=== PATIENT | male | born 1970 | race Caucasian/White ===

== ENCOUNTER → 2017-05-23 | Outpatient (CLI) | payer OTHER ==
--- NOTE | 2017-06-02 23:06 | ECWPNPC ---
PATIENT NAME: REJI PICKARD : 1970 GENDER: MALE VISIT DATE: 05/23/2017 DISCHARGE DATE: 05/23/17 1554 VISIT LOCKED DATE TIME: PHYSICIAN: PEBBLES OWUSU RESOURCE: PEBBLES OWUSU REASON FOR APPOINTMENT 1. BACK PAIN HISTORY OF PRESENT ILLNESS FALL RISK SCREENING: SCREENING :NO FALLS IN THE PAST YEAR 47 Y/O MALE WITH A HISTORY OF LOW BACK PAIN. PATIENT DESCRIBES THE PAIN ACHING WITH A PAIN SCALE OF 4/10. PAIN IS INCREASE WITH ACTIVITIES. PATIENT HAS A HISTORY OF A FRACTURED L4 IN THE LATE S EARLY 1999. PATIENT HAS A HISTORY OF ARTHRITIS. 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 PAIN SCREENING: PATIENT HAS A COMPLAINT OF ACUTE OR CHRONIC PAIN :YES CURRENT MEDICATIONS TAKING GEMFIBROZIL 600 MG TABLET 1 TABLET ORALLY TWICE A DAY TAKING DULOXETINE HCL 40 MG CAPSULE DELAYED RELEASE PARTICLES 1 CAPSULE ORALLY ONCE A DAY TAKING METFORMIN HCL 500 MG TABLET 1 TABLET WITH MEALS ORALLY TWICE A DAY TAKING GLIPIZIDE ER 10 MG TABLET EXTENDED RELEASE 24 HOUR 1 TABLET ORALLY ONCE A DAY TAKING ASPIRIN 81 MG TABLET CHEWABLE 1 TABLET ORALLY ONCE A DAY TAKING VITAMIN D 2000 UNIT TABLET 1 TABLET ORALLY ONCE A DAY TAKING GABAPENTIN 400 MG CAPSULE 1 CAPSULE ORALLY TWICE A DAY TAKING TRAMADOL HCL 50 MG TABLET 1 TABLET NEEDED ORALLY EVERY 6 HRS TAKING AUGMENTIN 875-125 MG TABLET 1 TABLET ORALLY EVERY 12 HRS MEDICATION LIST REVIEWED AND RECONCILED WITH THE PATIENT PAST MEDICAL HISTORY DM STAN TX'D WITH CPAP AT NIGHT CHRONIC LBP L4 FX SHRAPNAL REMOVED ALLERGIES N.K.D.A. SURGICAL HISTORY SHRAPNAL REMOVAL 2004 COLOSTOMY 2004 COLOSTOMY REVERSAL 2005 APPENDECTOMY FAMILY HISTORY FATHER: ALIVE, DIAGNOSED WITH CANCER MOTHER: ALIVE, DIAGNOSED WITH OTHER 2 BROTHER(S) , 2 SISTER(S) - HEALTHY. 1 SON(S) , 1 DAUGHTER(S) - HEALTHY. FATHER-BONE/COLON CAMOTHER-SMOKER COPDBROTHER-BLOOD CLOTSSISTER-LEUKEMIA. SOCIAL HISTORY GENERAL: TOBACCO USE ARE YOU A:NONSMOKER HIV / HEP-C SCREENING HIV TEST OFFERED TO PATIENT:YES DATE OFFERED:08/20/2016 TEST ACCEPTED:NO REASON:PATIENT DECLINED HEP-C TEST OFFERED TO PATIENT:NO CHRISTIANITY [id number] PROTESTANT LANGUAGE LANGUAGES SPOKEN:ARMENIAN LEARNING BARRIERS / SPECIAL NEEDS BARRIERS TO LEARNING?NO HEARING IMPAIRED?YES :HEARING AIDES VISION IMPAIRED?YES :CORRECTIVE LENSES COGNITIVELY IMPAIRED?NO READINESS TO LEARN?YES LEARNING PREFERENCES?NO LEARNING CAPABILITIES PRESENT?YES EMOTIONAL BARRIERS?NO PAIN CLINIC PFS, CLERGY, PUBLIC HEALTH REFERRALS HAS THE PATIENT BEEN EDUCATED REGARDING HIS/HER PLAN OF CARE?YES HAS THE PATIENT BEEN EDUCATED REGARDING PAIN, THE RISK FOR PAIN, THE IMPORTANCE OF EFFECTIVE PAIN MANAGEMENT, AND THE PAIN ASSESSMENT PROCESS?YES ADVANCE DIRECTIVES HEALTH CARE PROXY?YES NAME OF HCP GREG PICKARD, [phone] DO YOU HAVE A DNR?NO LIVING WILL?NO POWER OF BIO MEDICAL TECHNICIAN?NO HOSPITALIZATION/MAJOR DIAGNOSTIC PROCEDURE SURGERY RELATED REVIEW OF SYSTEMS REVIEWED BY: PROVIDER: PEBBLES OWUSU MD . CONSTITUTIONAL: ANY CHANGE IN YOUR MEDICAL CONDITION? NO . CHILLS NO . FEVER NO . INFECTION: DO YOU HAVE NEW INFECTIONS? YES, SINUSITIS TX'D W ABX . DO YOU HAVE HISTORY OF MRSA? NO . MUSCULOSKELETAL: ANY NEW PATTERNS OF PAIN OR NUMBNESS? NO . SYTEMIC LUPUS NO . GASTROENTEROLOGY: ANY NEW CHANGE IN BOWEL CONTROL? NO . BARRETTS ESOPHAGUS NO . CIRRHOSIS NO . HEPATITIS NO . LIVER FAILURE NO . ACID REFLUX NO . UNEXPLAINED WEIGHT LOSS NO . GENITOURINARY: ANY NEW CHANGE IN BLADDER CONTROL? NO . IS THERE A CHANCE YOU COULD BE ? NO . HEMATOLOGY/LYMPH: DO YOU TAKE ANY BLOOD THINNERS? (FOR EXAMPLE- COUMADIN, PLAVIX, AGGRENOX, PLATEL, PRADAXA, OR XARELTO) NO . WHEN WAS YOUR LAST DOSE? DATE: TIME: . LOW PLATELET COUNT NO . SICKLE CELL DISEASE NO . VON WILLIEBRANDS NO . FACTOR V LEIDEN NO . THALLASEMIA NO . ANEMIA NO . EASY BRUISING NO . NEUROLOGY: HAVE YOU FALLEN IN THE PAST 6 MONTHS? YES, PT STATES HE FELL FROM LOSS OF BALANCE, PT DENIES SEEKING MEDICAL TX . ANY NEW EXTREMITY NUMBNESS OR WEAKNESS? NO . HEAD INJURY NO . DEMENTIA NO . CEREBRAL PALSY NO . MULTIPLE SCLEROSIS NO . DIZZINESS NO . HEADACHE NO . STROKES NO . VERTIGO NO . CARDIOLOGY: DO YOU HAVE A PACEMAKER OR DEFIBRILLATOR? NO . ANGINA NO . HEART ATTACK NO . HEART SURGERY NO . CONGESTIVE HEART FAILURE/FLUID OVERLOAD NO . CHEST PAIN NO . HIGH BLOOD PRESSURE NO . IRREGULAR HEART BEAT NO . RESPIRATORY: HAVE YOU BEEN SICK IN THE PAST WEEK? YES, SINUSITIS AND RIGHT EAR INFECTION TX'D WITH AUGMENTIN, PT STATES IMPROVING . FEVER NO . FLU LIKE SYMPTOMS? NO . CPAP NO . BYPAP NO . ASTHMA NO . EMPHYSEMA NO . CHRONIC LUNG DISEASES NO . SHORTNESS OF BREATH ON EXERTION NO . COUGH NO . SNORING NO . INTEGUMENTARY: DO YOU HAVE ANY RASHES OR OPEN SORES? NO . ALLERGIC/IMMUNO: ARE YOU ALLERGIC TO SHELLFISH OR IV DYE? NO . ANY NEW ALLERGIES? NO . PSYCHIATRIC: DO YOU HAVE THOUGHTS OF HURTING YOURSELF OR SOMEONE ELSE? NO . ARE YOU ABUSED, NEGLECTED, OR IN AN UNSAFE ENVIRONMENT? NO . ENDOCRINOLOGY: ARE YOU DIABETIC? YES . THYROID DISORDER NO . OTHER: DO YOU NEED ANY PRESCRIPTIONS? NO . IF YES, PLEASE LIST: ____ . ANY NEW PROBLEMS WITH YOUR MEDICATIONS? NO . WHEN DID YOU LAST EAT? ____ . WHEN DID YOU LAST DRINK? ____ . WHAT DID YOU LAST DRINK? ____ . NAME OF PERSON DRIVING YOU HOME? ____ . DO YOU HAVE ANY OTHER QUESTIONS OR CONCERNS NO . VITAL SIGNS WT 250.0 LBS, HT 68.5 IN, BMI 37.46 INDEX, BP 134/83 MM HG, HR 83 /MIN, RR 18 /MIN, TEMP 97.4 F, OXYGEN SAT % 96%, NA INITIALS TL 1430, REVIEWED BY: EM. EXAMINATION : TENDERNESS IN THE PARASPINAL MUSCLE GROUP AND SACROILIAC AREA. PATIENT IS LIMPING AND HAS AN ANTALGIC GAIT. LEFT LEG IS WEAKER AT EXENTION/FLEXION. PATIENT IS ABLE TO FLEX AT 45 DEGREES AND EXTEND AT 10 DEGREES. FAVRE TEST IS POSITIVE ON THE RIGHT SIDE. , LUNGS CLEAR, TO AUSCULTATION. NO MURMURS OR GALLOPS; FACIAL CRANIAL NERVES ARE GROSSLY NORMAL. GOOD SYMMETRY OF FACIAL MUSCLE MOVEMENT. NORMAL VISUAL FOWLER. ABDOMINAL SOFT AND DEPRESSIBLE. 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 PATIENT WILL CONTINUE WITH THEIR MEDICATION REGIME. WE DISCUSSED A BILATERAL SACROILIAC BLOCK UNDER X-RAY. PATIENT HAD A CT DONE AT THE [facility] IN [place]. PATIENT CAN ONLY HAVE A CT INSTEAD OF AN MRI DUE TO THE SHRAPNEL IN HIS BODY. PATIENT WILL BE BOOKED FOR THE BILATERAL SIJ AFTER WE HAVE REVIEWED THE CT AND HAVE APPROVAL. WE DISCUSSED THE RISKS AND BENEFITS OF THE INJECTION. INSTRUCTIONS WERE GIVEN, QUESTIONS WERE ANSWERED, PATIENT REPORTS UNDERSTANDING AND AGREES WITH THE PLAN. I, JEANNETTE JOHNSON, DOCUMENTED THE ABOVE INFORMATION ACTING A SCRIBE FOR DR. OWUSU. I HAVE REVIEWED THE ABOVE DOCUMENT, WRITTEN BY JEANNETTE JOHNSON SCRIBE AND I VERIFY THAT IT IS ACCURATE. PROCEDURE CODES FA211 ESTABILISHED PATIENT THE [facility] FACILITY CHARGE G8730 PAIN ASSESS POS TOOL F/U PLAN DOC G8427 DOC MEDS VERIFIED W/PT OR RE DISPOSITION & COMMUNICATION FOLLOW UP 6 WEEKS ELECTRONICALLY SIGNED BY PEBBLES OWUSU MD ON 06/02/2017 AT 05:55 PM EST DISCLAIMER : THIS IS A VISIT SUMMARY EXTRACTED FROM THE [facility] CHART. IT IS NOT A COPY OF THE [facility] PROGRESS NOTE. MTDMarkel
== END ==
LOC: M PAIN 14:30
PROVIDERS: ATTEND Anesthesiology
DX: M54.5 Low back pain (principal); M53.3 Sacrococcygeal disorders, not elsewhere classified; E11.9 Type 2 diabetes mellitus without complications; M19.90 Unspecified osteoarthritis, unspecified site; Z79.82 Long term (current) use of aspirin; Z79.891 Long term (current) use of opiate analgesic; Z79.899 Other long term (current) drug therapy; Z79.84 Long term (current) use of oral hypoglycemic drugs

== ENCOUNTER → 2017-06-27 | Outpatient (CLI) | payer OTHER | LOC: M PAIN 14:00 | DX: G89.29 Other chronic pain (principal); M53.3 Sacrococcygeal disorders, not elsewhere classified; M46.96 Unspecified inflammatory spondylopathy, lumbar region; S32.030S Wedge compression fracture of third lumbar vertebra, sequela; E11.9 Type 2 diabetes mellitus without complications; G47.33 Obstructive sleep apnea (adult) (pediatric); Z79.84 Long term (current) use of oral hypoglycemic drugs; Z79.82 Long term (current) use of aspirin; Z79.899 Other long term (current) drug therapy | CPT/HCPCS: G0463 ==

== ENCOUNTER → 2017-07-15 | Outpatient (CLI) | payer OTHER ==
[~2017-07-15] MED LIST: BUPIVACAINE HCL 0.25% 30 ML VIAL As Ordered; ISOVUE-M 300 61% 15ML VIAL (Q9967) As Ordered; LIDOCAINE 1% SDV INJ 30 ML VIAL As Ordered; TRIAMCINOLONE ACETONIDE SUSP 40 MG/ML VIAL (J3301) As Ordered; diazePAM 5 MG TAB As Ordered; oxyCODONE 5MG TAB As Ordered
== END ==
LOC: M PAIN 14:30
DX: G89.29 Other chronic pain (principal); M46.1 Sacroiliitis, not elsewhere classified; M53.88 Other specified dorsopathies, sacral and sacrococcygeal region; E11.9 Type 2 diabetes mellitus without complications; G47.33 Obstructive sleep apnea (adult) (pediatric); Z79.82 Long term (current) use of aspirin; Z79.899 Other long term (current) drug therapy
CPT/HCPCS: J3301

== ENCOUNTER → 2017-08-19 | Outpatient (CLI) | payer OTHER | LOC: M PAIN 09:00 | DX: M53.3 Sacrococcygeal disorders, not elsewhere classified (principal); M46.96 Unspecified inflammatory spondylopathy, lumbar region; S32.030S Wedge compression fracture of third lumbar vertebra, sequela; D11.9 Benign neoplasm of major salivary gland, unspecified; Z79.82 Long term (current) use of aspirin; Z79.84 Long term (current) use of oral hypoglycemic drugs; Z79.891 Long term (current) use of opiate analgesic; Z79.899 Other long term (current) drug therapy; Y92.89 Other specified places as the place of occurrence of the external cause; Y93.89 Activity, other specified; Y99.8 Other external cause status; X58.XXXA Exposure to other specified factors, initial encounter | CPT/HCPCS: G0463 ==

== ENCOUNTER → 2017-10-07 | Outpatient (CLI) | payer OTHER | LOC: M PAIN 14:30 | DX: G89.29 Other chronic pain (principal); M53.3 Sacrococcygeal disorders, not elsewhere classified; M46.96 Unspecified inflammatory spondylopathy, lumbar region; E11.9 Type 2 diabetes mellitus without complications; G47.33 Obstructive sleep apnea (adult) (pediatric); M54.5 Low back pain; Z79.84 Long term (current) use of oral hypoglycemic drugs; Z79.891 Long term (current) use of opiate analgesic; Z79.899 Other long term (current) drug therapy | CPT/HCPCS: G0463 ==

== ENCOUNTER → 2017-10-14 | Outpatient (CLI) | payer OTHER | LOC: M PAIN 11:45 | DX: G89.29 Other chronic pain (principal); M46.1 Sacroiliitis, not elsewhere classified; M53.88 Other specified dorsopathies, sacral and sacrococcygeal region; E11.9 Type 2 diabetes mellitus without complications; G47.33 Obstructive sleep apnea (adult) (pediatric); Z79.84 Long term (current) use of oral hypoglycemic drugs; Z79.82 Long term (current) use of aspirin; Z79.899 Other long term (current) drug therapy | CPT/HCPCS: J3301 ==

== ENCOUNTER → 2017-11-14 | Outpatient (CLI) | payer OTHER | LOC: M PAIN 09:00 | DX: M53.3 Sacrococcygeal disorders, not elsewhere classified (principal); M46.96 Unspecified inflammatory spondylopathy, lumbar region; E11.9 Type 2 diabetes mellitus without complications; G47.33 Obstructive sleep apnea (adult) (pediatric); Z79.84 Long term (current) use of oral hypoglycemic drugs; Z79.82 Long term (current) use of aspirin; Z79.899 Other long term (current) drug therapy | CPT/HCPCS: G0463 ==

== ENCOUNTER → 2018-01-01 | Outpatient (CLI) | payer OTHER | LOC: M PAIN 08:45 | DX: G89.29 Other chronic pain (principal); M47.816 Spondylosis without myelopathy or radiculopathy, lumbar region; M47.817 Spondylosis without myelopathy or radiculopathy, lumbosacral region; E11.9 Type 2 diabetes mellitus without complications; G47.33 Obstructive sleep apnea (adult) (pediatric); Z79.84 Long term (current) use of oral hypoglycemic drugs; Z79.82 Long term (current) use of aspirin; Z79.899 Other long term (current) drug therapy | CPT/HCPCS: J3301 ==

== ENCOUNTER 2018-02-21 12:37 | Emergency (ER) | payer OTHER ==
[2018-02-21 12:59] LABS: BASO # 0.1 10^3/uL (0.0-0.2); BASO % 0.5 % (0.0-1.0); EOS # 0.1 10^3/uL (0.0-0.50); EOS % 0.5 % (0.0-3.0); HEMATOCRIT 42.1 % (42.0-52.0); HEMOGLOBIN 15.2 g/dl (13.5-17.5); IMMATURE GRANULOCYTE % 0.5 % (0-3.0); LYMPH # 1.6 10^3/uL (1.5-4.5); LYMPH % 12.8 % (24.0-44.0); MEAN CORPUSCULAR HEMOGLOBIN 32.9 pg (27.0-33.0); MEAN CORPUSCULAR HGB CONC 36.1 g/dl (32.0-36.5); MEAN CORPUSCULAR VOLUME 91.1 fl (80.0-96.0); MONO # 1.5 10^3/uL (0.0-0.8); MONO % 11.8 % (0.0-5.0); NEUTROPHILS # 9.4 10^3/uL (1.8-7.7); NEUTROPHILS % 73.9 % (36.0-66.0); PLATELET COUNT, AUTOMATED 245 10^3/uL (150-450); RED BLOOD COUNT 4.62 10^6/uL (4.30-6.10); RED CELL DISTRIBUTION WIDTH 11.9 % (11.5-14.5); WHITE BLOOD COUNT 12.7 10^3/uL (4.0-10.0)
[2018-02-21 13:12] LABS: PROTHROMBIN TIME 13.3 SECONDS (12.1-14.4)
[2018-02-21 13:13] LABS: PARTIAL THROMBOPLASTIN TIME 23.4 SECONDS (25.4-37.6)
[2018-02-21 13:28] LABS: ALBUMIN 4.2 GM/DL (3.2-5.2); ALBUMIN/GLOBULIN RATIO 1.45 (1.00-1.93); ALKALINE PHOSPHATASE 62 U/L (45-117); ALT/SGPT 38 U/L (12-78); ANION GAP 9 MEQ/L (8-16); AST/SGOT 18 U/L (7-37); BILIRUBIN,DIRECT 0.2 MG/DL (0.0-0.2); BILIRUBIN,TOTAL 0.7 MG/DL (0.2-1.0); BLOOD UREA NITROGEN 19 MG/DL (7-18); CALCIUM LEVEL 8.9 MG/DL (8.5-10.1); CARBON DIOXIDE LEVEL 24 MEQ/L (21-32); CHLORIDE LEVEL 107 MEQ/L (98-107); CPK CREATINE PHOSPHOKINASE 238 U/L (39-308); CREATININE FOR GFR 1.12 MG/DL (0.70-1.30); FREE T4 1.06 NG/DL (0.76-1.46); GLOMERULAR FILTRATION RATE > 60.0 (>60); GLUCOSE, FASTING 113 MG/DL (70-100); LIPASE 217 U/L (73-393); MB/CK RELATIVE INDEX 0.92 (< OR =4); SODIUM LEVEL 140 MEQ/L (136-145); TOTAL PROTEIN 7.1 GM/DL (6.4-8.2); TROPONIN I 0.04 NG/ML (< 0.10)
[2018-02-21] MEDS: ASPIRIN 81 MG CHEW TABLET PO (13:33)
[2018-02-21] MEDS: NITROGLYCERIN 0.4 MG SUBL TABLET SL (13:33)
[2018-02-21 17:36] LABS: CPK CREATINE PHOSPHOKINASE 304 U/L (39-308); MB/CK RELATIVE INDEX 0.89 (< OR =4); TROPONIN I 0.06 NG/ML (< 0.10)
== END 2018-02-21 18:31 | disposition home or self-care (01) ==
LOC: M ED 12:37
DX: R07.89 Other chest pain (principal); E11.9 Type 2 diabetes mellitus without complications; I10 Essential (primary) hypertension; E78.5 Hyperlipidemia, unspecified; G47.33 Obstructive sleep apnea (adult) (pediatric); E66.9 Obesity, unspecified; M51.9 Unspecified thoracic, thoracolumbar and lumbosacral intervertebral disc disorder; Z82.49 Family history of ischemic heart disease and other diseases of the circulatory system; Z99.89 Dependence on other enabling machines and devices; Z79.899 Other long term (current) drug therapy; Z79.82 Long term (current) use of aspirin; Z79.84 Long term (current) use of oral hypoglycemic drugs
CPT/HCPCS: 71045

== ENCOUNTER → 2018-03-27 | Outpatient (CLI) | payer OTHER | LOC: M CARPUL 10:03 | DX: R07.9 Chest pain, unspecified (principal) | CPT/HCPCS: 93306 ==

== ENCOUNTER → 2018-03-30 | Outpatient (CLI) | payer OTHER | LOC: M PAIN 10:45 | DX: M47.816 Spondylosis without myelopathy or radiculopathy, lumbar region (principal); M46.96 Unspecified inflammatory spondylopathy, lumbar region; E11.9 Type 2 diabetes mellitus without complications; G47.33 Obstructive sleep apnea (adult) (pediatric); Z79.84 Long term (current) use of oral hypoglycemic drugs; Z79.82 Long term (current) use of aspirin; Z79.899 Other long term (current) drug therapy | CPT/HCPCS: G0463 ==

== ENCOUNTER → 2018-04-06 | Outpatient (REF) | payer OTHER | LOC: M SFHCLERA 09:59 | DX: J35.8 Other chronic diseases of tonsils and adenoids (principal) ==

== ENCOUNTER 2018-05-03 10:07 | Emergency (ER) | payer OTHER ==
[2018-05-03 11:02] LABS: KETONE, URINE AUTO RFX NEGATIVE (NEGATIVE); LEUKOCYTE ESTERASE UR AUTO RFX NEGATIVE (NEGATIVE); NITRITE, URINE AUTO RFX NEGATIVE (NEGATIVE); RBC, URINE AUTO RFX 0 /HPF (0-3); SPECIFIC GRAVITY UR AUTO RFX 1.001 (1.002-1.035); SQUAM EPITHELIAL CELL UR AURFX 0 /HPF (0-6); WBC, URINE AUTO RFX 0 /HPF (0-3)
[2018-05-03] MEDS: KETOROLAC 30 MG/ML VIAL (J1885) IV (11:06)
[2018-05-03 11:10] LABS: BASO % 0.6 % (0.0-1.0); EOS # 0.1 10^3/uL (0.0-0.50); EOS % 2.1 % (0.0-3.0); HEMATOCRIT 44.3 % (42.0-52.0); HEMOGLOBIN 15.5 g/dl (13.5-17.5); IMMATURE GRANULOCYTE % 0.4 % (0-3.0); LYMPH # 1.7 10^3/uL (1.5-4.5); LYMPH % 24.6 % (24.0-44.0); MEAN CORPUSCULAR VOLUME 91.5 fl (80.0-96.0); MONO # 0.6 10^3/uL (0.0-0.8); MONO % 8.9 % (0.0-5.0); NEUTROPHILS # 4.3 10^3/uL (1.8-7.7); NEUTROPHILS % 63.4 % (36.0-66.0); PLATELET COUNT, AUTOMATED 233 10^3/uL (150-450); RED BLOOD COUNT 4.84 10^6/uL (4.30-6.10); WHITE BLOOD COUNT 6.8 10^3/uL (4.0-10.0)
[2018-05-03 11:31] LABS: ANION GAP 8 MEQ/L (8-16); BLOOD UREA NITROGEN 11 MG/DL (7-18); CALCIUM LEVEL 8.4 MG/DL (8.5-10.1); CARBON DIOXIDE LEVEL 26 MEQ/L (21-32); CHLORIDE LEVEL 106 MEQ/L (98-107); CREATININE FOR GFR 0.87 MG/DL (0.70-1.30); GLOMERULAR FILTRATION RATE > 60.0 (>60); GLUCOSE, FASTING 151 MG/DL (70-100); POTASSIUM SERUM 4.4 MEQ/L (3.5-5.1); SODIUM LEVEL 140 MEQ/L (136-145)
== END 2018-05-03 12:32 | disposition home or self-care (01) ==
LOC: M ED 10:07
DX: R10.9 Unspecified abdominal pain (principal); E11.9 Type 2 diabetes mellitus without complications; I10 Essential (primary) hypertension; E78.5 Hyperlipidemia, unspecified
CPT/HCPCS: J1885

== ENCOUNTER → 2018-05-20 | Outpatient (CLI) | payer OTHER ==
[~2018-05-20] MED LIST changes: +ASPI1TAB PO; -BUPIVACAINE HCL 0.25% 30 ML VIAL As Ordered; +BUPIVACAINE HCL 0.25% 30 ML VIAL As Ordered ONE; +CYMB1CAP5 PO; +GEMF600T5 PO; -ISOVUE-M 300 61% 15ML VIAL (Q9967) As Ordered; +ISOVUE-M 300 61% 15ML VIAL (Q9967) As Ordered ONE; +KETO10TAB PO; +LIDO4CRE4 TOP; -LIDOCAINE 1% SDV INJ 30 ML VIAL As Ordered; +LIDOCAINE 1% SDV INJ 30 ML VIAL As Ordered ONE; +LISI-542 PO; +METF500T13 PO; +METO1TAB32 PO; +NEUR100C PO; +NITR0.4S14 SL; +TRAM50TA2 PO; -TRIAMCINOLONE ACETONIDE SUSP 40 MG/ML VIAL (J3301) As Ordered; -diazePAM 5 MG TAB As Ordered; -oxyCODONE 5MG TAB As Ordered
--- NOTE | 2018-05-20 15:17 | REP ---
Partial lumbar spine series: Four views . History: Injection procedure for pain. 26 seconds of fluoroscopy time is reported. Findings: A sequence of four fluoroscopically obtained last image hold procedural spot radiographs of the lumbar spine document needle position and contrast injection associated with injection procedure. Electronically Signed by Nikita Gonzalez MD 05/20/2018 03:09 P
--- NOTE | 2018-06-09 23:59 | ECWPNPC ---
PATIENT NAME: REJI PICKARD : 1970 GENDER: MALE VISIT DATE: 05/20/2018 DISCHARGE DATE: 05/20/18 1251 VISIT LOCKED DATE TIME: PHYSICIAN: PEBBLES OWUSU MD RESOURCE: PEBBLES OWUSU MD REASON FOR APPOINTMENT 1. L3/4-L4/5 BILAT DIAGNOSTIC FACET BLOCK HISTORY OF PRESENT ILLNESS DEPRESSION SCREENING: PHQ-2 IN LAST TWO WEEKS HAVE YOU BEEN BOTHERED BY LITTLE INTEREST OR PLEASURE IN DOING THINGSNO FEELING DOWN, DEPRESSED, OR HOPELESSNO HISTORY OF PRESENT ILLNESS: PAIN THE PATIENT DESCRIBES THE PAIN... FALL RISK SCREENING: SCREENING :NO FALLS IN THE PAST YEAR CURRENT MEDICATIONS TAKING LISINOPRIL 10 MG TABLET 1/2 TABLET ORALLY ONCE A DAY, NOTES: 05/20/18 AM TAKING GEMFIBROZIL 600 MG TABLET 1 TABLET ORALLY TWICE A DAY, NOTES: 05/20/18 AM TAKING DULOXETINE HCL 40 MG CAPSULE DELAYED RELEASE PARTICLES 1 CAPSULE ORALLY ONCE A DAY, NOTES: 05/20/18 AM TAKING METFORMIN HCL 500 MG TABLET 1 TABLET WITH MEALS ORALLY TWICE A DAY, NOTES: 05/19/18 TAKING GLIPIZIDE ER 10 MG TABLET EXTENDED RELEASE 24 HOUR 1 TABLET ORALLY ONCE A DAY, NOTES: 05/19/18 TAKING ASPIRIN 81 MG TABLET CHEWABLE 1 TABLET ORALLY ONCE A DAY, NOTES: 05/20/18 AM TAKING VITAMIN D 2000 UNIT TABLET 1 TABLET ORALLY ONCE A DAY, NOTES: 05/20/18 AM TAKING GABAPENTIN 400 MG CAPSULE 2 CAPSULES ORALLY TWICE A DAY, NOTES: 05/20/18 AM TAKING TRAMADOL HCL 50 MG TABLET 1 TABLET NEEDED ORALLY EVERY 6 HRS, NOTES: 2 WEEKS AGO TAKING SUDAFED 30 MG TABLET 1 TABLET NEEDED ORALLY EVERY 6 HRS, NOTES: NONE LATELY TAKING FLONASE 50 MCG/ACT SUSPENSION 1 SPRAY IN EACH NOSTRIL NASALLY TWICE A DAY, NOTES: NONE LATELY TAKING NETI POT SINUS WASH 2300-700 MG KIT DIRECTED NASALLY BID, NOTES: NONE LATELY TAKING MUCINEX DM 30-600 MG TABLET EXTENDED RELEASE 12 HOUR 1 TABLET NEEDED ORALLY EVERY 12 HRS, NOTES: NONE LATELY MEDICATION LIST REVIEWED AND RECONCILED WITH THE PATIENT PAST MEDICAL HISTORY DM STAN TX'D WITH CPAP AT NIGHT CHRONIC LBP L4 FX SHRAPNAL REMOVED ALLERGIES N.K.D.A. SURGICAL HISTORY SHRAPNAL REMOVAL 2004 COLOSTOMY 2004 COLOSTOMY REVERSAL 2005 APPENDECTOMY SOCIAL HISTORY GENERAL: TOBACCO USE ARE YOU A:NONSMOKER ALCOHOL SCREENING DID YOU HAVE A DRINK CONTAINING ALCOHOL IN THE PAST YEAR?YES HOW OFTEN DID YOU HAVE A DRINK CONTAINING ALCOHOL IN THE PAST YEAR?TWO TO FOUR TIMES A MONTH (2 POINTS) HOW MANY DRINKS DID YOU HAVE ON A TYPICAL DAY WHEN YOU WERE DRINKING IN THE PAST YEAR?1 OR 2 (0 POINTS) HOW OFTEN DID YOU HAVE SIX OR MORE DRINKS ON ONE OCCASION IN THE PAST YEAR?NEVER (0 POINTS) POINTS2 INTERPRETATIONNEGATIVE RECREATIONAL DRUG USE DRUG USE?NO CAFFEINE CAFFEINE USE?YES HOW OFTEN AND HOW MUCH? 5 CUPS COFFEE/DAY HIV / HEP-C SCREENING HIV TEST OFFERED TO PATIENT:YES DATE OFFERED:04/06/2018 TEST ACCEPTED:NO REASON:PATIENT DECLINED BROCHURE PROVIDED TO PATIENTNO HEP-C TEST OFFERED TO PATIENT:NO EPISCOPALIAN [id number] LUTHERAN LANGUAGE LANGUAGES SPOKEN:AZERBAIJANI LEARNING BARRIERS / SPECIAL NEEDS BARRIERS TO LEARNING?NO HEARING IMPAIRED?YES :HEARING AIDES VISION IMPAIRED?YES :CORRECTIVE LENSES COGNITIVELY IMPAIRED?NO READINESS TO LEARN?YES LEARNING PREFERENCES?NO LEARNING CAPABILITIES PRESENT?YES EMOTIONAL BARRIERS?NO DOMESTIC VIOLENCE DO YOU FEEL SAFE IN YOUR ENVIRONMENT?YES PAIN CLINIC PFS, CLERGY, PUBLIC HEALTH REFERRALS PFS REFERRAL NEEDED?NO CLERGY REFERRAL NEEDED?NO PUBLIC HEALTH REFERRAL NEEDED?NO WAS THE PROVIDER NOTIFIED OF ANY PERTINENT INFO?NO N/A HAS THE PATIENT BEEN EDUCATED REGARDING HIS/HER PLAN OF CARE?YES HAS THE PATIENT BEEN EDUCATED REGARDING PAIN, THE RISK FOR PAIN, THE IMPORTANCE OF EFFECTIVE PAIN MANAGEMENT, AND THE PAIN ASSESSMENT PROCESS?YES ADVANCE DIRECTIVE ADVANCE DIRECTIVE DISCUSSED WITH PATIENT:YES PT DECLINED INFORMATION ON HCP REVIEWED 11/14/17 0900 BVREVIEWED WITH PT 03/2218 1056 BV. HOSPITALIZATION/MAJOR DIAGNOSTIC PROCEDURE SURGERY RELATED REVIEW OF SYSTEMS REVIEWED BY: PROVIDER: . CONSTITUTIONAL: ANY CHANGE IN YOUR MEDICAL CONDITION? NO . CHILLS NO . FEVER NO . INFECTION: DO YOU HAVE NEW INFECTIONS? NO . DO YOU HAVE HISTORY OF MRSA? NO . MUSCULOSKELETAL: ANY NEW PATTERNS OF PAIN OR NUMBNESS? NO . GASTROENTEROLOGY: ANY NEW CHANGE IN BOWEL CONTROL? NO . GENITOURINARY: ANY NEW CHANGE IN BLADDER CONTROL? NO . IS THERE A CHANCE YOU COULD BE ? NO . HEMATOLOGY/LYMPH: DO YOU TAKE ANY BLOOD THINNERS? (FOR EXAMPLE- COUMADIN, PLAVIX, AGGRENOX, PLATEL, PRADAXA, OR XARELTO) NO . WHEN WAS YOUR LAST DOSE? DATE: TIME: . NEUROLOGY: HAVE YOU FALLEN IN THE PAST 6 MONTHS? NO . ANY NEW EXTREMITY NUMBNESS OR WEAKNESS? NO . CARDIOLOGY: DO YOU HAVE A PACEMAKER OR DEFIBRILLATOR? NO . RESPIRATORY: HAVE YOU BEEN SICK IN THE PAST WEEK? NO . FEVER NO . FLU LIKE SYMPTOMS? NO . COUGH NO . INTEGUMENTARY: DO YOU HAVE ANY RASHES OR OPEN SORES? NO . ALLERGIC/IMMUNO: ARE YOU ALLERGIC TO SHELLFISH OR IV DYE? NO . ANY NEW ALLERGIES? NO . PSYCHIATRIC: DO YOU HAVE THOUGHTS OF HURTING YOURSELF OR SOMEONE ELSE? NO . ARE YOU ABUSED, NEGLECTED, OR IN AN UNSAFE ENVIRONMENT? NO . ENDOCRINOLOGY: ARE YOU DIABETIC? YES . OTHER: DO YOU NEED ANY PRESCRIPTIONS? NO . IF YES, PLEASE LIST: ____ . ANY NEW PROBLEMS WITH YOUR MEDICATIONS? NO . WHEN DID YOU LAST EAT? 05/20/18 0530 . WHEN DID YOU LAST DRINK? 05/20/18 0600 . WHAT DID YOU LAST DRINK? WATER . NAME OF PERSON DRIVING YOU HOME? KATHARINE . DO YOU HAVE ANY OTHER QUESTIONS OR CONCERNS NO . VITAL SIGNS WT 248.6 LBS, HT 68.5 IN, BMI 37.25 INDEX, BP 134/81 MM HG, HR 65 /MIN, RR 18 /MIN, TEMP 96.7 F, OXYGEN SAT % 98%, NA INITIALS SC 10:35, REVIEWED BY: EM. ASSESSMENTS SPONDYLOSIS OF LUMBAR REGION WITHOUT MYELOPATHY OR RADICULOPATHY - M47.816 (PRIMARY) SPONDYLOSIS OF LUMBOSACRAL REGION WITHOUT MYELOPATHY OR RADICULOPATHY - M47.817 PROCEDURES PN LUMBAR FACET BLOCK DIAGNOSTIC PRE PROCEDURE DIAGNOSIS 1. LUMBAR SPONDYLOSIS. 2. LUMBOSACRAL SPONDYLOSIS POST PROCEDURE DIAGNOSIS 1. LUMBAR SPONDYLOSIS. 2. LUMBOSACRAL SPONDYLOSIS PROCEDURE BILATERAL L4-L5 AND BILATERAL L5-S1 FACET DIAGNOSTIC BLOCK NUMBER [address] 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 I EVALUATED THE PATIENT AND REVIEWED THE CHART. I WENT OVER THE RISKS, ALTERNATIVES, AND BENEFITS ASSOCIATED WITH THIS PROCEDURE. THE PATIENT WOULD LIKE TO PROCEED AND GAVE CONSENT TO PERFORM THE PROCEDURE. AGREED WITH THE PATIENT WE ARE DOING THIS PROCEDURE TO DETERMINE IF THE PATIENT IS A CANDIDATE FOR A RADIOFREQUENCY ABLATION OF THE FACETS JOINTS. THE PATIENT DENIES UNEXPLAINABLE WEIGHT LOSS, FEVER, CHILLS, OR NEW CHANGES IN URINARY OR BOWEL CONTROL DESCRIPTION OF PROCEDURE THE PATIENT WAS BROUGHT TO THE PROCEDURE ROOM AND PLACED IN THE PRONE POSITION. THE LUMBOSACRAL AREA WAS CLEANED WITH CHLORAPREP SOLUTION AND DRAPED ASEPTICALLY. THE PROCEDURE WAS DONE UNDER STERILE CONDITIONS. I CHECKED LATERALITY AND THE LEVEL WHERE THE PROCEDURE WAS GOING TO BE PERFORMED WITH THE PATIENT AND THE SUPPORTING STAFF AT THE MOMENT OF THE TIME OUT IN THE PROCEDURE ROOM. UNDER FLUOROSCOPIC GUIDANCE, TARGETS WERE SELECTED AT THE INTERSECTION OF THE RIGHT AND LEFT TRANSVERSE PROCESS OF L4, L5 AND ALA OF S1 WITH ITS RESPECTIVE SUPERIOR ARTICULAR PROCESS. LIDOCAINE WAS USED TO NUMB THE SKIN AND THE SUBCUTANEOUS TISSUE BELOW IT. SPINAL NEEDLE, 22-GAUGE WAS ADVANCED UNDER FLUOROSCOPIC GUIDANCE AND FOLLOWING PATIENT FEEDBACK UNTIL THE TARGETS WERE REACHED. POSITION OF THE NEEDLES WAS VERIFIED WITH AP AND LATERAL VIEWS. AFTER PROPER POSITION OF THE NEEDLES WAS ACHIEVED, ISOVUE-M DYE 30% 0.1 ML WAS INJECTED AT EACH SITE SHOWING ADEQUATE SPREAD OF THE DYE. THEN A SOLUTION OF 0.4 ML OF BUPIVACAINE 0.25%, WAS INJECTED AT EACH SITE. THERE WAS NO EVIDENCE OF BLOOD, PARESTHESIA OR CEREBROSPINAL FLUID DURING THE PROCEDURE. THE PATIENT WAS SENT TO THE RECOVERY ROOM. THE PATIENT WAS MOVING THE EXTREMITIES AND DOING WELL. THERE WAS NO COMPLICATION DURING THE PROCEDURE. FLUOROSCOPY TIME WAS 26 SECONDS POST PROCEDURE NOTE THE PATIENT WILL DOCUMENT HIS PAIN LEVEL AND RESPONSE TO THIS PROCEDURE EVERY 30 MINUTES. THE PATIENT WILL BE SEEN IN A FOLLOW UP IN THE NEXT FEW WEEKS. FURTHER DETERMINATION FOR HIS CASE WILL BE DONE AT THE NEXT VISIT. INSTRUCTIONS WERE GIVEN, QUESTIONS WERE ANSWERED, AND THE PATIENT EXPRESSED UNDERSTANDING AND AGREED WITH THE PLAN. I, EDMUNDO CORRAL, DOCUMENTED THE ABOVE INFORMATION ACTING A SCRIBE FOR DR. OWUSU. I HAVE REVIEWED THE ABOVE DOCUMENT, WRITTEN BY EDMUNDO CORRAL SCRIBE AND I VERIFY THAT IT IS ACCURATE DIAGNOSTIC IMAGING [facility] FACET BLOCK (PAIN)[id number] PROCEDURE CODES 6045F RADXPS IN END [id number] PXD [id number] INJ PARAVERT F JNT L/S 1 LEV, MODIFIERS: 50 01005 INJ PARAVERT F JNT L/S 2 LEV, MODIFIERS: 50 DISPOSITION & COMMUNICATION FOLLOW UP 3 WEEKS ELECTRONICALLY SIGNED BY PEBBLES OWUSU MD, MD ON 06/09/2018 AT 03:51 PM EST DISCLAIMER : THIS IS A VISIT SUMMARY EXTRACTED FROM THE [facility] [employer] CHART. IT IS NOT A COPY OF THE [facility] PROGRESS NOTE. KATIA
== END ==
LOC: M PAIN 10:45
PROVIDERS: ATTEND Anesthesiology
DX: M47.816 Spondylosis without myelopathy or radiculopathy, lumbar region (principal); M47.817 Spondylosis without myelopathy or radiculopathy, lumbosacral region; E11.9 Type 2 diabetes mellitus without complications; G47.33 Obstructive sleep apnea (adult) (pediatric); Z90.49 Acquired absence of other specified parts of digestive tract; Z79.84 Long term (current) use of oral hypoglycemic drugs; Z79.899 Other long term (current) drug therapy; Z79.82 Long term (current) use of aspirin
CPT/HCPCS: 64493; 64494; Q9967

== ENCOUNTER → 2018-06-11 | Outpatient (CLI) | payer OTHER ==
[~2018-06-11] MED LIST changes: -BUPIVACAINE HCL 0.25% 30 ML VIAL As Ordered ONE; -ISOVUE-M 300 61% 15ML VIAL (Q9967) As Ordered ONE; -LIDOCAINE 1% SDV INJ 30 ML VIAL As Ordered ONE
--- NOTE | 2018-07-02 01:06 | ECWPNPC ---
PATIENT NAME: REJI PICKARD : 1970 GENDER: MALE VISIT DATE: 06/11/2018 DISCHARGE DATE: 06/11/18 1223 VISIT LOCKED DATE TIME: PHYSICIAN: MARILEE EVANS RESOURCE: MARILEE EVANS REASON FOR APPOINTMENT 1. POST PROC HISTORY OF PRESENT ILLNESS HISTORY OF PRESENT ILLNESS: HERE FOR POST PROCEDURE F/U.HAD BILATERAL DIAGNOSTIC BLOCK ON 05-20-18.REPORTING >50% IMPROVEMENT IN PAIN FOR SEVERAL HOURS POST PROCEDURE.CHIEF AREA OF PAIN IS LOW BACK R>L.PAIN IS AGGREVATED BY BENDING OR WALKING.RATING PAIN VAS 3-8/10. PAIN THE PATIENT DESCRIBES THE PAIN... FALL RISK SCREENING: SCREENING :NO FALLS IN THE PAST YEAR CURRENT MEDICATIONS TAKING LISINOPRIL 10 MG TABLET 1/2 TABLET ORALLY ONCE A DAY, NOTES: 05/20/18 AM TAKING GEMFIBROZIL 600 MG TABLET 1 TABLET ORALLY TWICE A DAY, NOTES: 05/20/18 AM TAKING DULOXETINE HCL 40 MG CAPSULE DELAYED RELEASE PARTICLES 1 CAPSULE ORALLY ONCE A DAY, NOTES: 05/20/18 AM TAKING METFORMIN HCL 500 MG TABLET 1 TABLET WITH MEALS ORALLY TWICE A DAY, NOTES: 05/19/18 TAKING GLIPIZIDE ER 10 MG TABLET EXTENDED RELEASE 24 HOUR 1 TABLET ORALLY ONCE A DAY, NOTES: 05/19/18 TAKING ASPIRIN 81 MG TABLET CHEWABLE 1 TABLET ORALLY ONCE A DAY, NOTES: 05/20/18 AM TAKING VITAMIN D 2000 UNIT TABLET 1 TABLET ORALLY ONCE A DAY, NOTES: 05/20/18 AM TAKING GABAPENTIN 400 MG CAPSULE 2 CAPSULES ORALLY TWICE A DAY, NOTES: 05/20/18 AM TAKING TRAMADOL HCL 50 MG TABLET 1 TABLET NEEDED ORALLY EVERY 6 HRS, NOTES: 2 WEEKS AGO TAKING SUDAFED 30 MG TABLET 1 TABLET NEEDED ORALLY EVERY 6 HRS, NOTES: NONE LATELY TAKING FLONASE 50 MCG/ACT SUSPENSION 1 SPRAY IN EACH NOSTRIL NASALLY TWICE A DAY, NOTES: NONE LATELY TAKING NETI POT SINUS WASH 2300-700 MG KIT DIRECTED NASALLY BID, NOTES: NONE LATELY TAKING MUCINEX DM 30-600 MG TABLET EXTENDED RELEASE 12 HOUR 1 TABLET NEEDED ORALLY EVERY 12 HRS, NOTES: NONE LATELY TAKING METOPROLOL SUCCINATE ER 50 MG TABLET EXTENDED RELEASE 24 HOUR 1 TABLET ORALLY ONCE A DAY TAKING ATORVASTATIN CALCIUM 20 MG TABLET 1 TABLET ORALLY ONCE A DAY MEDICATION LIST REVIEWED AND RECONCILED WITH THE PATIENT PAST MEDICAL HISTORY DM STAN TX'D WITH CPAP AT NIGHT CHRONIC LBP L4 FX SHRAPNAL REMOVED ALLERGIES N.K.D.A. SURGICAL HISTORY SHRAPNAL REMOVAL 2004 COLOSTOMY 2004 COLOSTOMY REVERSAL 2005 APPENDECTOMY FAMILY HISTORY FATHER: ALIVE, DIAGNOSED WITH CANCER MOTHER: ALIVE, DIAGNOSED WITH OTHER 2 BROTHER(S) , 2 SISTER(S) - HEALTHY. 1 SON(S) , 1 DAUGHTER(S) - HEALTHY. FATHER-BONE/COLON CAMOTHER-SMOKER COPDBROTHER-BLOOD CLOTSSISTER-LEUKEMIA. SOCIAL HISTORY GENERAL: TOBACCO USE ARE YOU A:NONSMOKER ALCOHOL SCREENING DID YOU HAVE A DRINK CONTAINING ALCOHOL IN THE PAST YEAR?YES HOW OFTEN DID YOU HAVE A DRINK CONTAINING ALCOHOL IN THE PAST YEAR?TWO TO FOUR TIMES A MONTH (2 POINTS) HOW MANY DRINKS DID YOU HAVE ON A TYPICAL DAY WHEN YOU WERE DRINKING IN THE PAST YEAR?1 OR 2 (0 POINTS) HOW OFTEN DID YOU HAVE SIX OR MORE DRINKS ON ONE OCCASION IN THE PAST YEAR?NEVER (0 POINTS) POINTS2 INTERPRETATIONNEGATIVE RECREATIONAL DRUG USE DRUG USE?NO CAFFEINE CAFFEINE USE?YES HOW OFTEN AND HOW MUCH? 5 CUPS COFFEE/DAY HIV / HEP-C SCREENING HIV TEST OFFERED TO PATIENT:YES DATE OFFERED:04/06/2018 TEST ACCEPTED:NO REASON:PATIENT DECLINED BROCHURE PROVIDED TO PATIENTNO HEP-C TEST OFFERED TO PATIENT:NO SHINTO [id number] SCIENTOLOGY LANGUAGE LANGUAGES SPOKEN:[place] LEARNING BARRIERS / SPECIAL NEEDS BARRIERS TO LEARNING?NO HEARING IMPAIRED?YES :HEARING AIDES VISION IMPAIRED?YES :CORRECTIVE LENSES COGNITIVELY IMPAIRED?NO READINESS TO LEARN?YES LEARNING PREFERENCES?NO LEARNING CAPABILITIES PRESENT?YES EMOTIONAL BARRIERS?NO DOMESTIC VIOLENCE DO YOU FEEL SAFE IN YOUR ENVIRONMENT?YES PAIN CLINIC PFS, CLERGY, PUBLIC HEALTH REFERRALS PFS REFERRAL NEEDED?NO CLERGY REFERRAL NEEDED?NO PUBLIC HEALTH REFERRAL NEEDED?NO WAS THE PROVIDER NOTIFIED OF ANY PERTINENT INFO?NO N/A HAS THE PATIENT BEEN EDUCATED REGARDING HIS/HER PLAN OF CARE?YES HAS THE PATIENT BEEN EDUCATED REGARDING PAIN, THE RISK FOR PAIN, THE IMPORTANCE OF EFFECTIVE PAIN MANAGEMENT, AND THE PAIN ASSESSMENT PROCESS?YES ADVANCE DIRECTIVE ADVANCE DIRECTIVE DISCUSSED WITH PATIENT:YES PT HAS NO ADVANCED DIRECTIVES, DECLINED INFORMATION OR ASSISTANCE AT THIS TIME REVIEWED 11/14/17 0900 BVREVIEWED WITH PT 03/2218 1056 BVREVIEWED WITH PT 1/3/19 1119 LAS. HOSPITALIZATION/MAJOR DIAGNOSTIC PROCEDURE SURGERY RELATED REVIEW OF SYSTEMS REVIEWED BY: PROVIDER: MARILEE MENDEZ . CONSTITUTIONAL: ANY CHANGE IN YOUR MEDICAL CONDITION? NO . CHILLS NO . FEVER NO . INFECTION: DO YOU HAVE NEW INFECTIONS? NO . DO YOU HAVE HISTORY OF MRSA? NO . MUSCULOSKELETAL: ANY NEW PATTERNS OF PAIN OR NUMBNESS? NO . GASTROENTEROLOGY: ANY NEW CHANGE IN BOWEL CONTROL? NO . GENITOURINARY: ANY NEW CHANGE IN BLADDER CONTROL? NO . IS THERE A CHANCE YOU COULD BE ? NO . HEMATOLOGY/LYMPH: DO YOU TAKE ANY BLOOD THINNERS? (FOR EXAMPLE- COUMADIN, PLAVIX, AGGRENOX, PLATEL, PRADAXA, OR XARELTO) NO . WHEN WAS YOUR LAST DOSE? DATE: TIME: . NEUROLOGY: HAVE YOU FALLEN IN THE PAST 6 MONTHS? NO . ANY NEW EXTREMITY NUMBNESS OR WEAKNESS? NO . CARDIOLOGY: DO YOU HAVE A PACEMAKER OR DEFIBRILLATOR? NO . RESPIRATORY: HAVE YOU BEEN SICK IN THE PAST WEEK? NO . FEVER NO . FLU LIKE SYMPTOMS? NO . COUGH NO . INTEGUMENTARY: DO YOU HAVE ANY RASHES OR OPEN SORES? NO . ALLERGIC/IMMUNO: ARE YOU ALLERGIC TO SHELLFISH OR IV DYE? NO . ANY NEW ALLERGIES? NO . PSYCHIATRIC: DO YOU HAVE THOUGHTS OF HURTING YOURSELF OR SOMEONE ELSE? NO . ARE YOU ABUSED, NEGLECTED, OR IN AN UNSAFE ENVIRONMENT? NO . ENDOCRINOLOGY: ARE YOU DIABETIC? NO . OTHER: DO YOU NEED ANY PRESCRIPTIONS? NO . IF YES, PLEASE LIST: ____ . ANY NEW PROBLEMS WITH YOUR MEDICATIONS? NO . WHEN DID YOU LAST EAT? ____ . WHEN DID YOU LAST DRINK? ____ . WHAT DID YOU LAST DRINK? ____ . NAME OF PERSON DRIVING YOU HOME? ____ . DO YOU HAVE ANY OTHER QUESTIONS OR CONCERNS NO . VITAL SIGNS WT 251.4 LBS, HT 68.5 IN, BMI 37.67 INDEX, BP 130/78 MM HG, HR 79 /MIN, RR 18 /MIN, TEMP 98.0 F, OXYGEN SAT % 96%, SAFE IN ENV? (Y/N) YES, NA INITIALS RI 11:02, REVIEWED BY: IVONNE. EXAMINATION GENERAL EXAMINATION: GENERAL APPEARANCE:ALERT,NO ACUTE DISTRESS . PSYCHAFFECT NORMAL . LUNGS:LUNG FOWLER ARE CLEAR TO AUSCULTATION BILATERALLY. GOOD MOVEMENT OF AIR . HEART:S1, S2 IN A REGULAR RATE AND RHYTHM. NO SIGNIFICANT MURMURS, RUBS OR GALLOPS NOTED . MUSCULOSKELETAL:MUSCLE STRENGTH TESTING 5/5 BILATERAL LOWER EXTREMITIES. LUMBAR SACRAL SPINEINCREASED PAIN WITH FACET LOADING R>L L3/4-L4/5. ASSESSMENTS LUMBAR FACET ARTHROPATHY - M46.96 (PRIMARY) SPONDYLOSIS OF LUMBOSACRAL REGION WITHOUT MYELOPATHY OR RADICULOPATHY - M47.817 TREATMENT LUMBAR FACET ARTHROPATHY NOTES: RIGHT L4/5-L5/S1 DIAGNOSTIC #2. PROCEDURE CODES FA211 ESTABILISHED PATIENT [facility] FACILITY CHARGE DISPOSITION & COMMUNICATION FOLLOW UP POST (REASON: RIGHT L4/5-L5/S1 DIAGNOSTIC #2) ELECTRONICALLY SIGNED BY VANESSA MANCIA ON 07/01/2018 AT 12:01 PM EST DISCLAIMER : THIS IS A VISIT SUMMARY EXTRACTED FROM THE [employer] CHART. IT IS NOT A COPY OF THE [employer] PROGRESS NOTE. KATIA
== END ==
LOC: M PAIN 11:15
PROVIDERS: ATTEND Nurse Practitioner Family
DX: M46.96 Unspecified inflammatory spondylopathy, lumbar region (principal); M47.817 Spondylosis without myelopathy or radiculopathy, lumbosacral region; E11.9 Type 2 diabetes mellitus without complications; G47.33 Obstructive sleep apnea (adult) (pediatric); E66.01 Morbid (severe) obesity due to excess calories; Z68.37 Body mass index [BMI] 37.0-37.9, adult; Z79.84 Long term (current) use of oral hypoglycemic drugs; Z79.82 Long term (current) use of aspirin; Z79.899 Other long term (current) drug therapy

== ENCOUNTER → 2018-06-23 | Outpatient (CLI) | payer OTHER ==
[~2018-06-23] MED LIST changes: +BUPIVACAINE HCL 0.25% 30 ML VIAL As Ordered ONE; +ISOVUE-M 300 61% 15ML VIAL (Q9967) As Ordered ONE; +LIDOCAINE 1% SDV INJ 30 ML VIAL As Ordered ONE
--- NOTE | 2018-06-23 17:27 | REP ---
Partial lumbar spine series: Three views . History: Injection procedure for pain. 24 seconds of fluoroscopy time is reported. Findings: A sequence of three fluoroscopically obtained last image hold procedural spot radiographs of the lumbar spine document needle position and contrast injection associated with injection procedure. Electronically Signed by Niikta Gonzalez MD 06/23/2018 05:18 P
--- NOTE | 2018-07-07 00:58 | ECWPNPC ---
PATIENT NAME: REJI PICKARD : 1970 GENDER: MALE VISIT DATE: 06/23/2018 DISCHARGE DATE: 06/23/18 1512 VISIT LOCKED DATE TIME: PHYSICIAN: PEBBLES OWUSU MD RESOURCE: PEBBLES OWUSU MD REASON FOR APPOINTMENT 1. RIGHT L4/5-L5/S1 DIAGNOSTIC #2 HISTORY OF PRESENT ILLNESS HISTORY OF PRESENT ILLNESS: PAIN THE PATIENT DESCRIBES THE PAIN... FALL RISK SCREENING: SCREENING :NO FALLS IN THE PAST YEAR CURRENT MEDICATIONS TAKING LISINOPRIL 10 MG TABLET 1/2 TABLET ORALLY ONCE A DAY, NOTES: 06/23/18 0600 TAKING GEMFIBROZIL 600 MG TABLET 1 TABLET ORALLY TWICE A DAY, NOTES: 06/23/18 0600 TAKING DULOXETINE HCL 40 MG CAPSULE DELAYED RELEASE PARTICLES 1 CAPSULE ORALLY ONCE A DAY, NOTES: 06/23/18 0600 TAKING METFORMIN HCL 500 MG TABLET 1 TABLET WITH MEALS ORALLY TWICE A DAY, NOTES: 06/22/18 PM TAKING GLIPIZIDE ER 10 MG TABLET EXTENDED RELEASE 24 HOUR 1 TABLET ORALLY ONCE A DAY, NOTES: 06/22/18 TAKING ASPIRIN 81 MG TABLET CHEWABLE 1 TABLET ORALLY ONCE A DAY, NOTES: 06/23/18 0600 TAKING VITAMIN D 2000 UNIT TABLET 1 TABLET ORALLY ONCE A DAY, NOTES: 06/23/18 0600 TAKING GABAPENTIN 400 MG CAPSULE 2 CAPSULES ORALLY TWICE A DAY, NOTES: 06/22/18 PM TAKING TRAMADOL HCL 50 MG TABLET 1 TABLET NEEDED ORALLY EVERY 6 HRS, NOTES: NONE IN 2 WEEKS TAKING METOPROLOL SUCCINATE ER 50 MG TABLET EXTENDED RELEASE 24 HOUR 1 TABLET ORALLY ONCE A DAY, NOTES: 06/23/18 0600 TAKING ATORVASTATIN CALCIUM 20 MG TABLET 1 TABLET ORALLY ONCE A DAY, NOTES: 06/23/18 0600 NOT-TAKING SUDAFED 30 MG TABLET 1 TABLET NEEDED ORALLY EVERY 6 HRS, NOTES: NONE LATELY NOT-TAKING FLONASE 50 MCG/ACT SUSPENSION 1 SPRAY IN EACH NOSTRIL NASALLY TWICE A DAY, NOTES: NONE LATELY NOT-TAKING NETI POT SINUS WASH 2300-700 MG KIT DIRECTED NASALLY BID, NOTES: NONE LATELY NOT-TAKING MUCINEX DM 30-600 MG TABLET EXTENDED RELEASE 12 HOUR 1 TABLET NEEDED ORALLY EVERY 12 HRS, NOTES: NONE LATELY MEDICATION LIST REVIEWED AND RECONCILED WITH THE PATIENT PAST MEDICAL HISTORY DM STAN TX'D WITH CPAP AT NIGHT CHRONIC LBP L4 FX SHRAPNAL REMOVED ALLERGIES N.K.D.A. SURGICAL HISTORY SHRAPNAL REMOVAL 2004 COLOSTOMY 2004 COLOSTOMY REVERSAL 2005 APPENDECTOMY FAMILY HISTORY FATHER: ALIVE, DIAGNOSED WITH CANCER MOTHER: ALIVE, DIAGNOSED WITH OTHER 2 BROTHER(S) , 2 SISTER(S) - HEALTHY. 1 SON(S) , 1 DAUGHTER(S) - HEALTHY. FATHER-BONE/COLON CAMOTHER-SMOKER COPDBROTHER-BLOOD CLOTSSISTER-LEUKEMIA. SOCIAL HISTORY GENERAL: TOBACCO USE ARE YOU A:NONSMOKER ALCOHOL SCREENING DID YOU HAVE A DRINK CONTAINING ALCOHOL IN THE PAST YEAR?YES HOW OFTEN DID YOU HAVE A DRINK CONTAINING ALCOHOL IN THE PAST YEAR?TWO TO FOUR TIMES A MONTH (2 POINTS) HOW MANY DRINKS DID YOU HAVE ON A TYPICAL DAY WHEN YOU WERE DRINKING IN THE PAST YEAR?1 OR 2 (0 POINTS) HOW OFTEN DID YOU HAVE SIX OR MORE DRINKS ON ONE OCCASION IN THE PAST YEAR?NEVER (0 POINTS) POINTS2 INTERPRETATIONNEGATIVE RECREATIONAL DRUG USE DRUG USE?NO CAFFEINE CAFFEINE USE?YES HOW OFTEN AND HOW MUCH? 5 CUPS COFFEE/DAY HIV / HEP-C SCREENING HIV TEST OFFERED TO PATIENT:YES DATE OFFERED:04/06/2018 TEST ACCEPTED:NO REASON:PATIENT DECLINED BROCHURE PROVIDED TO PATIENTNO HEP-C TEST OFFERED TO PATIENT:NO PENTECOSTALISM [id number] QUAKER LANGUAGE LANGUAGES SPOKEN:[place] LEARNING BARRIERS / SPECIAL NEEDS BARRIERS TO LEARNING?NO HEARING IMPAIRED?YES :HEARING AIDES VISION IMPAIRED?YES :CORRECTIVE LENSES COGNITIVELY IMPAIRED?NO READINESS TO LEARN?YES LEARNING PREFERENCES?NO LEARNING CAPABILITIES PRESENT?YES EMOTIONAL BARRIERS?NO DOMESTIC VIOLENCE DO YOU FEEL SAFE IN YOUR ENVIRONMENT?YES PAIN CLINIC PFS, CLERGY, PUBLIC HEALTH REFERRALS PFS REFERRAL NEEDED?NO CLERGY REFERRAL NEEDED?NO PUBLIC HEALTH REFERRAL NEEDED?NO WAS THE PROVIDER NOTIFIED OF ANY PERTINENT INFO?NO N/A HAS THE PATIENT BEEN EDUCATED REGARDING HIS/HER PLAN OF CARE?YES HAS THE PATIENT BEEN EDUCATED REGARDING PAIN, THE RISK FOR PAIN, THE IMPORTANCE OF EFFECTIVE PAIN MANAGEMENT, AND THE PAIN ASSESSMENT PROCESS?YES ADVANCE DIRECTIVE ADVANCE DIRECTIVE DISCUSSED WITH PATIENT:YES PT HAS NO ADVANCED DIRECTIVES, DECLINED INFORMATION OR ASSISTANCE AT THIS TIME 06/23/18 REVIEWED 11/14/17 0900 BVREVIEWED WITH PT 03/2218 1056 BVREVIEWED WITH PT 06/11/18 1119 LASREVIEWED WITH PT 06/23/18 1336 BV. HOSPITALIZATION/MAJOR DIAGNOSTIC PROCEDURE SURGERY RELATED REVIEW OF SYSTEMS REVIEWED BY: PROVIDER: . CONSTITUTIONAL: ANY CHANGE IN YOUR MEDICAL CONDITION? NO . CHILLS NO . FEVER NO . INFECTION: DO YOU HAVE NEW INFECTIONS? NO . DO YOU HAVE HISTORY OF MRSA? NO . MUSCULOSKELETAL: ANY NEW PATTERNS OF PAIN OR NUMBNESS? NO . GASTROENTEROLOGY: ANY NEW CHANGE IN BOWEL CONTROL? NO . GENITOURINARY: ANY NEW CHANGE IN BLADDER CONTROL? NO . IS THERE A CHANCE YOU COULD BE ? NO . HEMATOLOGY/LYMPH: DO YOU TAKE ANY BLOOD THINNERS? (FOR EXAMPLE- COUMADIN, PLAVIX, AGGRENOX, PLATEL, PRADAXA, OR XARELTO) NO . WHEN WAS YOUR LAST DOSE? DATE: TIME: . NEUROLOGY: HAVE YOU FALLEN IN THE PAST 6 MONTHS? NO . ANY NEW EXTREMITY NUMBNESS OR WEAKNESS? NO . CARDIOLOGY: DO YOU HAVE A PACEMAKER OR DEFIBRILLATOR? NO . RESPIRATORY: HAVE YOU BEEN SICK IN THE PAST WEEK? NO . FEVER NO . FLU LIKE SYMPTOMS? NO . COUGH NO . INTEGUMENTARY: DO YOU HAVE ANY RASHES OR OPEN SORES? NO . ALLERGIC/IMMUNO: ARE YOU ALLERGIC TO SHELLFISH OR IV DYE? NO . ANY NEW ALLERGIES? NO . PSYCHIATRIC: DO YOU HAVE THOUGHTS OF HURTING YOURSELF OR SOMEONE ELSE? NO . ARE YOU ABUSED, NEGLECTED, OR IN AN UNSAFE ENVIRONMENT? NO . ENDOCRINOLOGY: ARE YOU DIABETIC? NO . OTHER: DO YOU NEED ANY PRESCRIPTIONS? NO . IF YES, PLEASE LIST: ____ . ANY NEW PROBLEMS WITH YOUR MEDICATIONS? NO . WHEN DID YOU LAST EAT? 06/23/18 0600 . WHEN DID YOU LAST DRINK? 06/23/18 1000 . WHAT DID YOU LAST DRINK? WATER . NAME OF PERSON DRIVING YOU HOME? REJI-SON . DO YOU HAVE ANY OTHER QUESTIONS OR CONCERNS NO . VITAL SIGNS WT 251.4 LBS, HT 68.5 IN, BMI 37.67 INDEX, BP 136/68 MM HG, HR 83 /MIN, RR 18 /MIN, TEMP 97.9 F, OXYGEN SAT % 98, NA INITIALS MP 1321, REVIEWED BY: BV. ASSESSMENTS SPONDYLOSIS OF LUMBAR REGION WITHOUT MYELOPATHY OR RADICULOPATHY - M47.816 (PRIMARY) SPONDYLOSIS OF LUMBOSACRAL REGION WITHOUT MYELOPATHY OR RADICULOPATHY - M47.817 PROCEDURES PN LUMBAR FACET BLOCK DIAGNOSTIC PRE PROCEDURE DIAGNOSIS LUMBAR SPONDYLOSIS, LUMBOSACRAL SPONDYLOSIS POST PROCEDURE DIAGNOSIS LUMBAR SPONDYLOSIS, LUMBOSACRAL SPONDYLOSIS PROCEDURE RIGHT L4-L5 AND RIGHT L5-S1 FACET BLOCK DIAGNOSTIC NUMBER [address] PEBBLES OWUSU DINKEY ENGINE MECHANIC NONE ANESTHESIA LOCAL PRE PROCEDURE NOTE THE PATIENT WITH HISTORY OF CHRONIC LOW BACK PAIN. I EVALUATED THE PATIENT AND REVIEWED THE CHART. I WENT OVER THE RISKS, ALTERNATIVES, AND BENEFITS ASSOCIATED WITH THIS PROCEDURE. THE PATIENT WOULD LIKE TO PROCEED AND GAVE CONSENT TO PERFORM THE PROCEDURE. AGREED WITH THE PATIENT WE ARE DOING THIS PROCEDURE TO DETERMINE IF THE PATIENT IS A CANDIDATE FOR A RADIOFREQUENCY ABLATION OF THE FACETS JOINTS. THE PATIENT DENIES UNEXPLAINABLE WEIGHT LOSS, FEVER, CHILLS, OR NEW CHANGES IN URINARY OR BOWEL CONTROL DESCRIPTION OF PROCEDURE THE PATIENT WAS BROUGHT TO THE PROCEDURE ROOM AND PLACED IN THE PRONE POSITION. THE LUMBOSACRAL AREA WAS CLEANED WITH CHLORAPREP SOLUTION AND DRAPED ASEPTICALLY. THE PROCEDURE WAS DONE UNDER STERILE CONDITIONS. I CHECKED LATERALITY AND THE LEVEL WHERE THE PROCEDURE WAS GOING TO BE PERFORMED WITH THE PATIENT AND THE SUPPORTING STAFF AT THE MOMENT OF THE TIME OUT IN THE PROCEDURE ROOM. UNDER FLUOROSCOPIC GUIDANCE, TARGETS WERE SELECTED AT THE INTERSECTION OF THE RIGHT TRANSVERSE PROCESS OF L4, L5 AND ALA OF S1 WITH ITS RESPECTIVE SUPERIOR ARTICULAR PROCESS. LIDOCAINE WAS USED TO NUMB THE SKIN AND THE SUBCUTANEOUS TISSUE BELOW IT. SPINAL NEEDLE, 22-GAUGE WAS ADVANCED UNDER FLUOROSCOPIC GUIDANCE AND FOLLOWING PATIENT FEEDBACK UNTIL THE TARGETS WERE REACHED. POSITION OF THE NEEDLES WAS VERIFIED WITH AP AND LATERAL VIEWS. AFTER PROPER POSITION OF THE NEEDLES WAS ACHIEVED, ISOVUE-M DYE 30% 0.1 ML WAS INJECTED AT EACH SITE SHOWING ADEQUATE SPREAD OF THE DYE. THEN A SOLUTION OF 0.4 ML OF BUPIVACAINE 0.25% WAS INJECTED AT EACH SITE. THERE WAS NO EVIDENCE OF BLOOD, PARESTHESIA OR CEREBROSPINAL FLUID DURING THE PROCEDURE. THE PATIENT WAS SENT TO THE RECOVERY ROOM. THE PATIENT WAS MOVING THE EXTREMITIES AND DOING WELL. THERE WAS NO COMPLICATION DURING THE PROCEDURE. FLUOROSCOPY TIME WAS 24 SECONDS POST PROCEDURE NOTE THE PATIENT WILL DOCUMENT HIS PAIN LEVEL AND RESPONSE TO THIS PROCEDURE EVERY 30 MINUTES. THE PATIENT WILL BE SEEN IN A FOLLOW UP IN THE NEXT FEW WEEKS. FURTHER DETERMINATION FOR HIS CASE WILL BE DONE AT THE NEXT VISIT. INSTRUCTIONS WERE GIVEN, QUESTIONS WERE ANSWERED, AND THE PATIENT EXPRESSED UNDERSTANDING AND AGREED WITH THE PLAN. I, CHRIS LUGO, DOCUMENTED THE ABOVE INFORMATION ACTING A SCRIBE FOR DR. OWUSU. I HAVE REVIEWED THE ABOVE DOCUMENT, WRITTEN BY CHRIS GANTIBMartha AND I VERIFY THAT IT IS ACCURATE. DIAGNOSTIC IMAGING [facility] FACET BLOCK (PAIN)[id number] PROCEDURE CODES 6045F RADXPS IN END [id number] PXD 01337 INJ PARAVERT F JNT L/S 1 LEV, MODIFIERS: RT [id number] INJ PARAVERT F JNT L/S 2 LEV, MODIFIERS: RT DISPOSITION & COMMUNICATION FOLLOW UP 3 WEEKS ELECTRONICALLY SIGNED BY PEBBLES OWUSU MD, MD ON 07/06/2018 AT 01:26 PM EST DISCLAIMER : THIS IS A VISIT SUMMARY EXTRACTED FROM THE [employer] CHART. IT IS NOT A COPY OF THE [employer] PROGRESS NOTE. H[employer]CTORD
== END ==
LOC: M PAIN 13:45
PROVIDERS: ATTEND Anesthesiology
DX: M47.816 Spondylosis without myelopathy or radiculopathy, lumbar region (principal); M47.817 Spondylosis without myelopathy or radiculopathy, lumbosacral region; E11.9 Type 2 diabetes mellitus without complications; G47.33 Obstructive sleep apnea (adult) (pediatric); Z90.49 Acquired absence of other specified parts of digestive tract; Z79.84 Long term (current) use of oral hypoglycemic drugs; Z79.82 Long term (current) use of aspirin; Z79.899 Other long term (current) drug therapy
CPT/HCPCS: 64493; 64494; Q9967

== ENCOUNTER → 2018-09-11 | Outpatient (CLI) | payer OTHER ==
[~2018-09-11] MED LIST changes: -ASPI1TAB PO; +ASPI81TA26 PO; -BUPIVACAINE HCL 0.25% 30 ML VIAL As Ordered ONE; -ISOVUE-M 300 61% 15ML VIAL (Q9967) As Ordered ONE; -LIDOCAINE 1% SDV INJ 30 ML VIAL As Ordered ONE
--- NOTE | 2018-09-16 01:43 | ECWPNPC ---
PATIENT NAME: REJI PICKARD : 1970 GENDER: MALE VISIT DATE: 09/11/2018 DISCHARGE DATE: 09/11/18 1610 VISIT LOCKED DATE TIME: PHYSICIAN: HANNAH LOPEZ RESOURCE: HANNAH LOPEZ REASON FOR APPOINTMENT 1. POST PROC HISTORY OF PRESENT ILLNESS HISTORY OF PRESENT ILLNESS: PAIN THE PATIENT DESCRIBES THE PAINDURING THE LAST MONTH SEVERITY - PAIN SCORE OF4/10 48 YR OLD MALE HERE FOR F/U ON DIAGNOSTIC RIGHT SIDE L4-5. L5-S1 ON 06/27.PATIENT REPORTS > 50% IMPROVEMENT IN THE PAST IN THE FIRST 10 HOURS FOLLOWING PROCEDURE.HIS PAIN TODAY IS 4/10. HE IS TO DISCUSS NEXT STEPS. FALL RISK SCREENING: SCREENING :NO FALLS REPORTED IN THE LAST YEAR CURRENT MEDICATIONS TAKING LISINOPRIL 10 MG TABLET 1/2 TABLET ORALLY ONCE A DAY, NOTES: 06/23/18 0600 TAKING DULOXETINE HCL 30 MG CAPSULE DELAYED RELEASE PARTICLES 1 CAPSULE ORALLY ONCE A DAY, NOTES: 06/23/18 0600 TAKING METFORMIN HCL 500 MG TABLET 1 TABLET WITH MEALS ORALLY TWICE A DAY, NOTES: 06/22/18 PM TAKING GLIPIZIDE ER 10 MG TABLET EXTENDED RELEASE 24 HOUR 1 TABLET ORALLY BID, NOTES: 06/22/18 TAKING ASPIRIN 81 MG TABLET CHEWABLE 1 TABLET ORALLY ONCE A DAY, NOTES: 06/23/18 0600 TAKING VITAMIN D 2000 UNIT TABLET 1 TABLET ORALLY ONCE A DAY, NOTES: 06/23/18 0600 TAKING GABAPENTIN 300 MG CAPSULE 2 CAPSULES ORALLY TWICE A DAY, NOTES: 06/22/18 PM TAKING TRAMADOL HCL 50 MG TABLET 1 TABLET NEEDED ORALLY EVERY 6 HRS, NOTES: NONE IN 2 WEEKS TAKING METOPROLOL SUCCINATE ER 50 MG TABLET EXTENDED RELEASE 24 HOUR 1 TABLET ORALLY ONCE A DAY, NOTES: 06/23/18 0600 TAKING ATORVASTATIN CALCIUM 20 MG TABLET 1 TABLET ORALLY ONCE A DAY, NOTES: 06/23/18 0600 TAKING BUPROPION HCL 100 MG TABLET 1 TABLET ORALLY TWICE A DAY NOT-TAKING GEMFIBROZIL 600 MG TABLET 1 TABLET ORALLY TWICE A DAY, NOTES: 06/23/18 0600 NOT-TAKING SUDAFED 30 MG TABLET 1 TABLET NEEDED ORALLY EVERY 6 HRS, NOTES: NONE LATELY NOT-TAKING FLONASE 50 MCG/ACT SUSPENSION 1 SPRAY IN EACH NOSTRIL NASALLY TWICE A DAY, NOTES: NONE LATELY NOT-TAKING NETI POT SINUS WASH 2300-700 MG KIT DIRECTED NASALLY BID, NOTES: NONE LATELY NOT-TAKING MUCINEX DM 30-600 MG TABLET EXTENDED RELEASE 12 HOUR 1 TABLET NEEDED ORALLY EVERY 12 HRS, NOTES: NONE LATELY MEDICATION LIST REVIEWED AND RECONCILED WITH THE PATIENT PAST MEDICAL HISTORY DM STAN TX'D WITH CPAP AT NIGHT CHRONIC LBP L4 FX SHRAPNAL REMOVED ALLERGIES N.K.D.A. SURGICAL HISTORY SHRAPNAL REMOVAL 2003 COLOSTOMY 2004 COLOSTOMY REVERSAL 2005 APPENDECTOMY FAMILY HISTORY FATHER: ALIVE, DIAGNOSED WITH CANCER MOTHER: ALIVE, OTHER 2 BROTHER(S) , 2 SISTER(S) - HEALTHY. 1 SON(S) , 1 DAUGHTER(S) - HEALTHY. FATHER-BONE\\/COLON CA\\NMOTHER-SMOKER COPD\\NBROTHER-BLOOD CLOTS\\NSISTER-LEUKEMIA. SOCIAL HISTORY GENERAL: TOBACCO USE ARE YOU A:NONSMOKER LATEX QUESTIONNAIRE LATEX ALLERGY : HAVE YOU EVER DEVELOPED ANY TYPE OF REACTION AFTER HANDLING LATEX PRODUCTS SUCH RUBBER GLOVES, CONDOMS, DIAPHRAGMS, BALLOONS, SOCKS, OR UNDERWEAR?NO LATEX ALLERGY : HAVE YOU EVER DEVELOPED ANY TYPE OF REACTION DURING OR AFTER DENTAL APPOINTMENT, VAGINAL/RECTAL EXAMINATION, SURGICAL PROCEDURE, OR ANY OTHER EXPOSURE?NO LATEX RISK : HAVE YOU EVER HAD ANY DIFFICULTY BREATHING OR HIVES AFTER EATING OR HANDLING ANY FRUITS, OR VEGETABLES; SUCH KIWI, BANANAS, STONE FRUITS, OR CHESTNUTSNO LATEX RISK : DO YOU HAVE A PREVIOUS PERSONAL HISTORY OF MORE THAN NINE SURGERIES, SPINA BIFIDA, OR REPEATED CATHERTIZATIONS? NO LATEX RISK : ARE YOU FREQUENTLY EXPOSED TO LATEX PRODUCTS IN YOUR OCCUPATION?NO DATE ASKED : 09/11/2018 ALCOHOL SCREENING DID YOU HAVE A DRINK CONTAINING ALCOHOL IN THE PAST YEAR?YES HOW OFTEN DID YOU HAVE A DRINK CONTAINING ALCOHOL IN THE PAST YEAR?TWO TO FOUR TIMES A MONTH (2 POINTS) HOW MANY DRINKS DID YOU HAVE ON A TYPICAL DAY WHEN YOU WERE DRINKING IN THE PAST YEAR?1 OR 2 (0 POINTS) HOW OFTEN DID YOU HAVE SIX OR MORE DRINKS ON ONE OCCASION IN THE PAST YEAR?NEVER (0 POINTS) POINTS2 INTERPRETATIONNEGATIVE RECREATIONAL DRUG USE DRUG USE?NO CAFFEINE CAFFEINE USE?YES HOW OFTEN AND HOW MUCH? 5 CUPS COFFEE/DAY HIV / HEP-C SCREENING HIV TEST OFFERED TO PATIENT:YES DATE OFFERED:04/06/2018 TEST ACCEPTED:NO REASON:PATIENT DECLINED BROCHURE PROVIDED TO PATIENTNO HEP-C TEST OFFERED TO PATIENT:NO PROTESTANT [id number] SCIENTOLOGIST LANGUAGE LANGUAGES SPOKEN:MALAY LEARNING BARRIERS / SPECIAL NEEDS BARRIERS TO LEARNING?NO HEARING IMPAIRED?YES :HEARING AIDES VISION IMPAIRED?YES :CORRECTIVE LENSES COGNITIVELY IMPAIRED?NO READINESS TO LEARN?YES LEARNING PREFERENCES?NO LEARNING CAPABILITIES PRESENT?YES EMOTIONAL BARRIERS?NO DOMESTIC VIOLENCE DO YOU FEEL SAFE IN YOUR ENVIRONMENT?YES PAIN CLINIC PFS, CLERGY, PUBLIC HEALTH REFERRALS PFS REFERRAL NEEDED?NO CLERGY REFERRAL NEEDED?NO PUBLIC HEALTH REFERRAL NEEDED?NO WAS THE PROVIDER NOTIFIED OF ANY PERTINENT INFO?NO N/A HAS THE PATIENT BEEN EDUCATED REGARDING HIS/HER PLAN OF CARE?YES HAS THE PATIENT BEEN EDUCATED REGARDING PAIN, THE RISK FOR PAIN, THE IMPORTANCE OF EFFECTIVE PAIN MANAGEMENT, AND THE PAIN ASSESSMENT PROCESS?YES ADVANCE DIRECTIVE ADVANCE DIRECTIVE DISCUSSED WITH PATIENT:YES HCP IS TRUE PICKARD [phone] REVIEWED 11/14/17 0900 BVREVIEWED WITH PT 03/2218 1056 BVREVIEWED WITH PT 06/11/18 1119 LASREVIEWED WITH PT 06/23/18 1336 BVREVIEWED WITH PT 09/11/18 1535 LAS. HOSPITALIZATION/MAJOR DIAGNOSTIC PROCEDURE SURGERY RELATED REVIEW OF SYSTEMS REVIEWED BY: PROVIDER: SUDHAKAR Hilton CONSTITUTIONAL: ANY CHANGE IN YOUR MEDICAL CONDITION? NO . CHILLS NO . FEVER NO . INFECTION: DO YOU HAVE NEW INFECTIONS? NO . DO YOU HAVE HISTORY OF MRSA? NO . MUSCULOSKELETAL: ANY NEW PATTERNS OF PAIN OR NUMBNESS? NO . GASTROENTEROLOGY: ANY NEW CHANGE IN BOWEL CONTROL? NO . GENITOURINARY: ANY NEW CHANGE IN BLADDER CONTROL? NO . IS THERE A CHANCE YOU COULD BE ? NO . HEMATOLOGY/LYMPH: DO YOU TAKE ANY BLOOD THINNERS? (FOR EXAMPLE- COUMADIN, PLAVIX, AGGRENOX, PLATEL, PRADAXA, OR XARELTO) NO . WHEN WAS YOUR LAST DOSE? DATE: TIME: . NEUROLOGY: HAVE YOU FALLEN IN THE PAST 12 MONTHS? PT REPORTS SEVERAL STUMBLES, HAS "BAD BALANCE", NO ED VISITS, NO XRAYS, DENIES INJURIES FROM FALLS. . ANY NEW EXTREMITY NUMBNESS OR WEAKNESS? NO . CARDIOLOGY: DO YOU HAVE A PACEMAKER OR DEFIBRILLATOR? NO . RESPIRATORY: HAVE YOU BEEN SICK IN THE PAST WEEK? NO . FEVER NO . FLU LIKE SYMPTOMS? NO . COUGH NO . INTEGUMENTARY: DO YOU HAVE ANY RASHES OR OPEN SORES? NO . ALLERGIC/IMMUNO: ARE YOU ALLERGIC TO IV DYE? NO . ANY NEW ALLERGIES? NO . PSYCHIATRIC: DO YOU HAVE THOUGHTS OF HURTING YOURSELF OR SOMEONE ELSE? NO . ARE YOU ABUSED, NEGLECTED, OR IN AN UNSAFE ENVIRONMENT? NO . ENDOCRINOLOGY: ARE YOU DIABETIC? YES . OTHER: DO YOU NEED ANY PRESCRIPTIONS? NO . IF YES, PLEASE LIST: ____ . ANY NEW PROBLEMS WITH YOUR MEDICATIONS? NO . WHEN DID YOU LAST EAT? ____ . WHEN DID YOU LAST DRINK? ____ . WHAT DID YOU LAST DRINK? ____ . NAME OF PERSON DRIVING YOU HOME? ____ . DO YOU HAVE ANY OTHER QUESTIONS OR CONCERNS NO . VITAL SIGNS WT 250.8 LBS, HT 68.5 IN, BMI 37.58 INDEX, BP 121/69 MM HG, HR 72 /MIN, RR 16 /MIN, TEMP 97.7 F, OXYGEN SAT % 97%, SAFE IN ENV? (Y/N) YES, NA INITIALS CM 1528, REVIEWED BY: IVONNE. EXAMINATION GENERAL EXAMINATION: GENERAL APPEARANCE:NO ACUTE DISTRESS, WELL NOURISHED AND HYDRATED. PSYCHAPPROPRIATE MOOD AND AFFECT . LUNGS:CLEAR TO AUSCULTATION BILATERALLY, NO WHEEZES, RHONCHI, RALES. HEART:NO MURMURS, REGULAR RATE AND RHYTHM. BACK:NO CVA TENDERNESS, UNREMARKABLE. ASSESSMENTS LUMBAR FACET ARTHROPATHY - M46.96 (PRIMARY) SPONDYLOSIS OF LUMBAR REGION WITHOUT MYELOPATHY OR RADICULOPATHY - M47.816 SPONDYLOSIS OF LUMBOSACRAL REGION WITHOUT MYELOPATHY OR RADICULOPATHY - M47.817 SACROILIAC JOINT PAIN - M53.3 TREATMENT LUMBAR FACET ARTHROPATHY CLINICAL NOTES: RADIO FREQUENCY RIGHT L4-L5, L5-S1. PROCEDURE CODES FA211 ESTABILISHED PATIENT [facility] FACILITY CHARGE DISPOSITION & COMMUNICATION FOLLOW UP POST PROCEDURE (REASON: RADIO FREQUENCY RIGHT L4-L5, L5-S1) ELECTRONICALLY SIGNED BY VANESSA HOOK ON 09/14/2018 AT 08:51 AM EDT DISCLAIMER : THIS IS A VISIT SUMMARY EXTRACTED FROM THE [employer] CHART. IT IS NOT A COPY OF THE [employer] PROGRESS NOTE. KATIA
== END ==
LOC: M PAIN 14:15
PROVIDERS: ATTEND Nurse Practitioner Family
DX: M46.96 Unspecified inflammatory spondylopathy, lumbar region (principal); M47.816 Spondylosis without myelopathy or radiculopathy, lumbar region; M47.817 Spondylosis without myelopathy or radiculopathy, lumbosacral region; M53.3 Sacrococcygeal disorders, not elsewhere classified; Z79.82 Long term (current) use of aspirin; Z79.84 Long term (current) use of oral hypoglycemic drugs; Z79.891 Long term (current) use of opiate analgesic; Z79.899 Other long term (current) drug therapy

== ENCOUNTER → 2018-11-06 | Outpatient (CLI) | payer OTHER ==
--- NOTE | 2018-11-24 01:44 | ECWPNPC ---
PATIENT NAME: REJI PICKARD : 1970 GENDER: MALE VISIT DATE: 11/06/2018 DISCHARGE DATE: 11/06/18 1044 VISIT LOCKED DATE TIME: PHYSICIAN: MARILEE EVANS RESOURCE: MARILEE EVANS REASON FOR APPOINTMENT 1. BACK HISTORY OF PRESENT ILLNESS HISTORY OF PRESENT ILLNESS: HERE FOR F/U OF CHRONIC LBP.DESCRIBES PAIN CONTINUOUS,ACHING AND SHARP.RATING PAIN VAS 4/10.PAIN IS AGGREVATED BY PROLONGED SITTING OR MOWING LAWN.HAS HAD 2 DIAGNOSTIC LUMBAR BLOCKS RECENTLY THAT PRODUCED SIGNIFICANT PAIN CONTROL RESPONSE INDICATING THAT A RADIOFREQUENCY PROCEDURE WOULD BE INDICATED. PAIN THE PATIENT DESCRIBES THE PAIN... FALL RISK SCREENING: SCREENING :NO FALLS REPORTED IN THE LAST YEAR CURRENT MEDICATIONS TAKING LISINOPRIL 10 MG TABLET 1/2 TABLET ORALLY ONCE A DAY TAKING DULOXETINE HCL 30 MG CAPSULE DELAYED RELEASE PARTICLES 1 CAPSULE ORALLY ONCE A DAY TAKING METFORMIN HCL 500 MG TABLET 1 TABLET WITH MEALS ORALLY TWICE A DAY TAKING GLIPIZIDE ER 10 MG TABLET EXTENDED RELEASE 24 HOUR 1 TABLET ORALLY BID TAKING ASPIRIN 81 MG TABLET CHEWABLE 1 TABLET ORALLY ONCE A DAY TAKING VITAMIN D 2000 UNIT TABLET 1 TABLET ORALLY ONCE A DAY TAKING GABAPENTIN 300 MG CAPSULE 2 CAPSULES ORALLY TWICE A DAY TAKING TRAMADOL HCL 50 MG TABLET 1 TABLET NEEDED ORALLY EVERY 6 HRS TAKING ATORVASTATIN CALCIUM 20 MG TABLET 1 TABLET ORALLY ONCE A DAY TAKING BUPROPION HCL 100 MG TABLET 1 TABLET ORALLY TWICE A DAY NOT-TAKING METOPROLOL SUCCINATE ER 50 MG TABLET EXTENDED RELEASE 24 HOUR 1 TABLET ORALLY ONCE A DAY NOT-TAKING GEMFIBROZIL 600 MG TABLET 1 TABLET ORALLY TWICE A DAY, NOTES: 06/23/18 0600 NOT-TAKING SUDAFED 30 MG TABLET 1 TABLET NEEDED ORALLY EVERY 6 HRS, NOTES: NONE LATELY NOT-TAKING FLONASE 50 MCG/ACT SUSPENSION 1 SPRAY IN EACH NOSTRIL NASALLY TWICE A DAY, NOTES: NONE LATELY NOT-TAKING NETI POT SINUS WASH 2300-700 MG KIT DIRECTED NASALLY BID, NOTES: NONE LATELY NOT-TAKING MUCINEX DM 30-600 MG TABLET EXTENDED RELEASE 12 HOUR 1 TABLET NEEDED ORALLY EVERY 12 HRS, NOTES: NONE LATELY MEDICATION LIST REVIEWED AND RECONCILED WITH THE PATIENT PAST MEDICAL HISTORY DM STAN TX'D WITH CPAP AT NIGHT CHRONIC LBP L4 FX SHRAPNAL REMOVED NECK PAIN ALLERGIES N.K.D.A. SURGICAL HISTORY SHRAPNAL REMOVAL 2003 COLOSTOMY 2003 COLOSTOMY REVERSAL 2005 APPENDECTOMY FAMILY HISTORY FATHER: ALIVE, DIAGNOSED WITH CANCER MOTHER: ALIVE, OTHER 2 BROTHER(S) , 2 SISTER(S) - HEALTHY. 1 SON(S) , 1 DAUGHTER(S) - HEALTHY. FATHER-BONE\/COLON CA\NMOTHER-SMOKER COPD\NBROTHER-BLOOD CLOTS\NSISTER-LEUKEMIA. SOCIAL HISTORY GENERAL: TOBACCO USE ARE YOU A:NONSMOKER PAIN CLINIC PFS, CLERGY, PUBLIC HEALTH REFERRALS PFS REFERRAL NEEDED?NO CLERGY REFERRAL NEEDED?NO PUBLIC HEALTH REFERRAL NEEDED?NO WAS THE PROVIDER NOTIFIED OF ANY PERTINENT INFO?NO N/A HAS THE PATIENT BEEN EDUCATED REGARDING HIS/HER PLAN OF CARE?YES HAS THE PATIENT BEEN EDUCATED REGARDING PAIN, THE RISK FOR PAIN, THE IMPORTANCE OF EFFECTIVE PAIN MANAGEMENT, AND THE PAIN ASSESSMENT PROCESS?YES LATEX QUESTIONNAIRE LATEX ALLERGY : HAVE YOU EVER DEVELOPED ANY TYPE OF REACTION AFTER HANDLING LATEX PRODUCTS SUCH RUBBER GLOVES, CONDOMS, DIAPHRAGMS, BALLOONS, SOCKS, OR UNDERWEAR?NO LATEX ALLERGY : HAVE YOU EVER DEVELOPED ANY TYPE OF REACTION DURING OR AFTER DENTAL APPOINTMENT, VAGINAL/RECTAL EXAMINATION, SURGICAL PROCEDURE, OR ANY OTHER EXPOSURE?NO LATEX RISK : HAVE YOU EVER HAD ANY DIFFICULTY BREATHING OR HIVES AFTER EATING OR HANDLING ANY FRUITS, OR VEGETABLES; SUCH KIWI, BANANAS, STONE FRUITS, OR CHESTNUTSNO LATEX RISK : DO YOU HAVE A PREVIOUS PERSONAL HISTORY OF MORE THAN NINE SURGERIES, SPINA BIFIDA, OR REPEATED CATHERTIZATIONS? NO LATEX RISK : ARE YOU FREQUENTLY EXPOSED TO LATEX PRODUCTS IN YOUR OCCUPATION?NO DATE ASKED : 09/11/2018 HIV / HEP-C SCREENING HIV TEST OFFERED TO PATIENT:YES DATE OFFERED:04/06/2018 TEST ACCEPTED:NO REASON:PATIENT DECLINED BROCHURE PROVIDED TO PATIENTNO HEP-C TEST OFFERED TO PATIENT:NO CAFFEINE CAFFEINE USE?YES HOW OFTEN AND HOW MUCH? 5 CUPS COFFEE/DAY ADVANCE DIRECTIVE ADVANCE DIRECTIVE DISCUSSED WITH PATIENT:YES HCP IS TRUE PICKARD [phone] RESTORATIONIST [id number] HINDU LANGUAGE LANGUAGES SPOKEN:URUGUAYAN DOMESTIC VIOLENCE DO YOU FEEL SAFE IN YOUR ENVIRONMENT?YES ALCOHOL SCREENING DID YOU HAVE A DRINK CONTAINING ALCOHOL IN THE PAST YEAR?YES HOW OFTEN DID YOU HAVE A DRINK CONTAINING ALCOHOL IN THE PAST YEAR?TWO TO FOUR TIMES A MONTH (2 POINTS) HOW MANY DRINKS DID YOU HAVE ON A TYPICAL DAY WHEN YOU WERE DRINKING IN THE PAST YEAR?1 OR 2 (0 POINTS) HOW OFTEN DID YOU HAVE SIX OR MORE DRINKS ON ONE OCCASION IN THE PAST YEAR?NEVER (0 POINTS) POINTS2 INTERPRETATIONNEGATIVE RECREATIONAL DRUG USE DRUG USE?NO LEARNING BARRIERS / SPECIAL NEEDS BARRIERS TO LEARNING?NO HEARING IMPAIRED?YES :HEARING AIDES VISION IMPAIRED?YES :CORRECTIVE LENSES COGNITIVELY IMPAIRED?NO READINESS TO LEARN?YES LEARNING PREFERENCES?NO LEARNING CAPABILITIES PRESENT?YES EMOTIONAL BARRIERS?NO REVIEWED 11/14/17 0900 BVREVIEWED WITH PT 03/2218 1056 BVREVIEWED WITH PT 06/11/18 1119 LASREVIEWED WITH PT 06/23/18 1336 BVREVIEWED WITH PT 09/11/18 1535 LASREVIEWED WITH PATIENT 11/06/18 1009 JS. HOSPITALIZATION/MAJOR DIAGNOSTIC PROCEDURE SURGERY RELATED REVIEW OF SYSTEMS REVIEWED BY: PROVIDER: MARILEE MENDEZ . CONSTITUTIONAL: ANY CHANGE IN YOUR MEDICAL CONDITION? NO . CHILLS NO . FEVER NO . INFECTION: DO YOU HAVE NEW INFECTIONS? NO . DO YOU HAVE HISTORY OF MRSA? NO . MUSCULOSKELETAL: ANY NEW PATTERNS OF PAIN OR NUMBNESS? YES, STATES NECK PAIN THAT STARTED ABOUT 2-3 MONTHS AGO, X-RAYS TAKEN AT [facility] SHOWED ARTHRITIS IN NECK AND SHOULDER . GASTROENTEROLOGY: ANY NEW CHANGE IN BOWEL CONTROL? NO . GENITOURINARY: ANY NEW CHANGE IN BLADDER CONTROL? NO . IS THERE A CHANCE YOU COULD BE ? NO . HEMATOLOGY/LYMPH: DO YOU TAKE ANY BLOOD THINNERS? (FOR EXAMPLE- COUMADIN, PLAVIX, AGGRENOX, PLATEL, PRADAXA, OR XARELTO) NO . WHEN WAS YOUR LAST DOSE? DATE: TIME: . NEUROLOGY: HAVE YOU FALLEN IN THE PAST 12 MONTHS? YES, STATES PRIOR TO LAST VISIT, DISCUSSED AT LAST VISIT . ANY NEW EXTREMITY NUMBNESS OR WEAKNESS? YES, STATES NEW NUMBNESS TO THE OUTSIDE OF THE RIGHT LEG AND CONTINUED NUMBNESS TO THE OUTSIDE OF THE LEFT LEG . CARDIOLOGY: DO YOU HAVE A PACEMAKER OR DEFIBRILLATOR? NO . RESPIRATORY: HAVE YOU BEEN SICK IN THE PAST WEEK? NO . FEVER NO . FLU LIKE SYMPTOMS? NO . COUGH NO . INTEGUMENTARY: DO YOU HAVE ANY RASHES OR OPEN SORES? NO . ALLERGIC/IMMUNO: ARE YOU ALLERGIC TO IV DYE? NO . ANY NEW ALLERGIES? NO . PSYCHIATRIC: DO YOU HAVE THOUGHTS OF HURTING YOURSELF OR SOMEONE ELSE? NO . ARE YOU ABUSED, NEGLECTED, OR IN AN UNSAFE ENVIRONMENT? NO . ENDOCRINOLOGY: ARE YOU DIABETIC? YES . OTHER: DO YOU NEED ANY PRESCRIPTIONS? YES, PRESCRIBED BY [facility] . IF YES, PLEASE LIST: ____ . ANY NEW PROBLEMS WITH YOUR MEDICATIONS? NO . WHEN DID YOU LAST EAT? ____ . WHEN DID YOU LAST DRINK? ____ . WHAT DID YOU LAST DRINK? ____ . NAME OF PERSON DRIVING YOU HOME? ____ . DO YOU HAVE ANY OTHER QUESTIONS OR CONCERNS YES, STATES HIS NECK PAIN IS BECOMING A BIG ISSUE RECENTLY . VITAL SIGNS WT 247.8 LBS, HT 68.5 IN, BMI 37.13 INDEX, BP 125/76 MM HG, HR 75 /MIN, RR 18 /MIN, TEMP 97.6 F, OXYGEN SAT % 99%, SAFE IN ENV? (Y/N) YES, NA INITIALS SC 10:05, REVIEWED BY: ONIEL. EXAMINATION GENERAL EXAMINATION: GENERAL APPEARANCE: AWAKE,ALERT ,PLEAASANT . PSYCH AFFECT NORMAL . LUNGS: LUNG FOWLER ARE CLEAR TO AUSCULTATION BILATERALLY. GOOD MOVEMENT OF AIR . HEART: S1, S2 IN A REGULAR RATE AND RHYTHM. NO SIGNIFICANT MURMURS, RUBS OR GALLOPS NOTED . LUMBAR SACRAL SPINEPALPATION:TENDER OVER BILAT. L4/5-L5/S1 LUMBAR FACETS WITH FACET LOADING.. DIAGNOSTIC TESTS REVIEWED CT L/S SPINE-06/2016. ASSESSMENTS SPONDYLOSIS OF LUMBAR REGION WITHOUT MYELOPATHY OR RADICULOPATHY - M47.816 (PRIMARY) TREATMENT SPONDYLOSIS OF LUMBAR REGION WITHOUT MYELOPATHY OR RADICULOPATHY NOTES: RIGHT L4/5-L5/S1 RADIOFREQUENCY. PREVENTIVE MEDICINE PAIN CLINIC TEACHING: PROCEDURE TEACHING REVIEWED INFORMATION ON RADIOFREQUENCY PROCEDURE WITH PATIENT. ALSO REVIEWED PRE-PROCEDURE INSTRUCTIONS. PATIENT VERBALIZED AN UNDERSTANDING. EMILY PASCUAL 11/06/2018 10:59:52 AM > . PROCEDURE CODES FA211 ESTABILISHED PATIENT [facility] FACILITY CHARGE DISPOSITION & COMMUNICATION FOLLOW UP POST (REASON: RIGHT L4/5-L5/S1 RADIOFREQUENCY) ELECTRONICALLY SIGNED BY VANESSA MANCIA ON 11/23/2018 AT 02:28 PM EDT DISCLAIMER : THIS IS A VISIT SUMMARY EXTRACTED FROM THE [employer] CHART. IT IS NOT A COPY OF THE [employer] PROGRESS NOTE. KATIA
== END ==
LOC: M PAIN 09:30
PROVIDERS: ATTEND Nurse Practitioner Family
DX: M47.816 Spondylosis without myelopathy or radiculopathy, lumbar region (principal); G89.29 Other chronic pain; E11.9 Type 2 diabetes mellitus without complications; G47.33 Obstructive sleep apnea (adult) (pediatric); Z79.84 Long term (current) use of oral hypoglycemic drugs; Z79.82 Long term (current) use of aspirin; Z79.899 Other long term (current) drug therapy

== ENCOUNTER → 2019-01-06 | Outpatient (CLI) | payer OTHER ==
[~2019-01-06] MED LIST changes: +BUPIVACAINE HCL 0.25% 30 ML VIAL As Ordered ONE; +LIDOCAINE 1% SDV INJ 30 ML VIAL As Ordered ONE; +TRIAMCINOLONE ACETONIDE SUSP 40 MG/ML VIAL (J3301) As Ordered ONE
--- NOTE | 2019-01-06 17:30 | REP ---
Partial lumbar spine series: Two views . History: Injection procedure for pain. 58 seconds of fluoroscopy time is reported. Findings: A sequence of two fluoroscopically obtained last image hold procedural spot radiographs of the lumbar spine document needle position and contrast injection associated with injection procedure. Electronically Signed by Nikita Gonzalez MD 01/06/2019 05:22 P
--- NOTE | 2019-01-21 00:51 | ECWPNPC ---
PATIENT NAME: REJI PICKARD : 1970 GENDER: MALE VISIT DATE: 01/06/2019 DISCHARGE DATE: 01/06/19 1515 VISIT LOCKED DATE TIME: PHYSICIAN: PEBBLES OWUSU MD RESOURCE: PEBBLES OWUSU MD REASON FOR APPOINTMENT 1. RIGHT L4/5-L5/S1 RADIOFREQUENCY HISTORY OF PRESENT ILLNESS HISTORY OF PRESENT ILLNESS: PAIN THE PATIENT DESCRIBES THE PAIN... FALL RISK SCREENING: SCREENING :NO FALLS REPORTED IN THE LAST YEAR CURRENT MEDICATIONS TAKING LISINOPRIL 10 MG TABLET 1/2 TABLET ORALLY ONCE A DAY, NOTES: 01/06 530 TAKING DULOXETINE HCL 30 MG CAPSULE DELAYED RELEASE PARTICLES 1 CAPSULE ORALLY ONCE A DAY, NOTES: 01/06 530 TAKING METFORMIN HCL 500 MG TABLET 1 TABLET WITH MEALS ORALLY TWICE A DAY, NOTES: 01/06 1200 TAKING GLIPIZIDE ER 10 MG TABLET EXTENDED RELEASE 24 HOUR 1 TABLET ORALLY BID, NOTES: 01/06 1200 TAKING ASPIRIN 81 MG TABLET CHEWABLE 1 TABLET ORALLY ONCE A DAY, NOTES: 01/06 1200 TAKING VITAMIN D 2000 UNIT TABLET 1 TABLET ORALLY ONCE A DAY, NOTES: 01/06 530 TAKING GABAPENTIN 300 MG CAPSULE 2 CAPSULES ORALLY TWICE A DAY, NOTES: 01/06 530 TAKING TRAMADOL HCL 50 MG TABLET 1 TABLET NEEDED ORALLY EVERY 6 HRS, NOTES: 01/05 2230 TAKING ATORVASTATIN CALCIUM 20 MG TABLET 1 TABLET ORALLY ONCE A DAY, NOTES: 01/06 530 TAKING BUPROPION HCL 100 MG TABLET 1 TABLET ORALLY TWICE A DAY, NOTES: 01/06 530 NOT-TAKING METOPROLOL SUCCINATE ER 50 MG TABLET EXTENDED RELEASE 24 HOUR 1 TABLET ORALLY ONCE A DAY NOT-TAKING GEMFIBROZIL 600 MG TABLET 1 TABLET ORALLY TWICE A DAY, NOTES: 06/23/18 0600 NOT-TAKING SUDAFED 30 MG TABLET 1 TABLET NEEDED ORALLY EVERY 6 HRS, NOTES: NONE LATELY NOT-TAKING FLONASE 50 MCG/ACT SUSPENSION 1 SPRAY IN EACH NOSTRIL NASALLY TWICE A DAY, NOTES: NONE LATELY NOT-TAKING NETI POT SINUS WASH 2300-700 MG KIT DIRECTED NASALLY BID, NOTES: NONE LATELY NOT-TAKING MUCINEX DM 30-600 MG TABLET EXTENDED RELEASE 12 HOUR 1 TABLET NEEDED ORALLY EVERY 12 HRS, NOTES: NONE LATELY MEDICATION LIST REVIEWED AND RECONCILED WITH THE PATIENT PAST MEDICAL HISTORY DM STAN TX'D WITH CPAP AT NIGHT CHRONIC LBP L4 FX SHRAPNAL REMOVED NECK PAIN ALLERGIES N.K.D.A. SURGICAL HISTORY SHRAPNAL REMOVAL 2003 COLOSTOMY 2004 COLOSTOMY REVERSAL 2005 APPENDECTOMY FAMILY HISTORY FATHER: ALIVE, DIAGNOSED WITH CANCER MOTHER: ALIVE, OTHER 2 BROTHER(S) , 2 SISTER(S) - HEALTHY. 1 SON(S) , 1 DAUGHTER(S) - HEALTHY. FATHER-BONE\/COLON [place]\NMOTHER-SMOKER COPD\NBROTHER-BLOOD CLOTS\NSISTER-LEUKEMIA. SOCIAL HISTORY GENERAL: TOBACCO USE ARE YOU A:NONSMOKER PAIN CLINIC PFS, CLERGY, PUBLIC HEALTH REFERRALS PFS REFERRAL NEEDED?NO CLERGY REFERRAL NEEDED?NO PUBLIC HEALTH REFERRAL NEEDED?NO WAS THE PROVIDER NOTIFIED OF ANY PERTINENT INFO? N/A HAS THE PATIENT BEEN EDUCATED REGARDING HIS/HER PLAN OF CARE?YES HAS THE PATIENT BEEN EDUCATED REGARDING PAIN, THE RISK FOR PAIN, THE IMPORTANCE OF EFFECTIVE PAIN MANAGEMENT, AND THE PAIN ASSESSMENT PROCESS?YES LATEX QUESTIONNAIRE LATEX ALLERGY : HAVE YOU EVER DEVELOPED ANY TYPE OF REACTION AFTER HANDLING LATEX PRODUCTS SUCH RUBBER GLOVES, CONDOMS, DIAPHRAGMS, BALLOONS, SOCKS, OR UNDERWEAR?NO LATEX ALLERGY : HAVE YOU EVER DEVELOPED ANY TYPE OF REACTION DURING OR AFTER DENTAL APPOINTMENT, VAGINAL/RECTAL EXAMINATION, SURGICAL PROCEDURE, OR ANY OTHER EXPOSURE?NO LATEX RISK : HAVE YOU EVER HAD ANY DIFFICULTY BREATHING OR HIVES AFTER EATING OR HANDLING ANY FRUITS, OR VEGETABLES; SUCH KIWI, BANANAS, STONE FRUITS, OR CHESTNUTSNO LATEX RISK : DO YOU HAVE A PREVIOUS PERSONAL HISTORY OF MORE THAN NINE SURGERIES, SPINA BIFIDA, OR REPEATED CATHERIZATIONS? NO LATEX RISK : ARE YOU FREQUENTLY EXPOSED TO LATEX PRODUCTS IN YOUR OCCUPATION?NO DATE ASKED : 01/06/2019 HIV / HEP-C SCREENING HIV TEST OFFERED TO PATIENT:YES DATE OFFERED:04/06/2018 TEST ACCEPTED:NO REASON:PATIENT DECLINED BROCHURE PROVIDED TO PATIENTNO HEP-C TEST OFFERED TO PATIENT:NO CAFFEINE CAFFEINE USE?YES HOW OFTEN AND HOW MUCH? 5 CUPS COFFEE/DAY ADVANCE DIRECTIVE ADVANCE DIRECTIVE DISCUSSED WITH PATIENT:YES HCP IS TRUE PICKARD [phone] [id number] JUDAISM LANGUAGE LANGUAGES SPOKEN:VIETNAMESE DOMESTIC VIOLENCE DO YOU FEEL SAFE IN YOUR ENVIRONMENT?YES ALCOHOL SCREENING DID YOU HAVE A DRINK CONTAINING ALCOHOL IN THE PAST YEAR?YES HOW OFTEN DID YOU HAVE A DRINK CONTAINING ALCOHOL IN THE PAST YEAR?TWO TO FOUR TIMES A MONTH (2 POINTS) HOW MANY DRINKS DID YOU HAVE ON A TYPICAL DAY WHEN YOU WERE DRINKING IN THE PAST YEAR?1 OR 2 (0 POINTS) HOW OFTEN DID YOU HAVE SIX OR MORE DRINKS ON ONE OCCASION IN THE PAST YEAR?NEVER (0 POINTS) POINTS2 INTERPRETATIONNEGATIVE RECREATIONAL DRUG USE DRUG USE?NO LEARNING BARRIERS / SPECIAL NEEDS BARRIERS TO LEARNING?NO HEARING IMPAIRED?YES :HEARING AIDES VISION IMPAIRED?YES :CORRECTIVE LENSES COGNITIVELY IMPAIRED?NO READINESS TO LEARN?YES LEARNING PREFERENCES?NO LEARNING CAPABILITIES PRESENT?YES EMOTIONAL BARRIERS?NO SPECIAL DEVICES?NO DIRECTOR SYSTEMS NEEDED?NO REVIEWED 11/14/17 0900 BVREVIEWED WITH PT 03/2218 1056 BVREVIEWED WITH PT 06/11/18 1119 LASREVIEWED WITH PT 06/23/18 1336 BVREVIEWED WITH PT 09/11/18 1535 LAS01/06/19 REVIEWED WITH PT. ADREVIEWED WITH PATIENT 11/06/18 1009 JS. HOSPITALIZATION/MAJOR DIAGNOSTIC PROCEDURE SURGERY RELATED REVIEW OF SYSTEMS REVIEWED BY: PROVIDER: . CONSTITUTIONAL: ANY CHANGE IN YOUR MEDICAL CONDITION? NO . CHILLS NO . FEVER NO . INFECTION: DO YOU HAVE NEW INFECTIONS? NO . DO YOU HAVE HISTORY OF MRSA? NO . MUSCULOSKELETAL: ANY NEW PATTERNS OF PAIN OR NUMBNESS? NO . GASTROENTEROLOGY: ANY NEW CHANGE IN BOWEL CONTROL? NO . GENITOURINARY: ANY NEW CHANGE IN BLADDER CONTROL? NO . IS THERE A CHANCE YOU COULD BE ? NO . HEMATOLOGY/LYMPH: DO YOU TAKE ANY BLOOD THINNERS? (FOR EXAMPLE- COUMADIN, PLAVIX, AGGRENOX, PLATEL, PRADAXA, OR XARELTO) NO . WHEN WAS YOUR LAST DOSE? DATE: TIME: . NEUROLOGY: HAVE YOU FALLEN IN THE PAST 12 MONTHS? YES, EVERY ONCE IN A WHILE HE LOSES HIS BALANCE . ANY NEW EXTREMITY NUMBNESS OR WEAKNESS? NO . CARDIOLOGY: DO YOU HAVE A PACEMAKER OR DEFIBRILLATOR? NO . RESPIRATORY: HAVE YOU BEEN SICK IN THE PAST WEEK? NO . FEVER NO . FLU LIKE SYMPTOMS? NO . COUGH NO . INTEGUMENTARY: DO YOU HAVE ANY RASHES OR OPEN SORES? NO . ALLERGIC/IMMUNO: ARE YOU ALLERGIC TO IV DYE? NO . ANY NEW ALLERGIES? NO . PSYCHIATRIC: DO YOU HAVE THOUGHTS OF HURTING YOURSELF OR SOMEONE ELSE? NO . ARE YOU ABUSED, NEGLECTED, OR IN AN UNSAFE ENVIRONMENT? NO . ENDOCRINOLOGY: ARE YOU DIABETIC? YES, FSBS 101 @ 0600 . OTHER: DO YOU NEED ANY PRESCRIPTIONS? NO . IF YES, PLEASE LIST: ____ . ANY NEW PROBLEMS WITH YOUR MEDICATIONS? NO . WHEN DID YOU LAST EAT? 01/06 500 . WHEN DID YOU LAST DRINK? 01/06 500 . WHAT DID YOU LAST DRINK? WATER . NAME OF PERSON DRIVING YOU HOME? TRUE- . DO YOU HAVE ANY OTHER QUESTIONS OR CONCERNS NO PT HAS NOT HAD ANY VACCINES IN THE PAST 30 DAYS . VITAL SIGNS WT 243.8 LBS, HT 68.5 IN, BMI 36.53 INDEX, BP 123/73 MM HG, HR 70 /MIN, RR 18 /MIN, TEMP 97.8 F, OXYGEN SAT % 96%, SAFE IN ENV? (Y/N) Y, NA INITIALS AW 1250, REVIEWED BY: AD. ASSESSMENTS SPONDYLOSIS OF LUMBAR REGION WITHOUT MYELOPATHY OR RADICULOPATHY - M47.816 (PRIMARY) SPONDYLOSIS OF LUMBOSACRAL REGION WITHOUT MYELOPATHY OR RADICULOPATHY - M47.817 TREATMENT SPONDYLOSIS OF LUMBAR REGION WITHOUT MYELOPATHY OR RADICULOPATHY SMC FACET BLOCK (PAIN)[id number] PROCEDURES PN RADIOFREQUENCY PRE PROCEDURE DIAGNOSES 1. LUMBAR SPONDYLOSIS. 2. LUMBOSACRAL SPONDYLOSIS POST PROCEDURE DIAGNOSES 1. LUMBAR SPONDYLOSIS. 2. LUMBOSACRAL SPONDYLOSIS PROCEDURE RIGHT L4-L5 AND RIGHT L5-S1 LUMBAR FACET RADIOFREQUENCY SURGEON DR. PEBBLES OWUSU PAYROLL DIRECTOR NONE ANESTHESIA LOCAL PRE PROCEDURE REPORT THE PATIENT HAS HISTORY OF CHRONIC LOW BACK PAIN. I EVALUATE THE PATIENT AND REVIEWED THE CHART. I WENT OVER THE RISKS, ALTERNATIVES, AND BENEFITS ASSOCIATED WITH THIS PROCEDURE. THE PATIENT WOULD LIKE TO PROCEED AND GIVE CONSENT TO PERFORMED THE PROCEDURE. THE PATIENT DENIES UNEXPLAINABLE WEIGHT LOSS, FEVER, CHILLS, OR NEW CHANGES IN URINARY OR BOWEL CONTROL DESCRIPTION OF PROCEDURE THE PATIENT WAS BROUGHT TO THE PROCEDURE ROOM AND PLACED IN THE PRONE POSITION. THE LUMBOSACRAL AREA WAS CLEANED WITH CHLORAPREP SOLUTION AND DRAPED ASEPTICALLY. THE PROCEDURE WAS DONE UNDER STERILE CONDITIONS. I CHECKED LATERALITY AND THE LEVEL WHERE THE PROCEDURE WAS GOING TO BE PERFORMED WITH THE PATIENT AND THE SUPPORTING STAFF AT THE MOMENT OF THE TIME OUT IN THE PROCEDURE ROOM. UNDER FLUOROSCOPIC GUIDANCE, TARGETS WERE SELECTED AT THE INTERSECTION OF THE RIGHT TRANSVERSE PROCESS OF L4, L5 AND ALA OF S1 WITH ITS RESPECTIVE SUPERIOR ARTICULAR PROCESS. LIDOCAINE WAS USED TO NUMB THE SKIN AND THE SUBCUTANEOUS TISSUE BELOW IT. RADIOFREQUENCY NEEDLES 22-GAUGE 15 CM LONG WITH 10 MM ACTIVE CURVE TIP WERE ADVANCED UNDER FLUOROSCOPIC GUIDANCE AND FOLLOWING PATIENT FEEDBACK UNTIL THE TARGET AREA WAS REACHED. POSITION OF THE NEEDLES WAS VERIFIED WITH AP AND LATERAL VIEWS. AFTER PROPER POSITION OF THE NEEDLE WAS ACHIEVED, WE WORKED WITH THE RIGHT SELECTED MEDIAN BRANCHES OF L3, L4 AND THE DORSAL RAMI OF L5. WE MEASURED THE CORRESPONDING IMPEDANCES, SENSORY STIMULATION AND MOTOR RESPONSES INDICATED IN THE RADIOFREQUENCY WORKSHEET. POSITION OF THE NEEDLES WAS VERIFIED AGAIN WITH AP AND LATERAL VIEWS. LIDOCAINE 1%, 2 ML, WAS INJECTED AT EACH LEVEL. RADIOFREQUENCY WAS DONE AT EACH LEVEL AT 80 DEGREES FOR 90 SECONDS. AFTER RADIOFREQUENCY WAS DONE, THE PATIENT RECEIVED BUPIVACAINE 0.125% 1 CC WITH KENALOG 5 MG AT EACH SITE. THERE WAS NO EVIDENCE OF BLOOD, PARESTHESIA OR CEREBROSPINAL FLUID DURING THE PROCEDURE. THE PATIENT WAS SENT TO THE RECOVERY ROOM. THE PATIENT WAS MOVING THE EXTREMITIES AND DOING WELL. THERE WAS NO COMPLICATION DURING THE PROCEDURE. FLUOROSCOPY TIME WAS 58 SECONDS POST PROCEDURE NOTE THE PATIENT WILL BE SEEN IN A FOLLOW UP IN THE NEXT FEW WEEKS. INSTRUCTIONS WERE GIVEN, QUESTIONS WERE ANSWERED, AND THE PATIENT EXPRESSED UNDERSTANDING AND AGREES WITH THE PLAN. I, CHRIS LUGO, DOCUMENTED THE ABOVE INFORMATION ACTING A SCRIBE FOR DR. OWUSU. I HAVE REVIEWED THE ABOVE DOCUMENT, WRITTEN BY CHRIS OSEGUERA AND I VERIFY THAT IT IS ACCURATE. PROCEDURE CODES 6045F RADXPS IN END [id number] PXD 61068 DESTROY LUMB/SAC FACET JNT, MODIFIERS: RT [address]93 DESTROY L/S FACET JNT ADDL, MODIFIERS: RT DISPOSITION & COMMUNICATION FOLLOW UP 3 WEEKS ELECTRONICALLY SIGNED BY PEBBLES OWUSU MD, MD ON 01/20/2019 AT 11:55 AM EDT DISCLAIMER : THIS IS A VISIT SUMMARY EXTRACTED FROM THE [employer] CHART. IT IS NOT A COPY OF THE [employer] PROGRESS NOTE. MTDD
== END ==
LOC: M PAIN 13:00
PROVIDERS: ATTEND Anesthesiology
DX: M47.816 Spondylosis without myelopathy or radiculopathy, lumbar region (principal); M47.817 Spondylosis without myelopathy or radiculopathy, lumbosacral region; G89.29 Other chronic pain; Z79.82 Long term (current) use of aspirin; Z79.84 Long term (current) use of oral hypoglycemic drugs; Z79.891 Long term (current) use of opiate analgesic; Z79.899 Other long term (current) drug therapy
CPT/HCPCS: 64635; 64636; J3301

== ENCOUNTER → 2019-02-10 | Outpatient (CLI) | payer OTHER ==
[~2019-02-10] MED LIST changes: -BUPIVACAINE HCL 0.25% 30 ML VIAL As Ordered ONE; -LIDOCAINE 1% SDV INJ 30 ML VIAL As Ordered ONE; -TRIAMCINOLONE ACETONIDE SUSP 40 MG/ML VIAL (J3301) As Ordered ONE
--- NOTE | 2019-02-11 02:47 | ECWPNPC ---
PATIENT NAME: REJI PICKARD : 1970 GENDER: MALE VISIT DATE: 02/10/2019 DISCHARGE DATE: 02/10/19 1144 VISIT LOCKED DATE TIME: PHYSICIAN: MARILEE EVANS RESOURCE: MARILEE EVANS REASON FOR APPOINTMENT 1. POST RIGHT L4/5-L5/S1 RADIOFREQUENCY HISTORY OF PRESENT ILLNESS HISTORY OF PRESENT ILLNESS: HERE FOR POST PROCEDURE F/U.HAD RF RIGHT L4/5-L5/S1 RF DONE ON 01/06/19.DOING VERY WELL.RATING PAIN VAS 1/10.REPORTING IMPROVED ACTIVITY TOLERANCE. PAIN THE PATIENT DESCRIBES THE PAIN... FALL RISK SCREENING: SCREENING :NO FALLS REPORTED IN THE LAST YEAR CURRENT MEDICATIONS TAKING LISINOPRIL 10 MG TABLET 1/2 TABLET ORALLY ONCE A DAY TAKING DULOXETINE HCL 30 MG CAPSULE DELAYED RELEASE PARTICLES 1 CAPSULE ORALLY ONCE A DAY TAKING METFORMIN HCL 500 MG TABLET 1 TABLET WITH MEALS ORALLY TWICE A DAY TAKING GLIPIZIDE ER 10 MG TABLET EXTENDED RELEASE 24 HOUR 1 TABLET ORALLY BID TAKING ASPIRIN 81 MG TABLET CHEWABLE 1 TABLET ORALLY ONCE A DAY TAKING VITAMIN D 2000 UNIT TABLET 1 TABLET ORALLY ONCE A DAY TAKING GABAPENTIN 300 MG CAPSULE 2 CAPSULES ORALLY TWICE A DAY TAKING TRAMADOL HCL 50 MG TABLET 1 TABLET NEEDED ORALLY EVERY 6 HRS TAKING ATORVASTATIN CALCIUM 20 MG TABLET 1 TABLET ORALLY ONCE A DAY TAKING BUPROPION HCL 100 MG TABLET 1 TABLET ORALLY TWICE A DAY NOT-TAKING METOPROLOL SUCCINATE ER 50 MG TABLET EXTENDED RELEASE 24 HOUR 1 TABLET ORALLY ONCE A DAY NOT-TAKING GEMFIBROZIL 600 MG TABLET 1 TABLET ORALLY TWICE A DAY, NOTES: 06/23/18 0600 NOT-TAKING SUDAFED 30 MG TABLET 1 TABLET NEEDED ORALLY EVERY 6 HRS, NOTES: NONE LATELY NOT-TAKING FLONASE 50 MCG/ACT SUSPENSION 1 SPRAY IN EACH NOSTRIL NASALLY TWICE A DAY, NOTES: NONE LATELY NOT-TAKING NETI POT SINUS WASH 2300-700 MG KIT DIRECTED NASALLY BID, NOTES: NONE LATELY NOT-TAKING MUCINEX DM 30-600 MG TABLET EXTENDED RELEASE 12 HOUR 1 TABLET NEEDED ORALLY EVERY 12 HRS, NOTES: NONE LATELY MEDICATION LIST REVIEWED AND RECONCILED WITH THE PATIENT PAST MEDICAL HISTORY DM STAN TX'D WITH CPAP AT NIGHT CHRONIC LBP L4 FX SHRAPNAL REMOVED NECK PAIN ALLERGIES N.K.D.A. SURGICAL HISTORY SHRAPNAL REMOVAL 2004 COLOSTOMY 2004 COLOSTOMY REVERSAL 2005 APPENDECTOMY FAMILY HISTORY FATHER: ALIVE, DIAGNOSED WITH CANCER MOTHER: ALIVE, OTHER 2 BROTHER(S) , 2 SISTER(S) - HEALTHY. 1 SON(S) , 1 DAUGHTER(S) - HEALTHY. FATHER-BONE\/COLON [place]\NMOTHER-SMOKER COPD\NBROTHER-BLOOD CLOTS\NSISTER-LEUKEMIA. SOCIAL HISTORY GENERAL: TOBACCO USE ARE YOU A:NONSMOKER PAIN CLINIC PFS, CLERGY, PUBLIC HEALTH REFERRALS PFS REFERRAL NEEDED?NO CLERGY REFERRAL NEEDED?NO PUBLIC HEALTH REFERRAL NEEDED?NO WAS THE PROVIDER NOTIFIED OF ANY PERTINENT INFO? N/A HAS THE PATIENT BEEN EDUCATED REGARDING HIS/HER PLAN OF CARE?YES HAS THE PATIENT BEEN EDUCATED REGARDING PAIN, THE RISK FOR PAIN, THE IMPORTANCE OF EFFECTIVE PAIN MANAGEMENT, AND THE PAIN ASSESSMENT PROCESS?YES LATEX QUESTIONNAIRE LATEX ALLERGY : HAVE YOU EVER DEVELOPED ANY TYPE OF REACTION AFTER HANDLING LATEX PRODUCTS SUCH RUBBER GLOVES, CONDOMS, DIAPHRAGMS, BALLOONS, SOCKS, OR UNDERWEAR?NO LATEX ALLERGY : HAVE YOU EVER DEVELOPED ANY TYPE OF REACTION DURING OR AFTER DENTAL APPOINTMENT, VAGINAL/RECTAL EXAMINATION, SURGICAL PROCEDURE, OR ANY OTHER EXPOSURE?NO LATEX RISK : HAVE YOU EVER HAD ANY DIFFICULTY BREATHING OR HIVES AFTER EATING OR HANDLING ANY FRUITS, OR VEGETABLES; SUCH KIWI, BANANAS, STONE FRUITS, OR CHESTNUTSNO LATEX RISK : DO YOU HAVE A PREVIOUS PERSONAL HISTORY OF MORE THAN NINE SURGERIES, SPINA BIFIDA, OR REPEATED CATHERIZATIONS? NO LATEX RISK : ARE YOU FREQUENTLY EXPOSED TO LATEX PRODUCTS IN YOUR OCCUPATION?NO DATE ASKED : 01/06/2019 HIV / HEP-C SCREENING HIV TEST OFFERED TO PATIENT:YES DATE OFFERED:04/06/2018 TEST ACCEPTED:NO REASON:PATIENT DECLINED BROCHURE PROVIDED TO PATIENTNO HEP-C TEST OFFERED TO PATIENT:NO CAFFEINE CAFFEINE USE?YES HOW OFTEN AND HOW MUCH? 5 CUPS COFFEE/DAY ADVANCE DIRECTIVE ADVANCE DIRECTIVE DISCUSSED WITH PATIENT:YES HCP IS TRUE PICKARD [phone] [employer] [id number] MANDAEISM LANGUAGE LANGUAGES SPOKEN:KOREAN DOMESTIC VIOLENCE DO YOU FEEL SAFE IN YOUR ENVIRONMENT?YES ALCOHOL SCREENING DID YOU HAVE A DRINK CONTAINING ALCOHOL IN THE PAST YEAR?YES HOW OFTEN DID YOU HAVE A DRINK CONTAINING ALCOHOL IN THE PAST YEAR?TWO TO FOUR TIMES A MONTH (2 POINTS) HOW MANY DRINKS DID YOU HAVE ON A TYPICAL DAY WHEN YOU WERE DRINKING IN THE PAST YEAR?1 OR 2 (0 POINTS) HOW OFTEN DID YOU HAVE SIX OR MORE DRINKS ON ONE OCCASION IN THE PAST YEAR?NEVER (0 POINTS) POINTS2 INTERPRETATIONNEGATIVE RECREATIONAL DRUG USE DRUG USE?NO LEARNING BARRIERS / SPECIAL NEEDS BARRIERS TO LEARNING?NO HEARING IMPAIRED?YES :HEARING AIDES VISION IMPAIRED?YES :CORRECTIVE LENSES COGNITIVELY IMPAIRED?NO READINESS TO LEARN?YES LEARNING PREFERENCES?NO LEARNING CAPABILITIES PRESENT?YES EMOTIONAL BARRIERS?NO SPECIAL DEVICES?NO GREENSKEEPER NEEDED?NO REVIEWED 11/14/17 0900 BVREVIEWED WITH PT 03/2218 1056 BVREVIEWED WITH PT 06/11/18 1119 LASREVIEWED WITH PT 06/23/18 1336 BVREVIEWED WITH PT 09/11/18 1535 LAS01/06/19 REVIEWED WITH PT. ADREVIEWED WITH PATIENT 02/10/19 BVREVIEWED WITH PATIENT 11/06/18 1009 JS. HOSPITALIZATION/MAJOR DIAGNOSTIC PROCEDURE SURGERY RELATED REVIEW OF SYSTEMS REVIEWED BY: PROVIDER: MARILEE MENDEZ . CONSTITUTIONAL: ANY CHANGE IN YOUR MEDICAL CONDITION? NO . CHILLS NO . FEVER NO . INFECTION: DO YOU HAVE NEW INFECTIONS? NO . DO YOU HAVE HISTORY OF MRSA? NO . MUSCULOSKELETAL: ANY NEW PATTERNS OF PAIN OR NUMBNESS? YES, PT HAS SEEN IMPROVEMENT OF PAIN SINCE RADIOFREQUENCY DONE 01/06/19 . GASTROENTEROLOGY: ANY NEW CHANGE IN BOWEL CONTROL? NO . GENITOURINARY: ANY NEW CHANGE IN BLADDER CONTROL? NO . IS THERE A CHANCE YOU COULD BE ? NO . HEMATOLOGY/LYMPH: DO YOU TAKE ANY BLOOD THINNERS? (FOR EXAMPLE- COUMADIN, PLAVIX, AGGRENOX, PLATEL, PRADAXA, OR XARELTO) NO . WHEN WAS YOUR LAST DOSE? DATE: TIME: . NEUROLOGY: HAVE YOU FALLEN IN THE PAST 12 MONTHS? NO . ANY NEW EXTREMITY NUMBNESS OR WEAKNESS? NO . CARDIOLOGY: DO YOU HAVE A PACEMAKER OR DEFIBRILLATOR? NO . RESPIRATORY: HAVE YOU BEEN SICK IN THE PAST WEEK? NO . FEVER NO . FLU LIKE SYMPTOMS? NO . COUGH NO . INTEGUMENTARY: DO YOU HAVE ANY RASHES OR OPEN SORES? NO . ALLERGIC/IMMUNO: ARE YOU ALLERGIC TO IV DYE? NO . ANY NEW ALLERGIES? NO . PSYCHIATRIC: DO YOU HAVE THOUGHTS OF HURTING YOURSELF OR SOMEONE ELSE? NO . ARE YOU ABUSED, NEGLECTED, OR IN AN UNSAFE ENVIRONMENT? NO . ENDOCRINOLOGY: ARE YOU DIABETIC? YES, ON MEDICATION . OTHER: DO YOU NEED ANY PRESCRIPTIONS? NO . IF YES, PLEASE LIST: ____ . ANY NEW PROBLEMS WITH YOUR MEDICATIONS? NO . WHEN DID YOU LAST EAT? ____ . WHEN DID YOU LAST DRINK? ____ . WHAT DID YOU LAST DRINK? ____ . NAME OF PERSON DRIVING YOU HOME? ____ . DO YOU HAVE ANY OTHER QUESTIONS OR CONCERNS NO . VITAL SIGNS WT 240.0 LBS, HT 68.5 IN, BMI 35.96 INDEX, BP 130/81 MM HG, HR 68 /MIN, RR 18 /MIN, TEMP 98.2 F, OXYGEN SAT % 98%, SAFE IN ENV? (Y/N) YES, REVIEWED BY: ZEE. EXAMINATION GENERAL EXAMINATION: GENERALAWAKE,ALERT ,PLEAASANT . PSYCHAFFECT NORMAL . LUNGS:LUNG FOWLER ARE CLEAR TO AUSCULTATION BILATERALLY. GOOD MOVEMENT OF AIR . HEART:S1, S2 IN A REGULAR RATE AND RHYTHM. NO SIGNIFICANT MURMURS, RUBS OR GALLOPS NOTED . ASSESSMENTS SPONDYLOSIS OF LUMBAR REGION WITHOUT MYELOPATHY OR RADICULOPATHY - M47.816 (PRIMARY) TREATMENT SPONDYLOSIS OF LUMBAR REGION WITHOUT MYELOPATHY OR RADICULOPATHY NOTES: CONTINUE HOME EXCERSISE PROGRAM. DISPOSITION & COMMUNICATION FOLLOW UP 3 MONTHS (REASON: 3MOS RF F/U) ELECTRONICALLY SIGNED BY VANESSA MANCIA ON 02/10/2019 AT 12:54 PM EDT DISCLAIMER : THIS IS A VISIT SUMMARY EXTRACTED FROM THE [employer] CHART. IT IS NOT A COPY OF THE [employer] PROGRESS NOTE. KATIA
== END ==
LOC: M PAIN 11:00
PROVIDERS: ATTEND Nurse Practitioner Family
DX: M47.816 Spondylosis without myelopathy or radiculopathy, lumbar region (principal); E11.9 Type 2 diabetes mellitus without complications; G47.33 Obstructive sleep apnea (adult) (pediatric); Z79.82 Long term (current) use of aspirin; Z79.84 Long term (current) use of oral hypoglycemic drugs; Z79.899 Other long term (current) drug therapy

== ENCOUNTER → 2019-05-12 | Outpatient (CLI) | payer OTHER ==
--- NOTE | 2019-05-13 05:03 | ECWPNPC ---
PATIENT NAME: REJI PICKARD : 1970 GENDER: MALE VISIT DATE: 05/12/2019 DISCHARGE DATE: 05/12/19920 VISIT LOCKED DATE TIME: PHYSICIAN: MARILEE EVANS RESOURCE: MARILEE EVANS REASON FOR APPOINTMENT 1. VA/BACK HISTORY OF PRESENT ILLNESS HISTORY OF PRESENT ILLNESS: HERE FOR F/U OF CHRONIC LBP.HAD RF RIGHT L4/5-L5/S1 RF DONE ON 01/06/19.DOING VERY WELL.RATING PAIN VAS 1/10.REPORTING IMPROVED ACTIVITY TOLERANCE.PAIN IS AGGREATED BY PROLONGED STANDING. PAIN THE PATIENT DESCRIBES THE PAIN... FALL RISK SCREENING: SCREENING :NO FALLS REPORTED IN THE LAST YEAR CURRENT MEDICATIONS TAKING LISINOPRIL 10 MG TABLET 1/2 TABLET ORALLY ONCE A DAY TAKING DULOXETINE HCL 30 MG CAPSULE DELAYED RELEASE PARTICLES 1 CAPSULE ORALLY ONCE A DAY TAKING METFORMIN HCL 500 MG TABLET 2 TABLETS WITH MEALS ORALLY TWICE A DAY TAKING GLIPIZIDE ER 10 MG TABLET EXTENDED RELEASE 24 HOUR 1 TABLET ORALLY BID TAKING ASPIRIN 81 MG TABLET CHEWABLE 1 TABLET ORALLY ONCE A DAY TAKING VITAMIN D 2000 UNIT TABLET 1 TABLET ORALLY ONCE A DAY TAKING GABAPENTIN 300 MG CAPSULE 2 CAPSULES ORALLY THREE TIMES DAILY TAKING TRAMADOL HCL 50 MG TABLET 1 TABLET NEEDED ORALLY EVERY 6 HRS TAKING ATORVASTATIN CALCIUM 20 MG TABLET 1 TABLET ORALLY ONCE A DAY TAKING BUPROPION HCL 100 MG TABLET 1 TABLET ORALLY TWICE A DAY TAKING SUDAFED 30 MG TABLET 1 TABLET NEEDED ORALLY EVERY 6 HRS, NOTES: NONE LATELY TAKING FLONASE 50 MCG/ACT SUSPENSION 1 SPRAY IN EACH NOSTRIL NASALLY TWICE A DAY, NOTES: NONE LATELY TAKING NETI POT SINUS WASH 2300-700 MG KIT DIRECTED NASALLY BID, NOTES: NONE LATELY TAKING MUCINEX DM 30-600 MG TABLET EXTENDED RELEASE 12 HOUR 1 TABLET NEEDED ORALLY EVERY 12 HRS, NOTES: NONE LATELY NOT-TAKING METOPROLOL SUCCINATE ER 50 MG TABLET EXTENDED RELEASE 24 HOUR 1 TABLET ORALLY ONCE A DAY NOT-TAKING GEMFIBROZIL 600 MG TABLET 1 TABLET ORALLY TWICE A DAY, NOTES: 06/23/18 0600 MEDICATION LIST REVIEWED AND RECONCILED WITH THE PATIENT PAST MEDICAL HISTORY DM STAN TX'D WITH CPAP AT NIGHT CHRONIC LBP L4 FX SHRAPNAL REMOVED NECK PAIN MULTIPLE BODY TRAUMA DUE TO IED EXPLOSION SCATTERED SHRAPNAL THROUGH OUT BODY TBI ALLERGIES N.K.D.A. SURGICAL HISTORY SHRAPNAL REMOVAL 2003 COLOSTOMY 2003 COLOSTOMY REVERSAL 2005 APPENDECTOMY FAMILY HISTORY FATHER: ALIVE, DIAGNOSED WITH OTHER MALIGNANT NEOPLASM OF UNSPECIFIED SITE MOTHER: , OTHER SPECIFIED CONDITIONS INFLUENCING HEALTH STATUS 2 BROTHER(S) , 2 SISTER(S) - HEALTHY. 1 SON(S) , 1 DAUGHTER(S) - HEALTHY. FATHER-BONE\/COLON CA\NMOTHER-SMOKER COPD\NBROTHER-BLOOD CLOTS\NSISTER-LEUKEMIA. SOCIAL HISTORY GENERAL: TOBACCO USE ARE YOU A:NONSMOKER PAIN CLINIC PFS, CLERGY, PUBLIC HEALTH REFERRALS PFS REFERRAL NEEDED?NO CLERGY REFERRAL NEEDED?NO PUBLIC HEALTH REFERRAL NEEDED?NO WAS THE PROVIDER NOTIFIED OF ANY PERTINENT INFO? N/A HAS THE PATIENT BEEN EDUCATED REGARDING HIS/HER PLAN OF CARE?YES HAS THE PATIENT BEEN EDUCATED REGARDING PAIN, THE RISK FOR PAIN, THE IMPORTANCE OF EFFECTIVE PAIN MANAGEMENT, AND THE PAIN ASSESSMENT PROCESS?YES LATEX QUESTIONNAIRE LATEX ALLERGY : HAVE YOU EVER DEVELOPED ANY TYPE OF REACTION AFTER HANDLING LATEX PRODUCTS SUCH RUBBER GLOVES, CONDOMS, DIAPHRAGMS, BALLOONS, SOCKS, OR UNDERWEAR?NO LATEX ALLERGY : HAVE YOU EVER DEVELOPED ANY TYPE OF REACTION DURING OR AFTER DENTAL APPOINTMENT, VAGINAL/RECTAL EXAMINATION, SURGICAL PROCEDURE, OR ANY OTHER EXPOSURE?NO LATEX RISK : HAVE YOU EVER HAD ANY DIFFICULTY BREATHING OR HIVES AFTER EATING OR HANDLING ANY FRUITS, OR VEGETABLES; SUCH KIWI, BANANAS, STONE FRUITS, OR CHESTNUTSNO LATEX RISK : DO YOU HAVE A PREVIOUS PERSONAL HISTORY OF MORE THAN NINE SURGERIES, SPINA BIFIDA, OR REPEATED CATHERIZATIONS? NO LATEX RISK : ARE YOU FREQUENTLY EXPOSED TO LATEX PRODUCTS IN YOUR OCCUPATION?NO DATE ASKED : 05/12/2019 HIV / HEP-C SCREENING HIV TEST OFFERED TO PATIENT:YES DATE OFFERED:04/06/2018 TEST ACCEPTED:NO HEP-C TEST OFFERED TO PATIENT:NO REASON:PATIENT DECLINED BROCHURE PROVIDED TO PATIENTNO CAFFEINE CAFFEINE USE?YES HOW OFTEN AND HOW MUCH? 5 CUPS COFFEE/DAY ADVANCE DIRECTIVE ADVANCE DIRECTIVE DISCUSSED WITH PATIENT:YES HCP IS TRUE PICKARD [phone] CHRISTIAN [id number] RELIGION LANGUAGE LANGUAGES SPOKEN:GUINEAN DOMESTIC VIOLENCE DO YOU FEEL SAFE IN YOUR ENVIRONMENT?YES ALCOHOL SCREENING DID YOU HAVE A DRINK CONTAINING ALCOHOL IN THE PAST YEAR?YES HOW OFTEN DID YOU HAVE SIX OR MORE DRINKS ON ONE OCCASION IN THE PAST YEAR?NEVER (0 POINTS) HOW MANY DRINKS DID YOU HAVE ON A TYPICAL DAY WHEN YOU WERE DRINKING IN THE PAST YEAR?1 OR 2 (0 POINTS) HOW OFTEN DID YOU HAVE A DRINK CONTAINING ALCOHOL IN THE PAST YEAR?TWO TO FOUR TIMES A MONTH (2 POINTS) POINTS2 INTERPRETATIONNEGATIVE RECREATIONAL DRUG USE DRUG USE?NO LEARNING BARRIERS / SPECIAL NEEDS BARRIERS TO LEARNING?NO HEARING IMPAIRED?YES :HEARING AIDES VISION IMPAIRED?YES :CORRECTIVE LENSES COGNITIVELY IMPAIRED?NO READINESS TO LEARN?YES LEARNING PREFERENCES?NO LEARNING CAPABILITIES PRESENT?YES EMOTIONAL BARRIERS?NO SPECIAL DEVICES?NO NETWORK SUPPORT ADMINISTRATOR NEEDED?NO REVIEWED 11/14/17 0900 BVREVIEWED WITH PT 03/2218 1056 BVREVIEWED WITH PT 06/11/18 1119 LASREVIEWED WITH PT 06/23/18 1336 BVREVIEWED WITH PT 09/11/18 1535 LAS05/12/19 REVEIWED WITH PT. AD01/06/19 REVIEWED WITH PT. ADREVIEWED WITH PATIENT 02/10/19 BVREVIEWED WITH PATIENT 11/06/18 1009 JS. HOSPITALIZATION/MAJOR DIAGNOSTIC PROCEDURE SURGERY RELATED TRAUMA AFTER IED EXPLOSION REVIEW OF SYSTEMS REVIEWED BY: PROVIDER: MARILEE MENDEZ . CONSTITUTIONAL: ANY CHANGE IN YOUR MEDICAL CONDITION? NO . CHILLS NO . FEVER NO . INFECTION: DO YOU HAVE NEW INFECTIONS? NO . DO YOU HAVE HISTORY OF MRSA? NO . MUSCULOSKELETAL: ANY NEW PATTERNS OF PAIN OR NUMBNESS? NO . GASTROENTEROLOGY: ANY NEW CHANGE IN BOWEL CONTROL? NO . GENITOURINARY: ANY NEW CHANGE IN BLADDER CONTROL? NO . IS THERE A CHANCE YOU COULD BE ? NO . HEMATOLOGY/LYMPH: DO YOU TAKE ANY BLOOD THINNERS? (FOR EXAMPLE- COUMADIN, PLAVIX, AGGRENOX, PLATEL, PRADAXA, OR XARELTO) NO . WHEN WAS YOUR LAST DOSE? DATE: TIME: . NEUROLOGY: HAVE YOU FALLEN IN THE PAST 12 MONTHS? YES, STATES HE FALLS ALL THE TIME--JUST LOSES HIS BALANCE. LAST TIME A COUPLE OF MONTHS AGO-NO INJURY . ANY NEW EXTREMITY NUMBNESS OR WEAKNESS? NO . CARDIOLOGY: DO YOU HAVE A PACEMAKER OR DEFIBRILLATOR? NO . RESPIRATORY: HAVE YOU BEEN SICK IN THE PAST WEEK? NO . FEVER NO . FLU LIKE SYMPTOMS? NO . COUGH NO . INTEGUMENTARY: DO YOU HAVE ANY RASHES OR OPEN SORES? NO . ALLERGIC/IMMUNO: ARE YOU ALLERGIC TO IV DYE? NO . ANY NEW ALLERGIES? NO . PSYCHIATRIC: DO YOU HAVE THOUGHTS OF HURTING YOURSELF OR SOMEONE ELSE? NO . ARE YOU ABUSED, NEGLECTED, OR IN AN UNSAFE ENVIRONMENT? NO . ENDOCRINOLOGY: ARE YOU DIABETIC? YES FSBS THIS A.M. 97 . OTHER: DO YOU NEED ANY PRESCRIPTIONS? NO . IF YES, PLEASE LIST: ____ . ANY NEW PROBLEMS WITH YOUR MEDICATIONS? NO . WHEN DID YOU LAST EAT? ____ . WHEN DID YOU LAST DRINK? ____ . WHAT DID YOU LAST DRINK? ____ . NAME OF PERSON DRIVING YOU HOME? ____ . DO YOU HAVE ANY OTHER QUESTIONS OR CONCERNS NO . VITAL SIGNS WT 248.0 LBS, HT 68.5 IN, BMI 37.16 INDEX, BP 140/79 MM HG, HR 78 /MIN, RR 18 /MIN, TEMP 97.2 F, OXYGEN SAT % 98%, SAFE IN ENV? (Y/N) Y, NA INITIALS AW 0848, REVIEWED BY: RAOUL. EXAMINATION GENERAL EXAMINATION: GENERALAWAKE,ALERT ,PLEAASANT . PSYCHAFFECT NORMAL . LUNGS:LUNG FOWLER ARE CLEAR TO AUSCULTATION BILATERALLY. GOOD MOVEMENT OF AIR . HEART:S1, S2 IN A REGULAR RATE AND RHYTHM. NO SIGNIFICANT MURMURS, RUBS OR GALLOPS NOTED . ASSESSMENTS SPONDYLOSIS OF LUMBAR REGION WITHOUT MYELOPATHY OR RADICULOPATHY - M47.816 (PRIMARY) TREATMENT SPONDYLOSIS OF LUMBAR REGION WITHOUT MYELOPATHY OR RADICULOPATHY NOTES: CONTINUE HOME EXCERSISE AND STRETCHING. PROCEDURE CODES FA211 ESTABILISHED PATIENT [facility] CHARGE DISPOSITION & COMMUNICATION FOLLOW UP 2 MONTHS ELECTRONICALLY SIGNED BY VANESSA MANCIA ON 05/12/2019 AT 09:36 AM EST DISCLAIMER : THIS IS A VISIT SUMMARY EXTRACTED FROM THE [employer] CHART. IT IS NOT A COPY OF THE [employer] PROGRESS NOTE. KATIA
== END ==
LOC: M PAIN 08:45
PROVIDERS: ATTEND Nurse Practitioner Family
DX: M47.816 Spondylosis without myelopathy or radiculopathy, lumbar region (principal); G89.29 Other chronic pain; E11.9 Type 2 diabetes mellitus without complications; G47.33 Obstructive sleep apnea (adult) (pediatric); Z87.820 Personal history of traumatic brain injury; Z79.82 Long term (current) use of aspirin; Z79.84 Long term (current) use of oral hypoglycemic drugs; Z79.899 Other long term (current) drug therapy

== ENCOUNTER → 2019-06-10 | Outpatient (CLI) | payer OTHER ==
--- NOTE | 2019-06-25 02:12 | ECWPNPC ---
PATIENT NAME: REJI PICKARD : 1970 GENDER: MALE VISIT DATE: 06/10/2019 DISCHARGE DATE: 06/10/19 1025 VISIT LOCKED DATE TIME: PHYSICIAN: MARILEE EVANS RESOURCE: MARILEE EVANS REASON FOR APPOINTMENT 1. INCREASED PAIN-PER LB HISTORY OF PRESENT ILLNESS HISTORY OF PRESENT ILLNESS: HERE FOR F/U ON AN URGENT BASIS.HAS SEVERE AGGREVATION IN LOW BACK PAIN THAT OCCURED 2 WEEKS AGO WITHOUT PRECIPITATING EVENT.REPORTING LEFT ANTERIOR THIGH PAIN.PAIN IS AGGREVATED BY GETTING IN AND OUT OF BED.PROLONGED SITTING AND STANDING AGGREVATES.PAIN IS RELIEVED WITH REPOSITIONING. LEFT ANTERIOR THIGH PAIN IS NEW AREA OF PAIN. RATING PAIN LEVEL VIII/X VAS. PAIN THE PATIENT DESCRIBES THE PAIN... FALL RISK SCREENING: SCREENING :NO FALLS REPORTED IN THE LAST YEAR CURRENT MEDICATIONS TAKING LISINOPRIL 10 MG TABLET 1/2 TABLET ORALLY ONCE A DAY TAKING DULOXETINE HCL 30 MG CAPSULE DELAYED RELEASE PARTICLES 1 CAPSULE ORALLY ONCE A DAY TAKING METFORMIN HCL 500 MG TABLET 2 TABLETS WITH MEALS ORALLY TWICE A DAY TAKING GLIPIZIDE ER 10 MG TABLET EXTENDED RELEASE 24 HOUR 1 TABLET ORALLY BID TAKING ASPIRIN 81 MG TABLET CHEWABLE 1 TABLET ORALLY ONCE A DAY TAKING VITAMIN D 2000 UNIT TABLET 1 TABLET ORALLY ONCE A DAY TAKING GABAPENTIN 300 MG CAPSULE 2 CAPSULES ORALLY THREE TIMES DAILY TAKING TRAMADOL HCL 50 MG TABLET 1 TABLET NEEDED ORALLY EVERY 6 HRS TAKING ATORVASTATIN CALCIUM 20 MG TABLET 1 TABLET ORALLY ONCE A DAY TAKING BUPROPION HCL 100 MG TABLET 1 TABLET ORALLY TWICE A DAY TAKING SUDAFED 30 MG TABLET 1 TABLET NEEDED ORALLY EVERY 6 HRS, NOTES: NONE LATELY TAKING FLONASE 50 MCG/ACT SUSPENSION 1 SPRAY IN EACH NOSTRIL NASALLY TWICE A DAY, NOTES: NONE LATELY TAKING NETI POT SINUS WASH 2300-700 MG KIT DIRECTED NASALLY BID, NOTES: NONE LATELY TAKING MUCINEX DM 30-600 MG TABLET EXTENDED RELEASE 12 HOUR 1 TABLET NEEDED ORALLY EVERY 12 HRS, NOTES: NONE LATELY TAKING FLEXERIL 10 MG 1 CAP ORALLY TID PRN NOT-TAKING METOPROLOL SUCCINATE ER 50 MG TABLET EXTENDED RELEASE 24 HOUR 1 TABLET ORALLY ONCE A DAY NOT-TAKING GEMFIBROZIL 600 MG TABLET 1 TABLET ORALLY TWICE A DAY, NOTES: 06/23/18 0600 MEDICATION LIST REVIEWED AND RECONCILED WITH THE PATIENT PAST MEDICAL HISTORY DM STAN TX'D WITH CPAP AT NIGHT CHRONIC LBP L4 FX SHRAPNAL REMOVED NECK PAIN MULTIPLE BODY TRAUMA DUE TO IED EXPLOSION SCATTERED SHRAPNAL THROUGH OUT BODY TBI ALLERGIES N.K.D.A. SURGICAL HISTORY SHRAPNAL REMOVAL 2003 COLOSTOMY 2004 COLOSTOMY REVERSAL 2005 APPENDECTOMY FAMILY HISTORY FATHER: ALIVE, DIAGNOSED WITH OTHER MALIGNANT NEOPLASM OF UNSPECIFIED SITE MOTHER: , OTHER SPECIFIED CONDITIONS INFLUENCING HEALTH STATUS 2 BROTHER(S) , 2 SISTER(S) - HEALTHY. 1 SON(S) , 1 DAUGHTER(S) - HEALTHY. FATHER-BONE\/COLON [place]\NMOTHER-SMOKER COPD\NBROTHER-BLOOD CLOTS\NSISTER-LEUKEMIAMOTHER IN MARCH 2019. SOCIAL HISTORY GENERAL: TOBACCO USE ARE YOU A:NONSMOKER PAIN CLINIC PFS, CLERGY, PUBLIC HEALTH REFERRALS PFS REFERRAL NEEDED?NO CLERGY REFERRAL NEEDED?NO PUBLIC HEALTH REFERRAL NEEDED?NO WAS THE PROVIDER NOTIFIED OF ANY PERTINENT INFO? N/A HAS THE PATIENT BEEN EDUCATED REGARDING HIS/HER PLAN OF CARE?YES HAS THE PATIENT BEEN EDUCATED REGARDING PAIN, THE RISK FOR PAIN, THE IMPORTANCE OF EFFECTIVE PAIN MANAGEMENT, AND THE PAIN ASSESSMENT PROCESS?YES LATEX QUESTIONNAIRE LATEX ALLERGY : HAVE YOU EVER DEVELOPED ANY TYPE OF REACTION AFTER HANDLING LATEX PRODUCTS SUCH RUBBER GLOVES, CONDOMS, DIAPHRAGMS, BALLOONS, SOCKS, OR UNDERWEAR?NO LATEX ALLERGY : HAVE YOU EVER DEVELOPED ANY TYPE OF REACTION DURING OR AFTER DENTAL APPOINTMENT, VAGINAL/RECTAL EXAMINATION, SURGICAL PROCEDURE, OR ANY OTHER EXPOSURE?NO DATE ASKED : 05/12/2019 LATEX RISK : HAVE YOU EVER HAD ANY DIFFICULTY BREATHING OR HIVES AFTER EATING OR HANDLING ANY FRUITS, OR VEGETABLES; SUCH KIWI, BANANAS, STONE FRUITS, OR CHESTNUTSNO LATEX RISK : DO YOU HAVE A PREVIOUS PERSONAL HISTORY OF MORE THAN NINE SURGERIES, SPINA BIFIDA, OR REPEATED CATHERIZATIONS? NO LATEX RISK : ARE YOU FREQUENTLY EXPOSED TO LATEX PRODUCTS IN YOUR OCCUPATION?NO HIV / HEP-C SCREENING HIV TEST OFFERED TO PATIENT:YES DATE OFFERED:04/06/2018 TEST ACCEPTED:NO HEP-C TEST OFFERED TO PATIENT:NO REASON:PATIENT DECLINED BROCHURE PROVIDED TO PATIENTNO CAFFEINE CAFFEINE USE?YES HOW OFTEN AND HOW MUCH? 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 LANGUAGE LANGUAGES SPOKEN:BRITISH DOMESTIC VIOLENCE DO YOU FEEL SAFE IN YOUR ENVIRONMENT?YES ALCOHOL SCREENING DID YOU HAVE A DRINK CONTAINING ALCOHOL IN THE PAST YEAR?YES HOW OFTEN DID YOU HAVE SIX OR MORE DRINKS ON ONE OCCASION IN THE PAST YEAR?NEVER (0 POINTS) HOW MANY DRINKS DID YOU HAVE ON A TYPICAL DAY WHEN YOU WERE DRINKING IN THE PAST YEAR?1 OR 2 (0 POINTS) HOW OFTEN DID YOU HAVE A DRINK CONTAINING ALCOHOL IN THE PAST YEAR?TWO TO FOUR TIMES A MONTH (2 POINTS) POINTS2 INTERPRETATIONNEGATIVE RECREATIONAL DRUG USE DRUG USE?NO LEARNING BARRIERS / SPECIAL NEEDS BARRIERS TO LEARNING?NO HEARING IMPAIRED?YES VISION IMPAIRED?YES COGNITIVELY IMPAIRED?NO :HEARING AIDES :CORRECTIVE LENSES READINESS TO LEARN?YES LEARNING PREFERENCES?NO LEARNING CAPABILITIES PRESENT?YES EMOTIONAL BARRIERS?NO SPECIAL DEVICES?NO HORSER UP NEEDED?NO REVIEWED 11/14/17 0900 BVREVIEWED WITH PT 03/2218 1056 BVREVIEWED WITH PT 06/11/18 1119 LASREVIEWED WITH PT 06/23/18 1336 BVREVIEWED WITH PT 09/11/18 1535 LAS05/12/19 REVEIWED WITH PT. AD01/06/19 REVIEWED WITH PT. ADREVIEWED WITH PATIENT 02/10/19 BVREVIEWED WITH PATIENT 11/06/18 1009 JSREVIEWED WITH PATIENT 06/10/19 0940 NLJ. HOSPITALIZATION/MAJOR DIAGNOSTIC PROCEDURE SURGERY RELATED TRAUMA AFTER IED EXPLOSION REVIEW OF SYSTEMS REVIEWED BY: PROVIDER: MARILEE MENDEZ . CONSTITUTIONAL: ANY CHANGE IN YOUR MEDICAL CONDITION? NO . CHILLS NO . FEVER NO . INFECTION: DO YOU HAVE NEW INFECTIONS? NO . DO YOU HAVE HISTORY OF MRSA? NO . MUSCULOSKELETAL: ANY NEW PATTERNS OF PAIN OR NUMBNESS? YES- INCREASED PAIN IN LOWER BACK DOWN BOTH LEGS AND IN LEFT BUTTOCK, STATES BOTH LEGS FEEL LIKE THEY HAVE CINDER BLOCKS ON THEM, STATES HIS OUTER LEFT LEG IS TINGLINY . GASTROENTEROLOGY: ANY NEW CHANGE IN BOWEL CONTROL? NO . GENITOURINARY: ANY NEW CHANGE IN BLADDER CONTROL? NO . IS THERE A CHANCE YOU COULD BE ? NO . HEMATOLOGY/LYMPH: DO YOU TAKE ANY BLOOD THINNERS? (FOR EXAMPLE- COUMADIN, PLAVIX, AGGRENOX, PLATEL, PRADAXA, OR XARELTO) NO . WHEN WAS YOUR LAST DOSE? DATE: TIME: . NEUROLOGY: HAVE YOU FALLEN IN THE PAST 12 MONTHS? NO . ANY NEW EXTREMITY NUMBNESS OR WEAKNESS? YES- STATES LEFT BUTTOCK IS PAINFUL, STATES BILATERAL LE FEEL HEAVY, AND OUTER LEFT LEG FEELS NUMB AND TINGLING . CARDIOLOGY: DO YOU HAVE A PACEMAKER OR DEFIBRILLATOR? NO . RESPIRATORY: HAVE YOU BEEN SICK IN THE PAST WEEK? NO . FEVER NO . FLU LIKE SYMPTOMS? NO . COUGH NO . INTEGUMENTARY: DO YOU HAVE ANY RASHES OR OPEN SORES? NO . ALLERGIC/IMMUNO: ARE YOU ALLERGIC TO IV DYE? NO . ANY NEW ALLERGIES? NO . PSYCHIATRIC: DO YOU HAVE THOUGHTS OF HURTING YOURSELF OR SOMEONE ELSE? NO . ARE YOU ABUSED, NEGLECTED, OR IN AN UNSAFE ENVIRONMENT? NO . ENDOCRINOLOGY: ARE YOU DIABETIC? YES . OTHER: DO YOU NEED ANY PRESCRIPTIONS? NO . IF YES, PLEASE LIST: ____ . ANY NEW PROBLEMS WITH YOUR MEDICATIONS? NO . WHEN DID YOU LAST EAT? ____ . WHEN DID YOU LAST DRINK? ____ . WHAT DID YOU LAST DRINK? ____ . NAME OF PERSON DRIVING YOU HOME? ____ . DO YOU HAVE ANY OTHER QUESTIONS OR CONCERNS YES- STATES HIS BACK PAIN INCREASED ABOUT 2 WEEKS AGO AND STATES ITIS THE WORST IT HAS EVER BEEN, STATES HE HAD A RF ABOUT 8 MONTHS AGO THAT WORKED VERY WELL, DENIES FALLING OR ANY INJURY, STATES [facility] F[facility] TRAMADOL AND THEY ARE NOT HELPING PAIN . VITAL SIGNS WT 248.4 LBS, HT 68.5 IN, BMI 37.22 INDEX, BP 131/78 MM HG, HR 99 /MIN, RR 18 /MIN, TEMP 96.7 F, OXYGEN SAT % 98%, SAFE IN ENV? (Y/N) YES, NA INITIALS [place] 09:31, REVIEWED BY: EDITH. EXAMINATION GENERAL EXAMINATION: GENERALALERT,NO ACUTE DISTRESS . PSYCHAFFECT NORMAL . LUNGS:LUNG FOWLER ARE CLEAR TO AUSCULTATION BILATERALLY. GOOD MOVEMENT OF AIR . HEART:S1, S2 IN A REGULAR RATE AND RHYTHM. NO SIGNIFICANT MURMURS, RUBS OR GALLOPS NOTED . MUSCULOSKELETAL:MUSCLE STRENGTH TESTING 5/5 BILATERAL LOWER EXTREMITIES. FOR BILAT. SIJ INCREASED PAIN WITH FACET LOADING BILAT. L3/4-L4/5. ASSESSMENTS LUMBAR FACET ARTHROPATHY - M46.96 (PRIMARY) TREATMENT LUMBAR FACET ARTHROPATHY START KETOROLAC TROMETHAMINE TABLET, 10 MG, 1 TABLET WITH FOOD OR MILK NEEDED, ORALLY, EVERY 6 HRS, 5 DAY(S), 20, REFILLS 0 START SOMA TABLET, 350 MG, 1 TABLET NEEDED, ORALLY, BEFORE BEDTIME, 30 DAYS, 15, REFILLS 1 CT SCAN : L-S [id number] NOTES: BILAT L3/4-L4/5 LFBT . PREVENTIVE MEDICINE PAIN CLINIC TEACHING: MEDICATIONS SOMA AND KETOROLAC DRUG INFORMATION SHEETS PRINTED AND REVIEWED WITH PATIENT AND 06/10/19 1215 NLJ. PROCEDURE TEACHING LUMBAR FACET BLOCK PROCEDURE TEACHING PROVIDED AND PRE-PROCEDURE INSTRUCTIONS REVIEWED WITH PATIENT AND . BOTH VERBALIZE UNDERSTANDING. 06/10/19 1214 NLJ. PROCEDURE CODES FA211 ESTABILISHED PATIENT [facility] CHARGE DISPOSITION & COMMUNICATION FOLLOW UP POST (REASON: BILAT L3/4-L4/5 LFBT) ELECTRONICALLY SIGNED BY VANESSA MANCIA ON 06/24/2019 AT 03:47 PM EST DISCLAIMER : THIS IS A VISIT SUMMARY EXTRACTED FROM THE [employer] CHART. IT IS NOT A COPY OF THE [employer] PROGRESS NOTE. KATIA
== END ==
LOC: M PAIN 09:30
PROVIDERS: ATTEND Nurse Practitioner Family
DX: M46.96 Unspecified inflammatory spondylopathy, lumbar region (principal); E11.9 Type 2 diabetes mellitus without complications; G47.33 Obstructive sleep apnea (adult) (pediatric); Z87.820 Personal history of traumatic brain injury; Z79.82 Long term (current) use of aspirin; Z79.84 Long term (current) use of oral hypoglycemic drugs; Z79.899 Other long term (current) drug therapy

== ENCOUNTER → 2019-06-16 | Outpatient (CLI) | payer OTHER ==
--- NOTE | 2019-06-16 10:36 | REP ---
INDICATION: Lumbar arthropathy PROCEDURE: CT lumbar spine without contrast. COMPARISON STUDIES: No prior similar studies. FINDINGS: Lumbar alignment within normal limits. There is a chronic compression deformity at L4 superior endplate with perhaps 40% loss of height. The bones appear overall somewhat demineralized. The spinal canal within normal limits. Minor degenerative changes narrow the neural foramen without evidence of a limiting foraminal stenosis. There is a mild left convex lumbar curvature. Degenerative osteophytic spurring seen at the lower thoracic levels, greater on the right. IMPRESSION: 1. No acute findings. 2. Chronic compression deformity at L4 superior endplate. 3. No evidence of osseous limiting canal or foraminal stenosis. Electronically Signed by Jeffrey Dawson MD 06/16/2019 11:07 A
== END ==
LOC: M RAD 09:14
PROVIDERS: ATTEND Nurse Practitioner Family
DX: M46.96 Unspecified inflammatory spondylopathy, lumbar region (principal); M51.36 Other intervertebral disc degeneration, lumbar region; M54.5 Low back pain

== ENCOUNTER → 2019-07-01 | Outpatient (CLI) | payer OTHER ==
[~2019-07-01] MED LIST changes: +BUPIVACAINE HCL 0.25% 30 ML VIAL As Ordered ONE; +ISOVUE-M 300 61% 15ML VIAL (Q9967) As Ordered ONE; +LIDOCAINE 1% SDV INJ 30 ML VIAL As Ordered ONE; +TRIAMCINOLONE ACETONIDE SUSP 40 MG/ML VIAL (J3301) As Ordered ONE; +diazePAM 5 MG TAB As Ordered ONE; +oxyCODONE 5MG TAB As Ordered ONE
--- NOTE | 2019-07-01 16:37 | REP ---
Partial lumbar spine series: Four views . History: Injection procedure for pain. 44 seconds of fluoroscopy time is reported. Findings: A sequence of four fluoroscopically obtained last image hold procedural spot radiographs of the lumbar spine document needle position and contrast injection associated with injection procedure. Electronically Signed by Nikita Gonzalez MD 07/01/2019 04:27 P
--- NOTE | 2019-07-16 02:54 | ECWPNPC ---
PATIENT NAME: REJI PICKARD : 1970 GENDER: MALE VISIT DATE: 07/01/2019 DISCHARGE DATE: 07/01/19 1612 VISIT LOCKED DATE TIME: PHYSICIAN: PEBBLES OWUSU MD RESOURCE: PEBBLES OWUSU MD REASON FOR APPOINTMENT 1. VA-BILAT L4-L5, L5-S1 LFBT HISTORY OF PRESENT ILLNESS HISTORY OF PRESENT ILLNESS: PAIN THE PATIENT DESCRIBES THE PAIN... FALL RISK SCREENING: SCREENING :NO FALLS REPORTED IN THE LAST YEAR CURRENT MEDICATIONS TAKING LISINOPRIL 10 MG TABLET 1/2 TABLET ORALLY ONCE A DAY, NOTES: 07/01/2019 0800 TAKING DULOXETINE HCL 30 MG CAPSULE DELAYED RELEASE PARTICLES 1 CAPSULE ORALLY ONCE A DAY, NOTES: 07/01/2019 0800 TAKING METFORMIN HCL 500 MG TABLET 2 TABLETS WITH MEALS ORALLY TWICE A DAY, NOTES: 06/30/2019 1800 TAKING GLIPIZIDE ER 10 MG TABLET EXTENDED RELEASE 24 HOUR 1 TABLET ORALLY BID, NOTES: 06/30/2019 1800 TAKING ASPIRIN 81 MG TABLET CHEWABLE 1 TABLET ORALLY ONCE A DAY, NOTES: 07/01/2019 0800 TAKING VITAMIN D 2000 UNIT TABLET 1 TABLET ORALLY ONCE A DAY, NOTES: 07/01/2019 0800 TAKING GABAPENTIN 300 MG CAPSULE 2 CAPSULES ORALLY THREE TIMES DAILY, NOTES: 07/01/2019 1200 TAKING TRAMADOL HCL 50 MG TABLET 1 TABLET NEEDED ORALLY EVERY 6 HRS, NOTES: > 1 MONTH TAKING ATORVASTATIN CALCIUM 20 MG TABLET 1 TABLET ORALLY ONCE A DAY, NOTES: 07/01/2019 0800 TAKING BUPROPION HCL 100 MG TABLET 1 TABLET ORALLY TWICE A DAY, NOTES: 07/01/2019 1200 TAKING SUDAFED 30 MG TABLET 1 TABLET NEEDED ORALLY EVERY 6 HRS, NOTES: NONE LATELY TAKING FLONASE 50 MCG/ACT SUSPENSION 1 SPRAY IN EACH NOSTRIL NASALLY TWICE A DAY, NOTES: NONE LATELY TAKING NETI POT SINUS WASH 2300-700 MG KIT DIRECTED NASALLY BID, NOTES: NONE LATELY TAKING MUCINEX DM 30-600 MG TABLET EXTENDED RELEASE 12 HOUR 1 TABLET NEEDED ORALLY EVERY 12 HRS, NOTES: NONE LATELY TAKING FLEXERIL 10 MG 1 CAP ORALLY TID PRN, NOTES: 06/27/2019 TAKING KETOROLAC TROMETHAMINE 10 MG TABLET 1 TABLET WITH FOOD OR MILK NEEDED ORALLY EVERY 6 HRS, NOTES: > 2 WEEKS TAKING SOMA 350 MG TABLET 1 TABLET NEEDED ORALLY BEFORE BEDTIME, NOTES: 06/28/2019 2100 NOT-TAKING METOPROLOL SUCCINATE ER 50 MG TABLET EXTENDED RELEASE 24 HOUR 1 TABLET ORALLY ONCE A DAY NOT-TAKING GEMFIBROZIL 600 MG TABLET 1 TABLET ORALLY TWICE A DAY, NOTES: 06/23/18 0600 MEDICATION LIST REVIEWED AND RECONCILED WITH THE PATIENT PAST MEDICAL HISTORY DM STAN TX'D WITH CPAP AT NIGHT CHRONIC LBP L4 FX SHRAPNAL REMOVED NECK PAIN MULTIPLE BODY TRAUMA DUE TO IED EXPLOSION SCATTERED SHRAPNAL THROUGH OUT BODY TBI ALLERGIES N.K.D.A. SURGICAL HISTORY SHRAPNAL REMOVAL 2003 COLOSTOMY 2004 COLOSTOMY REVERSAL 2004 APPENDECTOMY FAMILY HISTORY FATHER: ALIVE, DIAGNOSED WITH OTHER MALIGNANT NEOPLASM OF UNSPECIFIED SITE MOTHER: , OTHER SPECIFIED CONDITIONS INFLUENCING HEALTH STATUS 2 BROTHER(S) , 2 SISTER(S) - HEALTHY. 1 SON(S) , 1 DAUGHTER(S) - HEALTHY. FATHER-BONE\/COLON [place]\NMOTHER-SMOKER COPD\NBROTHER-BLOOD CLOTS\NSISTER-LEUKEMIAMOTHER IN MARCH 2019. SOCIAL HISTORY GENERAL: TOBACCO USE ARE YOU A:NONSMOKER PAIN CLINIC PFS, CLERGY, PUBLIC HEALTH REFERRALS PFS REFERRAL NEEDED?NO CLERGY REFERRAL NEEDED?NO PUBLIC HEALTH REFERRAL NEEDED?NO WAS THE PROVIDER NOTIFIED OF ANY PERTINENT INFO? N/A HAS THE PATIENT BEEN EDUCATED REGARDING HIS/HER PLAN OF CARE?YES HAS THE PATIENT BEEN EDUCATED REGARDING PAIN, THE RISK FOR PAIN, THE IMPORTANCE OF EFFECTIVE PAIN MANAGEMENT, AND THE PAIN ASSESSMENT PROCESS?YES LATEX QUESTIONNAIRE LATEX ALLERGY : HAVE YOU EVER DEVELOPED ANY TYPE OF REACTION AFTER HANDLING LATEX PRODUCTS SUCH RUBBER GLOVES, CONDOMS, DIAPHRAGMS, BALLOONS, SOCKS, OR UNDERWEAR?NO LATEX ALLERGY : HAVE YOU EVER DEVELOPED ANY TYPE OF REACTION DURING OR AFTER DENTAL APPOINTMENT, VAGINAL/RECTAL EXAMINATION, SURGICAL PROCEDURE, OR ANY OTHER EXPOSURE?NO DATE ASKED : 05/12/2019 LATEX RISK : HAVE YOU EVER HAD ANY DIFFICULTY BREATHING OR HIVES AFTER EATING OR HANDLING ANY FRUITS, OR VEGETABLES; SUCH KIWI, BANANAS, STONE FRUITS, OR CHESTNUTSNO LATEX RISK : DO YOU HAVE A PREVIOUS PERSONAL HISTORY OF MORE THAN NINE SURGERIES, SPINA BIFIDA, OR REPEATED CATHERIZATIONS? NO LATEX RISK : ARE YOU FREQUENTLY EXPOSED TO LATEX PRODUCTS IN YOUR OCCUPATION?NO HIV / HEP-C SCREENING HIV TEST OFFERED TO PATIENT:YES DATE OFFERED:04/06/2018 TEST ACCEPTED:NO HEP-C TEST OFFERED TO PATIENT:NO REASON:PATIENT DECLINED BROCHURE PROVIDED TO PATIENTNO CAFFEINE CAFFEINE USE?YES HOW OFTEN AND HOW MUCH? 5 CUPS COFFEE/DAY ADVANCE DIRECTIVE ADVANCE DIRECTIVE DISCUSSED WITH PATIENT:YES HCP IS TRUE MELLY [phone] [employer] [id number] [employer] LANGUAGE LANGUAGES SPOKEN:[place] DOMESTIC VIOLENCE DO YOU FEEL SAFE IN YOUR ENVIRONMENT?YES ALCOHOL SCREENING DID YOU HAVE A DRINK CONTAINING ALCOHOL IN THE PAST YEAR?YES HOW OFTEN DID YOU HAVE SIX OR MORE DRINKS ON ONE OCCASION IN THE PAST YEAR?NEVER (0 POINTS) HOW MANY DRINKS DID YOU HAVE ON A TYPICAL DAY WHEN YOU WERE DRINKING IN THE PAST YEAR?1 OR 2 (0 POINTS) HOW OFTEN DID YOU HAVE A DRINK CONTAINING ALCOHOL IN THE PAST YEAR?TWO TO FOUR TIMES A MONTH (2 POINTS) POINTS2 INTERPRETATIONNEGATIVE RECREATIONAL DRUG USE DRUG USE?NO LEARNING BARRIERS / SPECIAL NEEDS BARRIERS TO LEARNING?NO HEARING IMPAIRED?YES VISION IMPAIRED?YES COGNITIVELY IMPAIRED?NO :HEARING AIDES :CORRECTIVE LENSES READINESS TO LEARN?YES LEARNING PREFERENCES?NO LEARNING CAPABILITIES PRESENT?YES EMOTIONAL BARRIERS?NO SPECIAL DEVICES?NO TIMBER HAND NEEDED?NO REVIEWED 11/14/17 0900 BVREVIEWED WITH PT 03/2218 1056 BVREVIEWED WITH PT 06/11/18 1119 LASREVIEWED WITH PT 06/23/18 1336 BVREVIEWED WITH PT 09/11/18 1535 LAS05/12/19 REVEIWED WITH PT. ADREVIEWED WITH PATIENT 07/01/2019 LAS01/06/19 REVIEWED WITH PT. ADREVIEWED WITH PATIENT 02/10/19 BVREVIEWED WITH PATIENT 11/06/18 1009 JSREVIEWED WITH PATIENT 06/10/19 0940 NLJ. HOSPITALIZATION/MAJOR DIAGNOSTIC PROCEDURE SURGERY RELATED TRAUMA AFTER IED EXPLOSION REVIEW OF SYSTEMS REVIEWED BY: PROVIDER: , . CONSTITUTIONAL: ANY CHANGE IN YOUR MEDICAL CONDITION? NO, NO . CHILLS NO, NO . FEVER NO, NO . INFECTION: DO YOU HAVE NEW INFECTIONS? NO, NO . DO YOU HAVE HISTORY OF MRSA? NO, NO . MUSCULOSKELETAL: ANY NEW PATTERNS OF PAIN OR NUMBNESS? NO, NO . GASTROENTEROLOGY: ANY NEW CHANGE IN BOWEL CONTROL? NO, NO . GENITOURINARY: ANY NEW CHANGE IN BLADDER CONTROL? NO, NO . IS THERE A CHANCE YOU COULD BE ? NO, NO . HEMATOLOGY/LYMPH: DO YOU TAKE ANY BLOOD THINNERS? (FOR EXAMPLE- COUMADIN, PLAVIX, AGGRENOX, PLATEL, PRADAXA, OR XARELTO) NO, NO . WHEN WAS YOUR LAST DOSE? DATE: TIME: , DATE: TIME: . NEUROLOGY: HAVE YOU FALLEN IN THE PAST 12 MONTHS? NO, NO . ANY NEW EXTREMITY NUMBNESS OR WEAKNESS? NO, NO . CARDIOLOGY: DO YOU HAVE A PACEMAKER OR DEFIBRILLATOR? NO, NO . RESPIRATORY: HAVE YOU BEEN SICK IN THE PAST WEEK? NO, NO . FEVER NO, NO . FLU LIKE SYMPTOMS? NO, NO . COUGH NO, NO . INTEGUMENTARY: DO YOU HAVE ANY RASHES OR OPEN SORES? NO, NO . ALLERGIC/IMMUNO: ARE YOU ALLERGIC TO IV DYE? NO, NO . ANY NEW ALLERGIES? NO, NO . PSYCHIATRIC: DO YOU HAVE THOUGHTS OF HURTING YOURSELF OR SOMEONE ELSE? NO, NO . ARE YOU ABUSED, NEGLECTED, OR IN AN UNSAFE ENVIRONMENT? NO, NO . ENDOCRINOLOGY: ARE YOU DIABETIC? NO, NO . OTHER: DO YOU NEED ANY PRESCRIPTIONS? NO, NO . IF YES, PLEASE LIST: ____, ____ . ANY NEW PROBLEMS WITH YOUR MEDICATIONS? NO, NO . WHEN DID YOU LAST EAT? ____, ____ . WHEN DID YOU LAST DRINK? ____, ____ . WHAT DID YOU LAST DRINK? ____, ____ . NAME OF PERSON DRIVING YOU HOME? ____, ____ . DO YOU HAVE ANY OTHER QUESTIONS OR CONCERNS NO, NO . VITAL SIGNS WT 248 LBS, HT 68.5 IN, BMI 37.16 INDEX, BP 122/77 MM HG, HR 75 /MIN, RR 18 /MIN, TEMP 97.0 F, OXYGEN SAT % 95%, SAFE IN ENV? (Y/N) YES, NA INITIALS AW 1348, REVIEWED BY: IVONNE. KEITH SPONDYLOSIS WITHOUT MYELOPATHY OR RADICULOPATHY, LUMBAR REGION - M47.816 (PRIMARY) SPONDYLOSIS WITHOUT MYELOPATHY OR RADICULOPATHY, LUMBOSACRAL REGION - M47.817 PROCEDURES PN LUMBAR FACET BLOCK THERAPEUTIC PRE PROCEDURE DIAGNOSIS LUMBAR SPONDYLOSIS, LUMBOSACRAL SPONDYLOSIS POST PROCEDURE DIAGNOSIS LUMBAR SPONDYLOSIS, LUMBOSACRAL SPONDYLOSIS PROCEDURE BILATERAL L4-L5 AND BILATERAL L5-S1 LUMBAR FACET THERAPEUTIC BLOCK SURGEON DR. PEBBLES OWUSU [facility] [employer] NONE ANESTHESIA LOCAL PRE PROCEDURE NOTE THE PATIENT HAS A HISTORY OF CHRONIC LOW BACK PAIN. I EVALUATED THE PATIENT AND REVIEWED THE CHART. I WENT OVER THE RISKS, ALTERNATIVES AND BENEFITS ASSOCIATED WITH THIS PROCEDURE. THE PATIENT WOULD LIKE TO PROCEED AND GIVES CONSENT TO PERFORM THE PROCEDURE. THE PATIENT DENIES UNEXPLAINABLE WEIGHT LOSS, FEVER, CHILLS, OR NEW CHANGES IN URINARY OR BOWEL CONTROL DESCRIPTION OF PROCEDURE THE PATIENT WAS BROUGHT TO THE PROCEDURE ROOM AND PLACED IN THE PRONE POSITION. THE LUMBOSACRAL AREA WAS CLEANED WITH CHLORAPREP SOLUTION AND DRAPED ASEPTICALLY. THE PROCEDURE WAS DONE UNDER STERILE CONDITIONS. I CHECKED LATERALITY AND THE LEVEL WHERE THE PROCEDURE WAS GOING TO BE PERFORMED WITH THE PATIENT AND THE SUPPORTING STAFF AT THE MOMENT OF THE TIMEOUT IN THE PROCEDURE ROOM. UNDER FLUOROSCOPIC GUIDANCE, THE TARGET POINT WAS SELECTED AT THE RIGHT AND LEFT L4-L5 AND RIGHT AND LEFT L5-S1 FACET JOINTS. TARGET POINTS WERE SELECTED AFTER LATERAL ROTATION AND TILT OF THE MAGNIFIER OF THE C-ARM. LIDOCAINE 0.5% WAS USED TO NUMB THE SKIN AND THE SUBCUTANEOUS TISSUE BELOW IT. SPINAL NEEDLES, 22-GAUGE, WERE ADVANCED UNDER FLUOROSCOPIC GUIDANCE AND FOLLOWING PATIENT FEEDBACK UNTIL THE TARGETS WERE TOUCHED. THE POSITION OF THE NEEDLES WAS VERIFIED WITH AP AND LATERAL VIEWS. AFTER PROPER POSITION OF THE NEEDLES WAS ACHIEVED, ISOVUE-M DYE 30% 0.1 ML WAS INJECTED SHOWING ADEQUATE SPREAD OF THE DYE. THEN A SOLUTION OF 1.9 ML OF BUPIVACAINE 0.125% OF KENALOG 10 MG WAS INJECTED AT EACH SITE. THERE WAS NO EVIDENCE OF BLOOD, PARESTHESIA OR CEREBROSPINAL FLUID DURING THE PROCEDURE. THE PATIENT WAS SENT TO THE RECOVERY ROOM. THE PATIENT WAS MOVING THE EXTREMITIES AND DOING WELL. THERE WAS NO COMPLICATION DURING THE PROCEDURE. FLUOROSCOPY TIME WAS 44 SECONDS POST PROCEDURE NOTE THE PATIENT WILL BE SEEN IN A FOLLOWUP IN THE NEXT FEW WEEKS. I AM LOOKING FOR LONG-LASTING PAIN RELIEF WITH THIS INTERVENTION. INSTRUCTIONS WERE GIVEN, QUESTIONS WERE ANSWERED, AND THE PATIENT EXPRESSED UNDERSTANDING AND AGREES WITH THE PLAN. I, MARCELINA MANNING, DOCUMENTED THE ABOVE INFORMATION ACTING A SCRIBE FOR DR. OWUSU. I HAVE REVIEWED THE ABOVE DOCUMENT, WRITTEN BY ANA ROSA VENEGAS, AND I VERIFY THAT IT IS ACCURATE DIAGNOSTIC IMAGING [facility] FACET BLOCK (PAIN)[id number] PROCEDURE CODES 02213 INJ PARAVERT F JNT L/S 1 LEV, MODIFIERS: 50 [id number] INJ PARAVERT F JNT L/S 2 LEV, MODIFIERS: 50 [id number] RADXPS IN END [id number] PXD DISPOSITION & COMMUNICATION FOLLOW UP 3 WEEKS ELECTRONICALLY SIGNED BY PEBBLES OWUSU MD, MD ON 07/15/2019 AT 12:09 PM EST DISCLAIMER : THIS IS A VISIT SUMMARY EXTRACTED FROM THE [employer] CHART. IT IS NOT A COPY OF THE [employer] PROGRESS NOTE. MTDD
== END ==
LOC: M PAIN 14:00
PROVIDERS: ATTEND Anesthesiology
DX: M47.816 Spondylosis without myelopathy or radiculopathy, lumbar region (principal); M47.817 Spondylosis without myelopathy or radiculopathy, lumbosacral region; E11.9 Type 2 diabetes mellitus without complications; G47.33 Obstructive sleep apnea (adult) (pediatric); Z87.820 Personal history of traumatic brain injury; Z79.82 Long term (current) use of aspirin; Z79.84 Long term (current) use of oral hypoglycemic drugs; Z79.899 Other long term (current) drug therapy
CPT/HCPCS: 64493; 64494; J3301; Q9967

== ENCOUNTER → 2019-07-15 | Outpatient (CLI) | payer OTHER ==
[~2019-07-15] MED LIST changes: -BUPIVACAINE HCL 0.25% 30 ML VIAL As Ordered ONE; -ISOVUE-M 300 61% 15ML VIAL (Q9967) As Ordered ONE; -LIDOCAINE 1% SDV INJ 30 ML VIAL As Ordered ONE; -TRIAMCINOLONE ACETONIDE SUSP 40 MG/ML VIAL (J3301) As Ordered ONE; -diazePAM 5 MG TAB As Ordered ONE; -oxyCODONE 5MG TAB As Ordered ONE
--- NOTE | 2019-07-16 02:53 | ECWPNPC ---
PATIENT NAME: REJI PICKARD : 1970 GENDER: MALE VISIT DATE: 07/15/2019 DISCHARGE DATE: 07/15/19 1224 VISIT LOCKED DATE TIME: PHYSICIAN: MARILEE EVANS RESOURCE: MARILEE EVANS REASON FOR APPOINTMENT 1. [facility]- POST BILAT L3/4-L4/5 LFBT HISTORY OF PRESENT ILLNESS HISTORY OF PRESENT ILLNESS: HERE FOR POST PROCEDURE FOLLOW-UP. HAD BILATERAL L4-5, L5-S1, THERAPEUTIC FACET BLOCK ON 07/01/2019. PATIENT REPORTS SIGNIFICANT REDUCTION IN PAIN ACROSS HIS LOWER BACK AREA, WHICH CONTINUES TODAY. APPROXIMATELY 2 DAYS POSTOP PROCEDURE. PATIENT BEGAN TO HAVE SIGNIFICANT THORACIC PAIN, ESPECIALLY WITH BENDING OR USE OF HIS RIGHT ARM. DENIES INJURY. PAIN RADIATES INTO RIGHT ANTERIOR RIB CAGE. HAS BEEN SO UNCOMFORTABLE HE HASN'T BEEN ABLE TO SLEEP. HAS BEEN USING SOMA AND TORADOL WITHOUT IMPROVEMENT. PAIN THE PATIENT DESCRIBES THE PAIN... FALL RISK SCREENING: SCREENING :NO FALLS REPORTED IN THE LAST YEAR CURRENT MEDICATIONS TAKING LISINOPRIL 10 MG TABLET 1/2 TABLET ORALLY ONCE A DAY TAKING DULOXETINE HCL 30 MG CAPSULE DELAYED RELEASE PARTICLES 1 CAPSULE ORALLY ONCE A DAY TAKING METFORMIN HCL 500 MG TABLET 2 TABLETS WITH MEALS ORALLY TWICE A DAY TAKING GLIPIZIDE ER 10 MG TABLET EXTENDED RELEASE 24 HOUR 1 TABLET ORALLY BID TAKING ASPIRIN 81 MG TABLET CHEWABLE 1 TABLET ORALLY ONCE A DAY TAKING VITAMIN D 2000 UNIT TABLET 1 TABLET ORALLY ONCE A DAY TAKING GABAPENTIN 300 MG CAPSULE 2 CAPSULES ORALLY THREE TIMES DAILY TAKING TRAMADOL HCL 50 MG TABLET 1 TABLET NEEDED ORALLY EVERY 6 HRS TAKING ATORVASTATIN CALCIUM 20 MG TABLET 1 TABLET ORALLY ONCE A DAY TAKING BUPROPION HCL 100 MG TABLET 1 TABLET ORALLY TWICE A DAY TAKING SUDAFED 30 MG TABLET 1 TABLET NEEDED ORALLY EVERY 6 HRS TAKING FLONASE 50 MCG/ACT SUSPENSION 1 SPRAY IN EACH NOSTRIL NASALLY TWICE A DAY TAKING NETI POT SINUS WASH 2300-700 MG KIT DIRECTED NASALLY BID TAKING MUCINEX DM 30-600 MG TABLET EXTENDED RELEASE 12 HOUR 1 TABLET NEEDED ORALLY EVERY 12 HRS TAKING FLEXERIL 10 MG 1 CAP ORALLY TID PRN TAKING SOMA 350 MG TABLET 1 TABLET NEEDED ORALLY BEFORE BEDTIME NOT-TAKING METOPROLOL SUCCINATE ER 50 MG TABLET EXTENDED RELEASE 24 HOUR 1 TABLET ORALLY ONCE A DAY NOT-TAKING GEMFIBROZIL 600 MG TABLET 1 TABLET ORALLY TWICE A DAY, NOTES: 06/23/18 0600 DISCONTINUED KETOROLAC TROMETHAMINE 10 MG TABLET 1 TABLET WITH FOOD OR MILK NEEDED ORALLY EVERY 6 HRS MEDICATION LIST REVIEWED AND RECONCILED WITH THE PATIENT PAST MEDICAL HISTORY DM STAN TX'D WITH CPAP AT NIGHT CHRONIC LBP L4 FX SHRAPNAL REMOVED NECK PAIN MULTIPLE BODY TRAUMA DUE TO IED EXPLOSION SCATTERED SHRAPNAL THROUGH OUT BODY TBI ALLERGIES N.K.D.A. SURGICAL HISTORY SHRAPNAL REMOVAL 2003 COLOSTOMY 2003 COLOSTOMY REVERSAL 2004 APPENDECTOMY FAMILY HISTORY FATHER: ALIVE, DIAGNOSED WITH OTHER MALIGNANT NEOPLASM OF UNSPECIFIED SITE MOTHER: , OTHER SPECIFIED CONDITIONS INFLUENCING HEALTH STATUS 2 BROTHER(S) , 2 SISTER(S) - HEALTHY. 1 SON(S) , 1 DAUGHTER(S) - HEALTHY. FATHER-BONE\/COLON [place]\NMOTHER-SMOKER COPD\NBROTHER-BLOOD CLOTS\NSISTER-LEUKEMIAMOTHER IN MARCH 2019. SOCIAL HISTORY GENERAL: TOBACCO USE ARE YOU A:NONSMOKER PAIN CLINIC PFS, CLERGY, PUBLIC HEALTH REFERRALS PFS REFERRAL NEEDED?NO CLERGY REFERRAL NEEDED?NO PUBLIC HEALTH REFERRAL NEEDED?NO WAS THE PROVIDER NOTIFIED OF ANY PERTINENT INFO? N/A HAS THE PATIENT BEEN EDUCATED REGARDING HIS/HER PLAN OF CARE?YES HAS THE PATIENT BEEN EDUCATED REGARDING PAIN, THE RISK FOR PAIN, THE IMPORTANCE OF EFFECTIVE PAIN MANAGEMENT, AND THE PAIN ASSESSMENT PROCESS?YES LATEX QUESTIONNAIRE LATEX ALLERGY : HAVE YOU EVER DEVELOPED ANY TYPE OF REACTION AFTER HANDLING LATEX PRODUCTS SUCH RUBBER GLOVES, CONDOMS, DIAPHRAGMS, BALLOONS, SOCKS, OR UNDERWEAR?NO LATEX ALLERGY : HAVE YOU EVER DEVELOPED ANY TYPE OF REACTION DURING OR AFTER DENTAL APPOINTMENT, VAGINAL/RECTAL EXAMINATION, SURGICAL PROCEDURE, OR ANY OTHER EXPOSURE?NO DATE ASKED : 05/12/2019 LATEX RISK : HAVE YOU EVER HAD ANY DIFFICULTY BREATHING OR HIVES AFTER EATING OR HANDLING ANY FRUITS, OR VEGETABLES; SUCH KIWI, BANANAS, STONE FRUITS, OR CHESTNUTSNO LATEX RISK : DO YOU HAVE A PREVIOUS PERSONAL HISTORY OF MORE THAN NINE SURGERIES, SPINA BIFIDA, OR REPEATED CATHERIZATIONS? NO LATEX RISK : ARE YOU FREQUENTLY EXPOSED TO LATEX PRODUCTS IN YOUR OCCUPATION?NO HIV / HEP-C SCREENING HIV TEST OFFERED TO PATIENT:YES DATE OFFERED:04/06/2018 TEST ACCEPTED:NO HEP-C TEST OFFERED TO PATIENT:NO REASON:PATIENT DECLINED BROCHURE PROVIDED TO PATIENTNO CAFFEINE CAFFEINE USE?YES HOW OFTEN AND HOW MUCH? 5 CUPS COFFEE/DAY ADVANCE DIRECTIVE ADVANCE DIRECTIVE DISCUSSED WITH PATIENT:YES HCP IS TRUE PICKARD [phone] SHINTO [id number] [employer] LANGUAGE LANGUAGES SPOKEN:[place] DOMESTIC VIOLENCE DO YOU FEEL SAFE IN YOUR ENVIRONMENT?YES ALCOHOL SCREENING DID YOU HAVE A DRINK CONTAINING ALCOHOL IN THE PAST YEAR?YES HOW OFTEN DID YOU HAVE SIX OR MORE DRINKS ON ONE OCCASION IN THE PAST YEAR?NEVER (0 POINTS) HOW MANY DRINKS DID YOU HAVE ON A TYPICAL DAY WHEN YOU WERE DRINKING IN THE PAST YEAR?1 OR 2 (0 POINTS) HOW OFTEN DID YOU HAVE A DRINK CONTAINING ALCOHOL IN THE PAST YEAR?TWO TO FOUR TIMES A MONTH (2 POINTS) POINTS2 INTERPRETATIONNEGATIVE RECREATIONAL DRUG USE DRUG USE?NO LEARNING BARRIERS / SPECIAL NEEDS BARRIERS TO LEARNING?NO HEARING IMPAIRED?YES VISION IMPAIRED?YES COGNITIVELY IMPAIRED?NO :HEARING AIDES :CORRECTIVE LENSES READINESS TO LEARN?YES LEARNING PREFERENCES?NO LEARNING CAPABILITIES PRESENT?YES EMOTIONAL BARRIERS?NO SPECIAL DEVICES?NO IT HELP DESK ANALYST NEEDED?NO REVIEWED 11/14/17 0900 BVREVIEWED WITH PT 03/2218 1056 BVREVIEWED WITH PT 06/11/18 1119 LASREVIEWED WITH PT 06/23/18 1336 BVREVIEWED WITH PT 09/11/18 1535 LAS05/12/19 REVEIWED WITH PT. JESSICAWED WITH PATIENT 07/01/2019 LAS01/06/19 REVIEWED WITH PT. BRYAND WITH PATIENT 02/10/19 BVREVIEWED WITH PATIENT 11/06/18 1009 JSREVIEWED WITH PATIENT 06/10/19 0940 NLJ. HOSPITALIZATION/MAJOR DIAGNOSTIC PROCEDURE SURGERY RELATED TRAUMA AFTER IED EXPLOSION REVIEW OF SYSTEMS REVIEWED BY: PROVIDER: MARILEE MENDEZ . CONSTITUTIONAL: ANY CHANGE IN YOUR MEDICAL CONDITION? NO . CHILLS NO . FEVER NO . INFECTION: DO YOU HAVE NEW INFECTIONS? NO . DO YOU HAVE HISTORY OF MRSA? NO . MUSCULOSKELETAL: ANY NEW PATTERNS OF PAIN OR NUMBNESS? YES, PAIN IN THORACIC BACK . GASTROENTEROLOGY: ANY NEW CHANGE IN BOWEL CONTROL? NO . GENITOURINARY: ANY NEW CHANGE IN BLADDER CONTROL? NO . IS THERE A CHANCE YOU COULD BE ? NO . HEMATOLOGY/LYMPH: DO YOU TAKE ANY BLOOD THINNERS? (FOR EXAMPLE- COUMADIN, PLAVIX, AGGRENOX, PLATEL, PRADAXA, OR XARELTO) NO . WHEN WAS YOUR LAST DOSE? DATE: TIME: . NEUROLOGY: HAVE YOU FALLEN IN THE PAST 12 MONTHS? NO . ANY NEW EXTREMITY NUMBNESS OR WEAKNESS? NO . CARDIOLOGY: DO YOU HAVE A PACEMAKER OR DEFIBRILLATOR? NO . RESPIRATORY: HAVE YOU BEEN SICK IN THE PAST WEEK? NO . FEVER NO . FLU LIKE SYMPTOMS? NO . COUGH NO . INTEGUMENTARY: DO YOU HAVE ANY RASHES OR OPEN SORES? NO . ALLERGIC/IMMUNO: ARE YOU ALLERGIC TO IV DYE? NO . ANY NEW ALLERGIES? NO . PSYCHIATRIC: DO YOU HAVE THOUGHTS OF HURTING YOURSELF OR SOMEONE ELSE? NO . ARE YOU ABUSED, NEGLECTED, OR IN AN UNSAFE ENVIRONMENT? NO . ENDOCRINOLOGY: ARE YOU DIABETIC? YES . OTHER: DO YOU NEED ANY PRESCRIPTIONS? TO DISCUSS . IF YES, PLEASE LIST: ____ . ANY NEW PROBLEMS WITH YOUR MEDICATIONS? NO . WHEN DID YOU LAST EAT? ____ . WHEN DID YOU LAST DRINK? ____ . WHAT DID YOU LAST DRINK? ____ . NAME OF PERSON DRIVING YOU HOME? ____ . DO YOU HAVE ANY OTHER QUESTIONS OR CONCERNS NO . VITAL SIGNS WT 248 LBS, HT 68.5 IN, BMI 37.16 INDEX, BP 136/89 MM HG, HR 86 /MIN, RR 16 /MIN, TEMP 97.7 F, OXYGEN SAT % 98, REVIEWED BY: EM. EXAMINATION GENERAL EXAMINATION: GENERALNO ACUTE DISTRESS, WELL NOURISHED AND HYDRATED. PSYCHAPPROPRIATE MOOD AND AFFECT . LUNGS:CLEAR TO AUSCULTATION BILATERALLY, NO WHEEZES, RHONCHI, RALES. HEART:NO MURMURS, REGULAR RATE AND RHYTHM. THORACIC SPINE: TRIGGER POINTS:, ELICITED WITH PALPATION OVER MID-LOWER BILAT RIGHT>LEFT THORACIC MUSCLES.PAIN IS AGGREVATED IN THIS AREA WITH ROJM RIGHT ARM AND ROJM SPINE.. ASSESSMENTS ACUTE BILATERAL THORACIC BACK PAIN - M54.6 (PRIMARY) MYALGIA, OTHER SITE - M79.18 TREATMENT ACUTE BILATERAL THORACIC BACK PAIN STOP SOMA TABLET, 350 MG, 1 TABLET NEEDED, ORALLY, BEFORE BEDTIME START NORCO TABLET, 5-325 MG, 1 TO 2, ORALLY, Q8H PRN MDD4, 10 DAY(S), 40, REFILLS 0 CT THORACIC [id number] NOTES: TAKE IBUPROFEN 600 MG 3 TIMES DAILY 10 DAYS FOR ACUTE INFLAMMATION/PAINTPI BILAT THORACIC R>L, ISTOP REGISTRY REVIEWED AND DEMONSTRATES COMPLLIANCE.RISKS OF NARCOTIC/OPIOD MEDICATIONS INCLUDES BUT IS NOT LIMITED TO RISK OF DEPENDANCE/DEVELOPMENT OF ADDICTION, MOOD DISTURBANCE AND DEPRESSION, OSTEOPOROSIS, HORMONAL AND LABIDAL CHANGES, RESPIRATORY DEPRESSION AND . PATIENT IS ADVISED NOT TO DRIVE OR DRINK ALCOHOL WHILE ON THESE MEDICATIONS,. PREVENTIVE MEDICINE PAIN CLINIC TEACHING: MEDICATIONS REVIEWED INFORMATION ON NEW MEDICATION, NORCO, WITH PATIENT. PATIENT VERBALIZED AN UNDERSTANDING. EMILY PASCUAL 07/15/2019 2:15:18 PM > . PROCEDURE TEACHING REVIEWED INFORMATION ON TRIGGER POINT INJECTION PROCEDURE WITH PATIENT. ALSO REVIEWED PRE-PROCEDURE INSTRUCTIONS. PATIENT VERBALIZED AN UNDERSTANDING. EMILY PASCUAL 07/15/2019 2:14:51 PM > . PROCEDURE CODES FA211 ESTABILISHED PATIENT [facility] CHARGE DISPOSITION & COMMUNICATION FOLLOW UP POST (REASON: TPI BILAT THORACIC R>L) ELECTRONICALLY SIGNED BY VANESSA MANCIA ON 07/15/2019 AT 02:15 PM EST DISCLAIMER : THIS IS A VISIT SUMMARY EXTRACTED FROM THE [email or web address] CHART. IT IS NOT A COPY OF THE [email or web address] PROGRESS NOTE. KATIA
== END ==
LOC: M PAIN 11:30
PROVIDERS: ATTEND Nurse Practitioner Family
DX: M54.6 Pain in thoracic spine (principal); M79.18 Myalgia, other site; E11.9 Type 2 diabetes mellitus without complications; G47.33 Obstructive sleep apnea (adult) (pediatric); Z87.820 Personal history of traumatic brain injury; Z79.82 Long term (current) use of aspirin; Z79.84 Long term (current) use of oral hypoglycemic drugs; Z79.899 Other long term (current) drug therapy

== ENCOUNTER → 2019-07-23 | Outpatient (CLI) | payer OTHER ==
[~2019-07-23] MED LIST changes: +BUPIVACAINE HCL 0.25% 30 ML VIAL As Ordered ONE; +TRIAMCINOLONE ACETONIDE SUSP 40 MG/ML VIAL (J3301) As Ordered ONE
--- NOTE | 2019-08-10 03:20 | ECWPNPC ---
PATIENT NAME: REJI PICKARD : 1970 GENDER: MALE VISIT DATE: 07/23/2019 DISCHARGE DATE: 07/23/19 1445 VISIT LOCKED DATE TIME: PHYSICIAN: PEBBLES OWUSU MD RESOURCE: PEBBLES OWUSU MD REASON FOR APPOINTMENT 1. TPI BILAT THORACIC R>L HISTORY OF PRESENT ILLNESS HISTORY OF PRESENT ILLNESS: PAIN THE PATIENT DESCRIBES THE PAIN... FALL RISK SCREENING: SCREENING :NO FALLS REPORTED IN THE LAST YEAR CURRENT MEDICATIONS TAKING LISINOPRIL 10 MG TABLET 1/2 TABLET ORALLY ONCE A DAY, NOTES: 07/23 529 TAKING DULOXETINE HCL 30 MG CAPSULE DELAYED RELEASE PARTICLES 1 CAPSULE ORALLY ONCE A DAY, NOTES: 07/23 529 TAKING METFORMIN HCL 500 MG TABLET 2 TABLETS WITH MEALS ORALLY TWICE A DAY, NOTES: 07/22/19 TAKING GLIPIZIDE ER 10 MG TABLET EXTENDED RELEASE 24 HOUR 1 TABLET ORALLY BID, NOTES: 07/22/19 TAKING ASPIRIN 81 MG TABLET CHEWABLE 1 TABLET ORALLY ONCE A DAY, NOTES: 07/23 529 TAKING VITAMIN D 2000 UNIT TABLET 1 TABLET ORALLY ONCE A DAY, NOTES: 07/23 529 TAKING GABAPENTIN 300 MG CAPSULE 2 CAPSULES ORALLY THREE TIMES DAILY, NOTES: 07/23 529 TAKING TRAMADOL HCL 50 MG TABLET 1 TABLET NEEDED ORALLY EVERY 6 HRS, NOTES: 2 DAYS AGO TAKING ATORVASTATIN CALCIUM 20 MG TABLET 1 TABLET ORALLY ONCE A DAY, NOTES: 07/23 529 TAKING BUPROPION HCL 100 MG TABLET 1 TABLET ORALLY TWICE A DAY, NOTES: 07/23 529 TAKING FLEXERIL 10 MG 1 CAP ORALLY TID PRN, NOTES: NONE RECENT TAKING NORCO 5-325 MG TABLET 1 TO 2 ORALLY Q8H PRN MDD4, NOTES: 07/22/19 PM NOT-TAKING METOPROLOL SUCCINATE ER 50 MG TABLET EXTENDED RELEASE 24 HOUR 1 TABLET ORALLY ONCE A DAY NOT-TAKING GEMFIBROZIL 600 MG TABLET 1 TABLET ORALLY TWICE A DAY, NOTES: 06/23/18 0600 DISCONTINUED SUDAFED 30 MG TABLET 1 TABLET NEEDED ORALLY EVERY 6 HRS DISCONTINUED FLONASE 50 MCG/ACT SUSPENSION 1 SPRAY IN EACH NOSTRIL NASALLY TWICE A DAY DISCONTINUED NETI POT SINUS WASH 2300-700 MG KIT DIRECTED NASALLY BID DISCONTINUED MUCINEX DM 30-600 MG TABLET EXTENDED RELEASE 12 HOUR 1 TABLET NEEDED ORALLY EVERY 12 HRS MEDICATION LIST REVIEWED AND RECONCILED WITH THE PATIENT PAST MEDICAL HISTORY DM STAN TX'D WITH CPAP AT NIGHT CHRONIC LBP L4 FX SHRAPNAL REMOVED NECK PAIN MULTIPLE BODY TRAUMA DUE TO IED EXPLOSION SCATTERED SHRAPNAL THROUGH OUT BODY TBI ALLERGIES N.K.D.A. SURGICAL HISTORY SHRAPNAL REMOVAL 2003 COLOSTOMY 2004 COLOSTOMY REVERSAL 2004 APPENDECTOMY FAMILY HISTORY FATHER: ALIVE, DIAGNOSED WITH OTHER MALIGNANT NEOPLASM OF UNSPECIFIED SITE MOTHER: , OTHER SPECIFIED CONDITIONS INFLUENCING HEALTH STATUS 2 BROTHER(S) , 2 SISTER(S) - HEALTHY. 1 SON(S) , 1 DAUGHTER(S) - HEALTHY. FATHER-BONE\/COLON [place]\NMOTHER-SMOKER COPD\NBROTHER-BLOOD CLOTS\NSISTER-LEUKEMIAMOTHER IN MARCH 2019. SOCIAL HISTORY GENERAL: TOBACCO USE ARE YOU A:NONSMOKER PAIN CLINIC PFS, CLERGY, PUBLIC HEALTH REFERRALS PFS REFERRAL NEEDED?NO CLERGY REFERRAL NEEDED?NO PUBLIC HEALTH REFERRAL NEEDED?NO WAS THE PROVIDER NOTIFIED OF ANY PERTINENT INFO? N/A HAS THE PATIENT BEEN EDUCATED REGARDING HIS/HER PLAN OF CARE?YES HAS THE PATIENT BEEN EDUCATED REGARDING PAIN, THE RISK FOR PAIN, THE IMPORTANCE OF EFFECTIVE PAIN MANAGEMENT, AND THE PAIN ASSESSMENT PROCESS?YES LATEX QUESTIONNAIRE LATEX ALLERGY : HAVE YOU EVER DEVELOPED ANY TYPE OF REACTION AFTER HANDLING LATEX PRODUCTS SUCH RUBBER GLOVES, CONDOMS, DIAPHRAGMS, BALLOONS, SOCKS, OR UNDERWEAR?NO LATEX ALLERGY : HAVE YOU EVER DEVELOPED ANY TYPE OF REACTION DURING OR AFTER DENTAL APPOINTMENT, VAGINAL/RECTAL EXAMINATION, SURGICAL PROCEDURE, OR ANY OTHER EXPOSURE?NO LATEX RISK : HAVE YOU EVER HAD ANY DIFFICULTY BREATHING OR HIVES AFTER EATING OR HANDLING ANY FRUITS, OR VEGETABLES; SUCH KIWI, BANANAS, STONE FRUITS, OR CHESTNUTSNO LATEX RISK : DO YOU HAVE A PREVIOUS PERSONAL HISTORY OF MORE THAN NINE SURGERIES, SPINA BIFIDA, OR REPEATED CATHERIZATIONS? NO LATEX RISK : ARE YOU FREQUENTLY EXPOSED TO LATEX PRODUCTS IN YOUR OCCUPATION?NO DATE ASKED : 05/12/2019 HIV / HEP-C SCREENING HIV TEST OFFERED TO PATIENT:YES DATE OFFERED:04/06/2018 TEST ACCEPTED:NO HEP-C TEST OFFERED TO PATIENT:NO REASON:PATIENT DECLINED BROCHURE PROVIDED TO PATIENTNO CAFFEINE CAFFEINE USE?YES HOW OFTEN AND HOW MUCH? 5 CUPS COFFEE/DAY ADVANCE DIRECTIVE ADVANCE DIRECTIVE DISCUSSED WITH PATIENT:YES HCP IS TRUE PICKARD [phone] YARSANI [id number] [employer]ISM LANGUAGE LANGUAGES SPOKEN:HONDURAN DOMESTIC VIOLENCE DO YOU FEEL SAFE IN YOUR ENVIRONMENT?YES ALCOHOL SCREENING DID YOU HAVE A DRINK CONTAINING ALCOHOL IN THE PAST YEAR?YES HOW OFTEN DID YOU HAVE SIX OR MORE DRINKS ON ONE OCCASION IN THE PAST YEAR?NEVER (0 POINTS) HOW MANY DRINKS DID YOU HAVE ON A TYPICAL DAY WHEN YOU WERE DRINKING IN THE PAST YEAR?1 OR 2 (0 POINTS) HOW OFTEN DID YOU HAVE A DRINK CONTAINING ALCOHOL IN THE PAST YEAR?TWO TO FOUR TIMES A MONTH (2 POINTS) POINTS2 INTERPRETATIONNEGATIVE RECREATIONAL DRUG USE DRUG USE?NO LEARNING BARRIERS / SPECIAL NEEDS BARRIERS TO LEARNING?NO HEARING IMPAIRED?YES VISION IMPAIRED?YES COGNITIVELY IMPAIRED?NO :HEARING AIDES :CORRECTIVE LENSES READINESS TO LEARN?YES LEARNING PREFERENCES?NO LEARNING CAPABILITIES PRESENT?YES EMOTIONAL BARRIERS?NO SPECIAL DEVICES?NO FIRE TECHNOLOGY INSTRUCTOR NEEDED?NO REVIEWED 11/14/17 0900 BVREVIEWED WITH PT 03/2218 1056 BVREVIEWED WITH PT 06/11/18 1119 LASREVIEWED WITH PT 06/23/18 1336 BVREVIEWED WITH PT 09/11/18 1535 LAS05/12/19 REVEIWED WITH PT. ADREVIEWED WITH PATIENT 07/01/2019 LAS01/06/19 REVIEWED WITH PT. ADREVIEWED WITH PATIENT 02/10/19 BVREVIEWED WITH PATIENT 11/06/18 1009 JSREVIEWED WITH PATIENT 06/10/19 0940 NLJREVIEWED WITH PATIENT 07/23/19 1338 BV. HOSPITALIZATION/MAJOR DIAGNOSTIC PROCEDURE SURGERY RELATED TRAUMA AFTER IED EXPLOSION REVIEW OF SYSTEMS REVIEWED BY: PROVIDER: . CONSTITUTIONAL: ANY CHANGE IN YOUR MEDICAL CONDITION? NO . CHILLS NO . FEVER NO . INFECTION: DO YOU HAVE NEW INFECTIONS? NO . DO YOU HAVE HISTORY OF MRSA? NO . MUSCULOSKELETAL: ANY NEW PATTERNS OF PAIN OR NUMBNESS? NO . GASTROENTEROLOGY: ANY NEW CHANGE IN BOWEL CONTROL? NO . GENITOURINARY: ANY NEW CHANGE IN BLADDER CONTROL? NO . IS THERE A CHANCE YOU COULD BE ? NO . HEMATOLOGY/LYMPH: DO YOU TAKE ANY BLOOD THINNERS? (FOR EXAMPLE- COUMADIN, PLAVIX, AGGRENOX, PLATEL, PRADAXA, OR XARELTO) NO . WHEN WAS YOUR LAST DOSE? DATE: TIME: . NEUROLOGY: HAVE YOU FALLEN IN THE PAST 12 MONTHS? NO . ANY NEW EXTREMITY NUMBNESS OR WEAKNESS? NO . CARDIOLOGY: DO YOU HAVE A PACEMAKER OR DEFIBRILLATOR? NO . RESPIRATORY: HAVE YOU BEEN SICK IN THE PAST WEEK? NO . FEVER NO . FLU LIKE SYMPTOMS? NO . COUGH NO . INTEGUMENTARY: DO YOU HAVE ANY RASHES OR OPEN SORES? NO . ALLERGIC/IMMUNO: ARE YOU ALLERGIC TO IV DYE? NO . ANY NEW ALLERGIES? NO . PSYCHIATRIC: DO YOU HAVE THOUGHTS OF HURTING YOURSELF OR SOMEONE ELSE? NO . ARE YOU ABUSED, NEGLECTED, OR IN AN UNSAFE ENVIRONMENT? NO . ENDOCRINOLOGY: ARE YOU DIABETIC? YES, 97 AT 0600 . OTHER: DO YOU NEED ANY PRESCRIPTIONS? NO . IF YES, PLEASE LIST: ____ . ANY NEW PROBLEMS WITH YOUR MEDICATIONS? NO . WHEN DID YOU LAST EAT? YES, 07/22/19 1900 . WHEN DID YOU LAST DRINK? 07/23/19 1100 . WHAT DID YOU LAST DRINK? WATER . NAME OF PERSON DRIVING YOU HOME? TRUE . DO YOU HAVE ANY OTHER QUESTIONS OR CONCERNS NO . VITAL SIGNS WT 245.8 LBS, HT 68.5 IN, BMI 36.83 INDEX, BP 137/90 MM HG, HR 71 /MIN, RR 18 /MIN, TEMP 97.3 F, OXYGEN SAT % 98%, SAFE IN ENV? (Y/N) YES, REVIEWED BY: ASSESSMENTS MYALGIA, OTHER SITE - M79.18 (PRIMARY) PROCEDURES PN TRIGGER POINT INJECTION WITH STEROIDS PRE PROCEDURE DIAGNOSIS 1. MYALGIA 2. PAIN AT BILATERAL THORACIC AREA. POST PROCEDURE DIAGNOSIS 1. MYALGIA 2. PAIN AT BILATERAL THORACIC AREA. PROCEDURE TRIGGER POINT INJECTION AT RIGHT AND LEFT THORACIC AREA. SURGEON DR. PEBBLES OWUSU DIRECTOR GROUP SALES NONE ANESTHESIA LOCAL PRE PROCEDURE NOTE THE PATIENT HAS A HISTORY OF CHRONIC PAIN AT THE RIGHT AND LEFT THORACIC AREA. I EVALUATE THE PATIENT AND REVIEWED THE CHART. THERE IS EVIDENCE OF BANDS OF TISSUE WITH RESTRICTION OF MOVEMENT AND PRESENCE OF TRIGGER POINT AT THE AFFECTED AREA. I WENT OVER THE RISKS, ALTERNATIVES, AND BENEFITS ASSOCIATED WITH THIS PROCEDURE. THE PATIENT WOULD LIKE TO PROCEED AND GIVE CONSENT TO PERFORMED THE PROCEDURE. THE PATIENT DENIES UNEXPLAINABLE WEIGHT LOSS, FEVER, CHILLS, OR NEW CHANGES IN URINARY OR BOWEL CONTROL DESCRIPTION OF PROCEDURE THE PATIENT WAS BROUGHT TO THE PROCEDURE ROOM AND PLACED IN THE SITTING POSITION. THE AREA WAS CLEANED WITH ALCOHOL. THE PROCEDURE WAS DONE USING ASEPTIC STERILE TECHNIQUE. I CHECKED LATERALITY AND THE LEVEL WHERE THE PROCEDURE WAS GOING TO BE PERFORMED WITH THE PATIENT AND THE SUPPORTING STAFF AT THE MOMENT OF THE TIME OUT IN THE PROCEDURE ROOM. USING A 25-GAUGE NEEDLE, TRIGGER POINTS WERE INJECTED AT THE RIGHT AND LEFT THORACIC AREA WITH A TOTAL OF 40 ML OF BUPIVACAINE 0.25% AND KENALOG 40 MG. THERE WAS NO EVIDENCE OF BLOOD, PARESTHESIA OR CEREBROSPINAL FLUID DURING THE PROCEDURE. THE PATIENT WAS SENT TO THE RECOVERY ROOM. THE PATIENT WAS MOVING THE EXTREMITIES AND DOING WELL. THERE WAS NO COMPLICATION DURING THE PROCEDURE POST PROCEDURE NOTE THE PATIENT WILL BE SEEN IN A FOLLOW UP IN THE NEXT FEW WEEKS. INSTRUCTIONS WERE GIVEN, QUESTIONS WERE ANSWERED, AND THE PATIENT EXPRESSED UNDERSTANDING AND AGREES WITH THE PLAN. I, KENY ALCANTARA, DOCUMENTED THE ABOVE INFORMATION ACTING A SCRIBE FOR DR. OWUSU. I HAVE REVIEWED THE ABOVE DOCUMENT, WRITTEN BY KENY ALCANTARA SCRIBMartha AND I VERIFY THAT IT IS ACCURATE. PROCEDURE CODES 05517 INJ TRIGGER POINT 06/10 [facility] [place] DISPOSITION & COMMUNICATION FOLLOW UP 3 WEEKS ELECTRONICALLY SIGNED BY PEBBLES OWUSU MD, MD ON 08/09/2019 AT 01:24 PM EST DISCLAIMER : THIS IS A VISIT SUMMARY EXTRACTED FROM THE [employer] CHART. IT IS NOT A COPY OF THE [employer] PROGRESS NOTE. KATIA
== END ==
LOC: M PAIN 13:30
PROVIDERS: ATTEND Anesthesiology
DX: M79.18 Myalgia, other site (principal)
CPT/HCPCS: 20552; J3301

== ENCOUNTER → 2019-07-26 | Outpatient (CLI) | payer OTHER ==
[~2019-07-26] MED LIST changes: -BUPIVACAINE HCL 0.25% 30 ML VIAL As Ordered ONE; -TRIAMCINOLONE ACETONIDE SUSP 40 MG/ML VIAL (J3301) As Ordered ONE
--- NOTE | 2019-07-26 08:15 | REPVR ---
PROCEDURE INFORMATION: Exam: CT Thoracic Spine Without Contrast Exam date and time: 07/26/2019 7:53 AM Age: 49 years old Clinical indication: Pain in thoracic spine; Additional info: Acute yunier thoracic pain. TECHNIQUE: Imaging protocol: Computed tomography images of the thoracic spine without contrast. Radiation optimization: All CT scans at this facility use at least one of these dose optimization techniques: automated exposure control; mA and/or kV adjustment per patient size (includes targeted exams where dose is matched to clinical indication); or iterative reconstruction. COMPARISON: CT Spine, lumbar w/o contrast 06/16/2019 9:29:38 AM FINDINGS: Other bones/joints: There are 13 paired ribs. Last rib-bearing segment is labeled T12 and this correlates with anatomic levels are seen on lumbar spine CT. Vertebrae: There is no evidence of acute fracture. There is slight anterior wedging of several lower thoracic vertebra, labeled T7, T8, and T9. No vertebral subluxation. Slight upper to mid thoracic dextrocurvature. Marginal spurs/enthesophytes. There are costovertebral degenerative changes. Discs/Spinal canal/Neural foramina: There is no evidence of spinal stenosis. Soft tissues: Unremarkable. Lungs: Visualized lungs are clear. No pleural effusion or pneumothorax. IMPRESSION: No acute finding. Other findings as described. Electronically signed by: Roxanne Godoy On 07/26/2019 08:14:39 AM
== END ==
LOC: M RAD 07:43
PROVIDERS: ATTEND Nurse Practitioner Family
DX: M54.6 Pain in thoracic spine (principal)

== ENCOUNTER → 2019-08-24 | Outpatient (CLI) | payer OTHER ==
[~2019-08-24] MED LIST changes: +CYCL10TA PO; +GLIP10TA PO
--- NOTE | 2019-09-07 02:48 | ECWPNPC ---
PATIENT NAME: REJI PICKARD : 1970 GENDER: MALE VISIT DATE: 08/24/2019 DISCHARGE DATE: 08/24/19 1122 VISIT LOCKED DATE TIME: PHYSICIAN: MARILEE EVANS RESOURCE: MARILEE EVANS REASON FOR APPOINTMENT 1. POST TPI/REVIEW CT HISTORY OF PRESENT ILLNESS HISTORY OF PRESENT ILLNESS: HERE FOR FOLLOW-UP OF CHRONIC LOW BACK PAIN, LEFT GREATER THAN RIGHT AND LEFT THIGH PAIN. RATING PAIN LEVEL A 7/10. HAD TRIGGER POINT INJECTIONS ON 07/23/2019. REPORTED MARKED IMPROVEMENT IN PAIN FOR 1 WEEK POST PROCEDURE, THEN PAIN HAS GRADUALLY RETURNED. CT OF THE THORACIC SPINE AND LUMBAR SPINE ARE REVIEWED WITH PATIENT TODAY. PATIENT REPORTS EPISODES OF FALLING BECAUSE HIS LEFT LEG GIVES OUT ON HIM. DESCRIBES WEAKNESS OVER LEFT LEG. DISCUSSED REFERRAL FOR NEUROLOGY EVALUATION. NO SIGNIFICANT PATHOLOGY THAT WOULD CAUSE LOWER EXTREMITY WEAKNESS AND FALLING NOTED IN RECENT CT SCAN OF THE LUMBAR SPINE. DENIES BOWEL OR BLADDER INCONTINENCE. DENIES RECENT FEVER, ILLNESS, OR SUDDEN WEIGHT LOSS. PAIN THE PATIENT DESCRIBES THE PAIN... FALL RISK SCREENING: SCREENING :NO FALLS REPORTED IN THE LAST YEAR CURRENT MEDICATIONS TAKING LISINOPRIL 10 MG TABLET 1/2 TABLET ORALLY ONCE A DAY TAKING DULOXETINE HCL 30 MG CAPSULE DELAYED RELEASE PARTICLES 1 CAPSULE ORALLY ONCE A DAY TAKING METFORMIN HCL 500 MG TABLET 2 TABLETS WITH MEALS ORALLY TWICE A DAY TAKING GLIPIZIDE ER 10 MG TABLET EXTENDED RELEASE 24 HOUR 1 TABLET ORALLY BID TAKING ASPIRIN 81 MG TABLET CHEWABLE 1 TABLET ORALLY ONCE A DAY TAKING VITAMIN D 2000 UNIT TABLET 1 TABLET ORALLY ONCE A DAY TAKING GABAPENTIN 300 MG CAPSULE 2 CAPSULES ORALLY THREE TIMES DAILY TAKING TRAMADOL HCL 50 MG TABLET 1 TABLET NEEDED ORALLY EVERY 6 HRS TAKING ATORVASTATIN CALCIUM 20 MG TABLET 1 TABLET ORALLY ONCE A DAY TAKING BUPROPION HCL 100 MG TABLET 1 TABLET ORALLY TWICE A DAY TAKING FLEXERIL 10 MG 1 CAP ORALLY TID PRN TAKING NORCO 5-325 MG TABLET 1 TO 2 ORALLY Q8H PRN MDD4 TAKING KETOROLAC TROMETHAMINE 10 MG TABLET 1 TABLET WITH FOOD OR MILK NEEDED ORALLY EVERY 6 HRS TAKING SOMA 350 MG TABLET 1 TABLET NEEDED ORALLY BEFORE BEDTIME NOT-TAKING METOPROLOL SUCCINATE ER 50 MG TABLET EXTENDED RELEASE 24 HOUR 1 TABLET ORALLY ONCE A DAY NOT-TAKING GEMFIBROZIL 600 MG TABLET 1 TABLET ORALLY TWICE A DAY, NOTES: 06/23/18 0600 MEDICATION LIST REVIEWED AND RECONCILED WITH THE PATIENT PAST MEDICAL HISTORY DM STAN TX'D WITH CPAP AT NIGHT CHRONIC LBP L4 FX SHRAPNAL REMOVED NECK PAIN MULTIPLE BODY TRAUMA DUE TO IED EXPLOSION SCATTERED SHRAPNAL THROUGH OUT BODY TBI ALLERGIES N.K.D.A. SURGICAL HISTORY SHRAPNAL REMOVAL 2003 COLOSTOMY 2004 COLOSTOMY REVERSAL 2004 APPENDECTOMY FAMILY HISTORY FATHER: ALIVE, DIAGNOSED WITH OTHER MALIGNANT NEOPLASM OF UNSPECIFIED SITE MOTHER: , OTHER SPECIFIED CONDITIONS INFLUENCING HEALTH STATUS 2 BROTHER(S) , 2 SISTER(S) - HEALTHY. 1 SON(S) , 1 DAUGHTER(S) - HEALTHY. FATHER-BONE\/COLON CA\NMOTHER-SMOKER COPD\NBROTHER-BLOOD CLOTS\NSISTER-LEUKEMIAMOTHER IN MARCH 2019. SOCIAL HISTORY GENERAL: TOBACCO USE ARE YOU A:NONSMOKER PAIN CLINIC PFS, CLERGY, PUBLIC HEALTH REFERRALS PFS REFERRAL NEEDED?NO CLERGY REFERRAL NEEDED?NO PUBLIC HEALTH REFERRAL NEEDED?NO WAS THE PROVIDER NOTIFIED OF ANY PERTINENT INFO?YES N/A HAS THE PATIENT BEEN EDUCATED REGARDING HIS/HER PLAN OF CARE?YES HAS THE PATIENT BEEN EDUCATED REGARDING PAIN, THE RISK FOR PAIN, THE IMPORTANCE OF EFFECTIVE PAIN MANAGEMENT, AND THE PAIN ASSESSMENT PROCESS?YES LATEX QUESTIONNAIRE LATEX ALLERGY : HAVE YOU EVER DEVELOPED ANY TYPE OF REACTION AFTER HANDLING LATEX PRODUCTS SUCH RUBBER GLOVES, CONDOMS, DIAPHRAGMS, BALLOONS, SOCKS, OR UNDERWEAR?NO LATEX ALLERGY : HAVE YOU EVER DEVELOPED ANY TYPE OF REACTION DURING OR AFTER DENTAL APPOINTMENT, VAGINAL/RECTAL EXAMINATION, SURGICAL PROCEDURE, OR ANY OTHER EXPOSURE?NO LATEX RISK : HAVE YOU EVER HAD ANY DIFFICULTY BREATHING OR HIVES AFTER EATING OR HANDLING ANY FRUITS, OR VEGETABLES; SUCH KIWI, BANANAS, STONE FRUITS, OR CHESTNUTSNO LATEX RISK : DO YOU HAVE A PREVIOUS PERSONAL HISTORY OF MORE THAN NINE SURGERIES, SPINA BIFIDA, OR REPEATED CATHERIZATIONS? NO LATEX RISK : ARE YOU FREQUENTLY EXPOSED TO LATEX PRODUCTS IN YOUR OCCUPATION?NO DATE ASKED : 08/24/2019 HIV / HEP-C SCREENING HIV TEST OFFERED TO PATIENT:YES DATE OFFERED:04/06/2018 TEST ACCEPTED:NO HEP-C TEST OFFERED TO PATIENT:NO REASON:PATIENT DECLINED BROCHURE PROVIDED TO PATIENTNO CAFFEINE CAFFEINE USE?YES HOW OFTEN AND HOW MUCH? 5 CUPS COFFEE/DAY ADVANCE DIRECTIVE ADVANCE DIRECTIVE DISCUSSED WITH PATIENT:YES HCP IS TRUE PICKARD [phone] [employer] [id number] JEWISH LANGUAGE LANGUAGES SPOKEN:RUSSIAN DOMESTIC VIOLENCE DO YOU FEEL SAFE IN YOUR ENVIRONMENT?YES ALCOHOL SCREENING DID YOU HAVE A DRINK CONTAINING ALCOHOL IN THE PAST YEAR?YES HOW OFTEN DID YOU HAVE SIX OR MORE DRINKS ON ONE OCCASION IN THE PAST YEAR?NEVER (0 POINTS) HOW MANY DRINKS DID YOU HAVE ON A TYPICAL DAY WHEN YOU WERE DRINKING IN THE PAST YEAR?1 OR 2 (0 POINTS) HOW OFTEN DID YOU HAVE A DRINK CONTAINING ALCOHOL IN THE PAST YEAR?TWO TO FOUR TIMES A MONTH (2 POINTS) POINTS2 INTERPRETATIONNEGATIVE RECREATIONAL DRUG USE DRUG USE?NO LEARNING BARRIERS / SPECIAL NEEDS BARRIERS TO LEARNING?NO HEARING IMPAIRED?YES VISION IMPAIRED?YES COGNITIVELY IMPAIRED?NO :HEARING AIDES :CORRECTIVE LENSES READINESS TO LEARN?YES LEARNING PREFERENCES?NO LEARNING CAPABILITIES PRESENT?YES EMOTIONAL BARRIERS?NO SPECIAL DEVICES?NO DIE MAKER STAMPING NEEDED?NO HOSPITALIZATION/MAJOR DIAGNOSTIC PROCEDURE SURGERY RELATED TRAUMA AFTER IED EXPLOSION REVIEW OF SYSTEMS REVIEWED BY: PROVIDER: MARILEE MENDEZ . CONSTITUTIONAL: ANY CHANGE IN YOUR MEDICAL CONDITION? NO . CHILLS NO . FEVER NO . INFECTION: DO YOU HAVE NEW INFECTIONS? NO . DO YOU HAVE HISTORY OF MRSA? NO . MUSCULOSKELETAL: ANY NEW PATTERNS OF PAIN OR NUMBNESS? NO . GASTROENTEROLOGY: ANY NEW CHANGE IN BOWEL CONTROL? NO . GENITOURINARY: ANY NEW CHANGE IN BLADDER CONTROL? NO . IS THERE A CHANCE YOU COULD BE ? NO . HEMATOLOGY/LYMPH: DO YOU TAKE ANY BLOOD THINNERS? (FOR EXAMPLE- COUMADIN, PLAVIX, AGGRENOX, PLATEL, PRADAXA, OR XARELTO) NO . WHEN WAS YOUR LAST DOSE? DATE: TIME: . NEUROLOGY: HAVE YOU FALLEN IN THE PAST 12 MONTHS? YES, PT STATES THAT HE WAS AT HOME, FELL ON FRIDAY, TRIPPED, NO REPORT, NO SIGNIFICANT INJURY,DS . ANY NEW EXTREMITY NUMBNESS OR WEAKNESS? YES . CARDIOLOGY: DO YOU HAVE A PACEMAKER OR DEFIBRILLATOR? NO . RESPIRATORY: HAVE YOU BEEN SICK IN THE PAST WEEK? NO . FEVER NO . FLU LIKE SYMPTOMS? NO . COUGH NO . INTEGUMENTARY: DO YOU HAVE ANY RASHES OR OPEN SORES? NO . ALLERGIC/IMMUNO: ARE YOU ALLERGIC TO IV DYE? NO . ANY NEW ALLERGIES? NO . PSYCHIATRIC: DO YOU HAVE THOUGHTS OF HURTING YOURSELF OR SOMEONE ELSE? NO . ARE YOU ABUSED, NEGLECTED, OR IN AN UNSAFE ENVIRONMENT? NO . ENDOCRINOLOGY: ARE YOU DIABETIC? NO . OTHER: DO YOU NEED ANY PRESCRIPTIONS? YES, TORADOL . IF YES, PLEASE LIST: ____ . ANY NEW PROBLEMS WITH YOUR MEDICATIONS? NO . WHEN DID YOU LAST EAT? ____ . WHEN DID YOU LAST DRINK? ____ . WHAT DID YOU LAST DRINK? ____ . NAME OF PERSON DRIVING YOU HOME? ____ . DO YOU HAVE ANY OTHER QUESTIONS OR CONCERNS NO . VITAL SIGNS WT 248.8 LBS, HT 68.5 IN, BMI 37.28 INDEX, BP 141/96 MM HG, HR 89 /MIN, RR 18 /MIN, TEMP 98.7 F, OXYGEN SAT % 96, SAFE IN ENV? (Y/N) Y, REVIEWED BY: NITO. EXAMINATION GENERAL EXAMINATION: GENERAL AWAKE,ALERT ,PLEASANT . PSYCH AFFECT NORMAL . LUNGS: LUNG FOWLER ARE CLEAR TO AUSCULTATION BILATERALLY. GOOD MOVEMENT OF AIR . HEART: S1, S2 IN A REGULAR RATE AND RHYTHM. NO SIGNIFICANT MURMURS, RUBS OR GALLOPS NOTED . LUMBAR: PALPATION: + FOR PAIN OVER L/S SPINE. + FOR PAIN OVER L/S PARASPINALS SLE: POSITIVE OVER LEFT LEG AT 45. NEUROLOGIC EXAM:WEAKNESS OVER LEFT LEG . DIAGNOSTIC TESTS REVIEWED CT L/S SPINE-06/16/2019. ASSESSMENTS LUMBAR RADICULOPATHY, CHRONIC - M54.16 (PRIMARY) TREATMENT LUMBAR RADICULOPATHY, CHRONIC REFILL KETOROLAC TROMETHAMINE TABLET, 10 MG, 1 TABLET WITH FOOD OR MILK NEEDED, ORALLY, EVERY 6 HRS, 5 DAY(S), 20, REFILLS 0 REFILL SOMA TABLET, 350 MG, 1 TABLET NEEDED, ORALLY, Q8H PRN MDD3, 30 DAYS, 30, REFILLS 2 NOTES: L4/5 LESI. [facility]AL TO[facility] REASON:LEFT LEG WEAKNESS PREVENTIVE MEDICINE PAIN CLINIC TEACHING: THE PATIENT HAS BEEN EDUCATED REGARDING HIS/HER PLAN OF CARE : DISCUSSED AND REVIEWED WRITTEN AND VERBAL INSTRUCTIONS WITH PATIENT REGARDING TREATMENT PLAN, PT ACKNOWLEDGED UNDERSTANDING. NITO PROCEDURE CODES FA211 ESTABILISHED PATIENT [facility] FACILITY CHARGE DISPOSITION & COMMUNICATION FOLLOW UP POST (REASON: L4/5 LESI) ELECTRONICALLY SIGNED BY VANESSA MANCIA ON 09/06/2019 AT 02:50 PM EDT DISCLAIMER : THIS IS A VISIT SUMMARY EXTRACTED FROM THE [employer] CHART. IT IS NOT A COPY OF THE [employer] PROGRESS NOTE. KATIA
== END ==
LOC: M PAIN 10:00
PROVIDERS: ATTEND Nurse Practitioner Family
DX: M54.16 Radiculopathy, lumbar region (principal); G89.29 Other chronic pain; E11.9 Type 2 diabetes mellitus without complications; G47.33 Obstructive sleep apnea (adult) (pediatric); Z87.820 Personal history of traumatic brain injury; Z79.82 Long term (current) use of aspirin; Z79.84 Long term (current) use of oral hypoglycemic drugs; Z79.891 Long term (current) use of opiate analgesic; Z79.899 Other long term (current) drug therapy

== ENCOUNTER 2019-08-25 08:29 | Day surgery (SDC) | payer OTHER ==
[~2019-08-25] VITALS: Ht 172.7 cm; Wt 109.3 kg
[~2019-08-25 08:29] MED LIST changes: +NS 1,000 ML IV ONE; +propofoL 200 MG/20 ML VIAL As Ordered ONE
[2019-08-25] MEDS ORDERED: propofoL 200 MG/20 ML VIAL As Ordered ONE (10:06)
--- NOTE | 2019-08-25 10:15 | ROOR ---
Patient Name: Mo Hernandez Procedure Date: 08/25/2019 9:56 AM Date of : 1970 Age: 49 [facility] Gender: Male Note Status: Finalized Procedure: Colonoscopy Indications: Screening for colorectal malignant neoplasm Providers: DO Renee Aleman MD: [facility], Admin. Requesting Provider: Medicines: Propofol per Anesthesia Complications: No immediate complications. Procedure: Pre-Anesthesia Assessment: - Prior to the procedure, a History and Physical was performed, and patient medications and allergies were reviewed. The patient is competent. The risks and benefits of the procedure and the sedation options and risks were discussed with the patient. All questions were answered and informed consent was obtained. Patient identification and proposed procedure were verified by the physician, the nurse, the anesthesiologist and the facility maintenance technician in the endoscopy suite. Mental Status Examination: alert and oriented. Airway Examination: normal oropharyngeal airway and neck mobility. Respiratory Examination: clear to auscultation. CV Examination: normal. Prophylactic Antibiotics: The patient does not require prophylactic antibiotics. Prior Anticoagulants: The patient has taken no previous anticoagulant or antiplatelet agents. ASA Grade Assessment: II - A patient with mild systemic disease. After reviewing the risks and benefits, the patient was deemed in satisfactory condition to undergo the procedure. The anesthesia plan was to use monitored anesthesia care (MAC). Immediately prior to administration of medications, the patient was re-assessed for adequacy to receive sedatives. The heart rate, respiratory rate, oxygen saturations, blood pressure, adequacy of pulmonary ventilation, and response to care were monitored throughout the procedure. The physical status of the patient was re-assessed after the procedure. The Colonoscope was introduced through the anus and advanced to the cecum, identified by appendiceal orifice and ileocecal valve. The colonoscopy was performed without difficulty. The patient tolerated the procedure well. Findings: Non-bleeding internal hemorrhoids were found during retroflexion. The hemorrhoids were Grade I (internal hemorrhoids that do not prolapse). The exam was otherwise without abnormality on direct and retroflexion views. Impression: - Non-bleeding internal hemorrhoids. - The examination was otherwise normal on direct and retroflexion views. - No specimens collected. Recommendation: - Patient has a contact number available for emergencies. The signs and symptoms of potential delayed complications were discussed with the patient. Return to normal activities tomorrow. Written discharge instructions were provided to the patient. - Repeat colonoscopy in 5-10 years for screening purposes. - Return to my office PRN. Andres Smith DO 08/25/2019 10:14:55 AM Electronically signed by Andres Smith DO Number of Addenda: 0 Note Initiated On: 08/25/2019 9:56 AM Estimated Blood Loss: Estimated blood loss: none.
[2019-08-25 10:44] VITALS: BP 140/88
== END 2019-08-25 12:26 | disposition home or self-care (01) ==
LOC: M OPP 08:29
PROVIDERS: ATTEND Surgery
DX: Z12.11 Encounter for screening for malignant neoplasm of colon (principal); K64.0 First degree hemorrhoids; I10 Essential (primary) hypertension; E78.00 Pure hypercholesterolemia, unspecified; E11.9 Type 2 diabetes mellitus without complications; F43.10 Post-traumatic stress disorder, unspecified; G47.30 Sleep apnea, unspecified; Z79.82 Long term (current) use of aspirin; Z79.84 Long term (current) use of oral hypoglycemic drugs; Z79.891 Long term (current) use of opiate analgesic; Z79.899 Other long term (current) drug therapy

== ENCOUNTER → 2019-10-02 | Outpatient (CLI) | payer OTHER ==
[~2019-10-02] MED LIST changes: +CYCL-707 PO; -CYCL10TA PO; -NS 1,000 ML IV ONE; -propofoL 200 MG/20 ML VIAL As Ordered ONE
== END ==
LOC: M LABSMTC 13:08
PROVIDERS: ATTEND Anesthesiology
DX: Z11.59 Encounter for screening for other viral diseases (principal)

== ENCOUNTER → 2019-10-05 | Outpatient (CLI) | payer OTHER ==
[~2019-10-05] MED LIST changes: +ISOVUE-M 300 61% 15ML VIAL As Ordered ONE; +LIDOCAINE 1% SDV 30ML VIAL As Ordered ONE; +dexameTHASONE 10MG/1ML VIAL PRES.FREE (J1100 PER 1MG) As Ordered ONE
--- NOTE | 2019-10-05 15:03 | REP ---
C-ARM VIEWS LUMBAR SPINE: CLINICAL HISTORY: Pain. Three C-arm views of the lumbar spine performed during lumbar epidural injection performed by Dr. Boone. A needle is seen at the L4-5 level. 8 seconds of fluoroscopy time utilized. Electronically Signed by Andres Khan MD 10/05/2019 03:24 P
--- NOTE | 2019-10-08 02:47 | ECWPNPC ---
PATIENT NAME: REJI PICKARD : 1970 GENDER: MALE VISIT DATE: 10/05/2019 DISCHARGE DATE: 10/05/19 1224 VISIT LOCKED DATE TIME: PHYSICIAN: PEBBLES OWUSU MD RESOURCE: PEBBLES OWUSU MD REASON FOR APPOINTMENT 1. LUMBAR EPIDURAL STEROID INJECTION L4/L5 - PAT COMPLETED HISTORY OF PRESENT ILLNESS HISTORY OF PRESENT ILLNESS: PAIN THE PATIENT DESCRIBES THE PAIN... FALL RISK SCREENING: SCREENING :NO FALLS REPORTED IN THE LAST YEAR CURRENT MEDICATIONS TAKING LISINOPRIL 10 MG TABLET 1/2 TABLET ORALLY ONCE A DAY, NOTES: 10/05/19529 TAKING DULOXETINE HCL 30 MG CAPSULE DELAYED RELEASE PARTICLES 1 CAPSULE ORALLY ONCE A DAY, NOTES: 10/05/19529 TAKING METFORMIN HCL 500 MG TABLET 2 TABLETS WITH MEALS ORALLY TWICE A DAY, NOTES: 10/04/19 1600 TAKING GLIPIZIDE ER 10 MG TABLET EXTENDED RELEASE 24 HOUR 1 TABLET ORALLY BID, NOTES: 10/04/19 1630 TAKING ASPIRIN 81 MG TABLET CHEWABLE 1 TABLET ORALLY ONCE A DAY, NOTES: 10/05/19529 TAKING VITAMIN D 2000 UNIT TABLET 1 TABLET ORALLY ONCE A DAY, NOTES: 10/05/19529 TAKING GABAPENTIN 300 MG CAPSULE 2 CAPSULES ORALLY THREE TIMES DAILY, NOTES: 10/05/19529 TAKING TRAMADOL HCL 50 MG TABLET 1 TABLET NEEDED ORALLY EVERY 6 HRS, NOTES: 2-3 DAYS AGO TAKING ATORVASTATIN CALCIUM 20 MG TABLET 1 TABLET ORALLY ONCE A DAY, NOTES: 10/05/19529 TAKING BUPROPION HCL 100 MG TABLET 1 TABLET ORALLY TWICE A DAY, NOTES: 10/05/19529 TAKING FLEXERIL 10 MG 1 CAP ORALLY TID PRN, NOTES: 4 DAYS AGO TAKING NORCO 5-325 MG TABLET 1 TO 2 ORALLY Q8H PRN MDD4, NOTES: NONE RECENTLY TAKING KETOROLAC TROMETHAMINE 10 MG TABLET 1 TABLET WITH FOOD OR MILK NEEDED ORALLY EVERY 6 HRS, NOTES: NONE RECENTLY TAKING SOMA 350 MG TABLET 1 TABLET NEEDED ORALLY Q8H PRN MDD3, NOTES: 10/05/19529 NOT-TAKING METOPROLOL SUCCINATE ER 50 MG TABLET EXTENDED RELEASE 24 HOUR 1 TABLET ORALLY ONCE A DAY NOT-TAKING GEMFIBROZIL 600 MG TABLET 1 TABLET ORALLY TWICE A DAY, NOTES: 06/23/18 0600 MEDICATION LIST REVIEWED AND RECONCILED WITH THE PATIENT PAST MEDICAL HISTORY DM STAN TX'D WITH CPAP AT NIGHT CHRONIC LBP L4 FX SHRAPNAL REMOVED NECK PAIN MULTIPLE BODY TRAUMA DUE TO IED EXPLOSION SCATTERED SHRAPNAL THROUGH OUT BODY TBI ALLERGIES N.K.D.A. SURGICAL HISTORY SHRAPNAL REMOVAL 2003 COLOSTOMY 2004 COLOSTOMY REVERSAL 2004 APPENDECTOMY FAMILY HISTORY FATHER: ALIVE, DIAGNOSED WITH OTHER MALIGNANT NEOPLASM OF UNSPECIFIED SITE MOTHER: , OTHER SPECIFIED CONDITIONS INFLUENCING HEALTH STATUS 2 BROTHER(S) , 2 SISTER(S) - HEALTHY. 1 SON(S) , 1 DAUGHTER(S) - HEALTHY. FATHER-BONE\/COLON [place]\NMOTHER-SMOKER COPD\NBROTHER-BLOOD CLOTS\NSISTER-LEUKEMIAMOTHER IN MARCH 2019. SOCIAL HISTORY GENERAL: TOBACCO USE ARE YOU A:NONSMOKER LATEX QUESTIONNAIRE LATEX ALLERGY : HAVE YOU EVER DEVELOPED ANY TYPE OF REACTION AFTER HANDLING LATEX PRODUCTS SUCH RUBBER GLOVES, CONDOMS, DIAPHRAGMS, BALLOONS, SOCKS, OR UNDERWEAR?NO LATEX ALLERGY : HAVE YOU EVER DEVELOPED ANY TYPE OF REACTION DURING OR AFTER DENTAL APPOINTMENT, VAGINAL/RECTAL EXAMINATION, SURGICAL PROCEDURE, OR ANY OTHER EXPOSURE?NO LATEX RISK : HAVE YOU EVER HAD ANY DIFFICULTY BREATHING OR HIVES AFTER EATING OR HANDLING ANY FRUITS, OR VEGETABLES; SUCH KIWI, BANANAS, STONE FRUITS, OR CHESTNUTSNO LATEX RISK : DO YOU HAVE A PREVIOUS PERSONAL HISTORY OF MORE THAN NINE SURGERIES, SPINA BIFIDA, OR REPEATED CATHERIZATIONS? NO LATEX RISK : ARE YOU FREQUENTLY EXPOSED TO LATEX PRODUCTS IN YOUR OCCUPATION?NO DATE ASKED : 08/24/2019 ALCOHOL SCREENING DID YOU HAVE A DRINK CONTAINING ALCOHOL IN THE PAST YEAR?YES HOW OFTEN DID YOU HAVE SIX OR MORE DRINKS ON ONE OCCASION IN THE PAST YEAR?NEVER (0 POINTS) HOW MANY DRINKS DID YOU HAVE ON A TYPICAL DAY WHEN YOU WERE DRINKING IN THE PAST YEAR?1 OR 2 (0 POINTS) HOW OFTEN DID YOU HAVE A DRINK CONTAINING ALCOHOL IN THE PAST YEAR?TWO TO FOUR TIMES A MONTH (2 POINTS) POINTS2 INTERPRETATIONNEGATIVE RECREATIONAL DRUG USE DRUG USE?NO 10/05/19 DENIES CAFFEINE CAFFEINE USE?YES HOW OFTEN AND HOW MUCH? 5 CUPS COFFEE/DAY HIV / HEP-C SCREENING HIV TEST OFFERED TO PATIENT:YES DATE OFFERED:04/06/2018 TEST ACCEPTED:NO HEP-C TEST OFFERED TO PATIENT:NO REASON:PATIENT DECLINED BROCHURE PROVIDED TO PATIENTNO MANDAEN QEDTSTTH22 [employer] L[employer] LANGUAGES SPOKEN:VIETNAMESE LEARNING BARRIERS / SPECIAL NEEDS BARRIERS TO LEARNING?NO HEARING IMPAIRED?YES VISION IMPAIRED?YES COGNITIVELY IMPAIRED?NO :HEARING AIDES :CORRECTIVE LENSES READINESS TO LEARN?YES LEARNING PREFERENCES?NO LEARNING CAPABILITIES PRESENT?YES EMOTIONAL BARRIERS?NO SPECIAL DEVICES?NO ONCOLOGY REGISTRAR NEEDED?NO DOMESTIC VIOLENCE DO YOU FEEL SAFE IN YOUR ENVIRONMENT?YES NEW PATIENT PAIN DIARY PATIENT DESCRIBES PAIN :ACHING, HAVE IT ALL THE TIME, STABBING FROM 0-10, WHAT LEVEL IS YOUR PAIN TODAY?6 10/05/19 PRECIPITATING FACTORS OVERUSE OR EXCESSIVE REST ALLEVIATING FACTORS MODERATE ACTIVITY PAIN CLINIC PFS, CLERGY, PUBLIC HEALTH REFERRALS PFS REFERRAL NEEDED?NO CLERGY REFERRAL NEEDED?NO PUBLIC HEALTH REFERRAL NEEDED?NO WAS THE PROVIDER NOTIFIED OF ANY PERTINENT INFO?YES N/A HAS THE PATIENT BEEN EDUCATED REGARDING HIS/HER PLAN OF CARE?YES HAS THE PATIENT BEEN EDUCATED REGARDING PAIN, THE RISK FOR PAIN, THE IMPORTANCE OF EFFECTIVE PAIN MANAGEMENT, AND THE PAIN ASSESSMENT PROCESS?YES ADVANCE DIRECTIVE ADVANCE DIRECTIVE DISCUSSED WITH PATIENT:YES HCP IS TRUE PICKARD [phone] PRE-SCREENING COMPLETED 10/04/2019 1637 JS. HOSPITALIZATION/MAJOR DIAGNOSTIC PROCEDURE SURGERY RELATED TRAUMA AFTER IED EXPLOSION REVIEW OF SYSTEMS REVIEWED BY: PROVIDER: PEBBLES OWUSU MD . CONSTITUTIONAL: ANY CHANGE IN YOUR MEDICAL CONDITION? NO . CHILLS NO . FEVER NO . INFECTION: DO YOU HAVE NEW INFECTIONS? NO . DO YOU HAVE HISTORY OF MRSA? NO . MUSCULOSKELETAL: ANY NEW PATTERNS OF PAIN OR NUMBNESS? YES - NUMBNESS IN LEFT LEG GOES FARTHER DOWN . GASTROENTEROLOGY: ANY NEW CHANGE IN BOWEL CONTROL? NO . GENITOURINARY: ANY NEW CHANGE IN BLADDER CONTROL? NO . IS THERE A CHANCE YOU COULD BE ? NO . HEMATOLOGY/LYMPH: DO YOU TAKE ANY BLOOD THINNERS? (FOR EXAMPLE- COUMADIN, PLAVIX, AGGRENOX, PLATEL, PRADAXA, OR XARELTO) NO . WHEN WAS YOUR LAST DOSE? DATE: TIME: . NEUROLOGY: HAVE YOU FALLEN IN THE PAST 12 MONTHS? NO . ANY NEW EXTREMITY NUMBNESS OR WEAKNESS? NO . CARDIOLOGY: DO YOU HAVE A PACEMAKER OR DEFIBRILLATOR? NO . RESPIRATORY: HAVE YOU BEEN SICK IN THE PAST WEEK? NO . FEVER NO . FLU LIKE SYMPTOMS? NO . COUGH NO . INTEGUMENTARY: DO YOU HAVE ANY RASHES OR OPEN SORES? NO . ALLERGIC/IMMUNO: ARE YOU ALLERGIC TO IV DYE? NO . ANY NEW ALLERGIES? NO . PSYCHIATRIC: DO YOU HAVE THOUGHTS OF HURTING YOURSELF OR SOMEONE ELSE? NO . ARE YOU ABUSED, NEGLECTED, OR IN AN UNSAFE ENVIRONMENT? NO . ENDOCRINOLOGY: ARE YOU DIABETIC? NO . OTHER: DO YOU NEED ANY PRESCRIPTIONS? NO . IF YES, PLEASE LIST: ____ . ANY NEW PROBLEMS WITH YOUR MEDICATIONS? NO . WHEN DID YOU LAST EAT? 10/04/19 1830 . WHEN DID YOU LAST DRINK? 10/05/19 0530 . WHAT DID YOU LAST DRINK? BLACK COFFEE . NAME OF PERSON DRIVING YOU HOME? - GREG . DO YOU HAVE ANY OTHER QUESTIONS OR CONCERNS NO . VITAL SIGNS WT 244.8 LBS, HT 68.5 IN, BMI 36.68 INDEX, BP 141/82 MM HG, HR 75 /MIN, RR 18 /MIN, TEMP 97.6 F, OXYGEN SAT % 100%, NA INITIALS AW 1002, REVIEWED BY: LEEANNA. ASSESSMENTS INTERVERTEBRAL DISC DISORDERS WITH RADICULOPATHY, LUMBAR REGION - M51.16 (PRIMARY) PROCEDURES PRE PROCEDURE DIAGNOSIS LUMBAR DISC DISORDER WITH RADICULOPATHY POST PROCEDURE DIAGNOSIS LUMBAR DISC DISORDER WITH RADICULOPATHY PROCEDURE LUMBAR EPIDURAL STEROID INJECTION UNDER FLUOROSCOPIC GUIDANCE SURGEON DR. PEBBLES OWUSU INSPECTOR WATCH TRAIN NONE ANESTHESIA LOCAL PRE PROCEDURE NOTE THE PATIENT HAS A HISTORY OF CHRONIC LOW BACK PAIN. I EVALUATED THE PATIENT AND REVIEWED THE CHART. I WENT OVER THE RISKS, ALTERNATIVES, AND BENEFITS ASSOCIATED WITH THIS PROCEDURE. I DISCUSSED WITH THE PATIENT THAT THE USE OF STEROIDS MAY CONTRIBUTE TO IMMUNOSUPPRESSION OF HIS BODY AGAINST INFECTIONS SUCH THE VILLATORO VIRUS, COVID-19. HE IS AWARE OF THE POTENTIAL COMPLICATIONS ASSOCIATED WITH AN INFECTION OF THIS VIRUS INCLUDING . THE PATIENT WOULD LIKE TO PROCEED AND GIVE CONSENT TO PERFORMED THE PROCEDURE. THE PATIENT DENIES UNEXPLAINABLE WEIGHT LOSS, FEVER, CHILLS, OR NEW CHANGES IN URINARY OR BOWEL CONTROL. THE PATIENT TESTED NEGATIVE FOR COVID-19 DESCRIPTION OF PROCEDURE THE PATIENT WAS BROUGHT TO THE PROCEDURE ROOM AND PLACED IN THE PRONE POSITION. THE LUMBOSACRAL AREA WAS CLEANED WITH BETADINE SOLUTION AND DRAPED ASEPTICALLY. THE PROCEDURE WAS DONE UNDER STERILE CONDITIONS. I CHECKED LATERALITY AND THE LEVEL WHERE THE PROCEDURE WAS GOING TO BE PERFORMED WITH THE PATIENT AND THE SUPPORTING STAFF AT THE MOMENT OF THE TIME OUT IN THE PROCEDURE ROOM. UNDER FLUOROSCOPIC GUIDANCE, THE TARGET POINT WAS SELECTED AT THE INTERLAMINAR LEVEL OF L4-L5. LIDOCAINE WAS USED TO NUMB THE SKIN AND THE SUBCUTANEOUS TISSUE BELOW IT. EPIDURAL TUOHY NEEDLE, 17-GAUGE, WAS ADVANCED UNDER FLUOROSCOPIC GUIDANCE AND FOLLOWING PATIENT FEEDBACK UNTIL THE EPIDURAL SPACE WAS REACHED, 8 CM DEEP INTO THE SKIN BY THE LOSS OF RESISTANCE TECHNIQUE. ISOVUE M DYE 30%, 0.25 ML, WAS INJECTED SHOWING ADEQUATE SPREAD OF THE DYE. THEN, A SOLUTION OF 3 ML OF NORMAL SALINE WITH DEXAMETHASONE 10 MG WAS INJECTED SLOWLY FOLLOWING PATIENT FEEDBACK. THERE WAS NO EVIDENCE OF BLOOD, PARESTHESIA OR CEREBROSPINAL FLUID DURING THE PROCEDURE. THE PATIENT WAS SENT TO THE RECOVERY ROOM. THE PATIENT WAS MOVING THE EXTREMITIES AND DOING WELL. THERE WAS NO COMPLICATION DURING THE PROCEDURE. FLUOROSCOPY TIME WAS 8 SECONDS POST PROCEDURE NOTE THE PATIENT WILL BE SEEN IN A FOLLOW UP IN THE NEXT FEW WEEKS. I AM LOOKING FOR LONG LASTING PAIN RELIEF FOR THE PATIENT WITH THIS INJECTION. INSTRUCTIONS WERE GIVEN, QUESTIONS WERE ANSWERED, AND THE PATIENT EXPRESSED UNDERSTANDING AND AGREES WITH THE PLAN. I INSTRUCTED THE PATIENT TO STAY HOME, IF POSSIBLE, FOR A WEEK DUE TO COVID-19. I, MATHEW CHUN , DOCUMENTED THE ABOVE INFORMATION ACTING A SCRIBE FOR DR. OWUSU. I HAVE REVIEWED THE ABOVE DOCUMENT, WRITTEN BY ANA ROSA BALLARD, AND I VERIFY THAT IT IS ACCURATE. DIAGNOSTIC IM[facility] FLUORO GUIDE SPINE INJECTION (PAIN)[id number] PROCEDURE CODES 6045F RADXPS IN END [id number] PXD [id number] LUMBAR/SACRAL W/ IMAGING DISPOSITION & COMMUNICATION FOLLOW UP 2 WEEKS (REASON: POST-PROCEDURE F/UP WITH STRAIGHT KNIFE CUTTER MACHINE) ELECTRONICALLY SIGNED BY PEBBLES OWUSU MD, MD ON 10/07/2019 AT 01:29 PM EDT DISCLAIMER : THIS IS A VISIT SUMMARY EXTRACTED FROM THE [email or web address] CHART. IT IS NOT A COPY OF THE [email or web address] PROGRESS NOTE. HÉCTORD
== END ==
LOC: M PAIN 10:15
PROVIDERS: ATTEND Anesthesiology
DX: M51.16 Intervertebral disc disorders with radiculopathy, lumbar region (principal); E11.9 Type 2 diabetes mellitus without complications; G47.33 Obstructive sleep apnea (adult) (pediatric); Z87.820 Personal history of traumatic brain injury; Z79.82 Long term (current) use of aspirin; Z79.84 Long term (current) use of oral hypoglycemic drugs; Z79.891 Long term (current) use of opiate analgesic; Z79.899 Other long term (current) drug therapy
CPT/HCPCS: 62323; J1100; Q9967

== ENCOUNTER → 2019-10-21 | Outpatient (CLI) | payer OTHER ==
[~2019-10-21] MED LIST changes: -ISOVUE-M 300 61% 15ML VIAL As Ordered ONE; -LIDOCAINE 1% SDV 30ML VIAL As Ordered ONE; -dexameTHASONE 10MG/1ML VIAL PRES.FREE (J1100 PER 1MG) As Ordered ONE
--- NOTE | 2019-10-27 04:31 | ECWPNPC ---
PATIENT NAME: REJI PICKARD : 1970 GENDER: MALE VISIT DATE: 10/21/2019 DISCHARGE DATE: 10/21/19 0842 VISIT LOCKED DATE TIME: PHYSICIAN: MARILEE EVANS RESOURCE: MARILEE EVANS REASON FOR APPOINTMENT 1. POST LUMBAR EPIDURAL STEROID INJECTION L4/L5. HISTORY OF PRESENT ILLNESS HISTORY OF PRESENT ILLNESS: PATIENT IS AGREEABLE TO TELEMED VISIT VIA ZOOM. THIS IS A POST PROCEDURE FOLLOW-UP. HAD L4-5 LESI ON 10/05/2019. REPORTING MARKED REDUCTION IN PAIN POST PROCEDURE. RATING PAIN LEVEL A 0/10 VAS. NERVE CONDUCTION STUDIES DONE LAST WEEK OF THE LOWER EXTREMITIES IS REVIEWED. PAIN THE PATIENT DESCRIBES THE PAIN... FALL RISK SCREENING: SCREENING :NO FALLS REPORTED IN THE LAST YEAR CURRENT MEDICATIONS TAKING LISINOPRIL 10 MG TABLET 1/2 TABLET ORALLY ONCE A DAY TAKING DULOXETINE HCL 30 MG CAPSULE DELAYED RELEASE PARTICLES 1 CAPSULE ORALLY ONCE A DAY TAKING METFORMIN HCL 500 MG TABLET 2 TABLETS WITH MEALS ORALLY TWICE A DAY TAKING GLIPIZIDE ER 10 MG TABLET EXTENDED RELEASE 24 HOUR 1 TABLET ORALLY BID TAKING ASPIRIN 81 MG TABLET CHEWABLE 1 TABLET ORALLY ONCE A DAY TAKING VITAMIN D 2000 UNIT TABLET 1 TABLET ORALLY ONCE A DAY TAKING GABAPENTIN 300 MG CAPSULE 2 CAPSULES ORALLY THREE TIMES DAILY TAKING TRAMADOL HCL 50 MG TABLET 1 TABLET NEEDED ORALLY EVERY 6 HRS TAKING ATORVASTATIN CALCIUM 20 MG TABLET 1 TABLET ORALLY ONCE A DAY TAKING BUPROPION HCL 100 MG TABLET 1 TABLET ORALLY TWICE A DAY TAKING FLEXERIL 10 MG 1 CAP ORALLY TID PRN TAKING NORCO 5-325 MG TABLET 1 TO 2 ORALLY Q8H PRN MDD4 TAKING KETOROLAC TROMETHAMINE 10 MG TABLET 1 TABLET WITH FOOD OR MILK NEEDED ORALLY EVERY 6 HRS TAKING SOMA 350 MG TABLET 1 TABLET NEEDED ORALLY Q8H PRN MDD3 NOT-TAKING METOPROLOL SUCCINATE ER 50 MG TABLET EXTENDED RELEASE 24 HOUR 1 TABLET ORALLY ONCE A DAY NOT-TAKING GEMFIBROZIL 600 MG TABLET 1 TABLET ORALLY TWICE A DAY MEDICATION LIST REVIEWED AND RECONCILED WITH THE PATIENT PAST MEDICAL HISTORY DM STAN TX'D WITH CPAP AT NIGHT CHRONIC LBP L4 FX SHRAPNAL REMOVED NECK PAIN MULTIPLE BODY TRAUMA DUE TO IED EXPLOSION SCATTERED SHRAPNAL THROUGH OUT BODY TBI ALLERGIES N.K.D.A. SURGICAL HISTORY SHRAPNAL REMOVAL 2004 COLOSTOMY 2004 COLOSTOMY REVERSAL 2005 APPENDECTOMY FAMILY HISTORY FATHER: ALIVE, DIAGNOSED WITH OTHER MALIGNANT NEOPLASM OF UNSPECIFIED SITE MOTHER: , OTHER SPECIFIED CONDITIONS INFLUENCING HEALTH STATUS 2 BROTHER(S) , 2 SISTER(S) - HEALTHY. 1 SON(S) , 1 DAUGHTER(S) - HEALTHY. FATHER-BONE\/COLON [place]\NMOTHER-SMOKER COPD\NBROTHER-BLOOD CLOTS\NSISTER-LEUKEMIAMOTHER IN MARCH 2019. SOCIAL HISTORY GENERAL: TOBACCO USE ARE YOU A:NONSMOKER LATEX QUESTIONNAIRE LATEX ALLERGY : HAVE YOU EVER DEVELOPED ANY TYPE OF REACTION AFTER HANDLING LATEX PRODUCTS SUCH RUBBER GLOVES, CONDOMS, DIAPHRAGMS, BALLOONS, SOCKS, OR UNDERWEAR?NO LATEX ALLERGY : HAVE YOU EVER DEVELOPED ANY TYPE OF REACTION DURING OR AFTER DENTAL APPOINTMENT, VAGINAL/RECTAL EXAMINATION, SURGICAL PROCEDURE, OR ANY OTHER EXPOSURE?NO LATEX RISK : HAVE YOU EVER HAD ANY DIFFICULTY BREATHING OR HIVES AFTER EATING OR HANDLING ANY FRUITS, OR VEGETABLES; SUCH KIWI, BANANAS, STONE FRUITS, OR CHESTNUTSNO LATEX RISK : DO YOU HAVE A PREVIOUS PERSONAL HISTORY OF MORE THAN NINE SURGERIES, SPINA BIFIDA, OR REPEATED CATHERIZATIONS? NO LATEX RISK : ARE YOU FREQUENTLY EXPOSED TO LATEX PRODUCTS IN YOUR OCCUPATION?NO DATE ASKED : 10/20/2019 ALCOHOL SCREENING DID YOU HAVE A DRINK CONTAINING ALCOHOL IN THE PAST YEAR?YES HOW OFTEN DID YOU HAVE SIX OR MORE DRINKS ON ONE OCCASION IN THE PAST YEAR?NEVER (0 POINTS) HOW MANY DRINKS DID YOU HAVE ON A TYPICAL DAY WHEN YOU WERE DRINKING IN THE PAST YEAR?1 OR 2 (0 POINTS) HOW OFTEN DID YOU HAVE A DRINK CONTAINING ALCOHOL IN THE PAST YEAR?TWO TO FOUR TIMES A MONTH (2 POINTS) POINTS2 INTERPRETATIONNEGATIVE RECREATIONAL DRUG USE DRUG USE?NO 10/05/19 DENIES CAFFEINE CAFFEINE USE?YES HOW OFTEN AND HOW MUCH? 5 CUPS COFFEE/DAY HIV / HEP-C SCREENING HIV TEST OFFERED TO PATIENT:YES DATE OFFERED:04/06/2018 TEST ACCEPTED:NO HEP-C TEST OFFERED TO PATIENT:NO REASON:PATIENT DECLINED BROCHURE PROVIDED TO PATIENTNO YARSANISM [id number] LANGUAGE LANGUAGES SPOKEN:MACEDONIAN LEARNING BARRIERS / SPECIAL NEEDS BARRIERS TO LEARNING?NO HEARING IMPAIRED?YES :HEARING AIDES VISION IMPAIRED?YES :CORRECTIVE LENSES COGNITIVELY IMPAIRED?NO READINESS TO LEARN?YES LEARNING PREFERENCES?NO LEARNING CAPABILITIES PRESENT?YES EMOTIONAL BARRIERS?NO SPECIAL DEVICES?YES :CANE ONLY USES WHEN HE NEEDS TO DUE TO BACK PAIN FUNDING COORDINATOR NEEDED?NO DOMESTIC VIOLENCE DO YOU FEEL SAFE IN YOUR ENVIRONMENT?YES NEW PATIENT PAIN DIARY TODAY'S VISIT 10/20/2019 PATIENT DESCRIBES PAIN :IT COMES AND GOES, SHARP, SORE PAIN HAS BEEN GOOD SINCE PROCEDURE-OCCASSIONAL PAIN ON IF HE JAR HIS BACK WITH MOVEMENT FROM 0-10, WHAT LEVEL IS YOUR PAIN TODAY?0 PRECIPITATING FACTORS JARRING MOTION ALLEVIATING FACTORS REST IMPACT ON FUNCTION RIGHT NOW HE IS DOING WELL WITH MINIMAL PAIN PAIN CLINIC PFS, CLERGY, PUBLIC HEALTH REFERRALS PFS REFERRAL NEEDED?NO CLERGY REFERRAL NEEDED?NO PUBLIC HEALTH REFERRAL NEEDED?NO HAS THE PATIENT BEEN EDUCATED REGARDING HIS/HER PLAN OF CARE?YES HAS THE PATIENT BEEN EDUCATED REGARDING PAIN, THE RISK FOR PAIN, THE IMPORTANCE OF EFFECTIVE PAIN MANAGEMENT, AND THE PAIN ASSESSMENT PROCESS?YES ADVANCE DIRECTIVE ADVANCE DIRECTIVE DISCUSSED WITH PATIENT:YES HCP IS TRUE PICKARD [id number] PRE-SCREENING COMPLETED 10/04/2019 1637 JS. HOSPITALIZATION/MAJOR DIAGNOSTIC PROCEDURE SURGERY RELATED TRAUMA AFTER IED EXPLOSION-[facility] REVIEW OF SYSTEMS REVIEWED BY: PROVIDER: MARILEE MENDEZ . CONSTITUTIONAL: ANY CHANGE IN YOUR MEDICAL CONDITION? NO . CHILLS NO . FEVER NO . INFECTION: DO YOU HAVE NEW INFECTIONS? NO . DO YOU HAVE HISTORY OF MRSA? NO . MUSCULOSKELETAL: ANY NEW PATTERNS OF PAIN OR NUMBNESS? NO . GASTROENTEROLOGY: ANY NEW CHANGE IN BOWEL CONTROL? NO . GENITOURINARY: ANY NEW CHANGE IN BLADDER CONTROL? NO . IS THERE A CHANCE YOU COULD BE ? NO . HEMATOLOGY/LYMPH: DO YOU TAKE ANY BLOOD THINNERS? (FOR EXAMPLE- COUMADIN, PLAVIX, AGGRENOX, PLATEL, PRADAXA, OR XARELTO) NO . WHEN WAS YOUR LAST DOSE? DATE: TIME: . NEUROLOGY: HAVE YOU FALLEN IN THE PAST 12 MONTHS? NO . ANY NEW EXTREMITY NUMBNESS OR WEAKNESS? NO . CARDIOLOGY: DO YOU HAVE A PACEMAKER OR DEFIBRILLATOR? NO . RESPIRATORY: HAVE YOU BEEN SICK IN THE PAST WEEK? NO . FEVER NO . FLU LIKE SYMPTOMS? NO . COUGH NO . INTEGUMENTARY: DO YOU HAVE ANY RASHES OR OPEN SORES? NO . ALLERGIC/IMMUNO: ARE YOU ALLERGIC TO IV DYE? NO . ANY NEW ALLERGIES? NO . PSYCHIATRIC: DO YOU HAVE THOUGHTS OF HURTING YOURSELF OR SOMEONE ELSE? NO . ARE YOU ABUSED, NEGLECTED, OR IN AN UNSAFE ENVIRONMENT? NO . ENDOCRINOLOGY: ARE YOU DIABETIC? YES, FSBS 111 @ 0530 10/20/19 . OTHER: DO YOU NEED ANY PRESCRIPTIONS? NO . IF YES, PLEASE LIST: ____ . ANY NEW PROBLEMS WITH YOUR MEDICATIONS? NO . WHEN DID YOU LAST EAT? ____ . WHEN DID YOU LAST DRINK? ____ . WHAT DID YOU LAST DRINK? ____ . NAME OF PERSON DRIVING YOU HOME? ____ . DO YOU HAVE ANY OTHER QUESTIONS OR CONCERNS NO . EXAMINATION GENERAL EXAMINATION: GENERALNO ACUTE DISTRESS, WELL NOURISHED AND HYDRATED. PSYCHAPPROPRIATE MOOD AND AFFECT . FACE:UNREMARKABLE. ASSESSMENTS INTERVERTEBRAL DISC DISORDERS WITH RADICULOPATHY, LUMBAR REGION - M51.16 (PRIMARY) TREATMENT INTERVERTEBRAL DISC DISORDERS WITH RADICULOPATHY, LUMBAR REGION NOTES: REPORTS THAT HE IS DOING WELL TODAY. WILL EVALUATE IN CLINIC IN 2 MONTHS. CONTINUE HOME EXERCISE AND STRETCHING. TOTAL TIME SPENT DURING TELEMED VISIT WAS APPROXIMATELY 12 MINUTES. OTHERS NOTES: V/S NOT DONE DUE TO VIRTUAL VISIT. DISPOSITION & COMMUNICATION FOLLOW UP 2 MONTHS (REASON: LBP/?RADICULOPATHY) ELECTRONICALLY SIGNED BY VANESSA MANCIA ON 10/26/2019 AT 03:26 PM EDT DISCLAIMER : THIS IS A VISIT SUMMARY EXTRACTED FROM THE [employer] CHART. IT IS NOT A COPY OF THE [employer] PROGRESS NOTE. KATIA
== END ==
LOC: M PAIN 14:30 → M TMPAIN 14:30
PROVIDERS: ATTEND Nurse Practitioner Family
DX: M51.16 Intervertebral disc disorders with radiculopathy, lumbar region (principal); Z79.82 Long term (current) use of aspirin; Z79.84 Long term (current) use of oral hypoglycemic drugs; Z79.891 Long term (current) use of opiate analgesic; Z79.899 Other long term (current) drug therapy

== ENCOUNTER → 2019-12-21 | Outpatient (CLI) | payer OTHER ==
--- NOTE | 2019-12-28 08:37 | ECWPNPC ---
PATIENT NAME: REJI PICKARD : 1970 GENDER: MALE VISIT DATE: 12/21/2019 DISCHARGE DATE: 12/21/19 1507 VISIT LOCKED DATE TIME: PHYSICIAN: MARILEE EVANS RESOURCE: MARILEE EVANS REASON FOR APPOINTMENT 1. LBP/?RADICULOPATHY HISTORY OF PRESENT ILLNESS GENERAL: HERE FOR FOLLOW-UP OF CHRONIC LOW BACK PAIN AND BILATERAL LEG PAIN. CONTINUES TO DO WELL POST LESI IN SEPTEMBER. THIS IMPROVED LOW BACK PAIN AND LEG PAIN. CONTINUES WITH RIGHT LOW BACK DISCOMFORT, BUT ITS MANAGEABLE. REVIEWED MRI OF THE LS-SPINE AND NERVE CONDUCTION STUDIES OF THE LOWER EXTREMITIES DONE RECENTLY AND DISCUSSED TREATMENT PLAN. -. FALL RISK SCREENING: SCREENING :NO FALLS REPORTED IN THE LAST YEAR PAIN SCREENING: PATIENT HAS A COMPLAINT OF ACUTE OR CHRONIC PAIN :YES LOCATION OF PAIN:LOW BACK INTENSITY OF PAIN (SCALE OF 1 TO 10):1 WHAT DOES YOUR PAIN FEEL LIKE:BURNING, ACHING PAIN IS INCREASED BY:ACTIVITIES NURSING NOTE: -. PAIN CENTER INTAKE QUESTIONS: DO YOU HAVE A HISTORY OF MRSA? :NO DO YOU TAKE A BLOOD THINNERS? :NO DO YOU HAVE ANY BLEEDING DISORDERS? :NO ANY NEW NUMBNESS OR WEAKNESS IN YOUR LEGS OR ARMS? :NO ANY PACEMAKER,DEFIBRILLATOR, OR DORSAL COLUMN STIMULATOR? :NO DO YOU HAVE ANY RASHES OR OPEN SORES? :NO ARE YOU ALLERGIC TO IV DYE? :NO ARE YOU DIABETIC? :NO ANY NEW PROBLEMS WITH YOUR MEDICATIONS? :NO HAVE YOU RECEIVED A VACCINE IN THE PAST 30 DAYS? :NO DO YOU PLAN TO RECEIVE A VACCINE IN THE NEXT 21 DAYS? :NO DO YOU NEED ANY PRESCRIPTION? :NO DO YOU TAKE ANY IMMUNOSUPPRESSIVE MEDICATIONS? :NO IS THERE A CHANCE YOU COULD BE ? :NO ARE YOU BREAST FEEDING? :NO CURRENT MEDICATIONS TAKING LISINOPRIL 10 MG TABLET 1/2 TABLET ORALLY ONCE A DAY TAKING DULOXETINE HCL 30 MG CAPSULE DELAYED RELEASE PARTICLES 1 CAPSULE ORALLY ONCE A DAY TAKING METFORMIN HCL 500 MG TABLET 2 TABLETS WITH MEALS ORALLY TWICE A DAY TAKING GLIPIZIDE ER 10 MG TABLET EXTENDED RELEASE 24 HOUR 1 TABLET ORALLY BID TAKING ASPIRIN 81 MG TABLET CHEWABLE 1 TABLET ORALLY ONCE A DAY TAKING VITAMIN D 2000 UNIT TABLET 1 TABLET ORALLY ONCE A DAY TAKING GABAPENTIN 300 MG CAPSULE 2 CAPSULES ORALLY THREE TIMES DAILY TAKING TRAMADOL HCL 50 MG TABLET 1 TABLET NEEDED ORALLY EVERY 6 HRS TAKING ATORVASTATIN CALCIUM 20 MG TABLET 1 TABLET ORALLY ONCE A DAY TAKING BUPROPION HCL 100 MG TABLET 1 TABLET ORALLY TWICE A DAY TAKING FLEXERIL 10 MG 1 CAP ORALLY TID PRN TAKING SOMA 350 MG TABLET 1 TABLET NEEDED ORALLY Q8H PRN MDD3, NOTES: NOT LATELY TAKING METOPROLOL SUCCINATE ER 50 MG TABLET EXTENDED RELEASE 24 HOUR 1 TABLET ORALLY ONCE A DAY TAKING GEMFIBROZIL 600 MG TABLET 1 TABLET ORALLY TWICE A DAY NOT-TAKING KETOROLAC TROMETHAMINE 10 MG TABLET 1 TABLET WITH FOOD OR MILK NEEDED ORALLY EVERY 6 HRS UNKNOWN NORCO 5-325 MG TABLET 1 TO 2 ORALLY Q8H PRN MDD4, NOTES: DOESNT TAKE MUCH MEDICATION LIST REVIEWED AND RECONCILED WITH THE PATIENT PAST MEDICAL HISTORY DM STAN TX'D WITH CPAP AT NIGHT CHRONIC LBP L4 FX SHRAPNAL REMOVED NECK PAIN MULTIPLE BODY TRAUMA DUE TO IED EXPLOSION SCATTERED SHRAPNAL THROUGH OUT BODY TBI ALLERGIES N.K.D.A. SURGICAL HISTORY SHRAPNAL REMOVAL 2003 COLOSTOMY 2003 COLOSTOMY REVERSAL 2004 APPENDECTOMY FAMILY HISTORY FATHER: ALIVE, DIAGNOSED WITH OTHER MALIGNANT NEOPLASM OF UNSPECIFIED SITE MOTHER: , OTHER SPECIFIED CONDITIONS INFLUENCING HEALTH STATUS 2 BROTHER(S) , 2 SISTER(S) - HEALTHY. 1 SON(S) , 1 DAUGHTER(S) - HEALTHY. FATHER-BONE\/[place]\NMOTHER-SMOKER COPD\NBROTHER-BLOOD CLOTS\NSISTER-LEUKEMIAMOTHER IN MARCH 2019. HOSPITALIZATION/MAJOR DIAGNOSTIC PROCEDURE SURGERY RELATED TRAUMA AFTER IED EXPLOSION-[facility] REVIEW OF SYSTEMS CONSTITUTIONAL: ANY RECENT FEVER NO . CHILLS NO . WEIGHT CHANGE OF UNKNOWN REASONS NO . GASTROENTEROLOGY: NEW UNEXPLAINABLE CHANGES IN BOWEL CONTROL NO . CONSTIPATION NO . GENITOURINARY: ANY NEW CHANGE IN BLADDER CONTROL? NO . NEUROLOGY: NEW ONSET DIZZINESS OR NEUROLOGICAL CHANGES NOT MENTIONED NO . NEW NUMBNESS OR PAIN PATTERNS NOT MENTIONED AND PERTINENT TO TODAY'S VISIT NO . CARDIOLOGY: NEW CHEST PRESSURE NO . NEW CHEST PAIN NO . RESPIRATORY: UNEXPLAINABLE COUGH NO . NEW SHORTNESS OF BREATH NO . VITAL SIGNS WT 243.4 LBS, HT 68.5 IN, BMI 36.47 INDEX, BP 122/75 MM HG, HR 90 /MIN, RR 18 /MIN, TEMP 98.4 F, OXYGEN SAT % 96%, NA INITIALS AW 1435. EXAMINATION GENERAL EXAMINATION: GENERALAWAKE,ALERT ,PLEASANT . PSYCHAFFECT NORMAL . LUNGS:LUNG FOWLER ARE CLEAR TO AUSCULTATION BILATERALLY. GOOD MOVEMENT OF AIR . HEART:S1, S2 IN A REGULAR RATE AND RHYTHM. NO SIGNIFICANT MURMURS, RUBS OR GALLOPS NOTED . ASSESSMENTS INTERVERTEBRAL DISC DISORDERS WITH RADICULOPATHY, LUMBAR REGION - M51.16 (PRIMARY) TREATMENT INTERVERTEBRAL DISC DISORDERS WITH RADICULOPATHY, LUMBAR REGION NOTES: CONTINUE HOME EXERCISE AND STRETCHING. FOLLOW-UP IN 3 MONTHS. ENCOURAGED TO CALL US SHOULD HIS PAIN RETURN FOR SOONER APPOINTMENT. PROCEDURE CODES [id number] ESTABILISHED PATIENT [facility] FACILITY CHARGE DISPOSITION & COMMUNICATION FOLLOW UP 3 MONTHS (REASON: LOW BACK PAIN) ELECTRONICALLY SIGNED BY VANESSA MANCIA ON 12/27/2019 AT 08:45 AM EDT DISCLAIMER : THIS IS A VISIT SUMMARY EXTRACTED FROM THE [employer] CHART. IT IS NOT A COPY OF THE [employer] PROGRESS NOTE. KATIA
== END ==
LOC: M PAIN 14:30
PROVIDERS: ATTEND Nurse Practitioner Family
DX: M51.16 Intervertebral disc disorders with radiculopathy, lumbar region (principal)

== ENCOUNTER → 2020-03-22 | Outpatient (CLI) | payer OTHER ==
--- NOTE | 2020-03-31 15:36 | ECWPNPC ---
PATIENT NAME: REJI PICKARD : 1970 GENDER: MALE VISIT DATE: 03/22/2020 DISCHARGE DATE: 03/22/20 1205 VISIT LOCKED DATE TIME: PHYSICIAN: MARILEE EVANS RESOURCE: MARILEE EVANS REASON FOR APPOINTMENT 1. LBP/?RADICULOPATHY) HISTORY OF PRESENT ILLNESS DEPRESSION SCREENING: PHQ-2 (2015 EDITION) LITTLE INTEREST OR PLEASURE IN DOING THINGS?NOT AT ALL FEELING DOWN, DEPRESSED, OR HOPELESS?NOT AT ALL TOTAL SCORE0 GENERAL: HERE FOR FOLLOW-UP OF CHRONIC LOW BACK PAIN AND BILATERAL LEG PAIN. CONTINUES TO DO WELL POST LESI IN SEPTEMBER. THIS IMPROVED LOW BACK PAIN AND LEG PAIN. CONTINUES WITH RIGHT LOW BACK DISCOMFORT, BUT ITS MANAGEABLE. REVIEWED MRI OF THE LS-SPINE AND NERVE CONDUCTION STUDIES OF THE LOWER EXTREMITIES DONE RECENTLY AND DISCUSSED TREATMENT PLAN. - -. FALL RISK SCREENING: SCREENING :NO FALLS REPORTED IN THE LAST YEAR NONE PAIN SCREENING: PATIENT HAS A COMPLAINT OF ACUTE OR CHRONIC PAIN :YES LOCATION OF PAIN:LOW BACK LEFT LOWER BACK INTENSITY OF PAIN (SCALE OF 1 TO 10):3 WHAT DOES YOUR PAIN FEEL LIKE:ACHING STIFF FEELING ALSO DURATION:CONTINOUS PAIN IS INCREASED BY:ACTIVITIES PAIN IS DECREASED BY:USE OF PAIN MEDICATIONS NURSING NOTE: -. PAIN CENTER INTAKE QUESTIONS: DO YOU HAVE A HISTORY OF MRSA? :NO DO YOU TAKE A BLOOD THINNERS? :NO DO YOU HAVE ANY BLEEDING DISORDERS? :NO ANY NEW NUMBNESS OR WEAKNESS IN YOUR LEGS OR ARMS? :NO ANY PACEMAKER,DEFIBRILLATOR, OR DORSAL COLUMN STIMULATOR? :NO DO YOU HAVE ANY RASHES OR OPEN SORES? :NO ARE YOU ALLERGIC TO IV DYE? :NO ARE YOU DIABETIC? :YES ANY NEW PROBLEMS WITH YOUR MEDICATIONS? :NO HAVE YOU RECEIVED A VACCINE IN THE PAST 30 DAYS? :YES 3 WEEKS AGO GOT THE FLU VAC DO YOU PLAN TO RECEIVE A VACCINE IN THE NEXT 21 DAYS? :NO DO YOU NEED ANY PRESCRIPTION? :NO DO YOU TAKE ANY IMMUNOSUPPRESSIVE MEDICATIONS? :NO IS THERE A CHANCE YOU COULD BE ? :NO ARE YOU BREAST FEEDING? :NO CURRENT MEDICATIONS TAKING LISINOPRIL 10 MG TABLET 1/2 TABLET ORALLY ONCE A DAY TAKING DULOXETINE HCL 30 MG CAPSULE DELAYED RELEASE PARTICLES 1 CAPSULE ORALLY ONCE A DAY TAKING METFORMIN HCL 500 MG TABLET 2 TABLETS WITH MEALS ORALLY TWICE A DAY TAKING GLIPIZIDE ER 10 MG TABLET EXTENDED RELEASE 24 HOUR 1 TABLET ORALLY BID TAKING ASPIRIN 81 MG TABLET CHEWABLE 1 TABLET ORALLY ONCE A DAY TAKING VITAMIN D 2000 UNIT TABLET 1 TABLET ORALLY ONCE A DAY TAKING GABAPENTIN 300 MG CAPSULE 2 CAPSULES ORALLY THREE TIMES DAILY TAKING TRAMADOL HCL 50 MG TABLET 1 TABLET NEEDED ORALLY EVERY 6 HRS TAKING ATORVASTATIN CALCIUM 20 MG TABLET 1 TABLET ORALLY ONCE A DAY TAKING BUPROPION HCL 100 MG TABLET 1 TABLET ORALLY TWICE A DAY TAKING FLEXERIL 10 MG 1 CAP ORALLY TID PRN TAKING SOMA 350 MG TABLET 1 TABLET NEEDED ORALLY Q8H PRN MDD3, NOTES: NOT LATELY TAKING METOPROLOL SUCCINATE ER 50 MG TABLET EXTENDED RELEASE 24 HOUR 1 TABLET ORALLY ONCE A DAY TAKING GEMFIBROZIL 600 MG TABLET 1 TABLET ORALLY TWICE A DAY NOT-TAKING KETOROLAC TROMETHAMINE 10 MG TABLET 1 TABLET WITH FOOD OR MILK NEEDED ORALLY EVERY 6 HRS UNKNOWN NORCO 5-325 MG TABLET 1 TO 2 ORALLY Q8H PRN MDD4, NOTES: DOESNT TAKE MUCH MEDICATION LIST REVIEWED AND RECONCILED WITH THE PATIENT PAST MEDICAL HISTORY DM STAN TX'D WITH CPAP AT NIGHT CHRONIC LBP L4 FX SHRAPNAL REMOVED NECK PAIN MULTIPLE BODY TRAUMA DUE TO IED EXPLOSION SCATTERED SHRAPNAL THROUGH OUT BODY TBI ALLERGIES N.K.D.A. SURGICAL HISTORY SHRAPNAL REMOVAL 2004 COLOSTOMY 2004 COLOSTOMY REVERSAL 2005 APPENDECTOMY FAMILY HISTORY FATHER: ALIVE, DIAGNOSED WITH OTHER MALIGNANT NEOPLASM OF UNSPECIFIED SITE MOTHER: , OTHER SPECIFIED CONDITIONS INFLUENCING HEALTH STATUS 2 BROTHER(S) , 2 SISTER(S) - HEALTHY. 1 SON(S) , 1 DAUGHTER(S) - HEALTHY. FATHER-BONE\/COLON [place]\NMOTHER-SMOKER COPD\NBROTHER-BLOOD CLOTS\NSISTER-LEUKEMIAMOTHER IN MARCH 2019. SOCIAL HISTORY GENERAL: TOBACCO USE ARE YOU A:NONSMOKER LATEX QUESTIONNAIRE LATEX ALLERGY : HAVE YOU EVER DEVELOPED ANY TYPE OF REACTION AFTER HANDLING LATEX PRODUCTS SUCH RUBBER GLOVES, CONDOMS, DIAPHRAGMS, BALLOONS, SOCKS, OR UNDERWEAR?NO LATEX ALLERGY : HAVE YOU EVER DEVELOPED ANY TYPE OF REACTION DURING OR AFTER DENTAL APPOINTMENT, VAGINAL/RECTAL EXAMINATION, SURGICAL PROCEDURE, OR ANY OTHER EXPOSURE?NO LATEX RISK : HAVE YOU EVER HAD ANY DIFFICULTY BREATHING OR HIVES AFTER EATING OR HANDLING ANY FRUITS, OR VEGETABLES; SUCH KIWI, BANANAS, STONE FRUITS, OR CHESTNUTSNO LATEX RISK : DO YOU HAVE A PREVIOUS PERSONAL HISTORY OF MORE THAN NINE SURGERIES, SPINA BIFIDA, OR REPEATED CATHERIZATIONS? NO LATEX RISK : ARE YOU FREQUENTLY EXPOSED TO LATEX PRODUCTS IN YOUR OCCUPATION?NO DATE ASKED : 03/22/2020 ALCOHOL SCREENING DID YOU HAVE A DRINK CONTAINING ALCOHOL IN THE PAST YEAR?YES HOW OFTEN DID YOU HAVE SIX OR MORE DRINKS ON ONE OCCASION IN THE PAST YEAR?NEVER (0 POINTS) HOW MANY DRINKS DID YOU HAVE ON A TYPICAL DAY WHEN YOU WERE DRINKING IN THE PAST YEAR?1 OR 2 (0 POINTS) HOW OFTEN DID YOU HAVE A DRINK CONTAINING ALCOHOL IN THE PAST YEAR?TWO TO FOUR TIMES A MONTH (2 POINTS) POINTS2 INTERPRETATIONNEGATIVE RECREATIONAL DRUG USE DRUG USE?NO 10/05/19 DENIES CAFFEINE CAFFEINE USE?YES HOW OFTEN AND HOW MUCH? 5 CUPS COFFEE/DAY HIV / HEP-C SCREENING HIV TEST OFFERED TO PATIENT:YES DATE OFFERED:04/06/2018 TEST ACCEPTED:NO HEP-C TEST OFFERED TO PATIENT:NO REASON:PATIENT DECLINED BROCHURE PROVIDED TO PATIENTNO ZOROASTRIANISM [id number] [employer]INTO LANGUAGE LANGUAGES SPOKEN:CROATIAN LEARNING BARRIERS / SPECIAL NEEDS BARRIERS TO LEARNING?NO HEARING IMPAIRED?YES VISION IMPAIRED?YES COGNITIVELY IMPAIRED?NO :HEARING AIDES :CORRECTIVE LENSES READINESS TO LEARN?YES LEARNING PREFERENCES?NO LEARNING CAPABILITIES PRESENT?YES EMOTIONAL BARRIERS?NO SPECIAL DEVICES?YES :CANE ONLY USES WHEN HE NEEDS TO DUE TO BACK PAIN HISTOPATH TECH NEEDED?NO DOMESTIC VIOLENCE DO YOU FEEL SAFE IN YOUR ENVIRONMENT?YES NEW PATIENT PAIN DIARY TODAY'S VISIT 10/20/2019, PATIENT DESCRIBES PAIN : IT COMES AND GOES, SHARP, SORE PAIN HAS BEEN GOOD SINCE PROCEDURE-OCCASSIONAL PAIN ON IF HE JAR HIS BACK WITH MOVEMENT, FROM 0-10, WHAT LEVEL IS YOUR PAIN TODAY? 0, PRECIPITATING FACTORS JARRING MOTION, ALLEVIATING FACTORS REST, IMPACT ON FUNCTION RIGHT NOW HE IS DOING WELL WITH MINIMAL PAIN. PAIN CLINIC PFS, CLERGY, PUBLIC HEALTH REFERRALS PFS REFERRAL NEEDED?NO CLERGY REFERRAL NEEDED?NO PUBLIC HEALTH REFERRAL NEEDED?NO HAS THE PATIENT BEEN EDUCATED REGARDING HIS/HER PLAN OF CARE?YES HAS THE PATIENT BEEN EDUCATED REGARDING PAIN, THE RISK FOR PAIN, THE IMPORTANCE OF EFFECTIVE PAIN MANAGEMENT, AND THE PAIN ASSESSMENT PROCESS?YES ADVANCE DIRECTIVE ADVANCE DIRECTIVE DISCUSSED WITH PATIENT:YES HCP IS TRUE PICKARD [phone] PRE-SCREENING COMPLETED 10/04/2019 1637 JS. HOSPITALIZATION/MAJOR DIAGNOSTIC PROCEDURE SURGERY RELATED TRAUMA AFTER IED EXPLOSION-CLIFF VARINDER REVIEW OF SYSTEMS CONSTITUTIONAL: ANY RECENT FEVER NO . CHILLS NO . WEIGHT CHANGE OF UNKNOWN REASONS NO . GASTROENTEROLOGY: NEW UNEXPLAINABLE CHANGES IN BOWEL CONTROL NO . CONSTIPATION NO . GENITOURINARY: ANY NEW CHANGE IN BLADDER CONTROL? NO . NEUROLOGY: NEW ONSET DIZZINESS OR NEUROLOGICAL CHANGES NOT MENTIONED NO . NEW NUMBNESS OR PAIN PATTERNS NOT MENTIONED AND PERTINENT TO TODAY'S VISIT NO . CARDIOLOGY: NEW CHEST PRESSURE NO . NEW CHEST PAIN NO . RESPIRATORY: UNEXPLAINABLE COUGH NO . NEW SHORTNESS OF BREATH NO . VITAL SIGNS WT 247.8 LBS, HT 68.5 IN, BMI 37.13 INDEX, BP 133/72 MM HG, HR 88 /MIN, RR 18 /MIN, TEMP 97.1 F, OXYGEN SAT % 97%, SAFE IN ENV? (Y/N) YES, NA INITIALS NM 11:41, REVIEWED BY: NOIEL. EXAMINATION GENERAL EXAMINATION: GENERALAWAKE,ALERT ,PLEASANT . PSYCHAFFECT NORMAL . LUNGS:LUNG FOWLER ARE CLEAR TO AUSCULTATION BILATERALLY. GOOD MOVEMENT OF AIR . HEART:S1, S2 IN A REGULAR RATE AND RHYTHM. NO SIGNIFICANT MURMURS, RUBS OR GALLOPS NOTED . ASSESSMENTS INTERVERTEBRAL DISC DISORDERS WITH RADICULOPATHY, LUMBAR REGION - M51.16 (PRIMARY) TREATMENT INTERVERTEBRAL DISC DISORDERS WITH RADICULOPATHY, LUMBAR REGION NOTES: CONTINUE HOME EXERCISE AND STRETCHING. PROCEDURE CODES FA211 ESTABILISHED PATIENT [facility] FACILITY CHARGE DISPOSITION & COMMUNICATION FOLLOW UP 3 MONTHS (REASON: LOW BACK PAIN) ELECTRONICALLY SIGNED BY VANESSA MANCIA ON 03/31/2020 AT 03:26 PM EDT DISCLAIMER : THIS IS A VISIT SUMMARY EXTRACTED FROM THE [employer] CHART. IT IS NOT A COPY OF THE [employer] PROGRESS NOTE. [facility] CENTERMarkel
== END ==
LOC: M PAIN 11:15
PROVIDERS: ATTEND Nurse Practitioner Family
DX: M51.16 Intervertebral disc disorders with radiculopathy, lumbar region (principal); E11.9 Type 2 diabetes mellitus without complications; G47.33 Obstructive sleep apnea (adult) (pediatric); Z87.820 Personal history of traumatic brain injury; Z79.899 Other long term (current) drug therapy

== ENCOUNTER → 2020-06-22 | Outpatient (CLI) | payer OTHER ==
--- NOTE | 2020-06-24 06:58 | ECWPNPC ---
PATIENT NAME: REJI PICKARD : 1970 GENDER: MALE VISIT DATE: 06/22/2020 DISCHARGE DATE: 06/22/20 1217 VISIT LOCKED DATE TIME: PHYSICIAN: MARILEE EVANS RESOURCE: MARILEE EVANS REASON FOR APPOINTMENT 1. LOW BACK PAIN HISTORY OF PRESENT ILLNESS PAIN CENTER INTAKE QUESTIONS: DO YOU HAVE A HISTORY OF MRSA? :NO DO YOU TAKE A BLOOD THINNERS? :NO DO YOU HAVE ANY BLEEDING DISORDERS? :NO ANY NEW NUMBNESS OR WEAKNESS IN YOUR LEGS OR ARMS? :NO ANY PACEMAKER,DEFIBRILLATOR, OR DORSAL COLUMN STIMULATOR? :NO DO YOU HAVE ANY RASHES OR OPEN SORES? :NO ARE YOU ALLERGIC TO IV DYE? :NO ARE YOU DIABETIC? :YES ANY NEW PROBLEMS WITH YOUR MEDICATIONS? :NO HAVE YOU RECEIVED A VACCINE IN THE PAST 30 DAYS? :YES 3 WEEKS AGO GOT THE FLU VAC DO YOU PLAN TO RECEIVE A VACCINE IN THE NEXT 21 DAYS? :NO DO YOU NEED ANY PRESCRIPTION? :NO DO YOU TAKE ANY IMMUNOSUPPRESSIVE MEDICATIONS? :NO IS THERE A CHANCE YOU COULD BE ? :NO ARE YOU BREAST FEEDING? :NO GENERAL: HERE FOR FOLLOW-UP OF CHRONIC LOW BACK PAIN WITH LEFT LEG RADICULAR SYMPTOMS. STATES OVER THE PAST 2 WEEKS PAIN HAS INCREASED. PAIN IS LOCATED ACROSS LOW BACK WITH RADIATION INTO LEFT LEG. HAS RESPONDED WELL TO LUMBAR EPIDURAL STEROID INJECTIONS IN THE PAST. REVIEWED MRI AND DISCUSSED TREATMENT PLAN. HE JUST RECEIVED FIRST COVID 19 IMMUNIZATION TODAY AND IS EXPECTED TO HAVE ANOTHER ONE IN EARLY JULY. DISCUSSED WAITING FOR EPIDURAL UNTIL 3 WEEKS AFTER HIS SECOND IMMUNIZATION. -. FALL RISK SCREENING: SCREENING :NO FALLS REPORTED IN THE LAST YEAR PAIN SCREENING: PATIENT HAS A COMPLAINT OF ACUTE OR CHRONIC PAIN :YES LOCATION OF PAIN:LOW BACK INTENSITY OF PAIN (SCALE OF 1 TO 10):4 WHAT DOES YOUR PAIN FEEL LIKE:SHARP DURATION:CONTINOUS, CONSTANT PAIN IS INCREASED BY:ACTIVITIES, PROLONGED STANDING PAIN IS DECREASED BY:USE OF PAIN MEDICATIONS NELI NURSING NOTE: -. CURRENT MEDICATIONS TAKING LISINOPRIL 10 MG TABLET 1/2 TABLET ORALLY ONCE A DAY TAKING DULOXETINE HCL 30 MG CAPSULE DELAYED RELEASE PARTICLES 1 CAPSULE ORALLY ONCE A DAY TAKING METFORMIN HCL 500 MG TABLET 2 TABLETS WITH MEALS ORALLY TWICE A DAY TAKING GLIPIZIDE ER 10 MG TABLET EXTENDED RELEASE 24 HOUR 1 TABLET ORALLY BID TAKING ASPIRIN 81 MG TABLET CHEWABLE 1 TABLET ORALLY ONCE A DAY TAKING VITAMIN D 2000 UNIT TABLET 1 TABLET ORALLY ONCE A DAY TAKING GABAPENTIN 300 MG CAPSULE 2 CAPSULES ORALLY THREE TIMES DAILY TAKING TRAMADOL HCL 50 MG TABLET 1 TABLET NEEDED ORALLY EVERY 6 HRS TAKING ATORVASTATIN CALCIUM 20 MG TABLET 1 TABLET ORALLY ONCE A DAY TAKING BUPROPION HCL 100 MG TABLET 1 TABLET ORALLY TWICE A DAY TAKING FLEXERIL 10 MG 1 CAP ORALLY TID PRN TAKING SOMA 350 MG TABLET 1 TABLET NEEDED ORALLY Q8H PRN MDD3, NOTES: NOT LATELY TAKING METOPROLOL SUCCINATE ER 50 MG TABLET EXTENDED RELEASE 24 HOUR 1 TABLET ORALLY ONCE A DAY TAKING GEMFIBROZIL 600 MG TABLET 1 TABLET ORALLY TWICE A DAY NOT-TAKING KETOROLAC TROMETHAMINE 10 MG TABLET 1 TABLET WITH FOOD OR MILK NEEDED ORALLY EVERY 6 HRS UNKNOWN NORCO 5-325 MG TABLET 1 TO 2 ORALLY Q8H PRN MDD4, NOTES: DOESNT TAKE MUCH MEDICATION LIST REVIEWED AND RECONCILED WITH THE PATIENT PAST MEDICAL HISTORY DM STAN TX'D WITH CPAP AT NIGHT CHRONIC LBP L4 FX SHRAPNAL REMOVED NECK PAIN MULTIPLE BODY TRAUMA DUE TO IED EXPLOSION SCATTERED SHRAPNAL THROUGH OUT BODY TBI ALLERGIES N.K.D.A. SURGICAL HISTORY SHRAPNAL REMOVAL 2003 COLOSTOMY 2004 COLOSTOMY REVERSAL 2005 APPENDECTOMY FAMILY HISTORY FATHER: ALIVE, DIAGNOSED WITH OTHER MALIGNANT NEOPLASM OF UNSPECIFIED SITE MOTHER: , OTHER SPECIFIED CONDITIONS INFLUENCING HEALTH STATUS 2 BROTHER(S) , 2 SISTER(S) - HEALTHY. 1 SON(S) , 1 DAUGHTER(S) - HEALTHY. FATHER-BONE\/COLON [place]\NMOTHER-SMOKER COPD\NBROTHER-BLOOD CLOTS\NSISTER-LEUKEMIAMOTHER IN MARCH 2019. SOCIAL HISTORY GENERAL: TOBACCO USE ARE YOU A:NONSMOKER LATEX QUESTIONNAIRE LATEX ALLERGY : HAVE YOU EVER DEVELOPED ANY TYPE OF REACTION AFTER HANDLING LATEX PRODUCTS SUCH RUBBER GLOVES, CONDOMS, DIAPHRAGMS, BALLOONS, SOCKS, OR UNDERWEAR?NO LATEX ALLERGY : HAVE YOU EVER DEVELOPED ANY TYPE OF REACTION DURING OR AFTER DENTAL APPOINTMENT, VAGINAL/RECTAL EXAMINATION, SURGICAL PROCEDURE, OR ANY OTHER EXPOSURE?NO LATEX RISK : HAVE YOU EVER HAD ANY DIFFICULTY BREATHING OR HIVES AFTER EATING OR HANDLING ANY FRUITS, OR VEGETABLES; SUCH KIWI, BANANAS, STONE FRUITS, OR CHESTNUTSNO LATEX RISK : DO YOU HAVE A PREVIOUS PERSONAL HISTORY OF MORE THAN NINE SURGERIES, SPINA BIFIDA, OR REPEATED CATHERIZATIONS? NO LATEX RISK : ARE YOU FREQUENTLY EXPOSED TO LATEX PRODUCTS IN YOUR OCCUPATION?NO DATE ASKED : 06/22/2020 ALCOHOL SCREENING DID YOU HAVE A DRINK CONTAINING ALCOHOL IN THE PAST YEAR?YES HOW OFTEN DID YOU HAVE SIX OR MORE DRINKS ON ONE OCCASION IN THE PAST YEAR?NEVER (0 POINTS) HOW MANY DRINKS DID YOU HAVE ON A TYPICAL DAY WHEN YOU WERE DRINKING IN THE PAST YEAR?1 OR 2 (0 POINTS) HOW OFTEN DID YOU HAVE A DRINK CONTAINING ALCOHOL IN THE PAST YEAR?TWO TO FOUR TIMES A MONTH (2 POINTS) POINTS2 INTERPRETATIONNEGATIVE RECREATIONAL DRUG USE DRUG USE?NO 10/05/19 DENIES CAFFEINE CAFFEINE USE?YES HOW OFTEN AND HOW MUCH? 5 CUPS COFFEE/DAY HIV / HEP-C SCREENING HIV TEST OFFERED TO PATIENT:YES DATE OFFERED:04/06/2018 TEST ACCEPTED:NO HEP-C TEST OFFERED TO PATIENT:NO REASON:PATIENT DECLINED BROCHURE PROVIDED TO PATIENTNO [id number] RESTORATIONISM LANGUAGE LANGUAGES SPOKEN:SERBIAN LEARNING BARRIERS / SPECIAL NEEDS BARRIERS TO LEARNING?NO HEARING IMPAIRED?YES :HEARING AIDES VISION IMPAIRED?YES :CORRECTIVE LENSES COGNITIVELY IMPAIRED?NO READINESS TO LEARN?YES LEARNING PREFERENCES?NO LEARNING CAPABILITIES PRESENT?YES EMOTIONAL BARRIERS?NO SPECIAL DEVICES?YES :CANE ONLY USES WHEN HE NEEDS TO DUE TO BACK PAIN MARKETING WRITER NEEDED?NO DOMESTIC VIOLENCE DO YOU FEEL SAFE IN YOUR ENVIRONMENT?YES TODAY'S VISIT 10/20/2019, PATIENT DESCRIBES PAIN : IT COMES AND GOES, SHARP, SORE PAIN HAS BEEN GOOD SINCE PROCEDURE-OCCASSIONAL PAIN ON IF HE JAR HIS BACK WITH MOVEMENT, FROM 0-10, WHAT LEVEL IS YOUR PAIN TODAY? 0, PRECIPITATING FACTORS JARRING MOTION, ALLEVIATING FACTORS REST, IMPACT ON FUNCTION RIGHT NOW HE IS DOING WELL WITH MINIMAL PAIN. PAIN CLINIC PFS, CLERGY, PUBLIC HEALTH REFERRALS PFS REFERRAL NEEDED?NO CLERGY REFERRAL NEEDED?NO PUBLIC HEALTH REFERRAL NEEDED?NO HAS THE PATIENT BEEN EDUCATED REGARDING HIS/HER PLAN OF CARE?YES HAS THE PATIENT BEEN EDUCATED REGARDING PAIN, THE RISK FOR PAIN, THE IMPORTANCE OF EFFECTIVE PAIN MANAGEMENT, AND THE PAIN ASSESSMENT PROCESS?YES ADVANCE DIRECTIVE ADVANCE DIRECTIVE DISCUSSED WITH PATIENT:YES HCP IS TRUE PICKARD [phone] PRE-SCREENING COMPLETED 10/04/2019 1637 JS. HOSPITALIZATION/MAJOR DIAGNOSTIC PROCEDURE SURGERY RELATED TRAUMA AFTER IED EXPLOSION-CLIFF VARINDER REVIEW OF SYSTEMS CONSTITUTIONAL: ANY RECENT FEVER NO . CHILLS NO . WEIGHT CHANGE OF UNKNOWN REASONS NO . GASTROENTEROLOGY: NEW UNEXPLAINABLE CHANGES IN BOWEL CONTROL NO . CONSTIPATION NO . GENITOURINARY: ANY NEW CHANGE IN BLADDER CONTROL? NO . NEUROLOGY: NEW ONSET DIZZINESS OR NEUROLOGICAL CHANGES NOT MENTIONED NO . NEW NUMBNESS OR PAIN PATTERNS NOT MENTIONED AND PERTINENT TO TODAY'S VISIT NO . CARDIOLOGY: NEW CHEST PRESSURE NO . NEW CHEST PAIN NO . RESPIRATORY: UNEXPLAINABLE COUGH NO . NEW SHORTNESS OF BREATH NO . VITAL SIGNS WT 245 LBS, HT 68.5 IN, BMI 36.71 INDEX, BP 127/72 MM HG, HR 76 /MIN, RR 18 /MIN, TEMP 95.6 F, OXYGEN SAT % 96, SAFE IN ENV? (Y/N) YEST.TALISHA STANLEY. EXAMINATION GENERAL EXAMINATION: GENERAL AWAKE,ALERT ,PLEASANT . PSYCH AFFECT NORMAL . LUNGS: LUNG FOWLER ARE CLEAR TO AUSCULTATION BILATERALLY. GOOD MOVEMENT OF AIR . HEART: S1, S2 IN A REGULAR RATE AND RHYTHM. NO SIGNIFICANT MURMURS, RUBS OR GALLOPS NOTED . LUMBAR: PALPATION: + FOR PAIN OVER L/S SPINE. + FOR PAIN OVER L/S PARASPINALS SLE: POSITIVE OVER LEFT LEG AT 45. NEUROLOGIC EXAM:WEAKNESS OVER LEFT LEG . DIAGNOSTIC TESTS REVIEWED CT L/S SPINE-06/16/2019. ASSESSMENTS INTERVERTEBRAL DISC DISORDERS WITH RADICULOPATHY, LUMBAR REGION - M51.16 (PRIMARY) TREATMENT INTERVERTEBRAL DISC DISORDERS WITH RADICULOPATHY, LUMBAR REGION NOTES: LUMBAR EPIDURAL STEROID INJECTION L4-5 PRINT AND REVIEWED PRE- PROCEDURES WITH PATIENT JUSTINO STANLEY. PROCEDURE CODES FA211 ESTABILISHED PATIENT [facility] FACILITY CHARGE DISPOSITION & COMMUNICATION FOLLOW UP SCHEDULE FIRST WEEK IN AUGUST PROCEDURE/TWO-WEEK FOLLOW-UP POSTPROCEDURE WITH JEWELRY ENGRAVER (REASON: LUMBAR EPIDURAL STEROID INJECTION L4-5/SCHEDULE FIRST WEEK IN AUGUST) ELECTRONICALLY SIGNED BY VANESSA MANCIA ON 06/23/2020 AT 10:59 AM EST DISCLAIMER : THIS IS A VISIT SUMMARY EXTRACTED FROM THE [employer] CHART. IT IS NOT A COPY OF THE [employer] PROGRESS NOTE. KATIA
== END ==
LOC: M PAIN 11:30
PROVIDERS: ATTEND Nurse Practitioner Family
DX: M51.16 Intervertebral disc disorders with radiculopathy, lumbar region (principal); E11.9 Type 2 diabetes mellitus without complications; G47.33 Obstructive sleep apnea (adult) (pediatric); Z87.820 Personal history of traumatic brain injury; Z79.84 Long term (current) use of oral hypoglycemic drugs; Z79.82 Long term (current) use of aspirin; Z79.891 Long term (current) use of opiate analgesic; Z79.899 Other long term (current) drug therapy

== ENCOUNTER → 2020-08-05 | Outpatient (CLI) | payer OTHER ==
[~2020-08-05] MED LIST changes: -LISI-542 PO; +LISI-898 PO
== END ==
LOC: M LABSMTC 08:10
PROVIDERS: ATTEND Anesthesiology
DX: Z11.52 Encounter for screening for COVID-19 (principal)

== ENCOUNTER → 2020-08-10 | Outpatient (CLI) | payer OTHER ==
[~2020-08-10] MED LIST changes: +ISOVUE-M 300 61% 15ML VIAL As Ordered ONE; +LIDOCAINE 1% SDV 30ML VIAL As Ordered ONE; +methylPREDNISolone SUSP 40MG/ML 1ML VIAL (DEPO MEDROL) As Ordered ONE
--- NOTE | 2020-08-10 11:19 | REP ---
INDICATION: LUMBAR EPIDURAL STEROID INJECTION. COMPARISON: None. TECHNIQUE: Intraoperative fluoroscopic imaging using portable C-arm technique. FINDINGS: Catheter and contrast identified overlying the lumbar epidural space. Total fluoroscopic time 4.4 seconds. IMPRESSION: Findings consistent with lumbar epidural injection. <Electronically signed by Jani Juarez > 08/10/20 1116
--- NOTE | 2020-08-11 04:04 | ECWPNPC ---
PATIENT NAME: REJI PICKARD : 1970 GENDER: MALE VISIT DATE: 08/10/2020 DISCHARGE DATE: 08/10/20 1110 VISIT LOCKED DATE TIME: PHYSICIAN: PEBBLES OWUSU MD RESOURCE: PEBBLES OWUSU MD REASON FOR APPOINTMENT 1. LUMBAR EPIDURAL STEROID INJECTION HISTORY OF PRESENT ILLNESS GENERAL: -. FALL RISK SCREENING: SCREENING :ONE FALL WITHOUT INJURY IN THE PAST YEAR PAIN SCREENING: PATIENT HAS A COMPLAINT OF ACUTE OR CHRONIC PAIN :YES LOCATION OF PAIN:LOW BACK, LEFT HIP, RIGHT HIP INTENSITY OF PAIN (SCALE OF 1 TO 10):7 WHAT DOES YOUR PAIN FEEL LIKE:ACHING, CONTINOUS, SHARP, STABBING, THROBBING, SORE, SHOOTING DURATION:CONTINOUS PAIN IS INCREASED BY:ACTIVITIES, PROLONGED STANDING PAIN IS DECREASED BY:USE OF PAIN MEDICATIONS, OTHERS STRETCHES NURSING NOTE: -. PAIN CENTER INTAKE QUESTIONS: DO YOU HAVE A HISTORY OF MRSA? :NO DO YOU TAKE A BLOOD THINNERS? :NO DO YOU HAVE ANY BLEEDING DISORDERS? :NO ANY NEW NUMBNESS OR WEAKNESS IN YOUR LEGS OR ARMS? :NO ANY PACEMAKER,DEFIBRILLATOR, OR DORSAL COLUMN STIMULATOR? :NO DO YOU HAVE ANY RASHES OR OPEN SORES? :NO ARE YOU ALLERGIC TO IV DYE? :NO ARE YOU DIABETIC? :YES 91 ANY NEW PROBLEMS WITH YOUR MEDICATIONS? :NO HAVE YOU RECEIVED A VACCINE IN THE PAST 30 DAYS? :NO DO YOU PLAN TO RECEIVE A VACCINE IN THE NEXT 21 DAYS? :NO DO YOU TAKE ANY IMMUNOSUPPRESSIVE MEDICATIONS? :NO ANY HISTORY OF SEIZURES? :NO ANY HISTORY OF CARDIAC ISSUES OR EVENTS? :NO DO YOU HAVE ANY KIDNEY OR LIVER DISEASE? :NO DO YOU HAVE SLEEP APNEA? :YES DO YOU WEAR A CPAP?YES ANY RECENT HEAD INJURY? :NO DO YOU HAVE ANY NEW INFECTIONS? :NO IS THERE A CHANCE YOU COULD BE ? :NO ARE YOU BREAST FEEDING? :NO WHEN DID YOU LAST EAT? : 08/09/20201929 WHEN DID YOU LAST DRINK? : 08/10/2020 0815 WHAT DID YOU LAST DRINK? : WATER NAME OF PERSON DRIVING YOU HOME? : - TRUE DO YOU HAVE ANY OTHER QUESTIONS OR CONCERNS? : - CURRENT MEDICATIONS TAKING LISINOPRIL 10 MG TABLET 1/2 TABLET ORALLY ONCE A DAY, NOTES: 08/10/2020 0815 TAKING DULOXETINE HCL 30 MG CAPSULE DELAYED RELEASE PARTICLES 1 CAPSULE ORALLY ONCE A DAY TAKING METFORMIN HCL 500 MG TABLET 2 TABLETS WITH MEALS ORALLY TWICE A DAY, NOTES: 08/09/2020 1730 TAKING GLIPIZIDE ER 10 MG TABLET EXTENDED RELEASE 24 HOUR 1 TABLET ORALLY BID, NOTES: 08/09/2020 1730 TAKING ASPIRIN 81 MG TABLET CHEWABLE 1 TABLET ORALLY ONCE A DAY, NOTES: 08/10/2020 0815 TAKING VITAMIN D 2000 UNIT TABLET 1 TABLET ORALLY ONCE A DAY TAKING GABAPENTIN 300 MG CAPSULE 2 CAPSULES ORALLY THREE TIMES DAILY, NOTES: 08/10/2020 0815 TAKING TRAMADOL HCL 50 MG TABLET 1 TABLET NEEDED ORALLY EVERY 6 HRS, NOTES: 08/08/2020 TAKING ATORVASTATIN CALCIUM 20 MG TABLET 1 TABLET ORALLY ONCE A DAY TAKING BUPROPION HCL 100 MG TABLET 1 TABLET ORALLY TWICE A DAY TAKING FLEXERIL 10 MG 1 CAP ORALLY TID PRN, NOTES: 08/09/2020 TAKING SOMA 350 MG TABLET 1 TABLET NEEDED ORALLY Q8H PRN MDD3, NOTES: NOT LATELY TAKING METOPROLOL SUCCINATE ER 50 MG TABLET EXTENDED RELEASE 24 HOUR 1 TABLET ORALLY ONCE A DAY, NOTES: 08/10/2020 0815 TAKING GEMFIBROZIL 600 MG TABLET 1 TABLET ORALLY TWICE A DAY TAKING HYDROCODONE-ACETAMINOPHEN 5-325 MG TABLET 1 TABLET NEEDED ORALLY Q8H PRN MDD3, NOTES: A COUPLE OF DAYS AGO NOT-TAKING NORCO 5-325 MG TABLET 1 TO 2 ORALLY Q8H PRN MDD4, NOTES: DOESNT TAKE MUCH NOT-TAKING KETOROLAC TROMETHAMINE 10 MG TABLET 1 TABLET WITH FOOD OR MILK NEEDED ORALLY EVERY 6 HRS MEDICATION LIST REVIEWED AND RECONCILED WITH THE PATIENT PAST MEDICAL HISTORY DM STAN TX'D WITH CPAP AT NIGHT CHRONIC LBP L4 FX SHRAPNAL REMOVED NECK PAIN MULTIPLE BODY TRAUMA DUE TO IED EXPLOSION SCATTERED SHRAPNAL THROUGH OUT BODY TBI ALLERGIES N.K.D.A. SURGICAL HISTORY SHRAPNAL REMOVAL 2004 COLOSTOMY 2004 COLOSTOMY REVERSAL 2005 APPENDECTOMY FAMILY HISTORY FATHER: ALIVE, DIAGNOSED WITH OTHER MALIGNANT NEOPLASM OF UNSPECIFIED SITE MOTHER: , OTHER SPECIFIED CONDITIONS INFLUENCING HEALTH STATUS 2 BROTHER(S) , 2 SISTER(S) - HEALTHY. 1 SON(S) , 1 DAUGHTER(S) - HEALTHY. FATHER-BONE\/COLON CA\NMOTHER-SMOKER COPD\NBROTHER-BLOOD CLOTS\NSISTER-LEUKEMIAMOTHER IN MARCH 2019. SOCIAL HISTORY GENERAL: TOBACCO USE ARE YOU A:NONSMOKER LATEX QUESTIONNAIRE LATEX ALLERGY : HAVE YOU EVER DEVELOPED ANY TYPE OF REACTION AFTER HANDLING LATEX PRODUCTS SUCH RUBBER GLOVES, CONDOMS, DIAPHRAGMS, BALLOONS, SOCKS, OR UNDERWEAR?NO LATEX ALLERGY : HAVE YOU EVER DEVELOPED ANY TYPE OF REACTION DURING OR AFTER DENTAL APPOINTMENT, VAGINAL/RECTAL EXAMINATION, SURGICAL PROCEDURE, OR ANY OTHER EXPOSURE?NO LATEX RISK : HAVE YOU EVER HAD ANY DIFFICULTY BREATHING OR HIVES AFTER EATING OR HANDLING ANY FRUITS, OR VEGETABLES; SUCH KIWI, BANANAS, STONE FRUITS, OR CHESTNUTSNO LATEX RISK : DO YOU HAVE A PREVIOUS PERSONAL HISTORY OF MORE THAN NINE SURGERIES, SPINA BIFIDA, OR REPEATED CATHERIZATIONS? NO LATEX RISK : ARE YOU FREQUENTLY EXPOSED TO LATEX PRODUCTS IN YOUR OCCUPATION?NO DATE ASKED : 08/09/2020 ALCOHOL SCREENING DID YOU HAVE A DRINK CONTAINING ALCOHOL IN THE PAST YEAR?YES HOW OFTEN DID YOU HAVE SIX OR MORE DRINKS ON ONE OCCASION IN THE PAST YEAR?NEVER (0 POINTS) HOW MANY DRINKS DID YOU HAVE ON A TYPICAL DAY WHEN YOU WERE DRINKING IN THE PAST YEAR?1 OR 2 (0 POINTS) HOW OFTEN DID YOU HAVE A DRINK CONTAINING ALCOHOL IN THE PAST YEAR?TWO TO FOUR TIMES A MONTH (2 POINTS) POINTS2 INTERPRETATIONNEGATIVE RECREATIONAL DRUG USE DRUG USE?NO CAFFEINE CAFFEINE USE?YES HOW OFTEN AND HOW MUCH? 5 CUPS COFFEE/DAY HIV / HEP-C SCREENING HIV TEST OFFERED TO PATIENT:YES DATE OFFERED:04/06/2018 TEST ACCEPTED:NO HEP-C TEST OFFERED TO PATIENT:NO REASON:PATIENT DECLINED BROCHURE PROVIDED TO PATIENTNO MU-ISM [id number] TAOISM LANGUAGE LANGUAGES SPOKEN:MACEDONIAN LEARNING BARRIERS / SPECIAL NEEDS BARRIERS TO LEARNING?NO HEARING IMPAIRED?YES :HEARING AIDES BILATERAL VISION IMPAIRED?YES :CORRECTIVE LENSES COGNITIVELY IMPAIRED?NO READINESS TO LEARN?YES LEARNING PREFERENCES?NO LEARNING CAPABILITIES PRESENT?YES EMOTIONAL BARRIERS?NO SPECIAL DEVICES?YES :CANE ONLY USES WHEN HE NEEDS TO DUE TO BACK PAIN 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 0, PRECIPITATING FACTORS JARRING MOTION, ALLEVIATING FACTORS REST, IMPACT ON FUNCTION RIGHT NOW HE IS DOING WELL WITH MINIMAL PAIN. - PFS REFERRAL NEEDED?NO CLERGY REFERRAL NEEDED?NO PUBLIC HEALTH REFERRAL NEEDED?NO HAS THE PATIENT BEEN EDUCATED REGARDING HIS/HER PLAN OF CARE?YES HAS THE PATIENT BEEN EDUCATED REGARDING PAIN, THE RISK FOR PAIN, THE IMPORTANCE OF EFFECTIVE PAIN MANAGEMENT, AND THE PAIN ASSESSMENT PROCESS?YES ADVANCE DIRECTIVE ADVANCE DIRECTIVE DISCUSSED WITH PATIENT:YES HCP IS TRUE PICKARD [phone] PRE-SCREENING COMPLETED 10/04/2019 1637 JS. HOSPITALIZATION/MAJOR DIAGNOSTIC PROCEDURE SURGERY RELATED TRAUMA AFTER IED EXPLOSION-[facility] VITAL SIGNS WT 244.0 LBS, HT 68.5 IN, BMI 36.56 INDEX, BP 122/79 MM HG, HR 94 /MIN, RR 18 /MIN, TEMP 96.0 F, OXYGEN SAT % 97%, SAFE IN ENV? (Y/N) YES, NA INITIALS AW 1002, REVIEWED BY: Donnell ENGEL RN. EXAMINATION GENERAL EXAMINATION: THE PATIENT IS ALERT, ORIENTED TIMES THREE AND COOPERATIVE. LUNGS ARE CLEAR TO AUSCULTATION. HEART SHOWS REGULAR RHYTHM, NO MURMURS AND NO GALLOPS. ASSESSMENTS INTERVERTEBRAL DISC DISORDERS WITH RADICULOPATHY, LUMBAR REGION - M51.16 (PRIMARY) TREATMENT INTERVERTEBRAL DISC DISORDERS WITH RADICULOPATHY, LUMBAR REGION [facility] FLUORO GUIDE SPINE INJECTION (PAIN)[id number] COMPLETION OF PROCEDURAL VISIT WHEN MEETS CRITERIACHRIS BONDS 08/10/2020 11:10:37 AM > CRITERIA MET OTHERS NOTES: PAT COMPLETED 08/09/20. Shea RAMIREZ RN. PROCEDURES PAIN NURSING RECORD PROCEDURE IN ROOM 1035, PHYSICIAN IN ROOM 1050, START 1053, FINISH 1055, PHYSICIAN OUT OF ROOM 1058, OUT OF ROOM 1, ECG NORMAL SINUS, PATIENT SHIELDED YES, SAFETY STRAP YES, PREP BETADINE BY Donnell DAN RN, DRESSING TEGADERM BY DR OWUSU LOC: CHRIS BONDS 08/10/2020 10:45:08 AM > , 1. ALERT, ORIENTED RESP: CHRIS BONDS 08/10/2020 10:45:12 AM > , 1. REGULAR, NO DYSPNEA COLOR: CHRIS BONDS 08/10/2020 10:45:17 AM > , 1. PINK SKIN: CHRIS BONDS 08/10/2020 10:45:20 AM > , 1. WARM, DRY POSITION: CHRIS BONDS 08/10/2020 10:45:24 AM > , 1. PRONE VITALS: CHRIS BONDS 08/10/2020 10:45:27 AM > 138/65-95-18-99% , CHRIS BONDS 08/10/2020 10:57:13 AM > 139/[id number]% 08/10/2020 1108 134/82-85-18-96% NOTES Marcus DAN RN COMPLETION OF PROCEDURE APPOINTMENT: POST PAIN 2 RIGHT LOW BACK, DRESSING SITE DRY AND INTACT MID LOW BACK, IV N/A, GAIT STEADY, TEACHING COMPLETED, PATIENT ACKNOWLEDGES UNDERSTANDING YES PATIENT VERBALIZES UNDERSTANDING OF POST PROCEDURE INSTRUCTIONS REVIEWED, PROCEDURE APPOINTMENT COMPLETED AT 1109 BY: Marcus DAN RN PRE PROCEDURE DIAGNOSIS LUMBAR DISC DISORDER WITH RADICULOPATHY POST PROCEDURE DIAGNOSIS LUMBAR DISC DISORDER WITH RADICULOPATHY PROCEDURE LUMBAR EPIDURAL STEROID INJECTION UNDER FLUOROSCOPIC GUIDANCE SURGEON DR. PEBBLES OWUSU SWEET POTATO DISINTEGRATOR NONE ANESTHESIA LOCAL PRE PROCEDURE NOTE THE PATIENT HAS A HISTORY OF CHRONIC LOW BACK PAIN. I EVALUATED THE PATIENT AND REVIEWED THE CHART. I WENT OVER THE RISKS, ALTERNATIVES, AND BENEFITS ASSOCIATED WITH THIS PROCEDURE. THE PATIENT WOULD LIKE TO PROCEED AND GIVE CONSENT TO PERFORMED THE PROCEDURE. THE PATIENT DENIES UNEXPLAINABLE WEIGHT LOSS, FEVER, CHILLS, OR NEW CHANGES IN URINARY OR BOWEL CONTROL. THE PATIENT IS COVID-19 NEGATIVE DESCRIPTION OF PROCEDURE THE PATIENT WAS BROUGHT TO THE PROCEDURE ROOM AND PLACED IN THE PRONE POSITION. THE LUMBOSACRAL AREA WAS CLEANED WITH BETADINE SOLUTION AND DRAPED ASEPTICALLY. THE PROCEDURE WAS DONE UNDER STERILE CONDITIONS. A TIMEOUT WAS PERFORMED WHERE THE CONSENTED SITE WAS VERIFIED WITH EVERYONE IN THE ROOM. UNDER FLUOROSCOPIC GUIDANCE, THE TARGET POINT WAS SELECTED AT THE INTERLAMINAR LEVEL OF L4-L5. I CONFIRMED AGAIN THE SITE OF TARGET. LIDOCAINE WAS USED TO NUMB THE SKIN AND THE SUBCUTANEOUS TISSUE BELOW IT. EPIDURAL TUOHY NEEDLE, 17-GAUGE, WAS ADVANCED UNDER FLUOROSCOPIC GUIDANCE AND FOLLOWING PATIENT FEEDBACK UNTIL THE EPIDURAL SPACE WAS REACHED 6 CM DEEP INTO THE SKIN BY THE LOSS OF RESISTANCE TECHNIQUE. ISOVUE-M DYE 30%, 0.25 ML, WAS INJECTED SHOWING ADEQUATE SPREAD OF THE DYE. THEN, A SOLUTION OF 3 ML OF NORMAL SALINE WITH DEPO-MEDROL 40 MG WAS INJECTED SLOWLY FOLLOWING PATIENT FEEDBACK. THE MEDICATIONS WERE VERIFIED WITH THE NURSE. THERE WAS NO EVIDENCE OF BLOOD, PARESTHESIA OR CEREBROSPINAL FLUID DURING THE PROCEDURE. THE PATIENT WAS SENT TO THE RECOVERY ROOM. THE PATIENT WAS MOVING THE EXTREMITIES AND DOING WELL. THERE WERE NO COMPLICATIONS DURING THE PROCEDURE. ESTIMATED BLOOD LOSS WAS LESS THAN 5 ML. FLUOROSCOPY TIME WAS 4 SECONDS POST PROCEDURE NOTE THE PATIENT WILL BE SEEN IN A FOLLOW UP IN THE NEXT FEW WEEKS. I AM LOOKING FOR LONG LASTING RELIEF FOR THE PATIENT WITH THIS INTERVENTION. INSTRUCTIONS WERE GIVEN, QUESTIONS WERE ANSWERED, AND THE PATIENT EXPRESSED UNDERSTANDING AND AGREES WITH THE PLAN. I, MATHEW CHUN, DOCUMENTED THE ABOVE INFORMATION ACTING A SCRIBE FOR DR. OWUSU. I HAVE REVIEWED THE ABOVE DOCUMENT, WRITTEN BY MATHEW CHUN, APPIAN BPM DEVELOPER, AND I VERIFY THAT IT IS ACCURATE PROCEDURE CODES 63244 LUMBAR/SACRAL W/ IMAGING DISPOSITION & COMMUNICATION FOLLOW UP FOLLOW UP WITH PSYCHIATRIC ATTENDANT (REASON: POST LUMBAR EPIDURAL STEROID INJECTION ) ELECTRONICALLY SIGNED BY PEBBLES OWUSU MD, MD ON 08/10/2020 AT 04:13 PM EST DISCLAIMER : THIS IS A VISIT SUMMARY EXTRACTED FROM THE [employer] CHART. IT IS NOT A COPY OF THE [employer] PROGRESS NOTE. KATIA
== END ==
LOC: M PAIN 10:00
PROVIDERS: ATTEND Anesthesiology
DX: M51.16 Intervertebral disc disorders with radiculopathy, lumbar region (principal); E11.9 Type 2 diabetes mellitus without complications; G47.33 Obstructive sleep apnea (adult) (pediatric); Z87.820 Personal history of traumatic brain injury; Z79.82 Long term (current) use of aspirin; Z79.891 Long term (current) use of opiate analgesic; Z79.899 Other long term (current) drug therapy; Z79.84 Long term (current) use of oral hypoglycemic drugs
CPT/HCPCS: 62323; J1030; Q9967

== ENCOUNTER → 2020-08-24 | Outpatient (CLI) | payer OTHER ==
[~2020-08-24] MED LIST changes: -ISOVUE-M 300 61% 15ML VIAL As Ordered ONE; -LIDOCAINE 1% SDV 30ML VIAL As Ordered ONE; -methylPREDNISolone SUSP 40MG/ML 1ML VIAL (DEPO MEDROL) As Ordered ONE
--- NOTE | 2020-08-25 07:14 | ECWPNPC ---
PATIENT NAME: REJI PICKARD : 1970 GENDER: MALE VISIT DATE: 08/24/2020 DISCHARGE DATE: 08/24/20 1419 VISIT LOCKED DATE TIME: PHYSICIAN: MARILEE EVANS RESOURCE: MARILEE EVANS REASON FOR APPOINTMENT 1. POST LUMBAR EPIDURAL STEROID INJECTION L4-5 HISTORY OF PRESENT ILLNESS GENERAL: HERE FOR F/U POST PROCEDURE.HAD LESI ON 08/10/20.REPORTING NO IMPROVEMENT POST PROCEDURE.HE IS IN EXTREME PAIN TODAY. PAIN IS LOCATED ACROSS LOWER BACK AND RADIATES INTO BILATERAL ANTERIOR THIGHS AND HIPS. HAS RESPONDED WELL IN THE PAST WITH RADIOFREQUENCY. REVIEWED CT SCAN OF THE LUMBAR SPINE. HE CANNOT HAVE MRI DUE TO SHRAPNEL IN HIS LOWER BACK. DUE TO HIS EXTREME PAIN I'M RECOMMENDING THERAPEUTIC LUMBAR FACET BLOCK. WE WILL CONSIDER RADIOFREQUENCY AFTER EVALUATING RESPONSE TO LUMBAR THERAPEUTIC BLOCK.-. FALL RISK SCREENING: SCREENING : NO FALLS REPORTED IN THE LAST YEAR. PAIN SCREENING: PATIENT HAS A COMPLAINT OF ACUTE OR CHRONIC PAIN :YES LOCATION OF PAIN:LOW BACK INTENSITY OF PAIN (SCALE OF 1 TO 10):5 WHAT DOES YOUR PAIN FEEL LIKE:ACHING, SHARP DURATION:CONTINOUS, CONSTANT, ALL DAY PAIN IS INCREASED BY:ACTIVITIES PAIN IS DECREASED BY:USE OF PAIN MEDICATIONS NURSING NOTE: -. PAIN CENTER INTAKE QUESTIONS: DO YOU HAVE A HISTORY OF MRSA? :NO DO YOU TAKE A BLOOD THINNERS? :NO DO YOU HAVE ANY BLEEDING DISORDERS? :NO ANY NEW NUMBNESS OR WEAKNESS IN YOUR LEGS OR ARMS? :NO ANY PACEMAKER,DEFIBRILLATOR, OR DORSAL COLUMN STIMULATOR? :NO DO YOU HAVE ANY RASHES OR OPEN SORES? :NO ARE YOU ALLERGIC TO IV DYE? :NO ARE YOU DIABETIC? :YES ANY NEW PROBLEMS WITH YOUR MEDICATIONS? :NO HAVE YOU RECEIVED A VACCINE IN THE PAST 30 DAYS? :NO DO YOU PLAN TO RECEIVE A VACCINE IN THE NEXT 21 DAYS? :NO DO YOU NEED ANY PRESCRIPTION? :NO DO YOU TAKE ANY IMMUNOSUPPRESSIVE MEDICATIONS? :NO IS THERE A CHANCE YOU COULD BE ? :NO ARE YOU BREAST FEEDING? :NO CURRENT MEDICATIONS TAKING LISINOPRIL 10 MG TABLET 1/2 TABLET ORALLY ONCE A DAY TAKING DULOXETINE HCL 30 MG CAPSULE DELAYED RELEASE PARTICLES 1 CAPSULE ORALLY ONCE A DAY TAKING METFORMIN HCL 500 MG TABLET 2 TABLETS WITH MEALS ORALLY TWICE A DAY TAKING GLIPIZIDE ER 10 MG TABLET EXTENDED RELEASE 24 HOUR 1 TABLET ORALLY BID TAKING ASPIRIN 81 MG TABLET CHEWABLE 1 TABLET ORALLY ONCE A DAY TAKING VITAMIN D 2000 UNIT TABLET 1 TABLET ORALLY ONCE A DAY TAKING GABAPENTIN 300 MG CAPSULE 2 CAPSULES ORALLY THREE TIMES DAILY TAKING TRAMADOL HCL 50 MG TABLET 1 TABLET NEEDED ORALLY EVERY 6 HRS TAKING ATORVASTATIN CALCIUM 20 MG TABLET 1 TABLET ORALLY ONCE A DAY TAKING BUPROPION HCL 100 MG TABLET 1 TABLET ORALLY TWICE A DAY TAKING FLEXERIL 10 MG 1 CAP ORALLY TID PRN TAKING METOPROLOL SUCCINATE ER 50 MG TABLET EXTENDED RELEASE 24 HOUR 1 TABLET ORALLY ONCE A DAY TAKING GEMFIBROZIL 600 MG TABLET 1 TABLET ORALLY TWICE A DAY TAKING HYDROCODONE-ACETAMINOPHEN 5-325 MG TABLET 1 TABLET NEEDED ORALLY Q8H PRN MDD3 TAKING SOMA 350 MG TABLET 1 TABLET NEEDED ORALLY Q8H PRN MDD3 NOT-TAKING NORCO 5-325 MG TABLET 1 TO 2 ORALLY Q8H PRN MDD4, NOTES: DOESNT TAKE MUCH NOT-TAKING KETOROLAC TROMETHAMINE 10 MG TABLET 1 TABLET WITH FOOD OR MILK NEEDED ORALLY EVERY 6 HRS MEDICATION LIST REVIEWED AND RECONCILED WITH THE PATIENT PAST MEDICAL HISTORY DM STAN TX'D WITH CPAP AT NIGHT CHRONIC LBP L4 FX SHRAPNAL REMOVED NECK PAIN MULTIPLE BODY TRAUMA DUE TO IED EXPLOSION SCATTERED SHRAPNAL THROUGH OUT BODY TBI ALLERGIES N.K.D.A. SOCIAL HISTORY GENERAL: TOBACCO USE ARE YOU A:NONSMOKER LATEX QUESTIONNAIRE LATEX ALLERGY : HAVE YOU EVER DEVELOPED ANY TYPE OF REACTION AFTER HANDLING LATEX PRODUCTS SUCH RUBBER GLOVES, CONDOMS, DIAPHRAGMS, BALLOONS, SOCKS, OR UNDERWEAR?NO LATEX ALLERGY : HAVE YOU EVER DEVELOPED ANY TYPE OF REACTION DURING OR AFTER DENTAL APPOINTMENT, VAGINAL/RECTAL EXAMINATION, SURGICAL PROCEDURE, OR ANY OTHER EXPOSURE?NO LATEX RISK : HAVE YOU EVER HAD ANY DIFFICULTY BREATHING OR HIVES AFTER EATING OR HANDLING ANY FRUITS, OR VEGETABLES; SUCH KIWI, BANANAS, STONE FRUITS, OR CHESTNUTSNO LATEX RISK : DO YOU HAVE A PREVIOUS PERSONAL HISTORY OF MORE THAN NINE SURGERIES, SPINA BIFIDA, OR REPEATED CATHERIZATIONS? NO LATEX RISK : ARE YOU FREQUENTLY EXPOSED TO LATEX PRODUCTS IN YOUR OCCUPATION?NO DATE ASKED : 08/24/2020 ALCOHOL USE: YES. ALCOHOL SCREENING DID YOU HAVE A DRINK CONTAINING ALCOHOL IN THE PAST YEAR?YES HOW OFTEN DID YOU HAVE SIX OR MORE DRINKS ON ONE OCCASION IN THE PAST YEAR?NEVER (0 POINTS) HOW MANY DRINKS DID YOU HAVE ON A TYPICAL DAY WHEN YOU WERE DRINKING IN THE PAST YEAR?1 OR 2 (0 POINTS) HOW OFTEN DID YOU HAVE A DRINK CONTAINING ALCOHOL IN THE PAST YEAR?TWO TO FOUR TIMES A MONTH (2 POINTS) POINTS2 INTERPRETATIONNEGATIVE RECREATIONAL DRUG USE DRUG USE?NO CAFFEINE CAFFEINE USE?YES HOW OFTEN AND HOW MUCH? 5 CUPS COFFEE/DAY HIV / HEP-C SCREENING HIV TEST OFFERED TO PATIENT:YES DATE OFFERED:04/06/2018 TEST ACCEPTED:NO HEP-C TEST OFFERED TO PATIENT:NO REASON:PATIENT DECLINED BROCHURE PROVIDED TO PATIENTNO ORTHODOXY [id number] YARSANI LANGUAGE LANGUAGES SPOKEN:PERSIAN LEARNING BARRIERS / SPECIAL NEEDS CHANGE FROM LAST VISIT?NO BARRIERS TO LEARNING?NO HEARING IMPAIRED?YES :HEARING AIDES BILATERAL VISION IMPAIRED?YES :CORRECTIVE LENSES COGNITIVELY IMPAIRED?NO READINESS TO LEARN?YES LEARNING PREFERENCES?NO LEARNING CAPABILITIES PRESENT?YES EMOTIONAL BARRIERS?NO SPECIAL DEVICES?YES :CANE ONLY USES WHEN HE NEEDS TO DUE TO BACK PAIN CW OPERATOR NEEDED?NO DOMESTIC VIOLENCE DO YOU FEEL SAFE IN YOUR ENVIRONMENT?YES TODAY'S VISIT 10/20/2019, PATIENT DESCRIBES PAIN : IT COMES AND GOES, SHARP, SORE PAIN HAS BEEN GOOD SINCE PROCEDURE-OCCASSIONAL PAIN ON IF HE JAR HIS BACK WITH MOVEMENT, FROM 0-10, WHAT LEVEL IS YOUR PAIN TODAY? 0, PRECIPITATING FACTORS JARRING MOTION, ALLEVIATING FACTORS REST, IMPACT ON FUNCTION RIGHT NOW HE IS DOING WELL WITH MINIMAL PAIN. - PFS REFERRAL NEEDED?NO CLERGY REFERRAL NEEDED?NO PUBLIC HEALTH REFERRAL NEEDED?NO HAS THE PATIENT BEEN EDUCATED REGARDING HIS/HER PLAN OF CARE?YES HAS THE PATIENT BEEN EDUCATED REGARDING PAIN, THE RISK FOR PAIN, THE IMPORTANCE OF EFFECTIVE PAIN MANAGEMENT, AND THE PAIN ASSESSMENT PROCESS?YES ADVANCE DIRECTIVE ADVANCE DIRECTIVE DISCUSSED WITH PATIENT:YES HCP IS TRUE PICKARD [phone] PRE-SCREENING COMPLETED 10/04/2019 1637 JS. REVIEW OF SYSTEMS CONSTITUTIONAL: ANY RECENT FEVER NO . CHILLS NO . WEIGHT CHANGE OF UNKNOWN REASONS NO . GASTROENTEROLOGY: NEW UNEXPLAINABLE CHANGES IN BOWEL CONTROL NO . CONSTIPATION NO . GENITOURINARY: ANY NEW CHANGE IN BLADDER CONTROL? NO . NEUROLOGY: NEW ONSET DIZZINESS OR NEUROLOGICAL CHANGES NOT MENTIONED NO . NEW NUMBNESS OR PAIN PATTERNS NOT MENTIONED AND PERTINENT TO TODAY'S VISIT NO . CARDIOLOGY: NEW CHEST PRESSURE NO . PATIENT DENIES NO . RESPIRATORY: UNEXPLAINABLE COUGH NO . NEW SHORTNESS OF BREATH NO . VITAL SIGNS WT 236 LBS, HT 68.5 IN, BMI 35.36 INDEX, BP 129/80 MM HG, HR 78 /MIN, RR 18 /MIN, TEMP 97.5 F, OXYGEN SAT % 98%, NA INITIALS SC 13:43. EXAMINATION GENERAL EXAMINATION: GENERAL AWAKE,ALERT ,PLEAASANT . PSYCH AFFECT NORMAL . LUNGS: LUNG FOWLER ARE CLEAR TO AUSCULTATION BILATERALLY. GOOD MOVEMENT OF AIR . HEART: S1, S2 IN A REGULAR RATE AND RHYTHM. NO SIGNIFICANT MURMURS, RUBS OR GALLOPS NOTED . LUMBAR: PALPATION: + FOR PAIN OVER L/S SPINE. + FOR PAIN OVER L/S PARASPINALS .SPECIFIC POINT TENDERNESS OVER BILAT L3-4,L4-5,L5-S1 LUMBAR FACETS WITH FACET LOADING. NEUROLOGIC EXAM: NORMAL SENSATION LIGHT TOUCH BILAT. LOWER EXTREMITIES . DIAGNOSTIC TESTS REVIEWED CT SCAN L/S SPINE 2019. ASSESSMENTS OTHER CHRONIC PAIN - G89.29 (PRIMARY) SPONDYLOSIS OF LUMBAR REGION WITHOUT MYELOPATHY OR RADICULOPATHY - M47.816 TREATMENT OTHER CHRONIC PAIN PAIN PROCEDURE LOGDATE OF PROCEDURE1PROCEDURE:LUMBAR EPIDURAL STEROID INJECTIONAMOUNT OF PRE SEDATE0/0RESULT:NO IMPROVEMENT IN PAIN NOTES: BILATERAL THERAPEUTIC LUMBAR FACET BLOCK L3-4,L4-5,L5-S1 PRINTED AND REVIEWED PRE PROCEDURE INFORMATION WITH PATIENT JUSTINO STANLEY. PROCEDURE CODES FA211 ESTABILISHED PATIENT [facility] FACILITY CHARGE DISPOSITION & COMMUNICATION FOLLOW UP POST PROCEDURE (REASON: BILATERAL THERAPEUTIC LUMBAR FACET BLOCK L3-4,L4-5,L5-S1) ELECTRONICALLY SIGNED BY VANESSA MANCIA ON 08/24/2020 AT 02:28 PM EDT DISCLAIMER : THIS IS A VISIT SUMMARY EXTRACTED FROM THE [employer] CHART. IT IS NOT A COPY OF THE [employer] PROGRESS NOTE. KATIA
== END ==
LOC: M PAIN 13:30
PROVIDERS: ATTEND Nurse Practitioner Family
DX: G89.29 Other chronic pain (principal); M47.816 Spondylosis without myelopathy or radiculopathy, lumbar region; E11.9 Type 2 diabetes mellitus without complications; G47.33 Obstructive sleep apnea (adult) (pediatric); M54.5 Low back pain; Z87.820 Personal history of traumatic brain injury; Z79.891 Long term (current) use of opiate analgesic; Z79.82 Long term (current) use of aspirin; Z79.899 Other long term (current) drug therapy; Z79.84 Long term (current) use of oral hypoglycemic drugs

== ENCOUNTER → 2020-08-26 | Outpatient (CLI) | payer OTHER | LOC: M LABSMTC 11:26 | PROVIDERS: ATTEND Anesthesiology | DX: Z01.812 Encounter for preprocedural laboratory examination (principal); Z20.822 Contact with and (suspected) exposure to COVID-19 ==

== ENCOUNTER → 2020-08-31 | Outpatient (CLI) | payer OTHER ==
[~2020-08-31] MED LIST changes: +BUPIVACAINE HCL 0.25% 30ML VIAL As Ordered ONE; +ISOVUE-M 300 61% 15ML VIAL As Ordered ONE; +LIDOCAINE 1% SDV 30ML VIAL As Ordered ONE; +TRIAMCINOLONE ACETONIDE SUSP 40 MG/ML VIAL (J3301) As Ordered ONE
--- NOTE | 2020-08-31 12:29 | REP ---
INDICATION: BILAT LFBT L3-L4, L4-L5, L5-S1. COMPARISON: None. TECHNIQUE: Four views lower lumbar spine performed. FINDINGS: [place] are seen along the lower lumbar facet joints bilaterally. A small amount of contrast is injected. IMPRESSION: 28 seconds of fluoroscopy time is utilized. <Electronically signed by Andres Khan > 08/31/20 0673
--- NOTE | 2020-09-07 01:59 | ECWPNPC ---
PATIENT NAME: REJI PICKARD : 1970 GENDER: MALE VISIT DATE: 08/31/2020 DISCHARGE DATE: 08/31/20 1239 VISIT LOCKED DATE TIME: PHYSICIAN: PEBBLES OWUSU MD RESOURCE: PEBBLES OWUSU MD REASON FOR APPOINTMENT 1. BILATERAL THERAPEUTIC LUMBAR FACET BLOCK L4-L5, L5-S1 HISTORY OF PRESENT ILLNESS GENERAL: -. FALL RISK SCREENING: SCREENING : NO FALLS REPORTED IN THE LAST YEAR. PAIN SCREENING: PATIENT HAS A COMPLAINT OF ACUTE OR CHRONIC PAIN :YES LOCATION OF PAIN:LOW BACK, LEG(S) FRONT OF BOTH LEGS INTENSITY OF PAIN (SCALE OF 1 TO 10):6 AVERAGING 6 WITH MEDS WHAT DOES YOUR PAIN FEEL LIKE:ACHING, BURNING, CONTINOUS, SHARP, STABBING, SORE SOMETIMES STABBING DEPENDING ON HOW HE MOVES DURATION:CONTINOUS, CONSTANT, AWAKENS FROM SLEEP PAIN IS INCREASED BY:ACTIVITIES, PROLONGED STANDING PROLONGED SITTING PAIN IS DECREASED BY:OTHERS ICE AND HEAT WILL HELP A LITTLE, MEDICATIONS, RF IN THE PAST HELPED PAIN HAS INTERFERED WITH THE FOLLOWING: EVERYHING NURSING NOTE: -. PAIN CENTER INTAKE QUESTIONS: DO YOU HAVE A HISTORY OF MRSA? :NO DO YOU TAKE A BLOOD THINNERS? :NO DO YOU HAVE ANY BLEEDING DISORDERS? :NO ANY NEW NUMBNESS OR WEAKNESS IN YOUR LEGS OR ARMS? :NO ANY PACEMAKER,DEFIBRILLATOR, OR DORSAL COLUMN STIMULATOR? :NO DO YOU HAVE ANY RASHES OR OPEN SORES? :NO ARE YOU ALLERGIC TO IV DYE? :NO ARE YOU DIABETIC? :YES ANY NEW PROBLEMS WITH YOUR MEDICATIONS? :NO HAVE YOU RECEIVED A VACCINE IN THE PAST 30 DAYS? :NO DO YOU PLAN TO RECEIVE A VACCINE IN THE NEXT 21 DAYS? :NO DO YOU TAKE ANY IMMUNOSUPPRESSIVE MEDICATIONS? :NO ANY HISTORY OF SEIZURES? :NO ANY HISTORY OF CARDIAC ISSUES OR EVENTS? :NO DO YOU HAVE ANY KIDNEY OR LIVER DISEASE? :NO DO YOU HAVE SLEEP APNEA? :YES DO YOU WEAR A CPAP?YES ANY RECENT HEAD INJURY? :NO DO YOU HAVE ANY NEW INFECTIONS? :NO IS THERE A CHANCE YOU COULD BE ? :NO ARE YOU BREAST FEEDING? :NO WHEN DID YOU LAST EAT? : 08/30/20 WHEN DID YOU LAST DRINK? : 08/31/20 0630 WHAT DID YOU LAST DRINK? : WATER NAME OF PERSON DRIVING YOU HOME? : GREG DO YOU HAVE ANY OTHER QUESTIONS OR CONCERNS? : NONE CURRENT MEDICATIONS TAKING LISINOPRIL 10 MG TABLET 1/2 TABLET ORALLY ONCE A DAY, NOTES: 08/30/20 TAKING DULOXETINE HCL 30 MG CAPSULE DELAYED RELEASE PARTICLES 1 CAPSULE ORALLY ONCE A DAY TAKING METFORMIN HCL 500 MG TABLET 2 TABLETS WITH MEALS ORALLY TWICE A DAY, NOTES: 08/30/20 TAKING GLIPIZIDE ER 10 MG TABLET EXTENDED RELEASE 24 HOUR 1 TABLET ORALLY BID, NOTES: 08/30/20 TAKING ASPIRIN 81 MG TABLET CHEWABLE 1 TABLET ORALLY ONCE A DAY TAKING VITAMIN D 2000 UNIT TABLET 1 TABLET ORALLY ONCE A DAY TAKING GABAPENTIN 300 MG CAPSULE 2 CAPSULES ORALLY THREE TIMES DAILY TAKING TRAMADOL HCL 50 MG TABLET 1 TABLET NEEDED ORALLY EVERY 6 HRS, NOTES: NONE LATELY TAKING ATORVASTATIN CALCIUM 20 MG TABLET 1 TABLET ORALLY ONCE A DAY TAKING BUPROPION HCL 100 MG TABLET 1 TABLET ORALLY TWICE A DAY TAKING FLEXERIL 10 MG 1 CAP ORALLY TID PRN, NOTES: 08/30/20 TAKING METOPROLOL SUCCINATE ER 50 MG TABLET EXTENDED RELEASE 24 HOUR 1 TABLET ORALLY ONCE A DAY, NOTES: 08/30/20 TAKING GEMFIBROZIL 600 MG TABLET 1 TABLET ORALLY TWICE A DAY TAKING HYDROCODONE-ACETAMINOPHEN 5-325 MG TABLET 1 TABLET NEEDED ORALLY Q8H PRN MDD3, NOTES: 08/29/20 TAKING SOMA 350 MG TABLET 1 TABLET NEEDED ORALLY Q8H PRN MDD3, NOTES: 08/29/20 NOT-TAKING NORCO 5-325 MG TABLET 1 TO 2 ORALLY Q8H PRN MDD4, NOTES: DOESNT TAKE MUCH NOT-TAKING KETOROLAC TROMETHAMINE 10 MG TABLET 1 TABLET WITH FOOD OR MILK NEEDED ORALLY EVERY 6 HRS MEDICATION LIST REVIEWED AND RECONCILED WITH THE PATIENT PAST MEDICAL HISTORY DM STAN TX'D WITH CPAP AT NIGHT CHRONIC LBP L4 FX SHRAPNAL REMOVED NECK PAIN MULTIPLE BODY TRAUMA DUE TO IED EXPLOSION SCATTERED SHRAPNAL THROUGH OUT BODY TBI ALLERGIES N.K.D.A. SOCIAL HISTORY GENERAL: TOBACCO USE ARE YOU A:NONSMOKER LATEX QUESTIONNAIRE LATEX ALLERGY : HAVE YOU EVER DEVELOPED ANY TYPE OF REACTION AFTER HANDLING LATEX PRODUCTS SUCH RUBBER GLOVES, CONDOMS, DIAPHRAGMS, BALLOONS, SOCKS, OR UNDERWEAR?NO LATEX ALLERGY : HAVE YOU EVER DEVELOPED ANY TYPE OF REACTION DURING OR AFTER DENTAL APPOINTMENT, VAGINAL/RECTAL EXAMINATION, SURGICAL PROCEDURE, OR ANY OTHER EXPOSURE?NO LATEX RISK : HAVE YOU EVER HAD ANY DIFFICULTY BREATHING OR HIVES AFTER EATING OR HANDLING ANY FRUITS, OR VEGETABLES; SUCH KIWI, BANANAS, STONE FRUITS, OR CHESTNUTSNO LATEX RISK : DO YOU HAVE A PREVIOUS PERSONAL HISTORY OF MORE THAN NINE SURGERIES, SPINA BIFIDA, OR REPEATED CATHERIZATIONS? NO LATEX RISK : ARE YOU FREQUENTLY EXPOSED TO LATEX PRODUCTS IN YOUR OCCUPATION?NO DATE ASKED : 08/29/2020 ALCOHOL USE: YES. ALCOHOL SCREENING DID YOU HAVE A DRINK CONTAINING ALCOHOL IN THE PAST YEAR?YES HOW OFTEN DID YOU HAVE SIX OR MORE DRINKS ON ONE OCCASION IN THE PAST YEAR?NEVER (0 POINTS) HOW MANY DRINKS DID YOU HAVE ON A TYPICAL DAY WHEN YOU WERE DRINKING IN THE PAST YEAR?1 OR 2 (0 POINTS) HOW OFTEN DID YOU HAVE A DRINK CONTAINING ALCOHOL IN THE PAST YEAR?TWO TO FOUR TIMES A MONTH (2 POINTS) POINTS2 INTERPRETATIONNEGATIVE RECREATIONAL DRUG USE DRUG USE?NO CAFFEINE CAFFEINE USE?YES HOW OFTEN AND HOW MUCH? 5 CUPS COFFEE/DAY HIV / HEP-C SCREENING HIV TEST OFFERED TO PATIENT:YES DATE OFFERED:04/06/2018 TEST ACCEPTED:NO HEP-C TEST OFFERED TO PATIENT:NO REASON:PATIENT DECLINED BROCHURE PROVIDED TO PATIENTNO TENRIISM [id number] WORSHIP LANGUAGE LANGUAGES SPOKEN:CZECH LEARNING BARRIERS / SPECIAL NEEDS CHANGE FROM LAST VISIT?NO BARRIERS TO LEARNING?NO HEARING IMPAIRED?YES :HEARING AIDES BILATERAL VISION IMPAIRED?YES :CORRECTIVE LENSES COGNITIVELY IMPAIRED?NO READINESS TO LEARN?YES LEARNING PREFERENCES?NO LEARNING CAPABILITIES PRESENT?YES EMOTIONAL BARRIERS?NO SPECIAL DEVICES?YES :CANE ONLY USES WHEN HE NEEDS TO DUE TO BACK PAIN MACHINE INSPECTOR NEEDED?NO DOMESTIC VIOLENCE DO YOU FEEL SAFE IN YOUR ENVIRONMENT?YES - PFS REFERRAL NEEDED?NO CLERGY REFERRAL NEEDED?NO PUBLIC HEALTH REFERRAL NEEDED?NO HAS THE PATIENT BEEN EDUCATED REGARDING HIS/HER PLAN OF CARE?YES HAS THE PATIENT BEEN EDUCATED REGARDING PAIN, THE RISK FOR PAIN, THE IMPORTANCE OF EFFECTIVE PAIN MANAGEMENT, AND THE PAIN ASSESSMENT PROCESS?YES ADVANCE DIRECTIVE ADVANCE DIRECTIVE DISCUSSED WITH PATIENT:YES HCP IS TRUE PICKARD [phone] VITAL SIGNS WT 234.8 LBS, HT 68.5 IN, BMI 35.18 INDEX, BP 118/76 MM HG, HR 92 /MIN, RR 18 /MIN, TEMP 98.1 F, OXYGEN SAT % 99%, BLOOD GLUCOSE LEVEL 97, NA INITIALS SC 11:46FS @ HOME THIS AM BY PT. EM. EXAMINATION GENERAL EXAMINATION: A HISTORY AND PHYSICAL EXAM ON THE PATIENT WAS DONE ON 08/24/2020 DATE OF ORIGINAL ASSESSMENT) IN PREPARATION OF SURGERY/PROCEDURE. I HAVE NOW REASSESSED THIS PATIENT'S HEALTH STATUS AND PERFORMED AN UPDATED EXAM TODAY. ALL CHANGES IN THE PATIENT'S HISTORY, PHYSICAL EXAM, PRE-EXISTING CONDITONS, AND INDICATIONS/CONTRAINDICATIONS TO THE PLANNED PROCEDURE AND ANESTHESIA ARE DOCUMENTED AND EVALUATED BELOW. I ATTEST TO THE ADEQUACY AND APPROPRIATENESS OF MY ASSESSMENT, AND CONFIRM THE NECESSITY FOR THE PLANNED PROCEDURE. , THE PATIENT IS ALERT, ORIENTED TIMES THREE AND COOPERATIVE. LUNGS ARE CLEAR TO AUSCULTATION. HEART SHOWS REGULAR RHYTHM, NO MURMURS AND NO GALLOPS. ASSESSMENTS SPONDYLOSIS WITHOUT MYELOPATHY OR RADICULOPATHY, LUMBAR REGION - M47.816 SPONDYLOSIS OF LUMBOSACRAL REGION WITHOUT MYELOPATHY OR RADICULOPATHY - M47.817 TREATMENT SPONDYLOSIS WITHOUT MYELOPATHY OR RADICULOPATHY, LUMBAR REGION [facility] FACET BLOCK (PAIN)[id number] COMPLETION OF PROCEDURAL VISIT WHEN MEETS CRITERIA OTHERS NOTES: 08/29/20 1231 PRE-PROCEDURE CALL COMPLETED. Joseph LOUISE RN. PROCEDURES PAIN NURSING RECORD PROCEDURE IN ROOM 1155, PHYSICIAN IN ROOM 1208, START 1213, FINISH 1222, PHYSICIAN OUT OF ROOM 1223, OUT OF ROOM 1230, ECG NORMAL SINUS, PATIENT SHIELDED YES, SAFETY STRAP YES, PREP CHLOROPREP, DRESSING TEGADERM DR OWUSU LOC: 1. ALERT, ORIENTED RESP: 1. REGULAR, NO DYSPNEA COLOR: 1. PINK SKIN: 1. WARM, DRY POSITION: 1. PRONE VITALS: 133/88, 81, 16, 98% CHUCKY NGUYEN 08/31/2020 12:05:50 PM > , 131/91, 85, 16, 97%, CHUCKY NGUYEN 08/31/2020 12:16:22 PM > 130/92, 90, 16, 98%, CHUCKY NGUYEN 08/31/2020 12:30:21 PM > 131/82, 93, 16, 97%, CHUCKY NGUYEN 08/31/2020 12:35:40 PM > LANDON NGUYEN RN COMPLETION OF PROCEDURE APPOINTMENT: POST PAIN 0, DRESSING SITE DRY AND INTACT, IV N/A, GAIT STEADY, TEACHING COMPLETED, PATIENT ACKNOWLEDGES UNDERSTANDING YES, PROCEDURE APPOINTMENT COMPLETED AT 1240 : MEDICATIONS DRAWN UP BY Shea LOUIE RN. VERIFIED CORRECT MEDICATIONS AND DOSE. PATRICK ELIZABETH 08/31/2020 12:43:29 PM > PN LUMBAR FACET BLOCK THERAPEUTIC PRE PROCEDURE DIAGNOSIS LUMBAR SPONDYLOSIS, LUMBOSACRAL SPONDYLOSIS POST PROCEDURE DIAGNOSIS LUMBAR SPONDYLOSIS, LUMBOSACRAL SPONDYLOSIS PROCEDURE BILATERAL L4-L5 AND BILATERAL L5-S1 LUMBAR FACET THERAPEUTIC BLOCK SURGEON DR. PEBBLES OWUSU OPERATIONS RESEARCH ENGINEER NONE ANESTHESIA LOCAL PRE PROCEDURE NOTE THE PATIENT HAS A HISTORY OF CHRONIC LOW BACK PAIN. I EVALUATED THE PATIENT AND REVIEWED THE CHART. I WENT OVER THE RISKS, ALTERNATIVES, AND BENEFITS ASSOCIATED WITH THIS PROCEDURE. THE PATIENT WOULD LIKE TO PROCEED AND GIVES CONSENT TO PERFORM THE PROCEDURE. THE PATIENT DENIES UNEXPLAINABLE WEIGHT LOSS, FEVER, CHILLS, OR NEW CHANGES IN URINARY OR BOWEL CONTROL. PATIENT IS COVID-19 NEGATIVE. DESCRIPTION OF PROCEDURE THE PATIENT WAS BROUGHT TO THE PROCEDURE ROOM AND PLACED IN THE PRONE POSITION. THE LUMBOSACRAL AREA WAS CLEANED WITH CHLORAPREP SOLUTION AND DRAPED ASEPTICALLY. THE PROCEDURE WAS DONE UNDER STERILE CONDITIONS. A TIMEOUT WAS PERFORMED WHERE THE CONSENTED SITE WAS VERIFIED WITH EVERYONE IN THE ROOM. UNDER FLUOROSCOPIC GUIDANCE, THE TARGET POINT WAS SELECTED AT THE RIGHT AND LEFT L4-L5 AND RIGHT AND LEFT L5-S1 FACET JOINTS. TARGET POINT WAS SELECTED AFTER LATERAL ROTATION AND TILT OF THE MAGNIFIER OF THE C-ARM. I CONFIRMED AGAIN THE SITE OF TARGET. LIDOCAINE 0.5% WAS USED TO NUMB THE SKIN AND THE SUBCUTANEOUS TISSUE BELOW IT. SPINAL NEEDLES, 22-GAUGE, WERE ADVANCED UNDER FLUOROSCOPIC GUIDANCE AND FOLLOWING PATIENT FEEDBACK UNTIL THE TARGETS WERE TOUCHED. THE POSITION OF THE NEEDLES WAS VERIFIED WITH AP AND LATERAL VIEWS. AFTER PROPER POSITION OF THE NEEDLES WAS ACHIEVED, ISOVUE-M DYE 30%, 0.1 ML, WAS INJECTED SHOWING ADEQUATE SPREAD OF THE DYE. KENALOG 10 MG WAS INJECTED AT EACH SITE. THEN, A SOLUTION OF 1.0 ML OF BUPIVACAINE 0.125% OF WAS USED TO FLUSH EACH SITE. THE MEDICATION WAS VERIFIED WITH THE NURSE. THERE WAS NO EVIDENCE OF BLOOD, PARESTHESIA OR CEREBROSPINAL FLUID DURING THE PROCEDURE. THE PATIENT WAS SENT TO THE RECOVERY ROOM. THE PATIENT WAS MOVING THE EXTREMITIES AND DOING WELL. THERE WERE NO COMPLICATIONS DURING THE PROCEDURE. ESTIMATED BLOOD LOSS WAS LESS THAN 5 ML. FLUOROSCOPY TIME WAS 28 SECONDS POST PROCEDURE NOTE THE PATIENT WILL BE SEEN IN A FOLLOW UP IN THE NEXT FEW WEEKS. I AM LOOKING FOR LONG LASTING RELIEF FOR THE PATIENT WITH THIS INTERVENTION. INSTRUCTIONS WERE GIVEN, QUESTIONS WERE ANSWERED, AND THE PATIENT EXPRESSED UNDERSTANDING AND AGREES WITH THE PLAN. I, STAS ASHBY, DOCUMENTED THE ABOVE INFORMATION ACTING A SCRIBE FOR DR. OWUSU. I HAVE REVIEWED THE ABOVE DOCUMENT, WRITTEN BY STAS ASHBY, LINE TECHNICIAN, AND I VERIFY THAT IT IS ACCURATE PROCEDURE CODES 04845 INJ PARAVERT F JNT L/S 1 LEV, MODIFIERS: 50 [id number] INJ PARAVERT F JNT L/S 2 LEV, MODIFIERS: 50 DISPOSITION & COMMUNICATION FOLLOW UP F/U WITH E BUSINESS MANAGER (REASON: POST BILATERAL THERAPEUTIC LUMBAR FACET BLOCK L4-L5, L5-S1) ELECTRONICALLY SIGNED BY PEBBLES OWUSU MD, MD ON 09/06/2020 AT 01:05 PM EDT DISCLAIMER : THIS IS A VISIT SUMMARY EXTRACTED FROM THE [employer] CHART. IT IS NOT A COPY OF THE [employer] PROGRESS NOTE. MTDMarkel
== END ==
LOC: M PAIN 11:20
PROVIDERS: ATTEND Anesthesiology
DX: M47.816 Spondylosis without myelopathy or radiculopathy, lumbar region (principal); M47.817 Spondylosis without myelopathy or radiculopathy, lumbosacral region; E11.9 Type 2 diabetes mellitus without complications; G47.33 Obstructive sleep apnea (adult) (pediatric); Z87.820 Personal history of traumatic brain injury; Z79.82 Long term (current) use of aspirin; Z79.84 Long term (current) use of oral hypoglycemic drugs; Z79.899 Other long term (current) drug therapy
CPT/HCPCS: 64493; 64494; J3301; Q9967

== ENCOUNTER → 2020-09-07 | Outpatient (CLI) | payer OTHER ==
[~2020-09-07] MED LIST changes: -BUPIVACAINE HCL 0.25% 30ML VIAL As Ordered ONE; -ISOVUE-M 300 61% 15ML VIAL As Ordered ONE; -LIDOCAINE 1% SDV 30ML VIAL As Ordered ONE; -TRIAMCINOLONE ACETONIDE SUSP 40 MG/ML VIAL (J3301) As Ordered ONE
--- NOTE | 2020-09-12 00:40 | ECWPNPC ---
PATIENT NAME: REJI PICKARD : 1970 GENDER: MALE VISIT DATE: 09/07/2020 DISCHARGE DATE: 09/07/20 1148 VISIT LOCKED DATE TIME: PHYSICIAN: MARILEE EVANS RESOURCE: MARILEE EVANS REASON FOR APPOINTMENT 1. POST BILATERAL THERAPEUTIC LUMBAR FACET BLOCK L3-4,L4-5,L5-S1 HISTORY OF PRESENT ILLNESS GENERAL: HERE FOR POST PROCEDURE FOLLOW-UP. HAD BILATERAL THERAPEUTIC LUMBAR FACET BLOCKS L4-5, L5-S1 ON 08/31/2020. REPORTING SIGNIFICANT IMPROVEMENT IN LOW BACK PAIN POST PROCEDURE BUT CONTINUES TO HAVE A PERSISTENT ACHING AND THROBBING PAIN IN HIS ANTERIOR THIGHS AND LOW BACK ESPECIALLY WITH MOVEMENT OR PROLONGED STANDING. STATES WALKING SOMETIMES RELIEVES PAIN. HAS SHRAPNEL IN THE BUTTOCK AREA BILATERALLY. DISCUSSED TREATMENT PLAN. -. FALL RISK SCREENING: SCREENING : NO FALLS REPORTED IN THE LAST YEAR. PAIN SCREENING: PATIENT HAS A COMPLAINT OF ACUTE OR CHRONIC PAIN :YES LOCATION OF PAIN:LOW BACK INTENSITY OF PAIN (SCALE OF 1 TO 10):2 WHAT DOES YOUR PAIN FEEL LIKE:ACHING DURATION:CONTINOUS, CONSTANT, ALL DAY PAIN IS INCREASED BY:ACTIVITIES PAIN IS DECREASED BY:USE OF PAIN MEDICATIONS, OTHERS MOVING AROUND NURSING NOTE: -. PAIN CENTER INTAKE QUESTIONS: DO YOU HAVE A HISTORY OF MRSA? :NO DO YOU TAKE A BLOOD THINNERS? :NO DO YOU HAVE ANY BLEEDING DISORDERS? :NO ANY NEW NUMBNESS OR WEAKNESS IN YOUR LEGS OR ARMS? :NO ANY PACEMAKER,DEFIBRILLATOR, OR DORSAL COLUMN STIMULATOR? :NO DO YOU HAVE ANY RASHES OR OPEN SORES? :NO ARE YOU ALLERGIC TO IV DYE? :NO ARE YOU DIABETIC? :YES ANY NEW PROBLEMS WITH YOUR MEDICATIONS? :NO HAVE YOU RECEIVED A VACCINE IN THE PAST 30 DAYS? :NO DO YOU PLAN TO RECEIVE A VACCINE IN THE NEXT 21 DAYS? :NO DO YOU NEED ANY PRESCRIPTION? :NO DO YOU TAKE ANY IMMUNOSUPPRESSIVE MEDICATIONS? :NO IS THERE A CHANCE YOU COULD BE ? :NO ARE YOU BREAST FEEDING? :NO CURRENT MEDICATIONS TAKING LISINOPRIL 10 MG TABLET 1/2 TABLET ORALLY ONCE A DAY TAKING DULOXETINE HCL 30 MG CAPSULE DELAYED RELEASE PARTICLES 1 CAPSULE ORALLY ONCE A DAY TAKING METFORMIN HCL 500 MG TABLET 2 TABLETS WITH MEALS ORALLY TWICE A DAY, NOTES: 08/30/20 TAKING GLIPIZIDE ER 10 MG TABLET EXTENDED RELEASE 24 HOUR 1 TABLET ORALLY BID, NOTES: 08/30/20 TAKING ASPIRIN 81 MG TABLET CHEWABLE 1 TABLET ORALLY ONCE A DAY TAKING VITAMIN D 2000 UNIT TABLET 1 TABLET ORALLY ONCE A DAY TAKING GABAPENTIN 300 MG CAPSULE 2 CAPSULES ORALLY THREE TIMES DAILY TAKING TRAMADOL HCL 50 MG TABLET 1 TABLET NEEDED ORALLY EVERY 6 HRS TAKING ATORVASTATIN CALCIUM 20 MG TABLET 1 TABLET ORALLY ONCE A DAY TAKING BUPROPION HCL 100 MG TABLET 1 TABLET ORALLY TWICE A DAY TAKING FLEXERIL 10 MG 1 CAP ORALLY TID PRN TAKING METOPROLOL SUCCINATE ER 50 MG TABLET EXTENDED RELEASE 24 HOUR 1 TABLET ORALLY ONCE A DAY TAKING GEMFIBROZIL 600 MG TABLET 1 TABLET ORALLY TWICE A DAY TAKING HYDROCODONE-ACETAMINOPHEN 5-325 MG TABLET 1 TABLET NEEDED ORALLY Q8H PRN MDD3 TAKING SOMA 350 MG TABLET 1 TABLET NEEDED ORALLY Q8H PRN MDD3 NOT-TAKING NORCO 5-325 MG TABLET 1 TO 2 ORALLY Q8H PRN MDD4, NOTES: DOESNT TAKE MUCH NOT-TAKING KETOROLAC TROMETHAMINE 10 MG TABLET 1 TABLET WITH FOOD OR MILK NEEDED ORALLY EVERY 6 HRS MEDICATION LIST REVIEWED AND RECONCILED WITH THE PATIENT PAST MEDICAL HISTORY DM STAN TX'D WITH CPAP AT NIGHT CHRONIC LBP L4 FX SHRAPNAL REMOVED NECK PAIN MULTIPLE BODY TRAUMA DUE TO IED EXPLOSION SCATTERED SHRAPNAL THROUGH OUT BODY TBI ALLERGIES N.K.D.A. SOCIAL HISTORY GENERAL: TOBACCO USE ARE YOU A:NONSMOKER LATEX QUESTIONNAIRE LATEX ALLERGY : HAVE YOU EVER DEVELOPED ANY TYPE OF REACTION AFTER HANDLING LATEX PRODUCTS SUCH RUBBER GLOVES, CONDOMS, DIAPHRAGMS, BALLOONS, SOCKS, OR UNDERWEAR?NO LATEX ALLERGY : HAVE YOU EVER DEVELOPED ANY TYPE OF REACTION DURING OR AFTER DENTAL APPOINTMENT, VAGINAL/RECTAL EXAMINATION, SURGICAL PROCEDURE, OR ANY OTHER EXPOSURE?NO LATEX RISK : HAVE YOU EVER HAD ANY DIFFICULTY BREATHING OR HIVES AFTER EATING OR HANDLING ANY FRUITS, OR VEGETABLES; SUCH KIWI, BANANAS, STONE FRUITS, OR CHESTNUTSNO LATEX RISK : DO YOU HAVE A PREVIOUS PERSONAL HISTORY OF MORE THAN NINE SURGERIES, SPINA BIFIDA, OR REPEATED CATHERIZATIONS? NO LATEX RISK : ARE YOU FREQUENTLY EXPOSED TO LATEX PRODUCTS IN YOUR OCCUPATION?NO DATE ASKED : 09/07/2020 ALCOHOL USE: YES. ALCOHOL SCREENING DID YOU HAVE A DRINK CONTAINING ALCOHOL IN THE PAST YEAR?YES HOW OFTEN DID YOU HAVE SIX OR MORE DRINKS ON ONE OCCASION IN THE PAST YEAR?NEVER (0 POINTS) HOW MANY DRINKS DID YOU HAVE ON A TYPICAL DAY WHEN YOU WERE DRINKING IN THE PAST YEAR?1 OR 2 (0 POINTS) HOW OFTEN DID YOU HAVE A DRINK CONTAINING ALCOHOL IN THE PAST YEAR?TWO TO FOUR TIMES A MONTH (2 POINTS) POINTS2 INTERPRETATIONNEGATIVE RECREATIONAL DRUG USE DRUG USE?NO CAFFEINE CAFFEINE USE?YES HOW OFTEN AND HOW MUCH? 5 CUPS COFFEE/DAY HIV / HEP-C SCREENING HIV TEST OFFERED TO PATIENT:YES DATE OFFERED:04/06/2018 TEST ACCEPTED:NO HEP-C TEST OFFERED TO PATIENT:NO REASON:PATIENT DECLINED BROCHURE PROVIDED TO PATIENTNO FAITH [id number] HOAHAOISM LANGUAGE LANGUAGES SPOKEN:RUSSIAN LEARNING BARRIERS / SPECIAL NEEDS CHANGE FROM LAST VISIT?NO BARRIERS TO LEARNING?NO HEARING IMPAIRED?YES :HEARING AIDES BILATERAL VISION IMPAIRED?YES :CORRECTIVE LENSES COGNITIVELY IMPAIRED?NO READINESS TO LEARN?YES LEARNING PREFERENCES?NO LEARNING CAPABILITIES PRESENT?YES EMOTIONAL BARRIERS?NO SPECIAL DEVICES?YES :CANE ONLY USES WHEN HE NEEDS TO DUE TO BACK 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 CHILLS NO . WEIGHT CHANGE OF UNKNOWN REASONS NO . GASTROENTEROLOGY: NEW UNEXPLAINABLE CHANGES IN BOWEL CONTROL NO . CONSTIPATION NO . GENITOURINARY: ANY NEW CHANGE IN BLADDER CONTROL? NO . NEUROLOGY: NEW ONSET DIZZINESS OR NEUROLOGICAL CHANGES NOT MENTIONED NO . NEW NUMBNESS OR PAIN PATTERNS NOT MENTIONED AND PERTINENT TO TODAY'S VISIT NO . CARDIOLOGY: NEW CHEST PRESSURE NO . PATIENT DENIES NO . RESPIRATORY: UNEXPLAINABLE COUGH NO . NEW SHORTNESS OF BREATH NO . VITAL SIGNS WT 239 LBS, HT 68.5 IN, BMI 35.81 INDEX, BP 121/76 MM HG, HR 102 /MIN, RR 18 /MIN, TEMP 97.6 F, OXYGEN SAT % 97%, SAFE IN ENV? (Y/N) YEST.TALISHA STANLEY. EXAMINATION GENERAL EXAMINATION: GENERAL AWAKE,ALERT ,PLEAASANT . PSYCH AFFECT NORMAL . LUNGS: LUNG FOWLER ARE CLEAR TO AUSCULTATION BILATERALLY. GOOD MOVEMENT OF AIR . HEART: S1, S2 IN A REGULAR RATE AND RHYTHM. NO SIGNIFICANT MURMURS, RUBS OR GALLOPS NOTED . MUSCULOSKELETAL: MUSCLE STRENGTH TESTING 4/5 BILATERAL LOWER EXTREMITIES. LUMBAR: TRIGGER POINTS:, ELICITED WITH PALPATION OVER LUMBAR PARAVERTEBRAL MUSCLES R>L. PAIN IS AGGREVATED IN THIS REGION WITH ROJM SPINE.. ASSESSMENTS MYALGIA, OTHER SITE - M79.18 (PRIMARY) OTHER CHRONIC PAIN - G89.29 TREATMENT MYALGIA, OTHER SITE NOTES: TRIGGER POINT INJECTIONS BILATERAL LOW BACK, BILATERAL THORACIC,BILATERAL BUTTOCKS PRINTED AND REVIEWED PRE PROCEDURE INFORMATION WITH PATIENT KristinLUCIANA STANLEY. OTHER CHRONIC PAIN PAIN PROCEDURE LOGDATE OF PROCEDURE08/31/2020ROCEDURE:BILATERAL THERAPEUTIC FACET BLOCK L4-L8LMHZWH OF PRE SEDATE0/0RESULT:IMPROVEMENT BUT CONTINUES WITH ANTERIOR THIGH AND GROIN ACHING PROCEDURE CODES FA211 ESTABILISHED PATIENT [facility] FACILITY CHARGE DISPOSITION & COMMUNICATION FOLLOW UP POST PROCEDURE (REASON: TRIGGER POINT INJECTIONS BILATERAL LOW BACK, BILATERAL THORACIC,BILATERAL BUTTOCKS) ELECTRONICALLY SIGNED BY VANESSA MANCIA ON 09/11/2020 AT 08:40 AM EDT DISCLAIMER : THIS IS A VISIT SUMMARY EXTRACTED FROM THE [employer] CHART. IT IS NOT A COPY OF THE [employer] PROGRESS NOTE. KATIA
== END ==
LOC: M PAIN 11:15
PROVIDERS: ATTEND Nurse Practitioner Family
DX: G89.29 Other chronic pain (principal); M79.18 Myalgia, other site; E11.9 Type 2 diabetes mellitus without complications; G47.33 Obstructive sleep apnea (adult) (pediatric); M54.5 Low back pain; M54.2 Cervicalgia; Z87.820 Personal history of traumatic brain injury; Z79.84 Long term (current) use of oral hypoglycemic drugs; Z79.82 Long term (current) use of aspirin; Z79.891 Long term (current) use of opiate analgesic; Z79.899 Other long term (current) drug therapy

== ENCOUNTER → 2020-09-23 | Outpatient (CLI) | payer OTHER | LOC: M LABSMTC 11:32 | PROVIDERS: ATTEND Anesthesiology | DX: Z01.812 Encounter for preprocedural laboratory examination (principal); Z20.822 Contact with and (suspected) exposure to COVID-19 ==

== ENCOUNTER → 2020-09-28 | Outpatient (CLI) | payer OTHER ==
[~2020-09-28] MED LIST changes: +BUPIVACAINE HCL 0.25% 10ML VIAL As Ordered ONE; +BUPIVACAINE HCL 0.25% 30ML VIAL As Ordered ONE; +TRIAMCINOLONE ACETONIDE SUSP 40 MG/ML VIAL (J3301) As Ordered ONE
--- NOTE | 2020-10-04 02:09 | ECWPNPC ---
PATIENT NAME: REJI PICKARD : 1970 GENDER: MALE VISIT DATE: 09/28/2020 DISCHARGE DATE: 09/28/20954 VISIT LOCKED DATE TIME: PHYSICIAN: PEBBLES OWUSU MD RESOURCE: PEBBLES OWUSU MD REASON FOR APPOINTMENT 1. TRIGGER POINT INJECTIONS BILATERAL LOW BACK, BILATERAL THORACIC,BILATERAL BUTTOCKS HISTORY OF PRESENT ILLNESS GENERAL: -. FALL RISK SCREENING: SCREENING : NO FALLS REPORTED IN THE LAST YEAR. PAIN SCREENING: PATIENT HAS A COMPLAINT OF ACUTE OR CHRONIC PAIN :YES LOCATION OF PAIN:LOW BACK LOWER BACK JUST ABOVE BUTTOCKS INTENSITY OF PAIN (SCALE OF 1 TO 10):5 WHAT DOES YOUR PAIN FEEL LIKE:ACHING, CONTINOUS DURATION:CONSTANT PAIN IS INCREASED BY:PROLONGED STANDING, OTHERS PROLONGED SITTING PAIN IS DECREASED BY:USE OF PAIN MEDICATIONS NURSING NOTE: -. PAIN CENTER INTAKE QUESTIONS: DO YOU HAVE A HISTORY OF MRSA? :NO DO YOU TAKE A BLOOD THINNERS? :NO DO YOU HAVE ANY BLEEDING DISORDERS? :NO ANY NEW NUMBNESS OR WEAKNESS IN YOUR LEGS OR ARMS? :NO ANY PACEMAKER,DEFIBRILLATOR, OR DORSAL COLUMN STIMULATOR? :NO DO YOU HAVE ANY RASHES OR OPEN SORES? :NO ARE YOU ALLERGIC TO IV DYE? :NO ARE YOU DIABETIC? :YES 93 ANY NEW PROBLEMS WITH YOUR MEDICATIONS? :NO HAVE YOU RECEIVED A VACCINE IN THE PAST 30 DAYS? :NO COVID 2ND DOSE WAS 07/2020 DO YOU PLAN TO RECEIVE A VACCINE IN THE NEXT 21 DAYS? :NO DO YOU TAKE ANY IMMUNOSUPPRESSIVE MEDICATIONS? :NO ANY HISTORY OF SEIZURES? :NO ANY HISTORY OF CARDIAC ISSUES OR EVENTS? :NO DO YOU HAVE ANY KIDNEY OR LIVER DISEASE? :NO DO YOU HAVE SLEEP APNEA? :YES DO YOU WEAR A CPAP?YES ANY RECENT HEAD INJURY? :NO DO YOU HAVE ANY NEW INFECTIONS? :NO IS THERE A CHANCE YOU COULD BE ? :NO ARE YOU BREAST FEEDING? :NO WHEN DID YOU LAST EAT? : 09/27/2020 1800 WHEN DID YOU LAST DRINK? : 09/28/2020 0500 WHAT DID YOU LAST DRINK? : WATER NAME OF PERSON DRIVING YOU HOME? : GREG- DO YOU HAVE ANY OTHER QUESTIONS OR CONCERNS? : - CURRENT MEDICATIONS TAKING LISINOPRIL 10 MG TABLET 1/2 TABLET ORALLY ONCE A DAY TAKING DULOXETINE HCL 30 MG CAPSULE DELAYED RELEASE PARTICLES 1 CAPSULE ORALLY ONCE A DAY TAKING METFORMIN HCL 500 MG TABLET 2 TABLETS WITH MEALS ORALLY TWICE A DAY TAKING GLIPIZIDE ER 10 MG TABLET EXTENDED RELEASE 24 HOUR 1 TABLET ORALLY BID TAKING ASPIRIN 81 MG TABLET CHEWABLE 1 TABLET ORALLY ONCE A DAY TAKING VITAMIN D 2000 UNIT TABLET 1 TABLET ORALLY ONCE A DAY TAKING GABAPENTIN 300 MG CAPSULE 2 CAPSULES ORALLY THREE TIMES DAILY TAKING TRAMADOL HCL 50 MG TABLET 1 TABLET NEEDED ORALLY EVERY 6 HRS, NOTES: 09/28/2020 0400 TAKING ATORVASTATIN CALCIUM 20 MG TABLET 1 TABLET ORALLY ONCE A DAY TAKING BUPROPION HCL 100 MG TABLET 1 TABLET ORALLY TWICE A DAY TAKING FLEXERIL 10 MG 1 CAP ORALLY TID PRN TAKING METOPROLOL SUCCINATE ER 50 MG TABLET EXTENDED RELEASE 24 HOUR 1 TABLET ORALLY ONCE A DAY TAKING GEMFIBROZIL 600 MG TABLET 1 TABLET ORALLY TWICE A DAY TAKING HYDROCODONE-ACETAMINOPHEN 5-325 MG TABLET 1 TABLET NEEDED ORALLY Q8H PRN MDD3 TAKING SOMA 350 MG TABLET 1 TABLET NEEDED ORALLY Q8H PRN MDD3 NOT-TAKING NORCO 5-325 MG TABLET 1 TO 2 ORALLY Q8H PRN MDD4, NOTES: DOESNT TAKE MUCH NOT-TAKING KETOROLAC TROMETHAMINE 10 MG TABLET 1 TABLET WITH FOOD OR MILK NEEDED ORALLY EVERY 6 HRS MEDICATION LIST REVIEWED AND RECONCILED WITH THE PATIENT PAST MEDICAL HISTORY DM STAN TX'D WITH CPAP AT NIGHT CHRONIC LBP L4 FX SHRAPNAL REMOVED NECK PAIN MULTIPLE BODY TRAUMA DUE TO IED EXPLOSION SCATTERED SHRAPNAL THROUGH OUT BODY TBI ALLERGIES N.K.D.A. SOCIAL HISTORY GENERAL: TOBACCO USE ARE YOU A:NONSMOKER LATEX QUESTIONNAIRE LATEX ALLERGY : HAVE YOU EVER DEVELOPED ANY TYPE OF REACTION AFTER HANDLING LATEX PRODUCTS SUCH RUBBER GLOVES, CONDOMS, DIAPHRAGMS, BALLOONS, SOCKS, OR UNDERWEAR?NO LATEX ALLERGY : HAVE YOU EVER DEVELOPED ANY TYPE OF REACTION DURING OR AFTER DENTAL APPOINTMENT, VAGINAL/RECTAL EXAMINATION, SURGICAL PROCEDURE, OR ANY OTHER EXPOSURE?NO LATEX RISK : HAVE YOU EVER HAD ANY DIFFICULTY BREATHING OR HIVES AFTER EATING OR HANDLING ANY FRUITS, OR VEGETABLES; SUCH KIWI, BANANAS, STONE FRUITS, OR CHESTNUTSNO LATEX RISK : DO YOU HAVE A PREVIOUS PERSONAL HISTORY OF MORE THAN NINE SURGERIES, SPINA BIFIDA, OR REPEATED CATHERIZATIONS? NO LATEX RISK : ARE YOU FREQUENTLY EXPOSED TO LATEX PRODUCTS IN YOUR OCCUPATION?NO DATE ASKED : 09/28/2020 ALCOHOL USE: YES. ALCOHOL SCREENING DID YOU HAVE A DRINK CONTAINING ALCOHOL IN THE PAST YEAR?YES HOW OFTEN DID YOU HAVE SIX OR MORE DRINKS ON ONE OCCASION IN THE PAST YEAR?NEVER (0 POINTS) HOW MANY DRINKS DID YOU HAVE ON A TYPICAL DAY WHEN YOU WERE DRINKING IN THE PAST YEAR?1 OR 2 (0 POINTS) HOW OFTEN DID YOU HAVE A DRINK CONTAINING ALCOHOL IN THE PAST YEAR?TWO TO FOUR TIMES A MONTH (2 POINTS) POINTS2 INTERPRETATIONNEGATIVE RECREATIONAL DRUG USE DRUG USE?NO CAFFEINE CAFFEINE USE?YES HOW OFTEN AND HOW MUCH? 5 CUPS COFFEE/DAY HIV / HEP-C SCREENING HIV TEST OFFERED TO PATIENT:YES DATE OFFERED:04/06/2018 TEST ACCEPTED:NO HEP-C TEST OFFERED TO PATIENT:NO REASON:PATIENT DECLINED BROCHURE PROVIDED TO PATIENTNO CHEONDOISM [id number] HOAHAOISM LANGUAGE LANGUAGES SPOKEN:DIVEHI LEARNING BARRIERS / SPECIAL NEEDS CHANGE FROM LAST VISIT?NO BARRIERS TO LEARNING?NO HEARING IMPAIRED?YES VISION IMPAIRED?YES COGNITIVELY IMPAIRED?NO :HEARING AIDES BILATERAL :CORRECTIVE LENSES READINESS TO LEARN?YES LEARNING PREFERENCES?NO LEARNING CAPABILITIES PRESENT?YES EMOTIONAL BARRIERS?NO SPECIAL DEVICES?YES :CANE ONLY USES WHEN HE NEEDS TO DUE TO BACK PAIN GOLD 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 BLASTING NEEDED?NO DOMESTIC VIOLENCE DO YOU FEEL SAFE IN YOUR ENVIRONMENT?YES - PFS REFERRAL NEEDED?NO CLERGY REFERRAL NEEDED?NO PUBLIC HEALTH REFERRAL NEEDED?NO HAS THE PATIENT BEEN EDUCATED REGARDING HIS/HER PLAN OF CARE?YES HAS THE PATIENT BEEN EDUCATED REGARDING PAIN, THE RISK FOR PAIN, THE IMPORTANCE OF EFFECTIVE PAIN MANAGEMENT, AND THE PAIN ASSESSMENT PROCESS?YES ADVANCE DIRECTIVE ADVANCE DIRECTIVE DISCUSSED WITH PATIENT:YES HCP IS [facility] [phone] VITAL SIGNS WT 239.0 LBS, HT 68.5 IN, BMI 35.81 INDEX, BP 134/89 MM HG, HR 85 /MIN, RR 18 /MIN, TEMP 97.8 F, OXYGEN SAT % 98%, BLOOD GLUCOSE LEVEL 93, SAFE IN ENV? (Y/N) YES, NA INITIALS AW 0837, REVIEWED BY: Donnell DAN RN. EXAMINATION GENERAL: A HISTORY AND PHYSICAL EXAM ON THE PATIENT WAS DONE ON 09/07/2020(DATE OF ORIGINAL ASSESSMENT) IN PREPARATION OF SURGERY/PROCEDURE. I HAVE NOW REASSESSED THIS PATIENT'S HEALTH STATUS AND PERFORMED AN UPDATED EXAM TODAY. ALL CHANGES IN THE PATIENT'S HISTORY, PHYSICAL EXAM, PRE-EXISTING CONDITONS, AND INDICATIONS/CONTRAINDICATIONS TO THE PLANNED PROCEDURE AND ANESTHESIA ARE DOCUMENTED AND EVALUATED BELOW. I ATTEST TO THE ADEQUACY AND APPROPRIATENESS OF MY ASSESSMENT, AND CONFIRM THE NECESSITY FOR THE PLANNED PROCEDURE. THE PATIENT IS ALERT, ORIENTED TIMES THREE AND COOPERATIVE. LUNGS ARE CLEAR TO AUSCULTATION. HEART SHOWS REGULAR RHYTHM, NO MURMURS AND NO GALLOPS. ASSESSMENTS MYALGIA, UNSPECIFIED SITE - M79.10 (PRIMARY) TREATMENT MYALGIA, UNSPECIFIED SITE COMPLETION OF PROCEDURAL VISIT WHEN MEETS CRITERIACHRIS BONDS 09/28/2020 10:00:50 AM > 0954 CRITERIA MET PROCEDURES PAIN NURSING RECORD PROCEDURE IN ROOM 0820, PHYSICIAN IN ROOM 0941, START 0945, FINISH 0947, PHYSICIAN OUT OF ROOM 0947, OUT OF ROOM 0954, ECG N/A, PATIENT SHIELDED N/A, SAFETY STRAP N/A, PREP ALCOHOL DR. OWUSU, DRESSING TEGADERM Marcus DAN RN LOC: EDMOND BONDSLE 09/28/2020 9:11:22 AM > , 1. ALERT, ORIENTED RESP: EDMOND BONDSLE 09/28/2020 9:11:25 AM > , 1. REGULAR, NO DYSPNEA COLOR: EDMOND BONDSLE 09/28/2020 9:11:29 AM > , 1. PINK SKIN: VAMSHICHRIS 09/28/2020 9:11:33 AM > , 1. WARM, DRY POSITION: VAMSHICHRIS 09/28/2020 9:11:37 AM > , 5. SITTING VITALS: 09/28/2020 0953 171/83-83-18-93% NOTES Marcus DAN RN COMPLETION OF PROCEDURE APPOINTMENT: POST PAIN 1 BILATERAL LOW BACK ABOVE BUTTOCKS, DRESSING SITE DRY AND INTACT BIALTERAL LOW BACK, IV N/A, GAIT STEADY, TEACHING COMPLETED, PATIENT ACKNOWLEDGES UNDERSTANDING YES PATIENT VERBALIZES UNDERSTANDING OF POST PROCEDURE INSTRUCTIONS REVIEWED, PROCEDURE APPOINTMENT COMPLETED AT 0954 BY: Marcus DAN RN PN TRIGGER POINT INJECTION WITH STEROIDS PRE PROCEDURE DIAGNOSIS 1. MYALGIA 2. PAIN AT BILATERAL LOW BACK AREA POST PROCEDURE DIAGNOSIS 1. MYALGIA 2. PAIN AT BILATERAL LOW BACK AREA PROCEDURE TRIGGER POINT INJECTION AT BILATERAL LOW BACK AREA SURGEON DR. 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 I EVALUATED THE PATIENT AND REVIEWED THE CHART. THERE IS EVIDENCE OF BANDS OF TISSUE WITH RESTRICTION OF MOVEMENT AND PRESENCE OF TRIGGER POINT AT THE RIGHT AND LEFT LOW BACK AREA. I WENT OVER THE RISKS, ALTERNATIVES, AND BENEFITS ASSOCIATED WITH THIS PROCEDURE. THE PATIENT WOULD LIKE TO PROCEED AND GIVE CONSENT TO PERFORMED THE PROCEDURE. THE PATIENT DENIES UNEXPLAINABLE WEIGHT LOSS, FEVER, CHILLS, OR NEW CHANGES IN URINARY OR BOWEL CONTROL. THE PATIENT IS COVID-19 NEGATIVE DESCRIPTION OF PROCEDURE THE PATIENT WAS BROUGHT TO THE PROCEDURE ROOM AND PLACED IN THE SITTING POSITION. THE AREA WAS CLEANED WITH ALCOHOL. THE PROCEDURE WAS DONE USING ASEPTIC STERILE TECHNIQUE. A TIMEOUT WAS PERFORMED WHERE THE CONSENTED SITE WAS VERIFIED WITH EVERYONE IN THE ROOM. USING A 25-GAUGE NEEDLE, TRIGGER POINTS WERE INJECTED AT THE RIGHT AND LEFT LOW BACK AREA WITH A TOTAL OF 40 ML OF BUPIVACAINE 0.25% AND KENALOG 40 MG. THE MEDICATIONS WERE VERIFIED WITH THE NURSE. THERE WAS NO EVIDENCE OF BLOOD OR PARESTHESIA DURING THE PROCEDURE. THE PATIENT WAS SENT TO THE RECOVERY ROOM. THE PATIENT WAS MOVING THE EXTREMITIES AND DOING WELL. THERE WERE NO COMPLICATIONS DURING THE PROCEDURE. ESTIMATED BLOOD LOSS WAS LESS THAN 5 ML POST PROCEDURE NOTE IF THE PAIN PERSITS, COSIDER SACROILIAC JOINT BLOCKS. THE PROCEDURE DONE WAS DISCUSSED WITH THE PATIENT. THE PATIENT WILL BE SEEN IN A FOLLOW UP IN THE NEXT FEW WEEKS. I AM LOOKING FOR LONG LASTING PAIN RELIEF FOR THE PATIENT WITH THIS INTERVENTION. INSTRUCTIONS WERE GIVEN, QUESTIONS WERE ANSWERED, AND THE PATIENT EXPRESSED UNDERSTANDING AND AGREES WITH THE PLAN. I, MATHEW CHUN, DOCUMENTED THE ABOVE INFORMATION ACTING A SCRIBE FOR DR. OWUSU. I HAVE REVIEWED THE ABOVE DOCUMENT, WRITTEN BY MATHEW CHUN, SIGNALS INTELLIGENCE ANALYST, AND I VERIFY THAT IT IS ACCURATE PROCEDURE CODES 48224 INJECT TRIGGER POINT, 1 OR 2 DISPOSITION & COMMUNICATION FOLLOW UP FOLLOW UP WITH BASEBALL SCOUT (REASON: POST TRIGGER POINT INJECTIONS BILATERAL LOW BACK) ELECTRONICALLY SIGNED BY PEBBELS OWUSU MD, MD ON 10/03/2020 AT 11:45 AM EDT DISCLAIMER : THIS IS A VISIT SUMMARY EXTRACTED FROM THE [employer] CHART. IT IS NOT A COPY OF THE [employer] PROGRESS NOTE. HÉCTORD
== END ==
LOC: M PAIN 08:30
PROVIDERS: ATTEND Anesthesiology
DX: M79.18 Myalgia, other site (principal); E11.9 Type 2 diabetes mellitus without complications; M54.5 Low back pain; G47.33 Obstructive sleep apnea (adult) (pediatric); M54.2 Cervicalgia; Z87.820 Personal history of traumatic brain injury; Z79.82 Long term (current) use of aspirin; Z79.891 Long term (current) use of opiate analgesic; Z79.899 Other long term (current) drug therapy; Z79.84 Long term (current) use of oral hypoglycemic drugs
CPT/HCPCS: 20552; J3301

== ENCOUNTER → 2020-12-07 | Outpatient (CLI) | payer OTHER ==
[~2020-12-07] MED LIST changes: -BUPIVACAINE HCL 0.25% 10ML VIAL As Ordered ONE; -BUPIVACAINE HCL 0.25% 30ML VIAL As Ordered ONE; -TRIAMCINOLONE ACETONIDE SUSP 40 MG/ML VIAL (J3301) As Ordered ONE
--- NOTE | 2020-12-14 04:21 | ECWPNPC ---
PATIENT NAME: REJI PICKARD : 1970 GENDER: MALE VISIT DATE: 12/07/2020 DISCHARGE DATE: 12/07/20 1133 VISIT LOCKED DATE TIME: PHYSICIAN: MARILEE EVANS RESOURCE: MARILEE EVANS REASON FOR APPOINTMENT 1. POST TRIGGER POINT INJECTIONS BILATERAL LOW BACK, BILATERAL THORACIC,BILATERAL BUTTOCKS HISTORY OF PRESENT ILLNESS DEPRESSION SCREENING: PHQ-2 (2015 EDITION) LITTLE INTEREST OR PLEASURE IN DOING THINGS?NOT AT ALL FEELING DOWN, DEPRESSED, OR HOPELESS?NOT AT ALL TOTAL SCORE0 GENERAL: HERE FOR POST PROCEDURE FOLLOW-UP. HAD TRIGGER POINT INJECTIONS BILATERAL LOW BACK AND BILATERAL THORACIC ON 09/28/2020. CONTINUES TO DO WELL POST PROCEDURE. HAS NOT NEEDED TO TAKE ANY PAIN MEDICATIONS SINCE PROCEDURE. CONTINUES TO WORK FULL-TIME. -. FALL RISK SCREENING: SCREENING : NO FALLS REPORTED IN THE LAST YEAR. PAIN SCREENING: PATIENT HAS A COMPLAINT OF ACUTE OR CHRONIC PAIN :YES LOCATION OF PAIN:LOW BACK INTENSITY OF PAIN (SCALE OF 1 TO 10):0 WHAT DOES YOUR PAIN FEEL LIKE:OTHER NOT IN ANY PAIN TODAY DURATION:CONTINOUS, CONSTANT, ALL DAY PAIN IS INCREASED BY:ACTIVITIES PAIN IS DECREASED BY:OTHERS RESTING NURSING NOTE: -. PAIN CENTER INTAKE QUESTIONS: DO YOU HAVE A HISTORY OF MRSA? :NO DO YOU TAKE A BLOOD THINNERS? :NO DO YOU HAVE ANY BLEEDING DISORDERS? :NO ANY NEW NUMBNESS OR WEAKNESS IN YOUR LEGS OR ARMS? :NO ANY PACEMAKER,DEFIBRILLATOR, OR DORSAL COLUMN STIMULATOR? :NO DO YOU HAVE ANY RASHES OR OPEN SORES? :NO ARE YOU ALLERGIC TO IV DYE? :NO ARE YOU DIABETIC? :YES ANY NEW PROBLEMS WITH YOUR MEDICATIONS? :NO HAVE YOU RECEIVED A VACCINE IN THE PAST 30 DAYS? :NO DO YOU PLAN TO RECEIVE A VACCINE IN THE NEXT 21 DAYS? :NO DO YOU NEED ANY PRESCRIPTION? :NO DO YOU TAKE ANY IMMUNOSUPPRESSIVE MEDICATIONS? :NO IS THERE A CHANCE YOU COULD BE ? :NO ARE YOU BREAST FEEDING? :NO CURRENT MEDICATIONS TAKING LISINOPRIL 10 MG TABLET 1/2 TABLET ORALLY ONCE A DAY TAKING DULOXETINE HCL 30 MG CAPSULE DELAYED RELEASE PARTICLES 1 CAPSULE ORALLY ONCE A DAY TAKING METFORMIN HCL 500 MG TABLET 2 TABLETS WITH MEALS ORALLY TWICE A DAY TAKING GLIPIZIDE ER 10 MG TABLET EXTENDED RELEASE 24 HOUR 1 TABLET ORALLY BID TAKING ASPIRIN 81 MG TABLET CHEWABLE 1 TABLET ORALLY ONCE A DAY TAKING VITAMIN D 2000 UNIT TABLET 1 TABLET ORALLY ONCE A DAY TAKING GABAPENTIN 300 MG CAPSULE 2 CAPSULES ORALLY THREE TIMES DAILY TAKING TRAMADOL HCL 50 MG TABLET 1 TABLET NEEDED ORALLY EVERY 6 HRS TAKING ATORVASTATIN CALCIUM 20 MG TABLET 1 TABLET ORALLY ONCE A DAY TAKING BUPROPION HCL 100 MG TABLET 1 TABLET ORALLY TWICE A DAY TAKING FLEXERIL 10 MG 1 CAP ORALLY TID PRN TAKING METOPROLOL SUCCINATE ER 50 MG TABLET EXTENDED RELEASE 24 HOUR 1 TABLET ORALLY ONCE A DAY TAKING GEMFIBROZIL 600 MG TABLET 1 TABLET ORALLY TWICE A DAY TAKING HYDROCODONE-ACETAMINOPHEN 5-325 MG TABLET 1 TABLET NEEDED ORALLY Q8H PRN MDD3 TAKING SOMA 350 MG TABLET 1 TABLET NEEDED ORALLY Q8H PRN MDD3 NOT-TAKING NORCO 5-325 MG TABLET 1 TO 2 ORALLY Q8H PRN MDD4, NOTES: DOESNT TAKE MUCH NOT-TAKING KETOROLAC TROMETHAMINE 10 MG TABLET 1 TABLET WITH FOOD OR MILK NEEDED ORALLY EVERY 6 HRS MEDICATION LIST REVIEWED AND RECONCILED WITH THE PATIENT PAST MEDICAL HISTORY DM STAN TX'D WITH CPAP AT NIGHT CHRONIC LBP L4 FX SHRAPNAL REMOVED NECK PAIN MULTIPLE BODY TRAUMA DUE TO IED EXPLOSION SCATTERED SHRAPNAL THROUGH OUT BODY TBI ALLERGIES N.K.D.A. SOCIAL HISTORY GENERAL: TOBACCO USE ARE YOU A:NONSMOKER LATEX QUESTIONNAIRE LATEX ALLERGY : HAVE YOU EVER DEVELOPED ANY TYPE OF REACTION AFTER HANDLING LATEX PRODUCTS SUCH RUBBER GLOVES, CONDOMS, DIAPHRAGMS, BALLOONS, SOCKS, OR UNDERWEAR?NO LATEX ALLERGY : HAVE YOU EVER DEVELOPED ANY TYPE OF REACTION DURING OR AFTER DENTAL APPOINTMENT, VAGINAL/RECTAL EXAMINATION, SURGICAL PROCEDURE, OR ANY OTHER EXPOSURE?NO LATEX RISK : HAVE YOU EVER HAD ANY DIFFICULTY BREATHING OR HIVES AFTER EATING OR HANDLING ANY FRUITS, OR VEGETABLES; SUCH KIWI, BANANAS, STONE FRUITS, OR CHESTNUTSNO LATEX RISK : DO YOU HAVE A PREVIOUS PERSONAL HISTORY OF MORE THAN NINE SURGERIES, SPINA BIFIDA, OR REPEATED CATHERIZATIONS? NO LATEX RISK : ARE YOU FREQUENTLY EXPOSED TO LATEX PRODUCTS IN YOUR OCCUPATION?NO DATE ASKED : 12/07/2020 ALCOHOL USE: YES. ALCOHOL SCREENING DID YOU HAVE A DRINK CONTAINING ALCOHOL IN THE PAST YEAR?YES HOW OFTEN DID YOU HAVE SIX OR MORE DRINKS ON ONE OCCASION IN THE PAST YEAR?NEVER (0 POINTS) HOW MANY DRINKS DID YOU HAVE ON A TYPICAL DAY WHEN YOU WERE DRINKING IN THE PAST YEAR?1 OR 2 (0 POINTS) HOW OFTEN DID YOU HAVE A DRINK CONTAINING ALCOHOL IN THE PAST YEAR?TWO TO FOUR TIMES A MONTH (2 POINTS) POINTS2 INTERPRETATIONNEGATIVE RECREATIONAL DRUG USE DRUG USE?NO CAFFEINE CAFFEINE USE?YES HOW OFTEN AND HOW MUCH? 5 CUPS COFFEE/DAY HIV / HEP-C SCREENING HIV TEST OFFERED TO PATIENT:YES DATE OFFERED:04/06/2018 TEST ACCEPTED:NO HEP-C TEST OFFERED TO PATIENT:NO REASON:PATIENT DECLINED BROCHURE PROVIDED TO PATIENTNO RELIGIOUS [id number] MUSLIM LANGUAGE LANGUAGES SPOKEN:UPPER SORBIAN LEARNING BARRIERS / SPECIAL NEEDS CHANGE FROM LAST VISIT?NO BARRIERS TO LEARNING?NO HEARING IMPAIRED?YES :HEARING AIDES BILATERAL VISION IMPAIRED?YES :CORRECTIVE LENSES COGNITIVELY IMPAIRED?NO READINESS TO LEARN?YES LEARNING PREFERENCES?NO LEARNING CAPABILITIES PRESENT?YES EMOTIONAL BARRIERS?NO SPECIAL DEVICES?YES :CANE ONLY USES WHEN HE NEEDS TO DUE TO BACK PAIN 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 CHILLS NO . WEIGHT CHANGE OF UNKNOWN REASONS NO . GASTROENTEROLOGY: NEW UNEXPLAINABLE CHANGES IN BOWEL CONTROL NO . CONSTIPATION NO . GENITOURINARY: ANY NEW CHANGE IN BLADDER CONTROL? NO . NEUROLOGY: NEW ONSET DIZZINESS OR NEUROLOGICAL CHANGES NOT MENTIONED NO . NEW NUMBNESS OR PAIN PATTERNS NOT MENTIONED AND PERTINENT TO TODAY'S VISIT NO . CARDIOLOGY: NEW CHEST PRESSURE NO . PATIENT DENIES NO . RESPIRATORY: UNEXPLAINABLE COUGH NO . NEW SHORTNESS OF BREATH NO . VITAL SIGNS WT 241 LBS, HT 68.5 IN, BMI 36.11 INDEX, BP 135/78 MM HG, HR 85 /MIN, RR 18 /MIN, TEMP 97 F, OXYGEN SAT % 96%, SAFE IN ENV? (Y/N) YEST.TALISHA STANLEY. EXAMINATION GENERAL EXAMINATION: GENERALAWAKE,ALERT ,PLEASANT . PSYCHAFFECT NORMAL . LUNGS:LUNG FOWLER ARE CLEAR TO AUSCULTATION BILATERALLY. GOOD MOVEMENT OF AIR . HEART:S1, S2 IN A REGULAR RATE AND RHYTHM. NO SIGNIFICANT MURMURS, RUBS OR GALLOPS NOTED . ASSESSMENTS MYALGIA, OTHER SITE - M79.18 (PRIMARY) OTHER CHRONIC PAIN - G89.29 TREATMENT MYALGIA, OTHER SITE NOTES: CONTINUE HOME EXERCISE AND STRETCHING. PROCEDURE CODES FA211 ESTABILISHED PATIENT FOR[facility]LY [facility] CHARGE DISPOSITION & COMMUNICATION FOLLOW UP 3 MONTHS (REASON: CHRONIC LOW BACK PAIN) ELECTRONICALLY SIGNED BY VANESSA MANCIA ON 12/13/2020 AT 01:43 PM EDT DISCLAIMER : THIS IS A VISIT SUMMARY EXTRACTED FROM THE [employer] CHART. IT IS NOT A COPY OF THE [employer] PROGRESS NOTE. HÉCTORD
== END ==
LOC: M PAIN 11:00
PROVIDERS: ATTEND Nurse Practitioner Family
DX: G89.29 Other chronic pain (principal); M79.18 Myalgia, other site; E11.9 Type 2 diabetes mellitus without complications; G47.33 Obstructive sleep apnea (adult) (pediatric); M54.5 Low back pain; M54.2 Cervicalgia; Z87.820 Personal history of traumatic brain injury; Z79.84 Long term (current) use of oral hypoglycemic drugs; Z79.82 Long term (current) use of aspirin; Z79.891 Long term (current) use of opiate analgesic; Z79.899 Other long term (current) drug therapy

== ENCOUNTER → 2021-03-09 | Outpatient (CLI) | payer OTHER | LOC: M PAIN 11:15 | PROVIDERS: ATTEND Anesthesiology | DX: M79.18 Myalgia, other site (principal); M54.50 Low back pain, unspecified; E11.9 Type 2 diabetes mellitus without complications; G47.33 Obstructive sleep apnea (adult) (pediatric); M54.2 Cervicalgia; Z87.820 Personal history of traumatic brain injury; Z79.891 Long term (current) use of opiate analgesic; Z79.84 Long term (current) use of oral hypoglycemic drugs; Z79.899 Other long term (current) drug therapy ==

== ENCOUNTER → 2021-05-24 | Outpatient (CLI) | payer OTHER | LOC: M LABSMTC 10:59 | PROVIDERS: ATTEND Anesthesiology | DX: Z11.52 Encounter for screening for COVID-19 (principal); Z20.822 Contact with and (suspected) exposure to COVID-19 ==

== ENCOUNTER → 2021-05-29 | Outpatient (CLI) | payer OTHER ==
[~2021-05-29] MED LIST changes: +BUPIVACAINE HCL 0.25% 10ML VIAL As Ordered ONE; +BUPIVACAINE HCL 0.25% 30ML VIAL As Ordered ONE; +TRIAMCINOLONE ACETONIDE SUSP 40 MG/ML VIAL (J3301) As Ordered ONE
== END ==
LOC: M PAIN 08:30
PROVIDERS: ATTEND Anesthesiology
DX: M79.18 Myalgia, other site (principal); E11.9 Type 2 diabetes mellitus without complications; G47.33 Obstructive sleep apnea (adult) (pediatric); M54.50 Low back pain, unspecified; M54.2 Cervicalgia; Z87.820 Personal history of traumatic brain injury; Z79.84 Long term (current) use of oral hypoglycemic drugs; Z79.82 Long term (current) use of aspirin; Z79.891 Long term (current) use of opiate analgesic; Z79.899 Other long term (current) drug therapy
CPT/HCPCS: 20552; J3301

== ENCOUNTER → 2021-09-21 | Outpatient (CLI) | payer OTHER ==
[~2021-09-21] MED LIST changes: -BUPIVACAINE HCL 0.25% 10ML VIAL As Ordered ONE; -BUPIVACAINE HCL 0.25% 30ML VIAL As Ordered ONE; -LISI-898 PO; +LISI5TAB11 PO; -TRIAMCINOLONE ACETONIDE SUSP 40 MG/ML VIAL (J3301) As Ordered ONE
== END ==
LOC: M PAIN 10:15
PROVIDERS: ATTEND Nurse Practitioner Family
DX: M79.10 Myalgia, unspecified site (principal); E11.9 Type 2 diabetes mellitus without complications; G47.33 Obstructive sleep apnea (adult) (pediatric); M54.50 Low back pain, unspecified; M54.2 Cervicalgia; Z87.820 Personal history of traumatic brain injury; Z79.82 Long term (current) use of aspirin; Z79.891 Long term (current) use of opiate analgesic; Z79.899 Other long term (current) drug therapy

== ENCOUNTER → 2022-01-28 | Outpatient (REF) | LOC: M RAD 13:21 | PROVIDERS: ATTEND Physician Assistant Medical | DX: M50.30 Other cervical disc degeneration, unspecified cervical region (principal) ==

== ENCOUNTER → 2023-01-09 | Outpatient (CLI) | payer OTHER | LOC: M PAIN 10:15 | PROVIDERS: ATTEND Nurse Practitioner Family | DX: M54.2 Cervicalgia (principal); G89.29 Other chronic pain; M54.50 Low back pain, unspecified; E11.9 Type 2 diabetes mellitus without complications; G47.33 Obstructive sleep apnea (adult) (pediatric); Z87.820 Personal history of traumatic brain injury; Z79.84 Long term (current) use of oral hypoglycemic drugs; Z79.82 Long term (current) use of aspirin; Z79.899 Other long term (current) drug therapy ==

== ENCOUNTER → 2023-02-06 | Outpatient (CLI) | payer OTHER | LOC: M PLAIMG 11:12 | PROVIDERS: ATTEND Nurse Practitioner Family | DX: M50.322 Other cervical disc degeneration at C5-C6 level (principal); M50.323 Other cervical disc degeneration at C6-C7 level; M47.812 Spondylosis without myelopathy or radiculopathy, cervical region ==

== ENCOUNTER → 2023-04-03 | Outpatient (CLI) | payer OTHER ==
[~2023-04-03] MED LIST changes: +TRIAMCINOLONE ACETONIDE SUSP 40MG/ML 1ML VIAL As Ordered ONE
== END ==
LOC: M PAIN 14:15
PROVIDERS: ATTEND Anesthesiology
DX: M79.12 Myalgia of auxiliary muscles, head and neck (principal); M79.18 Myalgia, other site; E11.9 Type 2 diabetes mellitus without complications; G47.33 Obstructive sleep apnea (adult) (pediatric); M54.50 Low back pain, unspecified; G89.29 Other chronic pain; M54.2 Cervicalgia; Z87.820 Personal history of traumatic brain injury; Z79.84 Long term (current) use of oral hypoglycemic drugs; Z79.82 Long term (current) use of aspirin; Z79.899 Other long term (current) drug therapy
CPT/HCPCS: 20552; J0665; J3301

== ENCOUNTER → 2023-05-08 | Outpatient (CLI) | payer OTHER ==
[~2023-05-08] MED LIST changes: -TRIAMCINOLONE ACETONIDE SUSP 40MG/ML 1ML VIAL As Ordered ONE
== END ==
LOC: M PAIN 15:30
PROVIDERS: ATTEND Nurse Practitioner Family
DX: M50.10 Cervical disc disorder with radiculopathy, unspecified cervical region (principal); M79.18 Myalgia, other site; G89.29 Other chronic pain; E11.9 Type 2 diabetes mellitus without complications; G47.33 Obstructive sleep apnea (adult) (pediatric); M54.50 Low back pain, unspecified; Z79.84 Long term (current) use of oral hypoglycemic drugs; Z79.82 Long term (current) use of aspirin; Z79.899 Other long term (current) drug therapy

== ENCOUNTER → 2023-06-25 | Outpatient (CLI) | payer OTHER ==
[~2023-06-25] MED LIST changes: +ISOVUE-M 300 61% 15ML VIAL As Ordered ONE; +LIDOCAINE 1% SDV 30ML VIAL As Ordered ONE; +NORCO, ANEXSIA 5/325MG TABLET (HYDROcodone/ACETAMINOPHEN) As Ordered ONE; +diazePAM 5MG TABLET As Ordered ONE; +methylPREDNISolone SUSP 40MG/ML 1ML VIAL (DEPO MEDROL) As Ordered ONE
== END ==
LOC: M PAIN 10:30
PROVIDERS: ATTEND Anesthesiology
DX: M50.13 Cervical disc disorder with radiculopathy, cervicothoracic region (principal); E11.9 Type 2 diabetes mellitus without complications; G47.33 Obstructive sleep apnea (adult) (pediatric); Z87.820 Personal history of traumatic brain injury; Z79.82 Long term (current) use of aspirin; Z79.84 Long term (current) use of oral hypoglycemic drugs; Z79.899 Other long term (current) drug therapy
CPT/HCPCS: 62321; J1030; Q9967

== ENCOUNTER → 2023-07-18 | Outpatient (CLI) | payer OTHER ==
[~2023-07-18] MED LIST changes: -ISOVUE-M 300 61% 15ML VIAL As Ordered ONE; -LIDOCAINE 1% SDV 30ML VIAL As Ordered ONE; -NORCO, ANEXSIA 5/325MG TABLET (HYDROcodone/ACETAMINOPHEN) As Ordered ONE; -diazePAM 5MG TABLET As Ordered ONE; -methylPREDNISolone SUSP 40MG/ML 1ML VIAL (DEPO MEDROL) As Ordered ONE
== END ==
LOC: M PAIN 17:30
PROVIDERS: ATTEND Nurse Practitioner Family
DX: M50.10 Cervical disc disorder with radiculopathy, unspecified cervical region (principal); G89.29 Other chronic pain; E11.9 Type 2 diabetes mellitus without complications; G47.33 Obstructive sleep apnea (adult) (pediatric); M54.50 Low back pain, unspecified; Z87.820 Personal history of traumatic brain injury; Z79.82 Long term (current) use of aspirin; Z79.899 Other long term (current) drug therapy

== ENCOUNTER → 2023-08-21 | Outpatient (CLI) | payer OTHER | LOC: M PAIN 17:00 | PROVIDERS: ATTEND Nurse Practitioner Family | DX: M50.10 Cervical disc disorder with radiculopathy, unspecified cervical region (principal); G89.29 Other chronic pain; E11.9 Type 2 diabetes mellitus without complications; G47.33 Obstructive sleep apnea (adult) (pediatric); M54.50 Low back pain, unspecified; Z87.820 Personal history of traumatic brain injury; Z79.82 Long term (current) use of aspirin; Z79.899 Other long term (current) drug therapy ==

== ENCOUNTER → 2023-09-30 | Outpatient (CLI) | payer OTHER | LOC: M PAIN 11:45 | PROVIDERS: ATTEND Nurse Practitioner Family | DX: M50.10 Cervical disc disorder with radiculopathy, unspecified cervical region (principal); G89.29 Other chronic pain; E11.9 Type 2 diabetes mellitus without complications; G47.33 Obstructive sleep apnea (adult) (pediatric); M54.50 Low back pain, unspecified; Z87.820 Personal history of traumatic brain injury; Z79.82 Long term (current) use of aspirin; Z79.84 Long term (current) use of oral hypoglycemic drugs; Z79.891 Long term (current) use of opiate analgesic; Z79.899 Other long term (current) drug therapy ==

== ENCOUNTER → 2023-12-19 | Outpatient (CLI) | payer OTHER ==
[~2023-12-19] MED LIST changes: +ISOVUE-M 300 61% 15ML VIAL As Ordered ONE; +LIDOCAINE 1% SDV 30ML VIAL As Ordered ONE; +NORCO, ANEXSIA 5/325MG TABLET (HYDROcodone/ACETAMINOPHEN) As Ordered ONE; +dexAMETHasone 10MG/1ML VIAL PRES.FREE As Ordered ONE; +diazePAM 5MG TABLET As Ordered ONE
== END ==
LOC: M PAIN 08:00
PROVIDERS: ATTEND Anesthesiology
DX: M50.13 Cervical disc disorder with radiculopathy, cervicothoracic region (principal); G89.29 Other chronic pain; E11.9 Type 2 diabetes mellitus without complications; G47.33 Obstructive sleep apnea (adult) (pediatric); M54.50 Low back pain, unspecified; Z87.820 Personal history of traumatic brain injury; Z79.82 Long term (current) use of aspirin; Z79.891 Long term (current) use of opiate analgesic; Z79.899 Other long term (current) drug therapy
CPT/HCPCS: 62321; J1100; Q9967

== ENCOUNTER → 2024-01-19 | Outpatient (CLI) | payer OTHER ==
[~2024-01-19] MED LIST changes: -ISOVUE-M 300 61% 15ML VIAL As Ordered ONE; -LIDOCAINE 1% SDV 30ML VIAL As Ordered ONE; -NORCO, ANEXSIA 5/325MG TABLET (HYDROcodone/ACETAMINOPHEN) As Ordered ONE; -dexAMETHasone 10MG/1ML VIAL PRES.FREE As Ordered ONE; -diazePAM 5MG TABLET As Ordered ONE
== END ==
LOC: M PAIN 11:30
PROVIDERS: ATTEND Nurse Practitioner Family
DX: M50.10 Cervical disc disorder with radiculopathy, unspecified cervical region (principal); G89.29 Other chronic pain; E11.9 Type 2 diabetes mellitus without complications; G47.33 Obstructive sleep apnea (adult) (pediatric); M54.50 Low back pain, unspecified; Z87.820 Personal history of traumatic brain injury; Z79.82 Long term (current) use of aspirin; Z79.891 Long term (current) use of opiate analgesic; Z79.899 Other long term (current) drug therapy

== ENCOUNTER → 2024-06-07 | Outpatient (CLI) | payer OTHER ==
[~2024-06-07] MED LIST changes: -LIDO4CRE4 TOP; +LIDO5CRE7 TOP
== END ==
LOC: M PAIN 11:15
PROVIDERS: ATTEND Nurse Practitioner Family
DX: M79.18 Myalgia, other site (principal); G89.29 Other chronic pain; M54.2 Cervicalgia; M54.50 Low back pain, unspecified; E11.9 Type 2 diabetes mellitus without complications; G47.33 Obstructive sleep apnea (adult) (pediatric); Z87.820 Personal history of traumatic brain injury; Z79.891 Long term (current) use of opiate analgesic; Z79.899 Other long term (current) drug therapy

== ENCOUNTER → 2024-06-24 | Outpatient (CLI) | payer OTHER ==
[~2024-06-24] MED LIST changes: +NORCO, ANEXSIA 5/325MG TABLET (HYDROcodone/ACETAMINOPHEN) As Ordered ONE; +TRIAMCINOLONE ACETONIDE SUSP 40MG/ML 1ML VIAL As Ordered ONE; +diazePAM 5MG TABLET As Ordered ONE
== END ==
LOC: M PAIN 14:30
PROVIDERS: ATTEND Anesthesiology
DX: M79.18 Myalgia, other site (principal); M79.10 Myalgia, unspecified site; G89.29 Other chronic pain; E11.9 Type 2 diabetes mellitus without complications; M54.2 Cervicalgia; Z79.82 Long term (current) use of aspirin; Z79.891 Long term (current) use of opiate analgesic; Z79.899 Other long term (current) drug therapy
CPT/HCPCS: 20552; J0665; J3301